=== PATIENT | male | born 1985 | race Caucasian/White ===

== ENCOUNTER 2022-07-17 09:07 | Emergency (ER) | payer MEDICAID, SELFPAY ==
[2022-07-17 09:07] VITALS: BP 126/89; PULSE 102; RESP 16; TEMP 37.1; O2SAT 97; BMI 25.5
--- NOTE | 2022-07-17 10:48 | EX.ED.DYSGE1 ---
HPI History of Present Illness Chief Complaint: General Illness Narrative Narrative: 37-year-old male presenting with a fever that started this morning and some congestion.Normal this morning and the fever is gone away. He does not have any chills or body aches. He does not have nausea or vomiting. Patient is here with his daughter who has been having similar symptoms for 3 days. No other sick contacts. He denies chest pain or shortness of breath. PFSH PFSH Medical History no medical history Home Medications amantadine HCl 100 mg capsule 100 mg PO BID 07/17/22 [History Last Taken Unknown] buspirone 5 mg tablet 5 mg PO BID 07/17/22 [History Last Taken Unknown] buspirone 7.5 mg tablet 7.5 mg PO BID 07/17/22 [History Last Taken Unknown] divalproex 500 mg tablet,delayed release (Depakote) 500 mg PO BID 07/17/22 [History Last Taken Unknown] escitalopram oxalate 10 mg tablet 10 mg PO DAILY 07/17/22 [History Last Taken Unknown] risperidone 2 mg tablet 2 mg PO QHS 07/17/22 [History Last Taken Unknown] sertraline 100 mg tablet 100 mg PO DAILY 07/17/22 [History Last Taken Unknown] sertraline 50 mg tablet 50 mg PO DAILY 07/17/22 [History Last Taken Unknown] Allergy/AdvReac Type Severity Reaction Status Date / Time haloperidol [From Haldol] Allergy Other Verified 07/17/22 09:10 olanzapine [From Zyprexa] Allergy Other Verified 07/17/22 09:10 Social History Smoking Status: Current every day smoker tobacco type: cigarettes EXAM Physical Exam Const Vital Signs: 07/17/22 09:07 07/17/22 09:18 Temperature 98.8 F Temperature Source Temporal Pulse Rate 102 H Respiratory Rate 16 Respiratory Effort Normal Non-Labored Respiratory Pattern Normal Blood Pressure 126/89 H Blood Pressure Mean 101 Pulse Ox 97 Oxygen Delivery Method Room Air Positive well nourished General Appearance ED: NAD; Negative for pallor HEENT Reports moist mucous membranes Eyes PERRL and EOMs intact bilaterally Neck no lymphadenopathy Chest Wall inspection of chest normal and palpation of chest normal Resp normal respiratory effort and clear to auscultation bilaterally Auscultation: Negative for rales, rhonchi or wheezes Cardio regular rate and regular rhythm GI normal to inspection, nondistended, normoactive bowel sounds Neuro oriented x3 and CN's II-XII intact bilaterally Sensorium / Orientation: alert Psych mental status grossly normal Skin no rashes or lesions noted and no wounds General Skin Exam: Negative for jaundice or pallor MDM MDM MDM Narrative Medical decision making narrative: Patient presenting with viral symptoms.. He took Tylenol today and his fever went away. He does not have a significant cough but he does admit to some congestion. No body aches or chills. He tested negative for COVID and influenza today. His daughter who is here with tested positive for influenza A. Counseled him it is likely that he has influenza A and tested negative. He is counseled to use Tylenol and ibuprofen for pain and fevers. He request Zofran for home in case he gets nauseous. Impression: 1. Viral syndrome Lab Data Attestation: I reviewed the patient's lab results. Discharge Plan Triage Chief Complaint: General Illness ED Provider: Dex Cespedes Dx/Rx/DC Orders Prescriptions: No Action buspirone 5 mg tablet 5 mg PO BID Label Comments: Take 1 Tablet By Oral Route 2 times per day sertraline 100 mg tablet 100 mg PO DAILY Label Comments: Take 1 Tablet By Oral Route 1 time per day divalproex [Depakote] 500 mg tablet,delayed release (DR/EC) 500 mg PO BID Label Comments: Take 1 tablet by mouth twice a day amantadine HCl 100 mg capsule 100 mg PO BID Label Comments: TAKE 1 CAPSULE BY MOUTH TWICE DAILY risperidone 2 mg tablet 2 mg PO QHS Label Comments: Take 1 tablet by mouth at bedtime buspirone 7.5 mg tablet 7.5 mg PO BID Label Comments: Take 1 tablet by mouth twice a day sertraline 50 mg tablet 50 mg PO DAILY Label Comments: Take 1 Tablet By Oral Route 1 time per day escitalopram oxalate 10 mg tablet 10 mg PO DAILY Label Comments: Take 1 tablet by mouth once a day Primary Care Provider: Linda Rosario Referrals: Linda Rosario MD [Primary Care Provider] -
== END 2022-07-17 11:08 | disposition home or self-care (01) ==
PROVIDERS: Emergency Provider Student in an Organized Health Care Education/Training Program; PCP Family Medicine; Visit Provider Student in an Organized Health Care Education/Training Program
DX: B34.9 Viral infection, unspecified (principal); F17.210 Nicotine dependence, cigarettes, uncomplicated
CPT/HCPCS: 87428; 99282

== ENCOUNTER 2023-01-07 11:19 | Emergency (ER) | payer MEDICAID, SELFPAY ==
[2023-01-07 11:20] VITALS: BP 148/92; PULSE 91; RESP 16; TEMP 36.6; O2SAT 99; BMI 24.2
--- NOTE | 2023-01-07 11:30 | EX.ED.DYSGE1 ---
HPI History of Present Illness Chief Complaint: Sore Throat PFSH PFSH Medical History no medical history Home Medications amantadine HCl 100 mg capsule 100 mg PO BID 07/17/22 [History Last Taken Unknown] buspirone 5 mg tablet 5 mg PO BID 07/17/22 [History Last Taken Unknown] buspirone 7.5 mg tablet 7.5 mg PO BID 07/17/22 [History Last Taken Unknown] divalproex 500 mg tablet,delayed release (Depakote) 500 mg PO BID 07/17/22 [History Last Taken Unknown] escitalopram oxalate 10 mg tablet 10 mg PO DAILY 07/17/22 [History Last Taken Unknown] ondansetron 4 mg disintegrating tablet 4 mg PO Q8H PRN nausea and vomiting #10 tabs 07/17/22 [Rx Last Taken Unknown] risperidone 2 mg tablet 2 mg PO QHS 07/17/22 [History Last Taken Unknown] sertraline 100 mg tablet 100 mg PO DAILY 07/17/22 [History Last Taken Unknown] sertraline 50 mg tablet 50 mg PO DAILY 07/17/22 [History Last Taken Unknown] Allergy/AdvReac Type Severity Reaction Status Date / Time haloperidol [From Haldol] Allergy Other Verified 07/17/22 09:10 lithium AdvReac Other Verified 01/07/23 11:22 olanzapine [From Zyprexa] AdvReac Other Verified 01/07/23 11:22 Social History Smoking Status: Current every day smoker tobacco type: cigarettes EXAM Physical Exam Const Vital Signs: 01/07/23 11:20 Temperature 97.9 F Temperature Source Temporal Pulse Rate 91 Respiratory Rate 16 Blood Pressure 148/92 H Blood Pressure Mean 110 Pulse Ox 99 Oxygen Delivery Method Room Air MDM MDM MDM Narrative Medical decision making narrative: HISTORY OF PRESENT ILLNESS: 37-year-old male here for sore throat. Patient states his symptoms started 3 days ago. No sick contact. States his girlfriend's daughter had viral pharyngitis. He states he does have a cough that is productive of yellow sputum. He does note shortness of breath but denies any chest pain. He denies any headache. Denies any neck stiffness drooling or difficulty swallowing. The patient denies recent surgery in the last 4 weeks or immobilization in the last 3 days, denies previous diagnosis of DVT or PE, hemoptysis, unilateral leg swelling or malignancy with treatment the last 6 months. No estrogen use noted. REVIEW OF SYSTEMS: Pertinent positives: Sore throat, cough, shortness of breath Pertinent negatives: Chest pain, syncope, leg swelling PHYSICAL EXAM: Nursing triage notes reviewed, Vital signs reviewed Constitutional: please see mdm HENT: MMM, mild pharyngeal erythema, uvula midline, no submandibular edema, Eyes: Pupils equal round and reactive to light, Extraocular muscles intact Neck: No stridor, no JVD, full neck ROM Lungs: Clear to auscultation, No wheezing or rales. No increased work of breathing, no conversational dyspnea, no accessory muscle use, no nasal flaring. No respiratory distress noted Heart: Regular rate and rhythm, No murmurs, No rubs and No gallops, 2+ distal pulses (radial, femoral, posterior tibial) in all extremities Abdomen: Soft, there is no tenderness, rigidity, rebound or guarding, no obvious peritoneal signs, no palpable pulsatile abdominal masses, no auscultated abdominal bruit : No CVAT Extremities: No edema Neuro: No focal neurological deficits, cranial nerves II through XII intact, 5/5 strength in all extremities. Intact sensation to light touch in all extremities, 2+ reflexes bilateral patella tendons. Normal gait. No ataxia. Skin: No rash or lesions noted MEDICAL DECISION MAKING: Chief Complaint: Sore throat, cough External records reviewed: No recent ED visits Factors affecting care: Depression, anxiety Social determinants of health: hx of mental health diagnoses History obtained from others: none Consults: None ALL IMAGES HAVE BEEN PERSONALLY REVIEWED AND INTERPRETED BY MYSELF. [facility] Narrative: The patient was hemodynamically stable, afebrile, nontoxic-appearing. No focal cardiopulmonary abnormalities, no focal consolidative processes noted auscultation. No signs of RPA, MEDICARE SPECIALIST, Lemierre's syndrome with Ludewig's angina on exam. I considered the following differential diagnosis: Bacterial versus viral pharyngitis, viral URI, pneumonia, COVID, flu I obtained a chest x-ray to rule out evidence of pneumonia. Chest x-ray was negative by my read. I Obtained swabs to rule out strep, COVID and flu. Microbiological studies and images were remarkable for negative COVID and flu. No clear etiology likely viral pharyngitis. The patient is given Tylenol, ibuprofen and fluid instructions. He expressed understanding and agreed with the plan. Total critical care time today provided was at least 0 minutes. This excludes separately billable procedures. There was a high probability of clinically significant/life threatening deterioration in the patient's condition which required my urgent intervention. Shared decision making: I will have a discussion with the patient and or visitors regarding risk/benefits of further testing or admission. They will be made aware of of the risk/benefits inherent in this decision they will be given the opportunity to voice understanding. Radiography Chest X-Ray - ED: Read by ED Physician Diagnostic Testing: Clinical Impression(s) from Imaging Studies Chest X-Ray 01/07/23 12:18 IMPRESSION: No radiographic evidence of acute cardiopulmonary disease. Electronically Signed: Sherrell Hoyt MD at 12:28 EDT , I have personally reviewed the patient's chest x-ray. Chest x-ray is unremarkable for pulmonary edema, pneumothorax, pneumonia or focal cardiopulmonary abnormality. Discharge Plan Triage Chief Complaint: Sore Throat ED Provider: Christiano Meneses Dx/Rx/DC Orders Clinical Impression: History of viral pharyngitis Instructions: ED Pharyngitis, Viral Prescriptions: No Action buspirone 5 mg tablet 5 mg PO BID Label Comments: Take 1 Tablet By Oral Route 2 times per day sertraline 100 mg tablet 100 mg PO DAILY Label Comments: Take 1 Tablet By Oral Route 1 time per day divalproex [Depakote] 500 mg tablet,delayed release (DR/EC) 500 mg PO BID Label Comments: Take 1 tablet by mouth twice a day amantadine HCl 100 mg capsule 100 mg PO BID Label Comments: TAKE 1 CAPSULE BY MOUTH TWICE DAILY risperidone 2 mg tablet 2 mg PO QHS Label Comments: Take 1 tablet by mouth at bedtime buspirone 7.5 mg tablet 7.5 mg PO BID Label Comments: Take 1 tablet by mouth twice a day sertraline 50 mg tablet 50 mg PO DAILY Label Comments: Take 1 Tablet By Oral Route 1 time per day escitalopram oxalate 10 mg tablet 10 mg PO DAILY Label Comments: Take 1 tablet by mouth once a day ondansetron 4 mg tablet,disintegrating 4 mg PO Q8H PRN (Reason: nausea and vomiting) Qty: 10 0RF Stand Alone Forms: ED Work / School Excuse Primary Care Provider: Marta Lauren Referrals: Marta Lauren, [employer] MACHINE OPERATOR-C [Primary Care Provider] - Activity Restrictions/Additional Instructions: Thank you for trusting us with your care today! Please take Tylenol (2 pills, 650 mg), ibuprofen (2 pills, 400 mg) every 6 hours as needed for pain and fever control. Please drink plenty of fluids. I recommend Pedialyte or body armor as these contain electrolytes as well for improved hydration. Please return if you develop difficulty swallowing, neck stiffness, drooling, inability to take your medicine by mouth. Please return to the emergency department if your symptoms change or worsen. Please follow with your primary care physician for further outpatient evaluation and management. Disposition Disposition: Home, Self Care
--- NOTE | 2023-01-07 12:18 | RAD_ITS ---
INDICATION: cough, shortness of breath EXAMINATION/TECHNIQUE: X-RAY - XR Chest 2 Views COMPARISON: FINDINGS: LINES/DEVICES: None. LUNGS: No consolidation, edema or effusion. No pneumothorax. MEDIASTINUM AND CARDIOVASCULAR STRUCTURES: Cardiac silhouette not enlarged. Central airways and mediastinal contour are unremarkable. BONES AND SOFT TISSUES: Unremarkable. RAD/Chest PA and Lateral IMPRESSION: No radiographic evidence of acute cardiopulmonary disease. Electronically Signed: Sherrell Hoyt MD at 12:28 EDT ,
== END 2023-01-07 14:33 | disposition home or self-care (01) ==
PROVIDERS: Emergency Provider Emergency Medicine; PCP Nurse Practitioner Family; Visit Provider Emergency Medicine
DX: J02.9 Acute pharyngitis, unspecified (principal); F17.210 Nicotine dependence, cigarettes, uncomplicated
CPT/HCPCS: 71046; 87428; 87880; 99282

== ENCOUNTER → 2023-01-19 | Outpatient (CLI) | payer MEDICAID, SELFPAY ==
[2023-01-19 18:14] LABS: Bacteria 0 SEEN /hpf (None Seen); Mucous, Urine 0 SEEN /hpf (<or=2+); Red Blood Cells-Urine 0 SEEN /hpf (0-5); Squamous Epithelial Cells - UA 0 SEEN /hpf (0-5)
[2023-01-19 18:41] LABS: Color, Urine Yellow (Yellow); Glucose, Dipstick Normal (Normal); Ketone-Dipstick Negative (Negative); Leukocyte Esterase-Dipstick Negative /ul (Negative); Nitrite-Dipstick Negative (Negative); Occult Blood-Urine Negative /ul (Negative); Protein-Dipstick Negative (Negative); Urine Bilirubin Dipstick Negative (Negative); Urine Clarity Sl. Cloudy (Clear); Urine Urobilinogen Normal (Normal)
[2023-01-19 18:50] LABS: Amorphous Sediment 1+; White Blood Cells 0-5 SEEN /hpf (0-5)
== END | disposition home or self-care (01) ==
PROVIDERS: PCP Nurse Practitioner Family; Visit Provider Physician Assistant Surgical
DX: R30.0 Dysuria (principal)
CPT/HCPCS: 81001; 87086

== ENCOUNTER 2023-01-24 11:08 | Emergency (ER) | payer MEDICAID, SELFPAY ==
[2023-01-24 11:09] VITALS: BP 123/85; PULSE 61; RESP 16; TEMP 36.3; O2SAT 100; BMI 24.4
--- NOTE | 2023-01-24 11:42 | CT_ITS ---
EXAM: CT ABDOMEN AND PELVIS WITHOUT INTRAVENOUS CONTRAST CLINICAL INDICATION: Flank pain TECHNIQUE: Helically acquired images were obtained of the abdomen and pelvis without intravenous contrast. This CT exam was performed using one or more of the following dose reduction techniques: automated exposure control, adjustment of the mA and/or kV according to patient size, and/or use of iterative reconstruction technique. RADIATION DOSE: CTDIvol = 6.85 mGy, DLP = 361.13 mGy-cm COMPARISON: No relevant prior studies available. FINDINGS: LOWER THORAX: Unremarkable. Lung bases are clear. No cardiomegaly. No significant pericardial effusion. ABDOMEN: LIVER: Unremarkable. Homogeneous. GALLBLADDER AND BILE DUCTS: Unremarkable. No calcified gallstones. No gallbladder distention or wall edema. No intra- or extrahepatic biliary ductal dilation. PANCREAS: Unremarkable. No focal cystic mass. SPLEEN: Unremarkable. Normal size without focal cystic or solid mass. ADRENALS: Unremarkable. No nodules. KIDNEYS AND URETERS: Unremarkable. Normal renal size and position. No hydronephrosis. STOMACH AND BOWEL: Unremarkable. No stomach or bowel distention. No focal inflammatory change. PELVIS: APPENDIX: Normal. BLADDER: Unremarkable. REPRODUCTIVE: Unremarkable as visualized. No mass. ABDOMEN and PELVIS: INTRAPERITONEAL SPACE: Unremarkable. No ascites or other fluid collection. No free air. BONES/JOINTS: Unremarkable. No suspicious lytic or blastic abnormality. SOFT TISSUES: Unremarkable. No discrete abdominal or pelvic wall hernia. VASCULATURE: Unremarkable. Abdominal aorta is non-dilated. LYMPH NODES: Unremarkable. No enlarged lymph nodes. CT/Abdomen/Pelvis without Cont IMPRESSION: Negative CT of the abdomen and pelvis without intravenous contrast. Electronically Signed: Manas Scott MD at 12:56 EDT ,
--- NOTE | 2023-01-24 11:59 | EDS_ITS ---
HPI History of Present Illness Chief Complaint: Complaint Onset/Context/Timing Onset: Month(s) (1) Context: Gradual Onset Timing: Continuous Quality: Burning Location: Urethra Worsened by: Urination Relieved by: Nothing Narrative Narrative: Patient presents with dysuria that has been constant for the last month. Patient states he has had a urinary tract infection where they noticed bacteria in his urine. Patient was given an antibiotic for urinary tract infection along with antibiotics to treat chlamydia, trichomonas, and syphilis. Patient states he completed a course of doxycycline and azithromycin. Patient admits to some white/yellow discharge approximately 2 weeks ago. Patient denies any discharge currently. Patient does admit to some bilateral flank pain that is slightly worse on the right. Patient states his fianc?e tested positive for chlamydia a couple weeks ago. Patient was retested after treatment and was negative. [facility] Medical History Hypertension Seizure Stomach ulcer Home Medications azithromycin 500 mg tablet 500 mg PO DAILY #4 tabs 01/19/23 [Rx Last Taken Unknown] doxycycline hyclate 100 mg capsule 100 mg PO BID 10 days #20 caps 01/19/23 [Rx Last Taken Unknown] melatonin 10 mg capsule 10 mg PO HS PRN 01/19/23 [History Last Taken Unknown] Allergy/AdvReac Type Severity Reaction Status Date / Time haloperidol [From Haldol] Allergy Other Verified 01/24/23 11:11 lithium AdvReac Other Verified 01/24/23 11:11 olanzapine [From Zyprexa] AdvReac Other Verified 01/24/23 11:11 Surgical History History of esophagogastroduodenoscopy (EGD) Social History Smoking Status: Current every day smoker tobacco type: cigarettes ROS ROS ED Constitutional Constitutional ED: Denies chills or fever(s) Eyes Eyes: Denies blurry vision or change in vision ENT ENT ED: Denies rhinorrhea or sore throat Cardiovascular Cardiovascular: Denies chest pain or palpitations Respiratory/Chest Respiratory/Chest: Denies cough or dyspnea Gastrointestinal Gastrointestinal: Reports abdominal pain; Denies nausea or vomiting Genitourinary Genitourinary ED: Reports dysuria and hematuria Musculoskeletal Musculoskeletal: Reports back pain; Denies neck pain Integumentary Denies abscess or rash Neurologic Neurologic: Denies headache(s) or weakness Allergic/Immunologic Allergic/Immunologic ED: Denies mouth swelling or urticaria EXAM Physical Exam Const Vital Signs: 01/24/23 11:09 Temperature 97.4 F L Temperature Source Temporal Pulse Rate 61 Respiratory Rate 16 Blood Pressure 123/85 H Blood Pressure Mean 97 Pulse Ox 100 Oxygen Delivery Method Room Air Positive well nourished and well developed General Appearance ED: well developed HEENT Reports moist mucous membranes Neck supple and no JVD Resp normal respiratory effort and clear to auscultation bilaterally Cardio regular rate, regular rhythm and no murmurs GI normal to inspection, nondistended, normoactive bowel sounds Palpation: soft and tender LLQ, RLQ and suprapubic; Negative for guarding or rebound tenderness present Back/Spine General Back: CVA tenderness right Extremity normal to inspection General Extremety ED: Negative for edema or tenderness General Extremity: Negative for edema Neuro oriented x3, CN's II-XII intact bilaterally and no sensory deficits noted Sensorium / Orientation: alert Motor Exam: strength 5/5 throughout Psych mental status grossly normal Skin no rashes or lesions noted MDM MDM MDM Narrative Medical decision making narrative: Differential diagnosis includes urinary tract infection, urethritis, STD, and ureteral calculus. Urinalysis will be obtained to assess for urinary tract infection. CT scan of the abdomen pelvis will be obtained to assess for ureteral calculus. GC and chlamydia PCR will be obtained to assess for gonorrhea and chlamydia. Lab Data Attestation: I reviewed the patient's lab results. Lab results narrative: Urinalysis was reviewed. Leukocyte Estrace was 25. The remainder was within normal limits. There is no evidence of urinary tract infection or hematuria. Labs: Laboratory Results - last 24 hr 01/24/23 11:20 Urine Color Yellow Urine Clarity Clear Urine pH 5.0 Ur Specific [place] 1.020 Urine Protein 15 H Urine Glucose (UA) Normal Urine Ketones Negative Urine Occult Blood Negative Urine Nitrite Negative Urine Bilirubin Negative Urine Urobilinogen Normal Ur Leukocyte Esterase 25 H Urine RBC 0 SEEN Urine WBC 0 SEEN Ur Squamous Epith Cells 0 SEEN Urine Bacteria 0 SEEN Urine Mucus 0 SEEN Radiography Diagnostic Testing: Clinical Impression(s) from Imaging Studies Abdomen/Pelvis CT 01/24/23 11:42 IMPRESSION: Negative CT of the abdomen and pelvis without intravenous contrast. Electronically Signed: Manas Scott MD at 12:56 EDT , CT scan of the abdomen and pelvis was obtained. There is no evidence of ureteral calculus or hydronephrosis. There is no acute process noted. This was interpreted by the radiologist and was also independently reviewed by myself. Treatment and Re-Evaluation :: Patient was advised of his findings. Patient was advised that the GC and chlamydia PCR is still pending. Patient was given a dose of Rocephin, Zithromax, and metronidazole here to cover for all sexually transmitted diseases. Patient was instructed to follow-up with his primary care physician in 5 to 7 days. Patient understood and was agreeable with the plan. All questions were answered. Discharge Plan Triage Chief Complaint: Complaint ED Provider: Lele Nguyen Dx/Rx/DC Orders Clinical Impression: Dysuria, Chlamydia contact Instructions: ED Dysuria, Uncertain Cause (Adult) Prescriptions: No Action melatonin 10 mg capsule 10 mg PO HS PRN doxycycline hyclate 100 mg capsule 100 mg PO BID 10 Days Qty: 20 0RF azithromycin 500 mg tablet 500 mg PO DAILY Qty: 4 0RF Rx Instructions: Take 2 tablets today and then 1 tablet daily for the next 2 days. Primary Care Provider: Marta Lauren Referrals: Marta Lauren, CONGRESSIONAL DISTRICT AIDE-C [Primary Care Provider] - 5-7 Days Disposition Disposition: Home, Self Care
[2023-01-24 12:22] LABS: Bacteria 0 SEEN /hpf (None Seen); Mucous, Urine 0 SEEN /hpf (<or=2+); Red Blood Cells-Urine 0 SEEN /hpf (0-5); Squamous Epithelial Cells - UA 0 SEEN /hpf (0-5); White Blood Cells 0 SEEN /hpf (0-5)
[2023-01-24 12:29] LABS: Color, Urine Yellow (Yellow); Glucose, Dipstick Normal (Normal); Ketone-Dipstick Negative (Negative); Leukocyte Esterase-Dipstick 25 /ul (Negative); Nitrite-Dipstick Negative (Negative); Occult Blood-Urine Negative /ul (Negative); Protein-Dipstick 15 mg/dl (Negative); Urine Bilirubin Dipstick Negative (Negative); Urine Clarity Clear (Clear); Urine Urobilinogen Normal (Normal)
[2023-01-24] MEDS: Azithromycin 250 MG Tablet 1000 MG PO (14:26)
[2023-01-24] MEDS: metroNIDAZOLE 500 MG Tablet 2000 MG PO (14:27)
[2023-01-24] MEDS: Ceftriaxone 500 MG Vial 250 MG IM (15:11)
== END 2023-01-24 15:32 | disposition home or self-care (01) ==
PROVIDERS: Emergency Provider Emergency Medicine; PCP Nurse Practitioner Family; Visit Provider Emergency Medicine
DX: R30.0 Dysuria (principal); F17.210 Nicotine dependence, cigarettes, uncomplicated; Z20.2 Contact with and (suspected) exposure to infections with a predominantly sexual mode of transmission
CPT/HCPCS: 74176; 81001; 87491; 87591; 96372; 99283

== ENCOUNTER 2024-01-29 07:47 | Emergency (ER) | payer MEDICAID, SELFPAY ==
[2024-01-29 07:48] VITALS: BP 141/97; PULSE 98; RESP 16; TEMP 36.8; O2SAT 97; BMI 26.0
--- NOTE | 2024-01-29 08:02 | ED.VIS.BACK ---
HPI History of Present Illness Chief Complaint: Other, Pain/Inj Detail of Chief Complaint: Bilateral flank pain for about a month. Informant: patient Onset/Context/Timing Onset: Weeks Context: Gradual Onset Timing: Intermittent Quality: Dull and Aching Location: Lumbar Current Severity: Mild Maximum Severity: Mild Worsened by: improves with Nothing Relieved by: Nothing Associated Symptoms Associated Symptoms: Negative for Numbness or Tingling Narrative Narrative: 38-year-old male no seen past medical history. States he has had bilateral flank pain primarily in the mornings for about the last month. Basically wakes up with it in the morning and then it goes away after several hours. Nothing specifically makes it better or worse. Denies any fall or injury or trauma to his back. Denies any dysuria or hematuria. No history of kidney stones. No history of abdominal, back or urologic surgeries. He denies any fever or weight loss. He denies any vomiting or diarrhea. Prior similar symptoms: Yes Recent Illness/Hospitalization: No PFSH PFSH Medical History Seizure Stomach ulcer Hypertension Home Medications ?Medication ?Instructions ?Recorded ?Last Taken ?Type azithromycin 500 mg tablet 500 mg PO DAILY #4 tabs 01/19/23 Unknown Rx melatonin 10 mg capsule 10 mg PO HS PRN 01/19/23 Unknown History Allergy/AdvReac Type Severity Reaction Status Date / Time haloperidol (From Haldol) Allergy Other Verified 01/29/24 07:48 lithium AdvReac Other Verified 01/29/24 07:48 olanzapine (From Zyprexa) AdvReac Other Verified 01/29/24 07:48 Surgical History History of esophagogastroduodenoscopy (EGD) Social History Smoking Status: Current every day smoker tobacco type: cigarettes ROS ROS ED ROS Narrative Bilateral flank pain. Review of Systems ROS Unobtainable: Denies due to encephalopathy Constitutional Constitutional ED: Denies chills or fever(s) Eyes Eyes: Denies blurry vision ENT ENT ED: Denies ear pain Cardiovascular Cardiovascular: Denies chest pain Respiratory/Chest Respiratory/Chest: Denies dyspnea Gastrointestinal Gastrointestinal: Denies abdominal pain, constipation, diarrhea, melena, nausea or vomiting Genitourinary Genitourinary ED: Denies dysuria or hematuria Musculoskeletal Musculoskeletal: Reports back pain; Denies arthralgias, myalgias or neck pain Integumentary Denies abscess, Abrasions or rash Neurologic Neurologic: Denies headache(s) Psychiatric Psychiatric: Denies anxiety or depression Endocrine Endocrinology: Denies cold intolerance Hematologic/Lymphatic Hematologic/Lymphatic: Denies easy bleeding, easy bruising or lymphadenopathy Allergic/Immunologic Allergic/Immunologic ED: Denies mouth swelling, tongue swelling or urticaria EXAM Physical Exam Narrative Exam Narrative: Well-appearing 38-year-old male. Vital signs stable afebrile. H EENT exam unremarkable. Neck nontender. Lungs clear to auscultation bilaterally. Heart regular rhythm no murmur. Abdomen soft nontender. Moving all 4 extremities. Normal strength. Normal sensation. He ambulated in the room. Back there is no reproducible musculoskeletal or spine tenderness. No signs of trauma. No bruising redness or warmth to his back. Neurologically is awake and alert with no focal motor deficits. Const Vital Signs: 01/29/24 07:48 Temperature 98.2 F Temperature Source Temporal Pulse Rate 98 Respiratory Rate 16 Blood Pressure 141/97 H Blood Pressure Mean 111 Pulse Ox 97 Oxygen Delivery Method Room Air Positive well nourished and well developed; Negative for obese, cachectic, contractures or unkempt General Appearance ED: well developed and NAD; Negative for unkempt, cachectic, contractures or pallor Nutritional Appearance: Negative for cachectic or obese HEENT Reports moist mucous membranes Negative for trauma or tenderness Eyes PERRL and EOMs intact bilaterally General Eye ED: Negative for pale conjunctiva or scleral icterus Neck no lymphadenopathy, supple and no JVD General: Negative for tenderness Thyroid: Negative for other Resp normal respiratory effort and clear to auscultation bilaterally Effort and Inspection: Negative for pain with movement Auscultation: Negative for rales, rhonchi, wheezes or diminished lung sounds Cardio regular rate, regular rhythm, S1 normal heart sound, S2 normal heart sound and no murmurs Palpation: Negative for palpable S3 Rate: Negative for bradycardia or tachycardic Rhythm: Negative for abnormal rhythm Bruits: Negative for other GI normal to inspection, nondistended, normoactive bowel sounds, soft to palpation, non-tender, non-distended and no masses Inspection: Negative for abdominal distention Palpation: Negative for tender, guarding or rebound tenderness present Back/Spine normal to inspection and no thoracic nor lumbar tenderness General Back: Negative for CVA tenderness Cervical Spine: Negative for cervical spine tenderness Thoracic Spine / Upper Back: Negative for paraspinal muscle tenderness Lumbar Spine / Lower Back: Negative for ROM limited Extremity normal to inspection and no clubbing, cyanosis or edema General Extremety ED: Negative for edema or tenderness General Extremity: Negative for edema Neuro oriented x3 and no sensory deficits noted Sensorium / Orientation: alert; Negative for confused, lethargic or stuporous Motor Exam: strength 5/5 throughout Psych mental status grossly normal Appearance: Negative for unkempt Mood & Affect: Negative for depressed, sad or tearful Skin no rashes or lesions noted and no wounds General Skin Exam: Negative for jaundice or pallor Lesions: No lesion noted Rashes: No rashes noted Trauma: Negative for abrasion, puncture or other Wounds: Negative for wounds noted MDM MDM MDM Narrative Medical decision making narrative: 38-year-old male with bilateral flank pain for about a month. Denies any trauma. No neurologic symptoms. No significant history. I do not believe he needs any imaging. I do not think this is a kidney stone since the bilateral. Will check a UA for infection or blood. Screening labs and BUN and creatinine kidney function. He does not anything for pain. This may be musculoskeletal but is not reproducible. Repeat exam patient is doing well at 8:31 AM. We discussed all his normal test results. I think this is musculoskeletal in etiology. He will be instructed use Tylenol and Motrin for pain. If not improving follow-up with his primary care physician. Given his exam, vital signs and labs I do not think he needs any imaging at this time. History & Record Review Discussion w/independent historian: Patient and Family Additional record(s) reviewed:: Prior inpatient record, Prior outpatient record, Prior ED visit and Prior labs Lab Data Attestation: I reviewed the patient's lab results. Lab results narrative: CBC normal. White count of 6. H&H is 16 and 47. Platelets 227. UA is normal. No white or red cells. No nitrites nor any bacteria. BMP is normal. Normal gap. Normal kidney function with a BUN of 14 and creatinine 0.9. Labs: Laboratory Results - last 24 hr 06/21/24 08:08 WBC 6.6 RBC 5.47 Hgb 16.5 Hct 47.6 MCV 87.0 MCH 30.2 MCHC 34.7 RDW Std Deviation 38.8 RDW Coeff of Carmen 12.2 Plt Count 227 MPV 9.3 Immature Gran % (Auto) 0.300 Neut % (Auto) 59.0 Lymph % (Auto) 27.1 Rhea % (Auto) 10.4 H Eos % (Auto) 2.1 Baso % (Auto) 1.1 H Absolute Neuts (auto) 3.9 Absolute Lymphs (auto) 1.80 Nucleated RBC % 0 Sodium 137 Potassium 4.0 Chloride 106 Carbon Dioxide 25.0 Anion Gap 6 BUN 14 Creatinine 0.90 Estim Creat Clear Calc 135.29 Est GFR (MDRD) Af Amer 120 Est GFR (MDRD) Non-Af 99 BUN/Creatinine Ratio 15.5 Glucose 103 Calcium 9.4 Urine Color Yellow Urine Clarity Clear Urine pH 6.0 Ur Specific [place] 1.025 Urine Protein 15 H Urine Glucose (UA) Normal Urine Ketones Negative Urine Occult Blood Negative Urine Nitrite Negative Urine Bilirubin Negative Urine Urobilinogen 1 H Ur Leukocyte Esterase Negative Urine RBC 0 SEEN Urine WBC 0 SEEN Ur Squamous Epith Cells 0 SEEN Urine Bacteria 0 SEEN Urine Mucus 0 SEEN Discharge Plan Triage Chief Complaint: Other, Pain/Inj ED Provider: Mitchel Calderón Dx/Rx/DC Orders Clinical Impression: Bilateral flank pain Prescriptions: No Action melatonin 10 mg capsule 10 mg PO HS PRN azithromycin 500 mg tablet 500 mg PO DAILY Qty: 4 0RF Rx Instructions: Take 2 tablets today and then 1 tablet daily for the next 2 days. Primary Care Provider: Marta Lauren Referrals: Marta Lauren, [employer]OL TECHNICIAN-C [Primary Care Provider] - 10-14 Days if not better Activity Restrictions/Additional Instructions: Motrin and Tylenol for pain. Follow-up with your primary care provider for further evaluation. Your labs today were normal. I suspect this is musculoskeletal back pain. Print Language: Spanish Disposition Disposition: Home, Self Care
[2024-01-29 08:12] LABS: Bacteria 0 SEEN /hpf (None Seen); Mucous, Urine 0 SEEN /hpf (<or=2+); Red Blood Cells-Urine 0 SEEN /hpf (0-5); Squamous Epithelial Cells - UA 0 SEEN /hpf (0-5); White Blood Cells 0 SEEN /hpf (0-5)
[2024-01-29 08:16] LABS: Absolute Neutrophil Count 3.9 X10^3/uL (2.0-7.7); Basophil# 0.07 X10^3/uL; Basophil% 1.1 % (0-1); Eosinophil# 0.14 X10^3/uL; Eosinophils% 2.1 % (0-5); Hematocrit 47.6 % (40-54); Hemoglobin 16.5 g/dL (13.0-16.5); Lymphocyte % 27.1 % (19-41); Mean Corp Hgb Conc 34.7 g/dL (32-36); Mean Corpuscular Hgb 30.2 pg (27.0-32.0); Mean Platelet Vol. 9.3 fl (6.2-12.0); Monocyte# 0.69 X10^3/uL; Monocyte% 10.4 % (0-10); NRBC Flagged by Analyzer 0 % (0-5); Neutrophil # 3.91 X10^3/uL (2.7-7.7); Platelet Count 227 K/mm3 (150-450); RBC Distribution Width CV 12.2 % (11.6-14.6); RBC Distribution Width SD 38.8 fl (35.1-43.9); Red Blood Count 5.47 M/mm3 (4.6-6.2); White Blood Count 6.6 K/mm3 (4.4-11.0)
[2024-01-29 08:18] LABS: Color, Urine Yellow (Yellow); Glucose, Dipstick Normal (Normal); Ketone-Dipstick Negative (Negative); Leukocyte Esterase-Dipstick Negative /ul (Negative); Nitrite-Dipstick Negative (Negative); Occult Blood-Urine Negative /ul (Negative); Protein-Dipstick 15 mg/dl (Negative); Specific Gravity, Urine 1.025 (1.002-1.030); Urine Bilirubin Dipstick Negative (Negative); Urine Clarity Clear (Clear); Urine Urobilinogen 1 mg/dl (Normal)
[2024-01-29 08:27] LABS: Anion Gap 6 (5-15); BUN 14 mg/dL (7-18); BUN/Creat Ratio 15.5 RATIO (10-20); Calcium,Total 9.4 mg/dL (8.5-10.1); Chloride 106 mmol/L (98-107); EST Glomerular Filtration Rate 99 mL/min (>60); Est Glom Filt Rate - Afr Amer 120 mL/min (>60); Estimated Creatinine Clearance 135.29 ml/min; Glucose 103 mg/dL (74-106); Sodium Level 137 mmol/L (136-145)
[2024-01-29 08:39] VITALS: BP 148/80; PULSE 88; RESP 18; TEMP 36.6; O2SAT 98
== END 2024-01-29 08:42 | disposition home or self-care (01) ==
PROVIDERS: Emergency Provider Emergency Medicine; PCP Nurse Practitioner Family; Visit Provider Emergency Medicine
DX: R10.9 Unspecified abdominal pain (principal); F17.210 Nicotine dependence, cigarettes, uncomplicated; I10 Essential (primary) hypertension
CPT/HCPCS: 80048; 81001; 85025; 99282; A4216

== ENCOUNTER 2024-02-28 16:17 | Emergency (ER) | payer MEDICAID, SELFPAY ==
[2024-02-28 16:18] VITALS: BP 153/104; PULSE 124; RESP 16; TEMP 36.8; O2SAT 97; BMI 27.0
--- NOTE | 2024-02-28 16:41 | EX.ED.DYSGE1 ---
HPI <ALICE Rock - Last Filed: 02/28/24 21:05> History of Present Illness Chief Complaint: Rash Narrative Narrative: Patient presenting today due to an itchy rash to his left lower extremity he has had since last Thursday evening. He does have a few itchy spots to his right leg as well. He reports that he was laying in his friend's driveway fixing his car, later that evening he noticed pruritic bumps to his left leg. He reports a history of sensitive skin and has had contact dermatitis several times, he is scheduled to see an surgical product sales consultant next month. He denies any new soaps or detergents or products on his skin. He has been applying hydrocortisone cream, chamomile lotion, and taking Benadryl with minimal relief. He denies any fevers or chills. PFSH <ALICE Rock - Last Filed: 02/28/24 21:05> PFSH Medical History Seizure Stomach ulcer Hypertension Home Medications ?Medication ?Instructions ?Recorded ?Last Taken ?Type azithromycin 500 mg tablet 500 mg PO DAILY #4 tabs 01/19/23 Unknown Rx melatonin 10 mg capsule 10 mg PO HS PRN 01/19/23 Unknown History cephalexin 500 mg capsule 500 mg PO Q6 #39 CAPSULES 02/28/24 Unknown Rx sulfamethoxazole 800 1 tab PO BID #19 tabs 02/28/24 Unknown Rx mg-trimethoprim 160 mg tablet (Bactrim DS) Allergy/AdvReac Type Severity Reaction Status Date / Time haloperidol (From Haldol) Allergy Other Verified 02/28/24 16:18 lithium AdvReac Other Verified 02/28/24 16:18 olanzapine (From Zyprexa) AdvReac Other Verified 02/28/24 16:18 Surgical History History of esophagogastroduodenoscopy (EGD) Social History Smoking Status: Current every day smoker tobacco type: cigarettes ROS <ALICE Rock - Last Filed: 02/28/24 21:05> ROS ED Constitutional Constitutional ED: Denies chills or fever(s) Cardiovascular Cardiovascular: Denies chest pain Respiratory/Chest Respiratory/Chest: Denies dyspnea Gastrointestinal Gastrointestinal: Denies abdominal pain, nausea or vomiting Musculoskeletal Musculoskeletal: Denies arthralgias or myalgias Integumentary Reports rash Allergic/Immunologic Allergic/Immunologic ED: Denies mouth swelling, tongue swelling or urticaria EXAM <ALICE Rock - Last Filed: 02/28/24 21:05> Physical Exam Const Vital Signs: 02/28/24 16:18 02/28/24 17:06 Temperature 98.3 F 98.3 F Temperature Source Temporal Pulse Rate 124 H 99 Respiratory Rate 16 16 Blood Pressure 153/104 H 148/89 H Blood Pressure Mean 120 108 Pulse Ox 97 97 Oxygen Delivery Method Room Air Positive well nourished, well developed and no apparent distress General Appearance ED: well developed HEENT Reports normocephalic and head/scalp atraumatic HEENT Narrative: No angioedema Mouth ED: Yes moist mucous membranes normal Eyes PERRL and EOMs intact bilaterally Neck full ROM and supple Chest Wall inspection of chest normal Resp normal respiratory effort and clear to auscultation bilaterally Cardio regular rate and regular rhythm Back/Spine normal ROM and normal to inspection Extremity full ROM General Extremety ED: Negative for edema General Extremity: Negative for edema Neuro oriented x3, CN's II-XII intact bilaterally, moves all extremities, no focal motor deficits and no sensory deficits noted Sensorium / Orientation: awake and alert Psych mental status grossly normal and thought process normal Skin no wounds Skin Narrative: Papular pruritic rash to the left lower extremity with minimal surrounding erythema, no fluctuance or warmth, no purulent discharge, a few lesions to right lower extremity <Dr. Earl Bess DO - Last Filed: 02/28/24 16:52> Physical Exam Const Vital Signs: 02/28/24 16:18 02/28/24 17:06 Temperature 98.3 F 98.3 F Temperature Source Temporal Pulse Rate 124 H 99 Respiratory Rate 16 16 Blood Pressure 153/104 H 148/89 H Blood Pressure Mean 120 108 Pulse Ox 97 97 Oxygen Delivery Method Room Air MDM <ALICE Rock - Last Filed: 02/28/24 21:05> MDM MDM Narrative Medical decision making narrative: Patient presenting today with a rash to his left lower extremity he has had over the past week, he also has slight involvement of his right lower extremity. He has been using Benadryl and hydrocortisone cream without relief. His rash does seem to be associated with hair follicles which is concerning for folliculitis. We will treat him with Keflex and Bactrim. I encouraged that he follow-up with his PCP. Return instructions were discussed. Patient discharged home in stable condition. I have personally performed a face to face assessment of the patient and have reviewed the SD Note. I performed a substantive portion of the visit including all aspects of the following. My [place] findings include: History is [patient presents to the emergency department complaint of a rash to his left lower extremity and also a mild rash on his right lower extremity. He initially noticed the rash a week ago. Denies any new soaps or detergents. Patient denies any fevers or recent illness. He has been using Benadryl and hydrocortisone cream and not get much relief. Patient denies being any hot tubs. Denies any new medications.] Exam is [HEENT-PERRLA, EOMI. Cranial nerves II through XII grossly intact. TMs clear. Mucous membranes moist. No adenopathy. Cardiovascular-regular rate and rhythm without murmur or ectopy Lungs-clear to auscultation, chest wall stable without crepitus or subcu emphysema Abdomen-normoactive bowel sounds, soft, nontender, no rebound or rigidity, no peritoneal signs. Skin-patient does have a erythematous rash involving the left lower extremity from below the knee down to the ankle which tends to be associated with the hair follicles. There are some faint erythema and some of the lesions have some mild induration. No obvious pustules noted at this time. Similar rash also noted on the right lower extremity but he only has about 3-4 lesions on the right lower extremity. Extremities-intact ?4, normal range of motion, normal pulses, atraumatic] Medical Decison Making [patient presents with a rash on his left lower extremity as well as the right lower extremity. Clinically I suspect a folliculitis. Will cover with Keflex and Bactrim. Advised to follow-up with his primary care physician within next 5 to 7 days. Advised to return if fever, chills, or condition should worsen anyway.] Other additions or changes: [None] <Dr. Earl Bess, DO - Last Filed: 02/28/24 16:52> MDM MDM Narrative Medical decision making narrative: I have personally performed a face to face assessment of the patient and have reviewed the SD Note. I performed a substantive portion of the visit including all aspects of the following. My [place] findings include: History is [patient presents to the emergency department complaint of a rash to his left lower extremity and also a mild rash on his right lower extremity. He initially noticed the rash a week ago. Denies any new soaps or detergents. Patient denies any fevers or recent illness. He has been using Benadryl and hydrocortisone cream and not get much relief. Patient denies being any hot tubs. Denies any new medications.] Exam is [HEENT-PERRLA, EOMI. Cranial nerves II through XII grossly intact. TMs clear. Mucous membranes moist. No adenopathy. Cardiovascular-regular rate and rhythm without murmur or ectopy Lungs-clear to auscultation, chest wall stable without crepitus or subcu emphysema Abdomen-normoactive bowel sounds, soft, nontender, no rebound or rigidity, no peritoneal signs. Skin-patient does have a erythematous rash involving the left lower extremity from below the knee down to the ankle which tends to be associated with the hair follicles. There are some faint erythema and some of the lesions have some mild induration. No obvious pustules noted at this time. Similar rash also noted on the right lower extremity but he only has about 3-4 lesions on the right lower extremity. Extremities-intact ?4, normal range of motion, normal pulses, atraumatic] Medical Decison Making [patient presents with a rash on his left lower extremity as well as the right lower extremity. Clinically I suspect a folliculitis. Will cover with Keflex and Bactrim. Advised to follow-up with his primary care physician within next 5 to 7 days. Advised to return if fever, chills, or condition should worsen anyway.] Other additions or changes: [None] Discharge Plan Triage Chief Complaint: Rash ED Midlevel Provider: Linnea Sigala ED Provider: Earl Bess Dx/Rx/DC Orders Clinical Impression: Folliculitis Instructions: ED Folliculitis Prescriptions: New cephalexin 500 mg capsule 500 mg PO Q6 Qty: 39 0RF sulfamethoxazole-trimethoprim [Bactrim DS] 800-160 mg tablet 1 tab PO BID Qty: 19 0RF No Action melatonin 10 mg capsule 10 mg PO HS PRN azithromycin 500 mg tablet 500 mg PO DAILY Qty: 4 0RF Rx Instructions: Take 2 tablets today and then 1 tablet daily for the next 2 days. Primary Care Provider: Marta Lauren Referrals: Marta Lauren, [employer] LIBRARY CLERK-C [Primary Care Provider] - 5-7 Days Activity Restrictions/Additional Instructions: Follow-up with your PCP and return for any worsening of your symptoms. Print Language: Welsh Disposition Disposition: Home, Self Care Discharge Date/Time: 02/28/24 17:00
[2024-02-28 17:06] VITALS: BP 148/89; PULSE 99; RESP 16; TEMP 36.8; O2SAT 97
== END 2024-02-28 17:00 | disposition home or self-care (01) ==
PROVIDERS: Emergency Provider Emergency Medicine; PCP Nurse Practitioner Family; Visit Provider Emergency Medicine
DX: L73.8 Other specified follicular disorders (principal); F17.210 Nicotine dependence, cigarettes, uncomplicated
CPT/HCPCS: 99282

== ENCOUNTER 2024-06-06 10:58 | Emergency (ER) | payer MEDICAID, SELFPAY ==
[2024-06-06 10:59] VITALS: BP 148/98; PULSE 83; RESP 18; TEMP 36.6; O2SAT 95; BMI 27.7
--- NOTE | 2024-06-06 11:48 | EDS_ITS ---
HPI History of Present Illness Chief Complaint: General Illness Informant: patient Narrative Narrative: 39-year-old male presenting to the emergency room with near syncope. Patient states that about 2 weeks ago he felt ill with what he felt was a respiratory illness. He states in the past several days he has felt better but then yesterday developed nasal congestion and a slight cough. Today he was sitting on the couch and began to feel lightheaded and relates he had not had anything to eat yet so he got up and ate some cheese. States he came and sat back down on the couch and began to feel really nauseated felt very hot and even more lightheaded. He states that sensation has improved. He has had some diarrhea recently. His significant other has also fallen ill over the past several days. No reported fevers or rash. States that they had a guinea pig that they had gotten as a pet that also while they were ill. He is unsure of what that animal from. Patient does state that he does feel some dizziness when he lays his head backwards. [facility] Medical History Seizure Stomach ulcer Hypertension Home Medications ?Medication ?Instructions ?Recorded ?Last Taken ?Type azithromycin 500 mg tablet 500 mg PO DAILY #4 tabs 01/19/23 Unknown Rx melatonin 10 mg capsule 10 mg PO HS PRN 01/19/23 Unknown History cephalexin 500 mg capsule 500 mg PO Q6 #39 CAPSULES 02/28/24 Unknown Rx sulfamethoxazole 800 1 tab PO BID #19 tabs 02/28/24 Unknown Rx mg-trimethoprim 160 mg tablet (Bactrim DS) Allergy/AdvReac Type Severity Reaction Status Date / Time haloperidol (From Haldol) Allergy Other Verified 06/06/24 11:02 lithium AdvReac Other Verified 06/06/24 11:02 olanzapine (From Zyprexa) AdvReac Other Verified 06/06/24 11:02 Surgical History History of esophagogastroduodenoscopy (EGD) Social History Smoking Status: Current every day smoker tobacco type: cigarettes ROS ROS ED ROS Narrative Lightheadedness Constitutional Constitutional ED: Reports sweats; Denies chills, fever(s) or weight loss Eyes Eyes: Denies change in vision or diplopia ENT ENT ED: Reports rhinorrhea and other Details: no facial pain ; Denies ear pain or sore throat Cardiovascular Cardiovascular: Denies chest pain, orthopnea, palpitations or racing heartbeat Respiratory/Chest Respiratory/Chest: Reports cough; Denies dyspnea or orthopnea Gastrointestinal Gastrointestinal: Reports diarrhea and nausea; Denies abdominal pain or vomiting Genitourinary Genitourinary ED: Denies dysuria, hematuria or urinary frequency Musculoskeletal Musculoskeletal: Denies arthralgias or myalgias Integumentary Denies abscess or rash Neurologic Neurologic: Reports other Details: dizziness ; Denies headache(s) or weakness Psychiatric Psychiatric: Denies anxiety, depression, suicidal ideation or suicidal thoughts Endocrine Endocrinology: Denies polydipsia, polyphagia or polyuria Allergic/Immunologic Allergic/Immunologic ED: Denies mouth swelling, tongue swelling or urticaria EXAM Physical Exam Const Vital Signs: 06/06/24 10:59 06/06/24 11:56 06/06/24 13:54 Temperature 97.8 F 98 F Temperature Source Oral Pulse Rate 83 81 Respiratory Rate 18 18 Respiratory Pattern Normal Blood Pressure 148/98 H 136/84 H Blood Pressure Mean 114 101 Pulse Ox 95 94 Oxygen Delivery Method Room Air Positive well nourished and well developed General Appearance ED: well developed HEENT Reports normocephalic, head/scalp atraumatic, TM's clear and moist mucous membranes HEENT Narrative: Nasal congestion Tympanic Membrane ED: Yes TM's clear Eyes PERRL and EOMs intact bilaterally Neck no lymphadenopathy, supple and no JVD Resp normal respiratory effort and clear to auscultation bilaterally Cardio regular rate, regular rhythm and no murmurs GI normal to inspection, nondistended, normoactive bowel sounds and non-tender Palpation: soft Back/Spine no CVA tenderness and normal ROM Extremity normal to inspection General Extremety ED: Negative for edema General Extremity: Negative for edema Neuro oriented x3 and CN's II-XII intact bilaterally Sensorium / Orientation: alert Motor Exam: strength 5/5 throughout Psych mental status grossly normal Mood & Affect: Negative for depressed or tearful Skin no rashes or lesions noted and no wounds MDM MDM MDM Narrative Medical decision making narrative: Differential diagnosis includes vasovagal near syncope viral illness URI vertigo Patient's EKG is sinus rhythm with a ventricular rate of 60 bpm. White count 6.5 monocytes of 10.6 hemoglobin 15.8 platelet count of 223. Normal electrolytes glucose 98 normal LFTs lipase 61 my independent interpretation of the chest x-ray is no acute process. COVID and influenza swabs were negative. Clinically I think the patient has a URI. There may be a component of peripheral vertigo but it would be very mild. We talked about nasal decongestants. Would recommend PCP follow-up if not improving return if worsening Lab Data Attestation: I reviewed the patient's lab results. Labs: Laboratory Results - last 24 hr 06/06/24 12:11 WBC 6.5 RBC 5.15 Hgb 15.8 Hct 44.6 MCV 86.6 MCH 30.7 MCHC 35.4 RDW Std Deviation 39.0 RDW Coeff of Carmen 12.4 Plt Count 223 MPV 9.1 Immature Gran % (Auto) 0.300 Neut % (Auto) 65.1 Lymph % (Auto) 20.0 Ralls % (Auto) 10.6 H Eos % (Auto) 3.1 Baso % (Auto) 0.9 Absolute Neuts (auto) 4.2 Absolute Lymphs (auto) 1.30 Nucleated RBC % 0 Sodium 138 Potassium 4.0 Chloride 108 H Carbon Dioxide 28.0 Anion Gap 2 L BUN 18 Creatinine 0.77 Estim Creat Clear Calc 156.57 Est GFR (MDRD) Af Amer 144 Est GFR (MDRD) Non-Af 119 BUN/Creatinine Ratio 23.3 H Glucose 98 Calcium 9.2 Total Bilirubin 1.00 AST 15 ALT 27 Alkaline Phosphatase 76 Total Protein 7.0 Albumin 3.9 Globulin 3.1 Albumin/Globulin Ratio 1.3 Lipase 61 Radiography Diagnostic Testing: Clinical Impression(s) from Imaging Studies Chest X-Ray 06/06/24 11:54 IMPRESSION: Normal x-ray examination of the chest. Electronically Signed: Ovidio Jenkins MD at 12:46 EDT , EKG Initial EKG: Attestation: I personally reviewed and interpreted this EKG as follows: Comments: Sinus rhythm with a ventricular rate of 60 bpm Discharge Plan Triage Chief Complaint: General Illness ED Provider: Henry Rdz Dx/Rx/DC Orders Clinical Impression: Vasovagal near syncope, Viral respiratory illness Instructions: ED Near-Fainting- Vagal Reaction Prescriptions: No Action melatonin 10 mg capsule 10 mg PO HS PRN azithromycin 500 mg tablet 500 mg PO DAILY Qty: 4 0RF Rx Instructions: Take 2 tablets today and then 1 tablet daily for the next 2 days. cephalexin 500 mg capsule 500 mg PO Q6 Qty: 39 0RF sulfamethoxazole-trimethoprim [Bactrim DS] 800-160 mg tablet 1 tab PO BID Qty: 19 0RF Primary Care Provider: Marta Lauren Referrals: Marta Lauren, PREFABRICATOR-C [Primary Care Provider] - 1 Week if not improving Print Language: Czech Disposition Disposition: Home, Self Care Discharge Date/Time: 06/06/24 13:55
--- NOTE | 2024-06-06 11:54 | RAD_ITS ---
STUDY: X-RAY CHEST REASON FOR EXAM: Male, 39 years old. Near syncope TECHNIQUE: Single AP portable view of the chest. COMPARISON: Comparison is made with prior study dated January 07, 2023. FINDINGS: The lungs are clear and expanded. There is no demonstrated pleural abnormality. Normal size heart. Normal mediastinum and benedict. Normal visualized pulmonary arteries. Normal visualized aortic arch and descending thoracic aorta. Normal visualized thoracic spine. Normal visualized ribs, clavicles, and shoulders. There is no demonstrated abnormality of the visualized soft tissue structures of the upper abdomen. RAD/Chest 1 View (Portable) IMPRESSION: Normal x-ray examination of the chest. Electronically Signed: Ovidio Jenkins MD at 12:46 EDT ,
[2024-06-06 12:19] LABS: Absolute Neutrophil Count 4.2 X10^3/uL (2.0-7.7); Basophil# 0.06 X10^3/uL; Basophil% 0.9 % (0-1); Eosinophils% 3.1 % (0-5); Hematocrit 44.6 % (40-54); Hemoglobin 15.8 g/dL (13.0-16.5); Mean Corp Hgb Conc 35.4 g/dL (32-36); Mean Corpuscular Hgb 30.7 pg (27.0-32.0); Mean Corpuscular Volume 86.6 fL (80-94); Mean Platelet Vol. 9.1 fl (6.2-12.0); Monocyte# 0.69 X10^3/uL; Monocyte% 10.6 % (0-10); NRBC Flagged by Analyzer 0 % (0-5); Neutrophil # 4.23 X10^3/uL (2.7-7.7); Neutrophil % 65.1 % (47-70); Platelet Count 223 K/mm3 (150-450); RBC Distribution Width CV 12.4 % (11.6-14.6); Red Blood Count 5.15 M/mm3 (4.6-6.2); White Blood Count 6.5 K/mm3 (4.4-11.0)
[2024-06-06 12:47] LABS: ALB/GLOB Ratio 1.3 RATIO (0.9-2.4); AST(SGOT) 15 U/L (15-37); Alanine Aminotransfer ALT/SGPT 27 U/L (16-61); Albumin, Serum 3.9 g/dL (3.2-5.0); Alkaline Phosphatase 76 U/L (45-117); Anion Gap 2 (5-15); BUN 18 mg/dL (7-18); BUN/Creat Ratio 23.3 RATIO (10-20); Calcium,Total 9.2 mg/dL (8.5-10.1); Chloride 108 mmol/L (98-107); Creatinine, Serum 0.77 mg/dL (0.70-1.30); EST Glomerular Filtration Rate 119 mL/min (>60); Est Glom Filt Rate - Afr Amer 144 mL/min (>60); Estimated Creatinine Clearance 156.57 ml/min; Globulin 3.1 g/dL (2.2-4.2); Glucose 98 mg/dL (74-106); Lipase 61 U/L (13-75); Sodium Level 138 mmol/L (136-145)
[2024-06-06 13:54] VITALS: BP 136/84; PULSE 81; RESP 18; TEMP 36.6; O2SAT 94
== END 2024-06-06 13:55 | disposition home or self-care (01) ==
PROVIDERS: Emergency Provider Emergency Medicine; PCP Nurse Practitioner Family; Visit Provider Emergency Medicine
DX: R55 Syncope and collapse (principal); J06.9 Acute upper respiratory infection, unspecified; F17.210 Nicotine dependence, cigarettes, uncomplicated
CPT/HCPCS: 71045; 80053; 83690; 85025; 87631; 93005; 99283; A4216

== ENCOUNTER 2025-03-18 07:34 | Emergency (ER) | payer MEDICAID, SELFPAY ==
[2025-03-18 07:35] VITALS: BP 136/89; PULSE 53; RESP 16; TEMP 36.6; O2SAT 100; BMI 25.5
--- OUTSIDE RECORDS SUMMARY | 2025-03-18 07:49 | XMS RPT_ITS | CCD ---
Author Organization [facility] Care Team Providers Care Mobile Crane Operator Name Role Phone JENNA, NIKOLAY LINDAYOLANDA Attending Unavailab le [facility] Admitting Unavailab le AMICONE, [facility] Primary Care Unavailab le [facility], [facility] Attending Unavailab le AMICONE, [facility] Admitting Unavailab le AMICONE, [facility] Primary Care Unavailab le AMICONE, [facility] Attending Unavailab le LINDA BENAVIDEZ Consulting Unavailable AMICONE, [facility] Admitting Unavailab le AMICONE, [facility] Primary Care Unavailab le PROVIDER, UNKNOWN Consulting Unavailable PROVIDER, UNKNOWN Consulting Unavailable PROVIDER, UNKNOWN Consulting Unavailable LORNA VU Admitting Unavailable MIRELLALORNA Primary Care Unavailable MIRELLA PRA ELIZABETH Attending Unavailable ARELIS, DR CIRILO Mcnally Admitting Unavaila ble ARELIS, DR CIRILO Mcnally Primary Care Unavaila ble ARELIS, DR CIRILO Mcnally Attending Unavaila ble MAY MOSCOSO Admitting Unavailable MAY MOSCOSO Primary Care Unavailable MAY MOSCOSO Attending Unavailable Dr. Linda Benavidez Primary Care Provider Dr. Linda Benavidez Referring Provider ALICE Glass Attending Provider JASMINE Diaz Primary Care Provider JASMINE Diaz Referring Provider ALICE Bentley Attending Provider Unavailable Primary Care Provider UnavailDottie Pat APRN.CNP Primary Care Provider Dottie Diaz APRN.CNP Primary Care Provider Mitchel Calderón Attending Unavailable Knoble, Dottie Primary Care Unavailable Maria AlejandraEarl Attending Unavailable Knoble, Dottie Primary Care Unavailable Henry Rdz Attending Unavailable Knoble, Dottie Primary Care Unavailable KNOBLE, DOTTIE Attending Unavailable KNOBLE, DOTTIE Primary Care Unavailable KNOBLE, DOTTIE Primary Care Unavailable BARB DUMONT Attending Unavailable KNOBLE, DOTTIE Referring Unavailable KNOBLE, DOTTIE Primary Care Unavailable KNOBLE, DOTTIE Attending Unavailable KNOBLE, DOTTIE Primary Care Unavailable KNOBLE, DOTTIE Referring Unavailable KNOBLE, DOTTIE Primary Care Unavailable ALIDA JIM Attending Unavailable KNOBLE, DOTTIE Referring Unavailable KNOBLE, DOTTIE Primary Care Unavailable KNOBLE, DOTTIE Attending Unavailable KNOBLE, DOTTIE Primary Care Unavailable KNOBLE, DOTTIE Primary Care Unavailable URVASHI ALMANZA Attending Unavailable KNOBLE, DOTTIE Attending Unavailable KNOBLE, DOTTIE Primary Care Unavailable KNOBLE, DOTTIE Referring Unavailable KNOBLE, DOTTIE Primary Care Unavailable LUBNA WEISS Attending Unavailable Allergies Allergy Classification Reported Allergen(s) Allergy Type Date of Onset Reaction(s) Facility (2 sources) [place]; Translations: [LITHIUM] Drug Allergy 11-10-2008 [facility] (4 sources) Haloperidol Drug Allergy 07-17-2022 [facility] (4 sources) OLANZapine Drug Allergy 07-17-2022 [facility] (20 sources) [place] Drug Allergy 11-10-2008 [facility] (20 sources) Haloperidol; Translations: [HALOPERIDOL LACTATE] Drug Allergy 11-10-2008 Intolerance [facility] (20 sources) Valproate; Translations: [DIVALPROEX] Drug Allergy 11-17-2008 GI Upset [facility] Work Phone: (1 source) Haloperidol Drug Allergy 06-06-2024 [facility] (1 source) [place] Drug Allergy 06-06-2024 [facility] (1 source) OLANZapine Drug Allergy 06-06-2024 [facility] Medications Current Medications Medication Drug Class(es) Dates Sig (Normalized) Sig (Original) azithromycin 500 mg oral tablet (2 sources) Macrolide Antimicrobial Start: 01-19-2023 take 2 tablets by mouth once daily, then take 1 tablet by mouth once daily Azithromycin Active 500 MG PO DAILY January 19, 2023 12:00am Take 2 tablets today and then 1 tablet daily for the next 2 days. doxycycline monohydrate 100 mg oral tablet (8 sources) Tetracycline-class Drug Start: 01-24-2025 End: 01-31-2025 take 1 tablet by mouth twice daily doxycycline monohydrate 100 mg tablet Indications: Discharge from penis , Paronychia, finger, right Take 1 tablet by mouth two times a day for 7 days. 14 tablet 01/24/2025 01/31/2025 Active Start: 01-19-2023 take 100 mg by mouth twice daily Doxycycline Hyclate Active 100 MG PO TWICE A DAY 29 05January 19, 2023 12:00am enteric contrast (will be provided with radiology test) (4 sources) Start: 01-30-2025 End: 01-31-2025 enteric contrast (will be provided with radiology test) Indications: Burning with urination , Pain with ejaculation , Flank pain , Lower abdominal pain , Nausea For CT ABD/PEL W IVCON Routine order Administer, As Directed One Time Only, via Oral, Rectal, both Oral and Rectal, Enteric Tube, Stoma or Indwelling Catheter, Enteric Contrast as designated per enteric contrast guidelines 1 each 01/30/2025 01/31/2025 Active iv contrast (will be provided with radiology test) (4 sources) Start: 01-30-2025 End: 01-31-2025 iv contrast (will be provided with radiology test) Indications: Burning with urination , Pain with ejaculation , Flank pain , Lower abdominal pain , Nausea CT ABD/PEL -Inject, intravenously, once for 1 dose.No IV access, insert saline lock prior to the beginning of sedation, infusion, injection of imaging exam. Discontinue saline lock post exam. If Pt. has a central line or IVAD, may access for administration according to line specific nursing protocol. Once exam is complete flush line and de-access according to line specific nursing protocol in theCT contrast administration guidelines link. 1 each 01/30/2025 01/31/2025 Active melatonin 10 mg oral capsule (2 sources) Start: 01-19-2023 take 10 mg by mouth at bedtime Melatonin Active 10 MG PO BEDTIME January 19, 2023 12:00am mupirocin 0.02 mg/mg topical ointment (7 sources) RNA Synthetase Inhibitor Antibacterial Start: 01-24-2025 End: 02-03-2025 mupirocin (BACTROBAN) 2 % ointment Indications: Paronychia, finger, right Apply to affected area three times a day for 10 days. 22 g 01/24/2025 02/03/2025 Active Completed/Discontinued Medications Medication Drug Class(es) Dates Sig (Normalized) Sig (Original) ALPRAZolam 1 mg oral tablet (3 sources) Benzodiazepine Start: 09-08-2009 End: 02-20-2023 alprazolam(XANAX 1 MG TAB) Take one(1) tablet daily. 0 09/08/2009 02/20/2023 Discontinued Comment on above: Take one(1) tablet d aily. amantadine hydrochloride 100 mg oral capsule (4 sources) Influenza A M2 Protein Inhibitor Start: 07-17-2022 End: 01-19-2023 take 100 mg by mouth twice daily Amantadine Hcl Discontinued 100 MG PO TWICE A DAY July 17, 2022 1:00am January 19, 2023 2:12pm busPIRone hydrochloride 5 mg oral tablet (14 sources) Start: 07-17-2022 End: 01-19-2023 take 5 mg by mouth twice daily Buspirone Discontinued 5 MG PO TWICE A DAY July 17, 2022 1:00am January 19, 2023 2:12pm Start: 07-17-2022 End: 01-19-2023 take 7.5 mg by mouth twice daily Buspirone Discontinued 7.5 MG PO TWICE A DAY July 17, 2022 1:00am January 19, 2023 2:12pm End: 03-23-2023 take 1 tablet by mouth twice daily busPIRone (BUSPAR) 10 mg tablet Take 10 mg by mouth twice daily. 0 03/23/2023 Discontinued (Discontinued by Patient) Comment on above: Take 10 mg by mouth twice daily. cephalexin 500 mg oral capsule (1 source) Cephalosporin Antibacterial Start: 03-30-2023 End: 03-30-2023 cephALEXin 500 mg cap(s) (KEFLEX) Start: 03-30-2023 End: 03-30-2023 cephALEXin 500 mg cap(s) (KE FLEX) escitalopram 10 mg oral tablet (4 sources) Serotonin Reuptake Inhibitor Start: 07-17-2022 End: 01-19-2023 take 10 mg by mouth once daily Escitalopram Oxalate Discontinued 10 MG PO DAILY July 17, 2022 1:00am January 19, 2023 2:12pm FLUoxetine 20 mg oral capsule (3 sources) Serotonin Reuptake Inhibitor Start: 09-08-2009 End: 02-20-2023 fluoxetine hcl(PROZAC 20 MG CAP) Take one(1) tablet daily. 0 09/08/2009 02/20/2023 Discontinued Comment on above: Take one(1) tablet d aily. lidocaine hydrochloride 0.02 mg/mg topical gel (1 source) Antiarrhythmic, Amide Local Anesthetic Start: 03-30-2023 End: 03-30-2023 lidocaine 2 % topical gel (XYLOCAINE) Start: 03-30-2023 End: 03-30-2023 lidocaine 2 % topical gel (X YLOCAINE) multivitamins(DAILY MULTIVIT RUSS TAB) (20 sources) Start: 08-15-2009 End: 03-09-2025 multivitamins(DAILY MULTIVITAMIN TAB) Take by mouth. 0 08/15/2009 03/09/2025 Discontinued (Discontinued by Patient) Start: 08-15-2009 multivitamins( DAILY MULTIVITAMIN TAB) Take by mouth. 0 08/15/2009 Active Start: 08-15-2009 multivitamins( DAILY MULTIVITAMIN TAB) Take one(1) tablet daily. 0 08/15/2009 Active Comment on above: Take one(1) tablet d aily. Take by mouth. ondansetron 4 mg disintegrating oral tablet (4 sources) Serotonin-3 Receptor Antagonist Start: 07-17-20 End: 01-20-20 23 take 4 mg by mouth every eight hours Ondansetron Discontinued 4 MG PO Q8H 10 July 17, 2022 1:00am January 19, 2023 2:12pm risperiDONE 2 mg oral tablet (4 sources) Atypical Antipsychotic Start: 07-17-20 End: 01-20-20 23 take 2 mg by mouth at bedtime Risperidone Discontinued 2 MG PO AT BEDTIME July 17, 2022 1:00am January 19, 2023 2:12pm sertraline 100 mg oral tablet (8 sources) Serotonin Reuptake Inhibitor Start: 07-17-20 End: 01-20-20 23 take 100 mg by mouth once daily Sertraline Discontinued 100 MG PO DAILY July 17, 2022 1:00am January 19, 2023 2:12pm Start: 07-17-2022 End: 01-19-2023 take 50 mg by mouth once daily Sertraline Discontinued 50 MG PO DAILY July 17, 2022 1:00am January 19, 2023 2:12pm divalproex sodium 500 mg delayed release oral tablet (4 sources) Mood Stabilizer, Anti-epileptic Agent Start: 07-17-2022 End: 01-19-2023 take 1 tablet by mouth twice daily Divalproex (Depakote) 500 mg tablet,delayed release (DR/EC) Discontinued 500 MG PO TWICE A DAY July 17, 2022 1:00am January 19, 2023 2:12pm Problems Active Problems Problem Classification Problem Date Documented Da te Episodic/Chronic Abdominal pain (15 sources) Unspecified abdominal pain; Translations: [Flank pain] Onset: 02-17-2024 01-30-2025 Episodic Acute and chronic tonsillitis (1 source) Amygdalolith; Translations: [Other chronic diseases of tonsils and adenoids] 02-16-2024 Chronic Administrative/social admission (5 sources) Patient encounter status; Translations: [Persons encountering health services in other specified circumstances] Episodic Disorders of teeth and jaw (2 sources) Jaw pain; Translations: [Jaw pain] 02-20-2023 Episodic Gastroduodenal ulcer (except hemorrhage) (2 sources) H/O: gastric ulcer; Translations: [Personal history of peptic ulcer disease] Onset: 03-09-2025 03-09-2025 Episodic Genitourinary symptoms and ill-defined conditions (20 sources) Dysuria; Translations: [Dysuria] Onset: 01-24-2025 01-24-2023 Episodic Headache; including migraine (3 sources) Headache; including migraine; Translations: [Headache, unspecified] Onset: 03-28-2021 Immunizations and screening for infectious disease (5 sources) Contact with and (suspected) exposure to infections with a predominantly sexual mode of transmission; Translations: [Chlamydia contact] 01-19-2023 Episodic Miscellaneous mental health disorders (1 source) Dream anxiety disorder; 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 Mood disorders (20 sources) Bipolar disorder; Translations: [Bipolar disorder, unspecified] Onset: 11-10-2008 11-10-2008 Chronic Nausea and vomiting (9 sources) Nausea; Translations: [Nausea] Onset: 03-28-2021 01-30-2025 Episodic Other gastrointestinal disorders (4 sources) Abnormal feces; Translations: [Other fecal abnormalities] 02-03-2025 Episodic Other gastrointestinal disorders (2 sources) Constipation; Translations: [Constipation, unspecified] 02-27-2025 Episodic Other gastrointestinal disorders (1 source) Constipation, unspecified; Translations: [Constipation, unspecified constipation type] Onset: 03-07-2025 Episodic Other gastrointestinal disorders (1 source) Other fecal abnormalities; Translations: [Abnormal stools] Onset: 03-07-2025 Episodic Other hereditary and degenerative nervous system conditions (1 source) Restless legs; Translations: [Restless legs syndrome] 12-21-2023 Chronic Other lower respiratory disease (1 source) Snoring; Translations: [Snoring] 12-21-2023 Episodic Other lower respiratory disease (1 source) Dyspnea; Translations: [Shortness of breath] 09-12-2024 Episodic Other male genital disorders (5 sources) Painful ejaculation; Translations: [Painful ejaculation] 01-30-2025 Episodic Other male genital disorders (1 source) Painful ejaculation; Translations: [Pain with ejaculation] Onset: 01-31-2025 Episodic Other nutritional; endocrine; and metabolic disorders (3 sources) Unintentional weight loss; Translations: [Abnormal weight loss] 02-03-2025 Episodic Other nutritional; endocrine; and metabolic disorders (1 source) Decrease in appetite; Translations: [Anorexia] 03-09-2025 Episodic Other nutritional; endocrine; and metabolic disorders (1 source) Anorexia; Translations: [Decreased appetite] Onset: 03-09-2025 Episodic Other nutritional; endocrine; and metabolic disorders (1 source) Abnormal weight loss; Translations: [Weight loss, unintentional] Onset: 02-03-2025 Episodic Other skin disorders (1 source) Scrotal mass; Translations: [Follicular cyst of the skin and subcutaneous tissue, unspecified] 02-20-2023 Episodic Other upper respiratory infections (3 sources) Acute viral pharyngitis; Translations: [Acute pharyngitis, unspecified] 01-07-2023 Episodic Residual codes; unclassified (1 source) Sleep paralysis; Translations: [Other sleep disorders] 12-21-2023 Chronic Residual codes; unclassified (1 source) Dream enactment behavior; Translations: [REM sleep behavior disorder] 12-21-2023 Chronic Residual codes; unclassified (1 source) Sleep related hallucinations; Translations: [Other parasomnia] 12-21-2023 Chronic Residual codes; unclassified (1 source) Parasomnia; Translations: [Parasomnia, unspecified] 12-21-2023 Chronic Residual codes; unclassified (1 source) Obstructive sleep apnea syndrome; Translations: [Obstructive sleep apnea (adult) (pediatric)] 09-12-2024 Chronic Residual codes; unclassified (1 source) Obstructive sleep apnea (adult) (pediatric); Translations: [LINWOOD (obstructive sleep apnea)] Onset: 09-12-2024 Chronic Residual codes; unclassified (1 source) History of clinical finding in subject; Translations: [Personal history of other specified conditions] 05-15-2023 Episodic Screening and history of mental health and substance abuse codes (2 sources) H/O: Disorder; Translations: [Personal history of other mental and behavioral disorders] 05-15-2023 Episodic Skin and subcutaneous tissue infections (2 sources) Paronychia of finger of right hand; Translations: [Cellulitis of right finger] Onset: 01-24-2025 01-24-2025 Episodic Spondylosis; intervertebral disc disorders; other back problems (5 sources) Acute low back pain; Translations: [Acute bilateral low back pain without sciatica] 02-26-2023 Episodic Substance-related disorders (20 sources) Tobacco user; Translations: [Nicotine dependence, unspecified, uncomplicated] Onset: 11-10-2008 11-10-2008 Chronic Syncope (1 source) Syncope and collapse; Translations: [Syncope and collapse] Onset: 06-26-2024 Episodic Past or Other Problems Problem Classification Problem Date Documented Da te Episodic/Chronic Intracranial injury (20 sources) Concussion injury of body structure; Translations: [Concussion, unspecified] Onset: 11-10-2008 11-10-2008 Episodic Nonspecific chest pain (5 sources) Chest pain; Translations: [Chest pain, unspecified] Onset: 09-12-2024 06-29-2023 Episodic Other lower respiratory disease (1 source) Shortness of breath; Translations: [SOB (shortness of breath)] Onset: 09-12-2024 Episodic Other skin disorders (1 source) Rash and other nonspecific skin eruption; Translations: [Rash and other nonspecific skin eruption] Onset: 03-14-2024 Episodic Residual codes; unclassified (20 sources) Family history of diabetes mellitus; Translations: [Family history of diabetes mellitus] Onset: 11-10-2008 11-10-2008 Episodic Results Test Name Value Interpretation Reference Range Facility [facility] 03-09-2025 CNOV Office Visit ([facility] ) ----- ZACK LAST ([id number]) 1985 [place] Date Time Provider Department 03/09/25 11:00 AM LUBNA WEISS During your visit today, we recorded the following information about you: Temperature Pulse Respiration Blood pressure 98.4 degrees 94/minute 14/minute 124/78 Weight Height 94.3 kg 1.93 m Lubna Weiss APRN.CNP 03/09/2025 12:59 PM Signed HISTORY AND PHYSICAL Zack Last : 1985 REFERRING PHYSICIAN: Dottie Diaz [facility] [place] [id number] CHIEF COMPLAINT: Patient presents with: Consult Abdominal Pain Weight Loss HPI: Zack is a 39 year old male referred for endoscopy. Zack notes recent lower abdominal pain, constipation and decreased appetite which is improving.- He has concerns for ulcerative colitis. Zack notes that he was taking Whey protein- the max dose, and working out. He developed lower abdominal pain along with narrow, harder to pass stools. He notes that in 2019 he had a similar episode to this also involving whey protein. He has stopped the whey and the symptoms are slowly improving. -he does admit in the AM his low abdomen is still uncomfortable, he will soak in warm water and this helps Zack notes heartburn. Zack notes epigastric pain -especially with fatty foods Zack notes nausea if eating late at night Zack notes unintentional weight loss -14 lbs over the last month Zack notes decreased appetite -will be hungry and starts to eat and then gets upset stomach CT abd/pelv 01/30/25 IMPRESSION: No acute process in the abdomen or pelvis. Zack notes a hx of substance abuse- questioning if he can have a spinal block for the procedure. 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 Zack has undergone prior endoscopy. He and an aborted EGD in 2019. He notes that the procedure was stopped d/t hypotension. Unsure of the sedation but was in a hospital in [place]. -noted to have stomach ulcer Current Outpatient Medications Medication Sig multivitamins(DAILY MULTIVITAMIN TAB) Take by mouth. No current facility-administered medications for this visit. ALLERGIES: Depakote [Divalproex], Haldol [Haloperidol Lactate], and [place] PAST MEDICAL HISTORY Diagnosis Date Anxiety state Chronic jaw pain 02/20/2023 Constipation, unspecified constipation type 02/27/2025 HTN (hypertension) PMH - PAST MEDICAL HISTORY OF seizures PMH - PAST MEDICAL HISTORY OF headaches Scrotal cyst 02/20/2023 Stomach ulcer PAST SURGICAL HISTORY Procedure Laterality Date EGD W/O BRSH SPEC VARICIES INJ 2019 PAST SURGICAL HISTORY OF tubes in ears FAMILY HISTORY Problem Relation Age of Onset Neuropathy Mother Post-Traumatic Stress Disorder Mother other (Drug/alcohol abuse) Mother Depression Mother Aneurysm Mother Depression Father Diabetes Father Bipolar disorder Father Diabetes Brother Neuropathy Brother Hypertension Brother Depression Brother Bipolar disorder Brother other (IED) Brother Anxiety disorder Brother No Known Problems Maternal Grandmother Aneurysm Maternal Grandfather Heart Maternal Grandfather Stroke Maternal Grandfather No Known Problems Paternal Grandmother No Known Problems Paternal Grandfather Cancer Other PGGM; type unknown; Colon Cancer Other none Prostate Cancer Other none Social History Tobacco Use Smoking status: Former Current packs/day: 0.25 Average packs/day: 0.3 packs/day for 10.0 years (2.5 ttl pk-yrs) Types: Cigarettes Smokeless tobacco: Former Types: Chew Vaping Use Vaping status: Former Substances: Nicotine, Flavoring Devices: Disposable Substance Use Topics Alcohol use: Yes Comment: Occassionally Drug use: Not Currently Types: Marijuana, Cocaine, Crack Cocaine, Amphetamines, Narcotics, Heroin, Ecstasy, Crystal Meth, Benzodiazepines, Opiates, LSD Comment: Sober since May 2022 REVIEW OF SYMPTOMS: The review of systems data was entered by the nurse and reviewed by me PHYSICAL EXAMINATION: General: The patient is 39 year old, male well nourished, well hydrated in no acute distress. The patient is oriented to time, place, and person. VITALS: Blood pressure 124/78, pulse 94, temperature 36.9 ?C (98.4 ?F), temperature source Temporal, resp. rate 14, height 193 cm (6' 4), weight 94.3 kg (208 lb), SpO2 98%. Body mass index is 25.32 kg/m?. HEENT: Normal cephalic, ataumatic, pupils are equally round, sclera are anicteric, mucous membranes are moist, oropharynx is clear. Neck has no masses or asymmetry . Respiratory: Clear to auscultation. Cardiac: Regular rate and rhythm. Abdominal exam: Soft, nontender, with no palpable masses. No hepatosplenomegaly. No palpable hernias. Extremities: no clubbing or cyanosis LABOR (more content not included)... Normal [facility] 03-07-2025 [facility] ----- LASTZACK ([id number]) 1985 M Date Time Provider Department 03/07/25 9:40 AM DOTTIE DIAZ [facility] During your visit today, we recorded the following information about you: Pulse Blood pressure Weight 103/minute 134/79 94 kg Dottie Diaz APRN.ECCLESIASTICAL WORKER 03/07/2025 9:43 AM Signed Chief Complaint Patient presents with: Follow Up HPI Zack Last is a 39 year old male who presents here today for Above Complaints.. Patient presents for follow up. Patient reports constipation has mostly resolved and appetite is improving. Has appt with general surgery 03/09. Past medical history, appointments, medications, allergies reviewed. Previous Medical History PAST MEDICAL HISTORY Diagnosis Date Anxiety state Chronic jaw pain 02/20/2023 Constipation, unspecified constipation type 02/27/2025 PMH - PAST MEDICAL HISTORY OF seizures PMH - PAST MEDICAL HISTORY OF headaches Scrotal cyst 02/20/2023 Previous Surgical History PAST SURGICAL HISTORY Procedure Laterality Date EGD W/O BRSH SPEC VARICIES INJ 2019 PAST SURGICAL HISTORY OF tubes in ears Family History FAMILY HISTORY Problem Relation Age of Onset Diabetes Father Heart Maternal Grandfather Stroke Maternal Grandfather Cancer Other PGGM; type unknown; Colon Cancer Other none Prostate Cancer Other none Patient Allergies ALLERGIES Allergen Reactions Depakote [Divalproe* GI Upset N/V Haldol [Haloperidol* Intolerance [place] Intolerance Severe hyperactivity Current Medications Current Outpatient Medications on File Prior to Visit Medication Sig multivitamins(DAILY MULTIVITAMIN TAB) Take by mouth. (Patient not taking: Reported on 12/21/2023) No current facility-administered medications on file prior to visit. Social History Social History Tobacco Use Smoking status: Former Current packs/day: 0.25 Average packs/day: 0.3 packs/day for 10.0 years (2.5 ttl pk-yrs) Types: Cigarettes Smokeless tobacco: Former Types: Chew Vaping Use Vaping status: Former Substances: Nicotine, Flavoring Devices: Disposable Substance Use Topics Alcohol use: Not Currently Drug use: Not Currently Types: Marijuana, Cocaine, Crack Cocaine, Amphetamines, Narcotics, Heroin, Ecstasy, Crystal Meth, Benzodiazepines, Opiates, LSD Comment: Sober since May 2022 Review of Symptoms REVIEW OF SYSTEMS SEE HPI EXAM: BP 134/79 Pulse 103 Wt 94 kg (207 lb 3.7 oz) BMI 25.23 kg/m? General Appearance: Well appearing, alert, in no acute distress, well-hydrated, well nourished.. Abdomen: Normal abdominal exam, Abdomen soft, non-tender. Bowel sounds normal. No masses, organomegaly. Health Maintenance List Depression Screening Never done Anxiety Screening Never done Hepatitis B Vaccine(1 of 3 - 19+ 3-dose series) Never done Influenza Vaccine(1) due on 04/10/2025 Lipid Screening due on 02/21/2028 DTaP,Tdap,Td Vaccine(2 - Td or Tdap) due on 02/20/2033 Hepatitis C Screening Completed HIV Screening Completed ASSESSMENT/PLAN: 1. Constipation, unspecified constipation type - ICD9: 564.00, ICD10: K59.00 (primary diagnosis) 2. Lower abdominal pain - ICD9: 789.09, ICD10: R10.30 3. Nausea - ICD9: 787.02, ICD10: R11.0 4. Abnormal stools - ICD9: 787.7, ICD10: R19.5 Symptoms resolving. Follow up with General Surgery as scheduled. 03/09. Dottie Diaz APRN.ECCLESIASTICAL WORKER Allergies As of Date: 03/07/2025 Noted Allergy Reaction DEPAKOTE (DIVALPROEX) 11/17/2008 8 - GI Upset Comments: N/V HALDOL (HALOPERIDOL LACTATE) 11/10/2008 5 - Intolerance LITHIUM 11/10/2008 5 - Intolerance Comments: Severe hyperactivity Date Reviewed: 03/07/2025 Reviewed by: Cielo Carey MA - Fully Assessed Reason for Visit: Follow Up [171] Primary Visit Diagnosis:Constipation, unspecified constipation type [K59.00] Other Visit Diagnoses:Lower abdominal pain [R10.30] Nausea [R11.0] Abnormal stools [R19.5] Prescriptions as of 03/07/2025 - multivitamins(DAILY MULTIVITAMIN TAB) Take by mouth. Problem List As Of Date 03/07/2025 Noted Resolved BIPOLAR DISORDER NOS [F31.9] 11/10/2008 CONCUSSION NOS [S06.0XAA] 11/10/2008 TOBACCO USE DISORDER [F17.200] 11/10/2008 FAMILY HX DIABETES MELLITUS [Z83.3] 11/10/2008 Encounter Status:Closed by DOTTIE DIAZ on 03/07/25 [facility] [facility] ([id number]) 1985 M Date Time Provider Department 03/06/25 DOTTIE DIAZ During your visit today, we recorded the following information about you: Krys Augustine RN 03/06/2025 4:49 PM Signed Patient is on Dottie Diaz's scheduled for tomorrow morning at 940 am for has some concerns. Dottie would like to know what his concerns are and would like him triaged for symptoms if needed. Call placed to patient and voicemail left to return call to a triage nurse. BRIGIDO Escudero Barbara, RN 03/07/2025 11:40 AM Signed Pt was seen this morning. Allergies As of Date: 03/06/2025 Noted Allergy Reaction DEPAKOTE (DIVALPROEX) 11/17/2008 8 - GI Upset Comments: N/V HALDOL (HALOPERIDOL LACTATE) 11/10/2008 5 - Intolerance LITHIUM 11/10/2008 5 - Intolerance Comments: Severe hyperactivity Date Reviewed: 02/27/2025 Reviewed by: Jaylin Anand LPN - Fully Assessed Reason for Visit: Appointment [186] Prescriptions as of 03/07/2025 - multivitamins(DAILY MULTIVITAMIN TAB) Take by mouth. Problem List As Of Date 03/06/2025 Noted Resolved BIPOLAR DISORDER NOS [F31.9] 11/10/2008 CONCUSSION NOS [S06.0XAA] 11/10/2008 TOBACCO USE DISORDER [F17.200] 11/10/2008 FAMILY HX DIABETES MELLITUS [Z83.3] 11/10/2008 Encounter Status:Closed by STEPHENIE SMITH on 03/07/25 [facility] CNOVon 02-27-2025 CNOV Office Visit (FAMPWS ) ----- ZACK LAST ([id number]) 1985 M Date Time Provider Department 02/27/25 3:00 PM BARB DUMONT During your visit today, we recorded the following information about you: Temperature Pulse Respiration Blood pressure 99 degrees 79/minute 16/minute 113/76 Weight 96.2 kg Barb Dumont MD 02/27/2025 3:31 PM Signed Family Medicine OUTPATIENT VISIT February 27, 2025 CC: HPI: 39 year old male patient presents with acute concerns. Concerned he may have UC. He missed his gen surg appointment to discuss this so he made an appointment to discuss. Having bloating, constipation, pebble like stools. Symptoms on and off since 2019. 02/01 Grossly normal CMP, CBC normal and without anemia, TFT. 02/01 CT abdomen pelvis with contrast unremarkable. I began patient's appointment by asking open ended question about his concern. He listed his concerns about having ulcerative colitis, his stool symptoms, his not being able to sleep due to abdominal bloating, feeling he has anemia, that his house is 68 degrees and he shivers at night, that he has looked up his symptoms and that he believes he has ulcerative colitis and anemia. States he is pretty sure he has ulcerative colitis because he googled his symptoms and these are all lower symptoms and that he has been having flares since 2019. I let patient speak uninterrupted for about three minutes to list his concerns. I then asked clarifying question after about three minutes when he mentioned his ulcer, asking whether this was diagnosed with a scope and what year this occurred. He stated I will get to that, this is my appointment not yours so I'm the one asking the questions. Don't interrupt me I told him I understood that and I wanted to help him, but that to understand what was going on I would need to ask him questions, and sometimes jump in with questions to help gain an understanding of what has happened with his care. He said that's it. I'm leaving and I'm giving you a bad review. He then stood up and left. I told his two family members who were still in the room that if he changes his mind he can make another appointment to return for care. Allergies As of Date: 02/27/2025 Noted Allergy Reaction DEPAKOTE (DIVALPROEX) 11/17/2008 8 - GI Upset Comments: N/V HALDOL (HALOPERIDOL LACTATE) 11/10/2008 5 - Intolerance LITHIUM 11/10/2008 5 - Intolerance Comments: Severe hyperactivity Date Reviewed: 02/27/2025 Reviewed by: Jaylin Anand LPN - Fully Assessed Reason for Visit: Abdominal Pain [1] Cmt: question due to ulcerative colitis and does have an appointment with general surgery for colonoscopy consult. Having a lot of constipation issues Has a list of symptoms that go a long with ulcerative colitis. Has been having feels of being cold and question if anemic Primary Visit Diagnosis:Constipation, unspecified constipation type [K59.00] Prescriptions as of 02/27/2025 - multivitamins(DAILY MULTIVITAMIN TAB) Take by mouth. Problem List As Of Date 02/27/2025 Noted Resolved BIPOLAR DISORDER NOS [F31.9] 11/10/2008 CONCUSSION NOS [S06.0XAA] 11/10/2008 TOBACCO USE DISORDER [F17.200] 11/10/2008 FAMILY HX DIABETES MELLITUS [Z83.3] 11/10/2008 Encounter Status:Closed by BARB DUMONT on 02/27/25 Normal [facility] CBC W Auto Differential pane l (Bld)on 02-03-2025 Basophils (Bld) [#/Vol] 0.07 10*3/uL Normal <0.11 [facility] Comment on above: Order Comment: Speci men Type: BLOOD SPECIMENOrdering Facility: [facility] Address: [address] [place] [address] Performed By: #### 5 7021-8 ####[facility] LABCLIA [id number] [place] [address] [place] Basophils/100 WBC (Bld) 0.9 % Normal C [facility] Comment on above: Order Comment: Speci men Type: BLOOD SPECIMENOrdering Facility: [facility] Address: [address] [place] [address] Performed By: #### 5 7021-8 ####[facility] LABCLIA [id number] [place] [address] [place] Differential cell count method Nom (Bld) Auto Normal [facility] Comment on above: Order Comment: Speci men Type: BLOOD SPECIMENOrdering Facility: [facility] Address: [address] [place] [address] Performed By: #### 5 7021-8 ####[facility] LABCLIA [id number] [facility] [address], [facility] [place] Eosinophils (Bld) [#/Vol] 0.10 10*3/uL Normal <0.46 [facility] Comment on above: Order Comment: Speci men Type: BLOOD SPECIMENOrdering Facility: [facility] Address: [address] [place] [address] Performed By: #### 5 7021-8 ####[facility] LABCLIA [id number] [facility] [address], [place] [address] [place] Eosinophils/100 WBC (Bld) 1.3 % Normal [facility] Comment on above: Order Comment: Speci men Type: BLOOD SPECIMENOrdering Facility: [facility] Address: [address] [place] [address] Performed By: #### 5 7021-8 ####[facility] LABCLIA [id number] [place] [address] [place] Erythrocyte distribution width (RBC) [Ratio] 12.2 % Normal 11.5-15.0 [facility] Comment on above: Order Comment: Speci men Type: BLOOD SPECIMENOrdering Facility: [facility] Address: [address] [place] [address] Performed By: #### 5 7021-8 ####[facility] LABCLIA [id number] [place] [address] [place] Hematocrit (Bld) [Volume fraction] 48.4 % Normal 39.0-51.0 [facility] Comment on above: Order Comment: Speci men Type: BLOOD SPECIMENOrdering Facility: [facility] Address: [address] [place] [address] Performed By: #### 5 7021-8 ####[facility] LABCLIA [id number] [facility] [address], [facility] [place] Hemoglobin (Bld) [Mass/Vol] 16.8 g/dL Normal 13.0-17.0 [facility] Comment on above: Order Comment: Speci men Type: BLOOD SPECIMENOrdering Facility: [facility] Address: [address] [place] [address] Performed By: #### 5 7021-8 ####[facility] LABCLIA [id number] [address] [address] [place] Immature granulocytes (Bld) [#/Vol] 10*3/uL Normal <0.10 [facility] Comment on above: Order Comment: Speci men Type: BLOOD SPECIMENOrdering Facility: [facility] Address: [address] [place] [address] Performed By: #### 5 7021-8 ####[facility] LABCLIA [id number] [place] [address] [place] Immature granulocytes/100 WBC (Bld) 0.3 % Normal [facility] Comment on above: Order Comment: Speci men Type: BLOOD SPECIMENOrdering Facility: [facility] Address: [address] [place] [address] Performed By: #### 5 7021-8 ####[facility] LABCLIA [id number] [place] [address] [place] Lymphocytes (Bld) [#/Vol] 1.90 10*3/uL Normal 1.00-4.0 0 [facility] Comment on above: Order Comment: Speci men Type: BLOOD SPECIMENOrdering Facility: [facility] Address: [address] [place] [address] Performed By: #### 5 7021-8 ####[facility] LABCLIA [id number] [place] [id number] [place] Lymphocytes/100 WBC (Bld) 23.8 % Normal [facility] Comment on above: Order Comment: Speci men Type: BLOOD SPECIMENOrdering Facility: [facility] Address: [address] [place] [address] Performed By: #### 5 7021-8 ####[facility] LABCLIA [id number] [place] [address] [place] MCH (RBC) [Entitic mass] 30.2 pg Normal 26.0-34.0 [facility] Comment on above: Order Comment: Speci men Type: BLOOD SPECIMENOrdering Facility: [facility] Address: [address] [place] [address] Performed By: #### 5 7021-8 ####[facility] LABIA [id number] [place] [address] [place] MCHC (RBC) [Mass/Vol] 34.7 g/dL Normal 30.5-36.0 [facility] Comment on above: Order Comment: Speci men Type: BLOOD SPECIMENOrdering Facility: [facility] Address: [address] [place] [address] Performed By: #### 5 7021-8 ####[facility] [id number] [place] [address] [place] MCV (RBC) [Entitic vol] 86.9 fL Normal 80.0-100.0 [facility] Comment on above: Order Comment: Speci men Type: BLOOD SPECIMENOrdering Facility: [facility] Address: [address] [place] [address] Performed By: #### 5 7021-8 ####[facility] [id number] [place] [address] [place] Monocytes (Bld) [#/Vol] 0.76 10*3/uL Normal <0.87 [facility] Comment on above: Order Comment: Speci men Type: BLOOD SPECIMENOrdering Facility: [facility] Address: [address] [place] [address] Performed By: #### 5 7021-8 ####[facility] LABIA [id number] [place] [address] [place] Monocytes/100 WBC (Bld) 9.5 % Normal C [facility] Comment on above: Order Comment: Speci men Type: BLOOD SPECIMENOrdering Facility: [facility] Address: [address] [place] [address] Performed By: #### 5 7021-8 ####[facility] LABCLIA [id number] [place] [id number] [place] Neutrophils (Bld) [#/Vol] 5.12 10*3/uL Normal 1.45-7.5 0 [facility] Comment on above: Order Comment: Speci men Type: BLOOD SPECIMENOrdering Facility: [facility] Address: [address] [place] [address] Performed By: #### 5 7021-8 ####[facility] LABCLIA [id number] [place] [address] [place] Neutrophils/100 WBC (Bld) 64.2 % Normal [facility] Comment on above: Order Comment: Speci men Type: BLOOD SPECIMENOrdering Facility: [facility] Address: [address] [place] [address] Performed By: #### 5 7021-8 ####[facility] LABCLIA [id number] [place] [address] [place] Nucleated RBC (Bld) [#/Vol] 10*3/uL Normal <0.01 [facility] Comment on above: Order Comment: Speci men Type: BLOOD SPECIMENOrdering Facility: [facility] Address: [address] [place] [address] Performed By: #### 5 7021-8 ####[facility] LABCLIA [id number] [place] [address] [place] Nucleated RBC/100 WBC (Bld) [Ratio] 0.0 /100 WBC Normal [facility] Comment on above: Order Comment: Speci men Type: BLOOD SPECIMENOrdering Facility: [facility] Address: [address] [place] [address] Performed By: #### 5 7021-8 ####[facility] LABCLIA [id number] [address] [place] [address] [place] Platelet mean volume (Bld) [Entitic vol] 10.4 fL Normal 9.0-12.7 [facility] Comment on above: Order Comment: Speci men Type: BLOOD SPECIMENOrdering Facility: [facility] Address: [address] [place] [address] Performed By: #### 5 7021-8 ####[facility] LABCLIA [id number] [address] [place] [address] [place] Platelets (Bld) [#/Vol] 255 10*3/uL Normal 150-400 [facility] Comment on above: Order Comment: Speci men Type: BLOOD SPECIMENOrdering Facility: [facility] Address: [address] [place] [address] Performed By: #### 5 7021-8 ####[facility] LABIA [id number] [address] [place] [address] [place] RBC (Bld) [#/Vol] 5.57 10*6/uL Normal 4.20-6.00 [facility] Comment on above: Order Comment: Speci men Type: BLOOD SPECIMENOrdering Facility: [facility] Address: [address] [place] [address] Performed By: #### 5 7021-8 ####[facility] LABCLIA [id number] [address] [place] [address] [place] WBC (Bld) [#/Vol] 7.97 10*3/uL Normal 3.70-11.00 [facility] Comment on above: Order Comment: Speci men Type: BLOOD SPECIMENOrdering Facility: [facility] Address: [address] [place] [address] Performed By: #### 5 7021-8 ####[facility] LABCLIA [id number] [address] [address] [place] [facility] CNOVon 02-03-2025 CNOV Office Visit (FAMPWS ) ----- ZACK LAST ([id number]) 1985 Date Time Provider Department 02/03/25 3:00 PM [facility] your visit today, we recorded the following information about you: Pulse Blood pressure Weight 96/minute 120/79 96 kg Dottie Diaz APRN.ECCLESIASTICAL WORKER 02/03/2025 3:05 PM Signed Chief Complaint Patient presents with: Follow Up: Weight concern HPI Zack Last is a 39 year old male who presents here today for Above Complaints.. Patient presents for follow up. Patient reports he continues to lose weight down another 2 pounds since 01/31. Patient also reports nausea with dry heaving multiple times past week as well as abnormal stools. Patient reports his stool is diarrhea half the time and the rest is formed however different than previous stools. Past medical history, appointments, medications, allergies reviewed. Previous Medical History PAST MEDICAL HISTORY Diagnosis Date Anxiety state Chronic jaw pain 02/20/2023 PMH - PAST MEDICAL HISTORY OF seizures PMH - PAST MEDICAL HISTORY OF headaches Scrotal cyst 02/20/2023 Previous Surgical History PAST SURGICAL HISTORY Procedure Laterality Date EGD W/O BRSH SPEC VARICIES INJ 2019 PAST SURGICAL HISTORY OF tubes in ears Family History FAMILY HISTORY Problem Relation Age of Onset Diabetes Father Heart Maternal Grandfather Stroke Maternal Grandfather Cancer Other PGGM; type unknown; Colon Cancer Other none Prostate Cancer Other none Patient Allergies ALLERGIES Allergen Reactions Depakote [Divalproe* GI Upset N/V Haldol [Haloperidol* Intolerance [place] Intolerance Severe hyperactivity Current Medications Current Outpatient Medications on File Prior to Visit Medication Sig mupirocin (BACTROBAN) 2 % ointment Apply to affected area three times a day for 10 days. multivitamins(DAILY MULTIVITAMIN TAB) Take by mouth. (Patient not taking: Reported on 12/21/2023) No current facility-administered medications on file prior to visit. Social History Social History Tobacco Use Smoking status: Every Day Current packs/day: 0.25 Average packs/day: 0.3 packs/day for 10.0 years (2.5 ttl pk-yrs) Types: Cigarettes Smokeless tobacco: Former Types: Chew Vaping Use Vaping status: current everyday user Substances: Nicotine, Flavoring Devices: Disposable Substance Use Topics Alcohol use: Not Currently Drug use: Not Currently Types: Marijuana, Cocaine, Crack Cocaine, Amphetamines, Narcotics, Heroin, Ecstasy, Crystal Meth, Benzodiazepines, Opiates, LSD Comment: Sober since May 2022 Review of Symptoms REVIEW OF SYSTEMS SEE HPI EXAM: BP 120/79 Pulse 96 Wt 96 kg (211 lb 10.3 oz) BMI 25.76 kg/m? General Appearance: Well appearing, alert, in no acute distress, well-hydrated, well nourished.. Health Maintenance List Depression Screening Never done Anxiety Screening Never done Hepatitis B Vaccine(1 of 3 - 19+ 3-dose series) Never done Pneumococcal Vaccine(1 of 2 - PCV) Never done Covid-19 Vaccine( - season) Never done Influenza Vaccine(Season Ended) due on 04/10/2025 Lipid Screening due on 02/21/2028 DTaP,Tdap,Td Vaccine(2 - Td or Tdap) due on 02/20/2033 Hepatitis C Screening Completed HIV Screening Completed ASSESSMENT/PLAN: 1. Lower abdominal pain - ICD9: 789.09, ICD10: R10.30 (primary diagnosis) - Work up with Colonoscopy - COMPLETE BLOOD COUNT AND DIFFERENTIAL - COMPREHENSIVE METABOLIC PANEL - THYROID STIMULATING HORMONE - T3 - T4 FREE/FREE THYROXINE - CONSULT TO GENERAL SURGERY - CONSULT TO GENERAL SURGERY 2. Nausea - ICD9: 787.02, ICD10: R11.0 - COMPLETE BLOOD COUNT AND DIFFERENTIAL - COMPREHENSIVE METABOLIC PANEL - THYROID STIMULATING HORMONE - T3 - T4 FREE/FREE THYROXINE 3. Weight loss, unintentional - ICD9: 783.21, ICD10: R63.4 - COMPLETE BLOOD COUNT AND DIFFERENTIAL - COMPREHENSIVE METABOLIC PANEL - THYROID STIMULATING HORMONE - T3 - T4 FREE/FREE THYROXINE - CONSULT TO GENERAL SURGERY - CONSULT TO GENERAL SURGERY 4. Abnormal stools - ICD9: 787.7, ICD10: R19.5 - CONSULT TO GENERAL SURGERY Dottie Diaz APRN.ECCLESIASTICAL WORKER Allergies As of Date: 02/03/2025 Noted Allergy Reaction DEPAKOTE (DIVALPROEX) 11/17/2008 8 - GI Upset Comments: N/V HALDOL (HALOPERIDOL LACTATE) 11/10/2008 5 - Intolerance LITHIUM 11/10/2008 5 - Intolerance Comments: Severe hyperactivity Date Reviewed: 02/03/2025 Reviewed by: Cielo Carey MA - Fully Assessed Reason for Visit: Follow Up [171] Cmt: Weight concern Primary Visit Diagnosis:Lower abdominal pain [R10.30] Other Visit Diagnoses:Nausea [R11.0] Weight loss, unintentional [R63.4] Abnormal stools [R19.5] Order(s):COMPLETE BLOOD COUNT AND DIFFERENTIAL [SQCBCDIF] Order #: [id number] FUTURE COMPREHENSIVE METABOLIC PANEL [SQCMP] Order #: [id number] FUTURE THYROID STIM (more content not included)... Normal [facility] Comprehensive metabolic 2000 panelon 02-03-2025 Albumin [Mass/Vol] 4.8 g/dL Normal 3.9-4.9 [facility] Comment on above: Order Comment: Speci men Type: BLOOD SPECIMENOrdering Facility: [facility] Address: [address] [place] [address] Performed By: #### 3 024-7, 3053-6, 3016-3, 68342-6 ####[facility] LABIA [id number] [address] STATES OF [facility] ALP [Catalytic activity/Vol] 98 U/L Normal 38-113 [facility] Comment on above: Order Comment: Speci men Type: BLOOD SPECIMENOrdering Facility: [facility] Address: [address] [place] [address] Performed By: #### 3 024-7, 3053-6, 3016-3, 00219-3 ####[facility] LABCLIA [id number] [address] STATES OF [facility] ALT [Catalytic activity/Vol] 10 U/L Normal 10-54 [facility] Comment on above: Order Comment: Speci men Type: BLOOD SPECIMENOrdering Facility: [facility] Address: [address] [place], [place] [address] Performed By: #### 3 024-7, 3053-6, 6-3, 78760-4 ####[facility] LABCLIA [id number] [address] [address] [place] Anion gap [Moles/Vol] 16 mmol/L High 8-15 [facility] Comment on above: Order Comment: Speci men Type: BLOOD SPECIMENOrdering Facility: [facility] Address: [address] [place] [address] Performed By: #### 3 024-7, 3053-6, 3015-3, 10089-4 ####[facility] LABCLIA [id number] [place] [address] [place] AST [Catalytic activity/Vol] 17 U/L Normal 14-40 [facility] Comment on above: Order Comment: Speci men Type: BLOOD SPECIMENOrdering Facility: [facility] Address: [address] [place] [address] Performed By: #### 3 024-7, 3053-6, 6-3, 57527-2 ####[facility] LABCLIA [id number] [place] [address] [place] Bilirubin [Mass/Vol] 0.8 mg/dL Normal 0.2-1.3 [facility] Comment on above: Order Comment: Speci men Type: BLOOD SPECIMENOrdering Facility: [facility] Address: [address] [place], [place] [address] Performed By: #### 3 024-7, 3053-6, 3016-3, 20003-7 ####[facility] LABCLIA [id number] [address] [address] [place] Calcium [Mass/Vol] 9.6 mg/dL Normal 8.5-10.2 [facility] Comment on above: Order Comment: Speci men Type: BLOOD SPECIMENOrdering Facility: [facility] Address: [address] [place] [address] Performed By: #### 3 024-7, 3053-6, 3016-3, 87784-5 ####[facility] LABCLIA [id number] [address] [address] [place] Chloride [Moles/Vol] 105 mmol/L Normal 98-107 [facility] Comment on above: Order Comment: Speci men Type: BLOOD SPECIMENOrdering Facility: [facility] Address: [address] [place] [address] Performed By: #### 3 024-7, 3053-6, 3016-3, 01685-0 ####[facility] LABCLIA [id number] [place] [address] [place] CO2 [Moles/Vol] 19 mmol/L Low 22-30 [facility] Comment on above: Order Comment: Speci men Type: BLOOD SPECIMENOrdering Facility: [facility] Address: [address] [place] [address] Performed By: #### 3 024-7, 3053-6, 3016-3, 46200-3 ####[facility] LABCLIA [id number] [place] [address] [place] Creatinine [Mass/Vol] 0.86 mg/dL Normal 0.73-1.22 [facility] Comment on above: Order Comment: Speci men Type: BLOOD SPECIMENOrdering Facility: [facility] Address: [address] [place] [address] Performed By: #### 3 024-7, 3053-6, 3016-3, 92728-1 ####[facility] LABCLIA [id number] [place] [id number] [place] Creatinine and Glomerular filtration rate.predicted panel (S/P/Bld) 112 mL/min/1.73m??? Normal >=60 [facility] Comment on above: Order Comment: Speci men Type: BLOOD SPECIMENOrdering Facility: [facility] Address: [address] [place] [address] Result Comment: Marleni mated Glomerular Filtration Rate (eGFR) is calculated using the 2020 CKD-EPI creatinine equation. This equation utilizes serum creatinine, sex, and age as parameters. The creatinine assay has traceable calibration to isotope dilution-mass spectrometry. Refer to KDIGO guidelines for clinical interpretation. In patients with unstable renal function, e.g. those with acute kidney injury, the eGFR may not accurately reflect actual GFR. Performed By: #### 3 024-7, 3053-6, 3016-3, 94711-1 ####[facility] LABIA [id number] [address] [address] [place] Glucose [Mass/Vol] 93 mg/dL Normal 74-99 [facility] Comment on above: Order Comment: Jae saab Type: BLOOD SPECIMENOrdering Facility: [facility] Address: [address] [place] [address] Result Comment: The [place] Diabetes Association (ADA) provides guidance for cutoff values for fasting glucose and random glucose. The ADA defines fasting as no caloric intake for at least 8 hours. Fasting plasma glucose results between 100 to 125 mg/dL indicate increased risk for diabetes (prediabetes). Fasting plasma glucose results greater than or equal to 126 mg/dL meet the criteria for diagnosis of diabetes. In the absence of unequivocal hyperglycemia, results should be confirmed by repeat testing. In a patient with classic symptoms of hyperglycemia or hyperglycemic crisis, random plasma glucose results greater than or equal to 200 mg/dL meet the criteria for diagnosis of diabetes. Reference: Standards of Medical Care in Diabetes 2016, [place] Diabetes Association. Diabetes Care. 2016.39(Suppl 1). Performed By: #### 3 024-7, 3053-6, 3016-3, 27030-1 ####[facility] LABIA [id number] [address] [address] [place] Potassium [Moles/Vol] 4.2 mmol/L Normal 3.7-5.1 [facility] Comment on above: Order Comment: Jae saab Type: BLOOD SPECIMENOrdering Facility: [facility] Address: [address] [place], [place] [address] Performed By: #### 3 024-7, 3053-6, 3016-3, 91282-1 ####[facility] LABCLIA [id number] [address] [address] [place] Protein [Mass/Vol] 7.1 g/dL Normal 6.3-8.0 [facility] Comment on above: Order Comment: Speci men Type: BLOOD SPECIMENOrdering Facility: [facility] Address: [address] [place] [address] Performed By: #### 3 024-7, 3053-6, 301-3, 55214-9 ####[facility] LABIA [id number] [place] [id number] [place] Sodium [Moles/Vol] 140 mmol/L Normal 136-144 [facility] Comment on above: Order Comment: Speci men Type: BLOOD SPECIMENOrdering Facility: [facility] Address: [address] [place] [address] Performed By: #### 3 024-7, 3053-6, 301-3, 75833-1 ####[facility] LABIA [id number] [place] [id number] [place] Urea nitrogen [Mass/Vol] 14 mg/dL Normal 9-24 [facility] Comment on above: Order Comment: Speci men Type: BLOOD SPECIMENOrdering Facility: [facility] Address: [address] [place] [address] Performed By: #### 3 024-7, 3053-6, 301-3, 61084-7 ####[facility] LABIA [id number] [address] [address] [place] T3 SerPl-mCncon 02-03-2025 T3 [Mass/Vol] 118 ng/dL Normal 79-165 [facility] Comment on above: Order Comment: Speci men Type: BLOOD SPECIMENOrdering Facility: [facility] Address: [address] [place] [address] [place] [address] Performed By: #### 3 024-7, 3053-6, 3016-3, 82166-7 ####[facility] LABCLIA [id number] [place] [address] [place] T4 Free SerPl-mCncon 02-03-2 025 Free T4 [Mass/Vol] 1.3 ng/dL Normal 0.9-1.7 [facility] Comment on above: Order Comment: Speci men Type: BLOOD SPECIMENOrdering Facility: [facility] Address: [address] [place] [address] Performed By: #### 3 024-7, 3053-6, 3016-3, 31419-6 ####[facility] LABIA [id number] [address] OF GET TSH SerPl-aCncon 02-03-2025 TSH Qn 2.650 m[IU]/L Normal 0.270-4.20 0 [facility] Comment on above: Order Comment: Speci men Type: BLOOD SPECIMENOrdering Facility: [facility] Address: [address] [place] [address] [place] [address] Performed By: #### 3 024-7, 3053-6, 3016-3, 36695-1 ####[facility] LABIA [id number] [address] [place] CNOVon 01-30-2025 CNOV Office Visit (CORRYPWS ) ----- ZACK LAST ([id number]) 1985 M Date Time Provider Department 01/30/25 9:20 AM DOTTIE DIAZ During your visit today, we recorded the following information about you: Pulse Blood pressure Weight 65/minute 137/88 97 kg Dottie Diaz APRN.ECCLESIASTICAL WORKER 01/30/2025 9:27 AM Signed Chief Complaint Patient presents with: Follow Up HPI Zack Last is a 39 year old male who presents here today for Above Complaints. Burning Pain During Ejaculation: - Persistent burning pain during ejaculation x1 year. - Pain localized to the area between the scrotum and urethra. - Denies scrotal swelling. Urinary Frequency: - Urinary frequency with urgency and minimal output. - Intermittent burning sensation in the urethra at rest. - Recent episode of clear penile discharge that turned whitish. - Denies fevers. - UA on 01/25 was positive for bilirubin and protein; GC and chlamydia tests were negative. - Has been in a monogamous relationship for 2.5 years. Weight Loss: - Unintentional weight loss of 10 lbs over 3 weeks; current weight is 213 lbs, down from 217 lbs last week. - Associated nausea, particularly in the mornings, with two episodes of dry heaving. - Decreased appetite, unable to eat until afternoon. - Reports abdominal swelling. - Bilateral flank pain. - Changes in bowel movements, with stools becoming thinner after using a protein mix; has since discontinued the protein mix. Past medical history, appointments, medications, allergies reviewed. Previous Medical History PAST MEDICAL HISTORY Diagnosis Date Anxiety state Chronic jaw pain 02/20/2023 PMH - PAST MEDICAL HISTORY OF seizures PMH - PAST MEDICAL HISTORY OF headaches Scrotal cyst 02/20/2023 Previous Surgical History PAST SURGICAL HISTORY [facility] PAST SURGICAL HISTORY OF tubes in ears Family History FAMILY HISTORY Problem Relation Age of Onset Diabetes Father Heart Maternal Grandfather Stroke Maternal Grandfather Cancer Other PGGM; type unknown; Colon Cancer Other none Prostate Cancer Other none Patient Allergies ALLERGIES Allergen Reactions Depakote [Divalproe* GI Upset N/V Haldol [Haloperidol* Intolerance [place] Intolerance Severe hyperactivity Current Medications Current Outpatient Medications on File Prior to Visit Medication Sig doxycycline monohydrate 100 mg tablet Take 1 tablet by mouth two times a day for 7 days. mupirocin (BACTROBAN) 2 % ointment Apply to affected area three times a day for 10 days. multivitamins(DAILY MULTIVITAMIN TAB) Take by mouth. (Patient not taking: Reported on 12/21/2023) No current facility-administered medications on file prior to visit. Social History Social History Tobacco Use Smoking status: Every Day Current packs/day: 0.25 Average packs/day: 0.3 packs/day for 10.0 years (2.5 ttl pk-yrs) Types: Cigarettes Smokeless tobacco: Former Types: Chew Vaping Use Vaping status: current everyday user Substances: Nicotine, Flavoring Devices: Disposable Substance Use Topics Alcohol use: Not Currently Drug use: Not Currently Types: Marijuana, Cocaine, Crack Cocaine, Amphetamines, Narcotics, Heroin, Ecstasy, Crystal Meth, Benzodiazepines, Opiates, LSD Comment: Sober since May 2022 Review of Symptoms REVIEW OF SYSTEMS SEE HPI EXAM: BP 137/88 Pulse 65 Wt 97 kg (213 lb 13.5 oz) BMI 26.03 kg/m? General Appearance: Well appearing, alert, in no acute distress, well-hydrated, well nourished. Abdomen: Positive findings: distended, tenderness mild RLQ and LLQ. Health Maintenance List Depression Screening Never done Anxiety Screening Never done Hepatitis B Vaccine(1 of 3 - 19+ 3-dose series) Never done Pneumococcal Vaccine(1 of 2 - PCV) Never done Covid-19 Vaccine( - season) Never done Influenza Vaccine(Season Ended) due on 04/10/2025 Lipid Screening due on 02/21/2028 DTaP,Tdap,Td Vaccine(2 - Td or Tdap) due on 02/20/2033 Hepatitis C Screening Completed HIV Screening Completed ASSESSMENT/PLAN: 1. Burning with urination - ICD9: 788.1, ICD10: R30.0 (primary diagnosis) chronic - Patient education for prevention given - CONSULT TO UROLOGY - CT ABD/PEL W IVCON - IV CONTRAST (RADIOLOGY PROCEDURE) - NOT ON MAR - ENTERIC CONTRAST (RADIOLOGY PROCEDURE) - NOT ON MAR 2. Pain with ejaculation - ICD9: 608.89, ICD10: N53.12 - CONSULT TO UROLOGY - CT ABD/PEL W IVCON - IV CONTRAST (RADIOLOGY PROCEDURE) - NOT ON MAR - ENTERIC CONTRAST (RADIOLOGY PROCEDURE) - NOT ON MAR 3. Flank pain - ICD9: 789.09, ICD10: R10.9 - Work up with CT Abdomen/Pelvis - CT ABD/PEL W IVCON - IV CONTRAST (RADIOLOGY PROCEDURE) - NOT ON OCT - ENTERIC CONTRAST (RADIOLOGY PROCEDURE) - NOT ON OCT 4. Lower abdominal pain - ICD9: 789.09, ICD10: R10.3 (more content not included)... Normal [facility] CT ABD/PEL W IVCONon 01-30-[address] ABD/PEL W IVCON * * *Final Report* * * DATE OF EXAM: Jan 30 2025 3:15PM [facility] 0530 - CT ABD/PEL W IVCON / PROCEDURE REASON: multiple diagnoses * * * * Physician Interpretation * * * * EXAMINATION: CT ABDOMEN AND PELVIS WITH IV CONTRAST TECHNOLOGIST PROVIDED HISTORY: Hx LLQ pain CLINICAL HISTORY: 39 years old Male with Burning with urination. Pain with ejaculation. Flank pain. Lower abdominal pain. Flank pain, kidney stone suspected, LLQ abdominal pain, Nausea/vomiting, Weight loss, unintended. TECHNIQUE: CT of the abdomen and pelvis was performed using standard technique, scanning from just above the dome of the diaphragm to the symphysis pubis. MQ: CTAP_3 Contrast: IV: 100 ml of Omnipaque 350 Oral: 10 ml of Omni 240 10-25ml diluted with water CT Radiation dose: Integrated Dose-length product (DLP) for this visit = 687 mGy*cm. CT Dose Reduction Employed: Automated exposure control(AEC) and iterative recon COMPARISON: None. RESULT: Liver: No mass. Biliary: No bile duct dilation. Gallbladder is unremarkable. Spleen: No mass. No splenomegaly. Pancreas: No mass or duct dilation. Adrenals: No mass. Kidneys: 1 cm cyst RIGHT upper pole. Subcentimeter hypoattenuating lesion LEFT upper pole, too small to characterize but likely benign. No calculus or hydronephrosis. GI tract: No dilation or wall thickening. Normal appendix. Lymph nodes: No abdominal or pelvic lymphadenopathy. Mesentery/Peritoneum: No ascites or mass. Retroperitoneum: No mass. Vasculature: - Abdominal aorta and iliac arteries: Patent and normal caliber. - Celiac and SMA: Patent without stenosis. - Portal venous system (SMV, splenic vein, portal vein and branches): Patent. - Hepatic veins: Incompletely opacified, likely due to early phase of enhancement. Pelvis: No mass, ascites or fluid collection. Bones/Soft Tissues: Heterotopic ossification medial cortex RIGHT subtrochanteric femur. Lower thorax: No consolidation. No pleural effusion. Small fat-containing LEFT Bochdalek hernia. Localizer images: No additional findings. IMPRESSION: No acute process in the abdomen or pelvis. Beveling Machine Operator: MARIBETH Transcribe Date/Time: Jan 30 2025 3:55P Dictated by : TEO GARCIA DO This examination was interpreted and the report reviewed and electronically signed by: TEO GARCIA DO on Jan 30 2025 4:06PM EST [id number] Normal [facility] CT Abdomen and Pelvis W cont rast Elijah 01-30-2025 IMPRESSION: No acute process in the abdomen or pelvis. Beveling Machine Operator: MARIBETH Transcribe Date/Time: Jan 30 2025 3:55P Dictated by : TEO GARCIA DO This examination was interpreted and the report reviewed and electronically signed by: TEO GARCIA DO on Jan 30 2025 4:06PM EST DIVISION OF RADIOLOGY * * *Final Report* * * DATE OF EXAM: Jan 30 2025 3:15PM [facility] 0530 - CT ABD/PEL W IVCON / PROCEDURE REASON: multiple diagnoses * * * * Physician Interpretation * * * * EXAMINATION: CT ABDOMEN AND PELVIS WITH IV CONTRAST TECHNOLOGIST PROVIDED HISTORY: Hx LLQ pain CLINICAL HISTORY: 39 years old Male with Burning with urination. Pain with ejaculation. Flank pain. Lower abdominal pain. Flank pain, kidney stone suspected, LLQ abdominal pain, Nausea/vomiting, Weight loss, unintended. TECHNIQUE: CT of the abdomen and pelvis was performed using standard technique, scanning from just above the dome of the diaphragm to the symphysis pubis. MQ: CTAP_3 Contrast: IV: 100 ml of Omnipaque 350 Oral: 10 ml of Omni 240 10-25ml diluted with water CT Radiation dose: Integrated Dose-length product (DLP) for this visit = 687 mGy*cm. CT Dose Reduction Employed: Automated exposure control(AEC) and iterative recon COMPARISON: None. RESULT: Liver: No mass. Biliary: No bile duct dilation. Gallbladder is unremarkable. Spleen: No mass. No splenomegaly. Pancreas: No mass or duct dilation. Adrenals: No mass. Kidneys: 1 cm cyst RIGHT upper pole. Subcentimeter hypoattenuating lesion LEFT upper pole, too small to characterize but likely benign. No calculus or hydronephrosis. GI tract: No dilation or wall thickening. Normal appendix. Lymph nodes: No abdominal or pelvic lymphadenopathy. Mesentery/Peritoneum: No ascites or mass. Retroperitoneum: No mass. Vasculature: - Abdominal aorta and iliac arteries: Patent and normal caliber. - Celiac and SMA: Patent without stenosis. - Portal venous system (SMV, splenic vein, portal vein and branches): Patent. - Hepatic veins: Incompletely opacified, likely due to early phase of enhancement. Pelvis: No mass, ascites or fluid collection. Bones/Soft Tissues: Heterotopic ossification medial cortex RIGHT subtrochanteric femur. Lower thorax: No consolidation. No pleural effusion. Small fat-containing LEFT Bochdalek hernia. Localizer images: No additional findings. DIVISION OF RADIOLOGY Provider, [facility] - 01/30/2025 * * *Final Report* * * DATE OF EXAM: Jan 30 2025 3:15PM [facility] 0530 - CT ABD/PEL W IVCON / PROCEDURE REASON: multiple diagnoses * * * * Physician Interpretation * * * * EXAMINATION: CT ABDOMEN AND PELVIS WITH IV CONTRAST TECHNOLOGIST PROVIDED HISTORY: Hx LLQ pain CLINICAL HISTORY: 39 years old Male with Burning with urination. Pain with ejaculation. Flank pain. Lower abdominal pain. Flank pain, kidney stone suspected, LLQ abdominal pain, Nausea/vomiting, Weight loss, unintended. TECHNIQUE: CT of the abdomen and pelvis was performed using standard technique, scanning from just above the dome of the diaphragm to the symphysis pubis. MQ: CTAP_3 Contrast: IV: 100 ml of Omnipaque 350 Oral: 10 ml of Omni 240 10-25ml diluted with water CT Radiation dose: Integrated Dose-length product (DLP) for this visit = 687 mGy*cm. CT Dose Reduction Employed: Automated exposure control(AEC) and iterative recon COMPARISON: None. RESULT: Liver: No mass. Biliary: No bile duct dilation. Gallbladder is unremarkable. Spleen: No mass. No splenomegaly. Pancreas: No mass or duct dilation. Adrenals: No mass. Kidneys: 1 cm cyst RIGHT upper pole. Subcentimeter hypoattenuating lesion LEFT upper pole, too small to characterize but likely benign. No calculus or hydronephrosis. GI tract: No dilation or wall thickening. Normal appendix. Lymph nodes: No abdominal or pelvic lymphadenopathy. Mesentery/Peritoneum: No ascites or mass. Retroperitoneum: No mass. Vasculature: - Abdominal aorta and iliac arteries: Patent and normal caliber. - Celiac and SMA: Patent without stenosis. - Portal venous system (SMV, splenic vein, portal vein and branches): Patent. - Hepatic veins: Incompletely opacified, likely due to early phase of enhancement. Pelvis: No mass, ascites or fluid collection. Bones/Soft Tissues: Heterotopic ossification medial cortex RIGHT subtrochanteric femur. Lower thorax: No consolidation. No pleural effusion. Small fat-containing LEFT Bochdalek hernia. Localizer images: No additional findings. IMPRESSION IMPRESSION: No acute process in the abdomen or pelvis. Beveling Machine Operator: MARIBETH Transcribe Date/Time: Jan 30 2025 3:55P Dictated by : TEO GARCIA DO This examination was interpreted and the report reviewed and electronically signed by: TEO GARCIA DO on Jan 30 2025 4:06PM [facility] Radiology Study observation (narrative) [facility] CT Abdomen and Pelvis W cont rast IVOrdered By: Ccf Provider on 01-30-2025 [facility] Bacteria Ur Culton Bacteria identified Cx Nom (U) CULTURE, URINE: No growth (<1,000 CFU/ml) Normal [facility] Comment on above: Performed By: #### 6 30-4 ####[facility] LABCLIA [id number] [place] [address] [place] C. trachomatis+N. gonorrhoea e DNA LATOYA+probe Ql (Unsp spec)on 01-24-2025 C. trachomatis rRNA LATOYA+probe Ql (Unsp spec) Not detected Not detected [facility] Interpretation and review of laboratory results Normal [facility] N. gonorrhoeae rRNA LATOYA+probe Ql (Unsp spec) Not detected Not detected [facility] This FDA-approved as say has been modified to accept rectal swabs self-collected in a healthcare setting. For self-collected rectal swabs, the test was developed and its performance characteristics determined by the [facility]'s [facility] [place] ([facility]). It has not been cleared or approved by the FDA. [facility] is regulated under CLIA as qualified to perform high-complexity testing. This test is used for clinical purposes. It should not be regarded as investigational or for research. [facility] C. trachomatis rRNA LATOYA+probe Ql (Unsp spec) Not detected Normal Not detected [facility] Comment on above: Order Comment: Speci men Type: URINE SPECIMENOrdering Facility: [facility] Address: [address] [place] [address] Performed By: #### 3 6902-5 ####[facility] [id number] [address] STATES OF [facility] N. gonorrhoeae rRNA LATOYA+probe Ql (Unsp spec) Not detected Normal Not detected [facility] Comment on above: Order Comment: Speci men Type: URINE SPECIMENOrdering Facility: [facility] Address: [address] [place] [address] Performed By: #### 3 6902-5 ####[facility] [id number] [address] OF GET CNOVon 01-24-2025 CNOV Office Visit (UCTR ) ----- ZACK LAST ([id number]) 1985 M Date Time Provider Department 01/24/25 8:30 AM URVASHI ALMANZA [facility] During your visit today, we recorded the following information about you: Temperature Pulse Respiration Blood pressure 97.2 degrees 88/minute 16/minute 118/68 Weight 98.7 kg Urvashi Almanza APRN.ECCLESIASTICAL WORKER 01/24/2025 1:25 PM Signed [facility] Subjective HPI HPI Zack Jose Last is a 39 year old male who presents today for CC of urinary frequency, burning for 1 year, clear penile drainage noted for 1 day, had chlamydia once with similar s/s, was treated and test of cure performed. Denies concerns for new exposure to chlamydia but concerned this is related to first occurrence. Denies testicular pain, rash Right ring finger pain, redness after trimming nails. Non nail biter. Denies fever .Patient presents with: Urinary Frequency: burning with urination, abdominal and low back pain x 1 year, right ring finger redness x 3 days PAST MEDICAL HISTORY Diagnosis Date Anxiety state Chronic jaw pain 02/20/2023 PMH - PAST MEDICAL HISTORY OF seizures PMH - PAST MEDICAL HISTORY OF headaches Scrotal cyst 02/20/2023 PAST SURGICAL HISTORY Procedure Laterality Date EGD W/O [facility] SPEC VARICIES INJ 2019 PAST SURGICAL HISTORY OF tubes in ears ALLERGIES Depakote [Divalproex], Haldol [Haloperidol Lactate], and [place] MEDICATIONS multivitamins(DAILY MULTIVITAMIN TAB) Take by mouth. (Patient not taking: Reported on 12/21/2023) FAMILY HISTORY Problem Relation Age of Onset Diabetes Father Heart Maternal Grandfather Stroke Maternal Grandfather Cancer Other PGGM; type unknown; Colon Cancer Other none Prostate Cancer Other none Social History Tobacco Use Smoking status: Every Day Current packs/day: 0.25 Average packs/day: 0.3 packs/day for 10.0 years (2.5 ttl pk-yrs) Types: Cigarettes Smokeless tobacco: Former Types: Chew Vaping Use Vaping status: current everyday user Substances: Nicotine, Flavoring Devices: Disposable Substance Use Topics Alcohol use: Not Currently Drug use: Not Currently Types: Marijuana, Cocaine, Crack Cocaine, Amphetamines, Narcotics, Heroin, Ecstasy, Crystal Meth, Benzodiazepines, Opiates, LSD Comment: Sober since May 2022 Review of Systems Constitutional: Positive for fever. Cardiovascular: Negative for chest pain. Gastrointestinal: Positive for abdominal pain (1 year). Negative for constipation, diarrhea, nausea and vomiting. Genitourinary: Positive for dysuria, frequency, penile discharge and urgency. Negative for flank pain and hematuria. Musculoskeletal: Negative for back pain. Objective BP 118/68 Pulse 88 Temp 36.2 ?C (97.2 ?F) Resp 16 Wt 98.7 kg (217 lb 9.5 oz) SpO2 97% BMI 26.49 kg/m? Physical Exam Constitutional: General: He is not in acute distress. Appearance: Normal appearance. He is not toxic-appearing. Cardiovascular: Rate and Rhythm: Normal rate and regular rhythm. Heart sounds: Normal heart sounds. Pulmonary: Effort: Pulmonary effort is normal. Breath sounds: Normal breath sounds. Abdominal: General: Bowel sounds are normal. Palpations: Abdomen is soft. Tenderness: There is no abdominal tenderness. There is no right CVA tenderness or left CVA tenderness. Musculoskeletal: Hands: Skin: General: Skin is warm and dry. {ASSESSMENT/PLAN: 1. Urinary frequency - ICD9: 788.41, ICD10: R35.0 (primary diagnosis) acute - UA positive for bili, prot No medication today aside of doxy Treat per culture results. - Send urine for culture Urinary s/s and abd discomfort for months, will schedule f/u with pcp. - UA DIP, URINE (POC) - BACTERIAL CULTURE, URINE - GONORRHEA/CHLAMYDIA NAAT 2. Discharge from penis - ICD9: 788.7, ICD10: R36.9 Treat per results. - UA DIP, URINE (POC) - BACTERIAL CULTURE, URINE - DOXYCYCLINE MONOHYDRATE 100 MG TABLET - GONORRHEA/CHLAMYDIA NAAT 3. Paronychia, finger, right - ICD9: 681.02, ICD10: L03.011 - Begin treatment with doxy - No lymphangetic streaking, this was defined for patient to watch for and to seek medical care immediately if appears - Follow up for recheck in three days with pcp, will schedule f/u - DOXYCYCLINE MONOHYDRATE 100 MG TABLET - MUPIROCIN 2 % TOPICAL OINTMENT Urvashi Almanza APRN.ECCLESIASTICAL WORKER History and Record Review External record(s) reviewed: prior outpatient record. Disposition The patient was discharged. Procedures Allergies As of Date: 01/24/2025 Noted Allergy Reaction DEPAKOTE (DIVALPROEX) 11/17/2008 8 - GI Upset Comments: N/V HALDOL (HALOPERIDOL LACTATE) 11/10/2008 5 - Intolerance LITHIUM 11/10/2008 5 - Intolerance Comments: Severe hyperactivity Date Reviewed: 01/24/2025 Reviewed by: Sachi Mora MA - Fully Assessed Reason for Visit: Urinary Frequency [1086] Cmt: burning with (more content not included)... Normal [facility] UA DIP, URINE (POC)on 2024 BILIRUBIN UA (POCT) Small Abnormal Negative [place] [facility] CLARITY UA (POCT) Clear [facility] COLOR UA (POCT) Dark yellow [facility] GLUCOSE UA (POCT) Negative Negative mg/dL [facility] Hemoglobin Ql (U) Negative Negative [facility] Interpretation and review of laboratory results Abnormal [facility] KETONE UA (POCT) Trace Negative mg/dL [facility] LEUKOCYTES UA (POCT) Negative Negative [facility] NITRITE UA (POCT) Negative Negative [facility] PH UA (POCT) 5.5 4.5 - 8.0 [facility] Protein Ql (U) 30 mg/dL Abnormal Negative [facility] SPECIFIC GRAVITY UA (POCT) >=1.030 1.005 - 1.030 [facility] UROBILINOGEN UA (POCT) 0.2 Yolanda l E.U./dL [facility] Location:[address], [place], [place], [id number] [place] [address] POINT OF CARE [facility] CNPNon 11-30-2024 CNPN Telephone (CARDWS) ----- ZACK LAST ([id number]) 1985 Date Time Provider Department 11/30/24 NURSE CARD WSTR CARDWS During your visit today, we recorded the following information about you: Rosita Steevns RN 11/30/2024 11:46 AM Signed Called and left a detailed message on verified VM with the below instructions. Rosita Stevens RN You are scheduled for a stress test on 12/05/24 at 3:40pm. Please follow below instructions: *NOTHING BY MOUTH 4 HOURS prior to this test. (you may have sips of water) *NO CAFFEINE FOR 24 HOURS PRIOR TO TESTING (including TEA even decaf, COFFEE- even decaf, CHOCOLATE, BRENT- even decaf) *Do NOT take MEDICATIONS CONTAINING CAFFEINE/XANTHINE for 24 HOURS prior to testing: Theophylline, Trental, Excedrin, Anacin, Goody Powders, No Doz, Vivarin, Midol, Diurex, Fiorinal, Fioricet, Esgic (butalbital) *Do NOT take Calcium Channel Blockers 24 HOURS prior to test. *Do NOT take Beta blockers 24 HOURS prior to test UNLESS your doctor tells you otherwise. *Do NOT use the following medications 48 HOURS prior to this test: Viagra(Sildenafil citrate), Cialis(Tadalafil), Vardenafil (Levitra, Stanyx), Avanfil (Stendra). *Do not take any of these meds prior to test unless provider directs you otherwise; Nitroglycerine (ex:Deponit, Nitrostat) Isosorbide (ex:Isordil, Sorbitrate,Imdur,Ismo). Medications on your list you should hold for 24 HOURS: None *All other medications may be taken as you normally would. *Guidelines for Diabetics: If you take insulin to control your blood sugar, ask you physician what amount you should take the day of the test. If you take pills to control blood sugar, on the day of the test, do NOT take them until AFTER the test. *FAILURE TO FOLLOW THESE INSTRUCTIONS WILL RESULT IN HAVING TO RESCHEDULE THE TEST. *Please wear comfortable clothes with a short-sleeved shirt and comfortable walking shoes. You will be on the treadmill for this test. *If you use an inhaler, bring it along with you just in case. Please check in on the first floor at Radiology: [address]; [place] [address] * If you need to cancel or reschedule this test or have any questions regarding this test, please call [phone]. Allergies As of Date: 11/30/2024 Noted Allergy Reaction DEPAKOTE (DIVALPROEX) 11/17/2008 8 - GI Upset Comments: N/V HALDOL (HALOPERIDOL LACTATE) 11/10/2008 5 - Intolerance LITHIUM 11/10/2008 5 - Intolerance Comments: Severe hyperactivity Date Reviewed: 09/12/2024 Reviewed by: Cielo Carey MA - Fully Assessed Reason for Visit: Stress Test Instructions for 12/05/24 [Other] Prescriptions as of 11/30/2024 - multivitamins(DAILY MULTIVITAMIN TAB) Take by mouth. Problem List As Of Date 11/30/2024 Noted Resolved BIPOLAR DISORDER NOS [F31.9] 11/10/2008 CONCUSSION NOS [S06.0XAA] 11/10/2008 TOBACCO USE DISORDER [F17.200] 11/10/2008 FAMILY HX DIABETES MELLITUS [Z83.3] 11/10/2008 Encounter Status:Closed by ROSITA STEVENS on 11/30/24 [facility] CNOVon 09-12-2024 CNOV Office Visit (FAMPWS ) ----- ZACK LAST ([id number]) 1985 M Date Time Provider Department 09/12/24 8:40 AM DOTTIE DIAZ During your visit today, we recorded the following information about you: Pulse Respiration Blood pressure Weight 81/minute 16/minute 130/87 104.3 kg Corina Dennis 09/12/2024 9:44 AM Signed Chief Complaint Patient presents with: sleep concerns HPI Zack Last is a 39 year old male who presents here today for Above Complaints.. Pt presents today with sleeping difficult. Pt states he was diagnosed previously with obstructive sleep apnea. Has presently been having difficulty sleeping. His fiance has noticed episodes of snoring and short cessation of breathing pt states it is worse on his back. Pt states he tries to sleep on his side and on the couch to get better sleep. Pt states he takes frequent naps throughout the day. Patient reports he continues to have chest pain intermittently with SOB and radiation of pain to left shoulder. Denies n/t, radiation of pain to arm or jaw. Past medical history, appointments, medications, allergies reviewed. Previous Medical History PAST MEDICAL HISTORY Diagnosis Date Anxiety state Chronic jaw pain 02/20/2023 PMH - PAST MEDICAL HISTORY OF seizures PMH - PAST MEDICAL HISTORY OF headaches Scrotal cyst 02/20/2023 Previous Surgical History PAST SURGICAL HISTORY Procedure Laterality Date EGD W/O BRSH SPEC VARICIES INJ 2019 PAST SURGICAL HISTORY OF tubes in ears Family History FAMILY HISTORY Problem Relation Age of Onset Diabetes Father Heart Maternal Grandfather Stroke Maternal Grandfather Cancer Other PGGM; type unknown; Colon Cancer Other none Prostate Cancer Other none Patient Allergies ALLERGIES Allergen Reactions Depakote [Divalproe* GI Upset N/V Haldol [Haloperidol* Intolerance [place] Intolerance Severe hyperactivity Current Medications Current Outpatient Medications on File Prior to Visit Medication Sig multivitamins(DAILY MULTIVITAMIN TAB) Take by mouth. (Patient not taking: Reported on 12/21/2023) No current facility-administered medications on file prior to visit. Social History Social History Tobacco Use Smoking status: Every Day Current packs/day: 0.25 Average packs/day: 0.3 packs/day for 10.0 years (2.5 ttl pk-yrs) Types: Cigarettes Smokeless tobacco: Former Types: Chew Vaping Use Vaping status: current everyday user Substances: Nicotine, Flavoring Devices: Disposable Substance Use Topics Alcohol use: Not Currently Drug use: Not Currently Types: Marijuana, Cocaine, Crack Cocaine, Amphetamines, Narcotics, Heroin, Ecstasy, Crystal Meth, Benzodiazepines, Opiates, LSD Comment: Sober since May 2022 Review of Symptoms REVIEW OF SYSTEMS GENERAL: No weight loss, malaise or fevers RESPIRATORY: Negative for cough, hemoptysis, wheezing, COPD, dyspnea or shortness of breath CARDIOVASCULAR: Negative for chest pain, leg swelling, hypertension, CHF or palpitations EXAM: BP 130/87 Pulse 81 Resp 16 Wt 104.3 kg (230 lb) BMI 28.00 kg/m? General Appearance: Well appearing, alert, in no acute distress, well-hydrated, well nourished. Lungs: Lungs clear to auscultation. No wheezing, rhonchi, rales.. Heart: RRR without murmur, gallop, or rubs. No ectopy. Peripheral Pulses: Normal. Health Maintenance List Depression Screening Never done Anxiety Screening Never done Hepatitis B Vaccine(1 of 3 - 19+ 3-dose series) Never done Pneumococcal Vaccine(1 of 2 - PCV) Never done Influenza Vaccine(1) Never done Covid-19 Vaccine() Never done Lipid Screening due on 02/21/2028 DTaP,Tdap,Td Vaccine(2 - Td or Tdap) due on 02/20/2033 Hepatitis C Screening Completed HIV Screening Completed HPV Vaccine Aged Out ASSESSMENT/PLAN: 1. [place] (obstructive sleep apnea) - ICD9: 327.23, ICD10: G47.33 (primary diagnosis) - POLYSOMNOGRAM (PSG) - PAP TITRATION PSG (CPAP, BIPAP, ASV) 2. Other chest pain - ICD9: 786.59, ICD10: R07.89 Chest pain of unclear etiology, patient with significant risk factor(s) of family history of early coronary heart disease and smoking - Electrocardiogram: An ECG today showed normal sinus rhythm - Stress testing- see orders - ECG COMPLETE - EXERCISE STRESS ECG (WITHOUT IMAGING) 4. SOB (shortness of breath) - ICD9: 786.05, ICD10: R06.02 - EXERCISE STRESS ECG (WITHOUT IMAGING) Dottie Diaz APRN.ECCLESIASTICAL WORKER Allergies As of Date: 09/12/2024 Noted Allergy Reaction DEPAKOTE (DIVALPROEX) 11/17/2008 8 - GI Upset Comments: N/V HALDOL (HALOPERIDOL LACTATE) 11/10/2008 5 - Intolerance LITHIUM 11/10/2008 5 - Intolerance Comments: Severe hyperactivity Date Reviewed: 09/12/2024 Reviewed by: Cielo Carey MA - Fully Assessed Reason for Visit: sleep concerns [Other] Primary Visit Diagnosis:[place] (obstructive s (more content not included)... Normal [facility] [id number] 09-12-2024 ECG01 Ventricular Rate : 7 7 BPM Atrial Rate : 77 BPM P-R Interval : 164 ms QRS Duration : 86 ms Q-T Interval : 370 ms QTC Calculation(Bazett) : 418 ms Calculated P [place] : 38 degrees Calculated R [place] : 18 degrees Calculated T [place] : 37 degrees NORMAL SINUS RHYTHM NORMAL ECG Confirmed by MD LOPEZ QARAB ([id number]) on 09/13/2024 11:52:14 AM NAME : ZACK LAST PID : [id number] : 1985 Gender : Male Race : ORD : Procedure Date : Sep 12 2024 09:15:02 Edit Date : Sep 13 2024 11:52:15 Diagnosis: NORMAL SINUS RHYTHM NORMAL ECG Confirmed by MD LOPEZ QARAB ([id number]) on 09/13/2024 11:52:14 AM Test Reason : Location : 136 : [place] Overread By : MD JOHN,SOFY Edited By : MD JOHN,SOFY Referred By : Dottie Diaz Acquired by : robbie huerta Normal [facility] CBC W/Diff, Automatedon 10-2 Absolute Lymph 1.30 X10 3/uL Normal 0.83-4.51 [facility] Comment on above: Performed By: #### L 100.0100, L501.2450, L500.4050 #### [facility] [address] [place], [address] Absolute Neut 4.2 X10 3/uL Normal 2.0-7.7 [facility] Comment on above: Performed By: #### L 100.0100, L501.2450, L500.4050 #### [facility] [address] [place], [address] Basophils/100 WBC (Bld) 0.9 % Normal 0-1 [facility] Comment on above: Performed By: #### L 100.0100, L501.2450, L500.4050 #### [facility] [address] [place], [address] Eosinophils/100 WBC (Bld) 3.1 % Normal 0-5 [facility] Comment on above: Performed By: #### L 100.0100, L501.2450, L500.4050 #### [facility] [address] [place], [address] Erythrocyte distribution width (RBC) [Ratio] 12.4 % Normal 11.6-14.6 [facility] Comment on above: Performed By: #### L 100.0100, L501.2450, L500.4050 #### [facility] [address] [place], [address] Hematocrit (Bld) [Volume fraction] 44.6 % Normal 40-54 [facility] Comment on above: Performed By: #### L 100.0100, L501.2450, L500.4050 #### [facility] [address] [place], [address] Hemoglobin (Bld) [Mass/Vol] 15.8 g/dL Normal 13.0-16.5 [facility] Comment on above: Performed By: #### L 100.0100, L501.2450, L500.4050 #### [facility] [address] [place], [address] IG% 0.300 Normal 0.0-0.9 [facility] Comment on above: Result Comment: IG% - Immature Granulocytes (promyelocytes, myelocytes and metamyelocytes) > 1% indicates that a LEFT SHIFT is Present. Performed By: #### L 100.0100, L501.2450, L500.4050 #### [facility] [address] [place], [address] Lymphocytes/100 WBC (Bld) 20.0 % Normal 19-41 [facility] Comment on above: Performed By: #### L 100.0100, L501.2450, L500.4050 #### [facility] [address] [place], [address] MCH (RBC) [Entitic mass] 30.7 pg Normal 27.0-32.0 [facility] Comment on above: Performed By: #### L 100.0100, L501.2450, L500.4050 #### [facility] [address] [place], [address] MCHC (RBC) [Mass/Vol] 35.4 g/dL Normal 32-36 [facility] Comment on above: Performed By: #### L 100.0100, L501.2450, L500.4050 #### [facility] [address] [place], [address] MCV (RBC) [Entitic vol] 86.6 fL Normal 80-94 [facility] Comment on above: Performed By: #### L 100.0100, L501.2450, L500.4050 #### [facility] [address] [place], [address] Monocytes/100 WBC (Bld) 10.6 % High 0-10 [facility] Comment on above: Performed By: #### L 100.0100, L501.2450, L500.4050 #### [facility] [address] [place], [address] Neutrophils/100 WBC (Bld) 65.1 % Normal 47-70 [facility] Comment on above: Performed By: #### L 100.0100, L501.2450, L500.4050 #### [facility] [address] [place], [address] Nucleated RBC (Bld) [#/Vol] 0 10*3/uL Normal 0-5 [facility] Comment on above: Performed By: #### L 100.0100, L501.2450, L500.4050 #### [facility] [address] [place], [address] Platelet mean volume (Bld) [Entitic vol] 9.1 fL Normal 6.2-12.0 [facility] Comment on above: Performed By: #### L 100.0100, L501.2450, L500.4050 #### [facility] [address] [place], [address] Platelets (Bld) [#/Vol] 223 10*3/uL Normal 150-450 [facility] Comment on above: Performed By: #### L 100.0100, L501.2450, L500.4050 #### [facility] [address] [place], [address] RBC (Bld) [#/Vol] 5.15 10*6/uL Normal 4.6-6.2 [facility] Comment on above: Performed By: #### L 100.0100, L501.2450, L500.4050 #### [facility] [address] [place], [address] RDW SD 39.0 fl Normal 35.1-43.9 [facility] Comment on above: Performed By: #### L 100.0100, L501.2450, L500.4050 #### [facility] [address] [place], [address] WBC (Bld) [#/Vol] 6.5 10*3/uL Normal 4.4-11.0 [facility] Comment on above: Performed By: #### L 100.0100, L501.2450, L500.4050 #### [facility] [address] [place], [address] Chest 1 View (Portable)on Chest 1 View (Portable) [facility] Imaging Services [address] [place] [address] Chest 1 View (Portable) MR#: [id number] Acct: [id number] Name: ZACK LAST Rep #: [id number] : 1985 M 39 From: Ovidio pavon MD PCP: Dottie Diaz, STATIONARY EQUIPMENT MECHANIC-C Status: REG ER Study: Chest 1 View (Portable) Date of Exam: 06/06/24 Exam# [id number] Ordering Dr: Henry Rdz DO [id number] STUDY: X-RAY CHEST REASON FOR EXAM: Male, 39 years old. Near syncope TECHNIQUE: Single AP portable view of the chest. COMPARISON: Comparison is made with prior study dated January 07, 2023. FINDINGS: The lungs are clear and expanded. There is no demonstrated pleural abnormality. Normal size heart. Normal mediastinum and benedict. Normal visualized pulmonary arteries. Normal visualized aortic arch and descending thoracic aorta. Normal visualized thoracic spine. Normal visualized ribs, clavicles, and shoulders. There is no demonstrated abnormality of the visualized soft tissue structures of the upper abdomen. RAD/Chest 1 View (Portable) IMPRESSION: Normal x-ray examination of the chest. Electronically Signed: Ovidio Jenkins MD at 12:46 EDT , CC: JASMINE Diaz; Dr. Henry Rdz DO Beveling Machine Operator: Signed Normal [facility] Comprehensive Metabolic Prof nvon 06-06-2024 Albumin [Mass/Vol] 3.9 g/dL Normal 3.2-5.0 [facility] Comment on above: Performed By: #### L 100.0100, L501.2450, L500.4050 #### [facility] [address] [place], [address] Albumin/Globulin [Mass ratio] 1.3 {ratio} Normal 0.9-2.4 [facility] Comment on above: Performed By: #### L 100.0100, L501.2450, L500.4050 #### [facility] [address] [place], [address] ALK P 76 U/L Normal 45-117 [facility] Comment on above: Performed By: #### L 100.0100, L501.2450, L500.4050 #### [facility] [address] [place], [address] ALT [Catalytic activity/Vol] 27 U/L Normal 16-61 [facility] Comment on above: Performed By: #### L 100.0100, L501.2450, L500.4050 #### [facility] [address] [place], [address] AST [Catalytic activity/Vol] 15 U/L Normal 15-37 [facility] Comment on above: Performed By: #### L 100.0100, L501.2450, L500.4050 #### [facility] [address] [place], [address] Bilirubin [Mass/Vol] 1.00 mg/dL Normal 0.20-1.00 [facility] Comment on above: Result Comment: For patients on eltrombopag therapy, use of Dimension [place] TBIL is not recommended. Performed By: #### L 100.0100, L501.2450, L500.4050 #### [facility] [address] [place], [address] BUN/CRE 23.3 RATIO High 10-20 [facility] Comment on above: Performed By: #### L 100.0100, L501.2450, L500.4050 #### [facility] [address] [place], [address] CA,Total 9.2 mg/dL Normal 8.5-10.1 [facility] Comment on above: Performed By: #### L 100.0100, L501.2450, L500.4050 #### [facility] [address] [place], [address] Chloride [Moles/Vol] 108 mmol/L High 98-107 [facility] Comment on above: Performed By: #### L 100.0100, L501.2450, L500.4050 #### [facility] [address] [place], [address] CO2 [Moles/Vol] 28.0 mmol/L Normal 21.0-32.0 [facility] Comment on above: Performed By: #### L 100.0100, L501.2450, L500.4050 #### [facility] [address] [place], [address] Creatinine [Mass/Vol] 0.77 mg/dL Normal 0.70-1.30 [facility] Comment on above: Result Comment: The validity of the calculated GFR GFRAA in patients over 70 years has not been determined. Clinical correlation is essential. Performed By: #### L 100.0100, L501.2450, L500.4050 #### [facility] [address] [place], [address] ECRCL 156.57 ml/min Normal [facility] Comment on above: Performed By: #### L 100.0100, L501.2450, L500.4050 #### [facility] [address] [place], [address] EST GFR - AA 144 mL/min Normal >60 [facility] Comment on above: Result Comment: Afri can Citizen Of [place] GFR Calc Performed By: #### L 100.0100, L501.2450, L500.4050 #### [facility] [address] [place], [address] GAP 2 Low 5-15 [facility] Comment on above: Performed By: #### L 100.0100, L501.2450, L500.4050 #### [facility] [address] [place], [address] GFR/1.73 sq M.predicted among non-blacks MDRD (S/P/Bld) [Vol rate/Area] 119 mL/min/{1.73_m2} Normal >60 [facility] Comment on above: Result Comment: Non- GFR Calc Performed By: #### L 100.0100, L501.2450, L500.4050 #### [facility] [address] [place], [address] Globulin (S) [Mass/Vol] 3.1 g/dL Normal 2.2-4.2 [facility] Comment on above: Performed By: #### L 100.0100, L501.2450, L500.4050 #### [facility] [address] [place], [address] Glucose [Mass/Vol] 98 mg/dL Normal 74-106 [facility] Comment on above: Performed By: #### L 100.0100, L501.2450, L500.4050 #### [facility] [address] [place], [address] Potassium [Moles/Vol] 4.0 mmol/L Normal 3.5-5.1 [facility] Comment on above: Performed By: #### L 100.0100, L501.2450, L500.4050 #### [facility] [address] [place], [address] Sodium [Moles/Vol] 138 mmol/L Normal 136-145 [facility] Comment on above: Performed By: #### L 100.0100, L501.2450, L500.4050 #### [facility] [address] [place], [address] T PROT 7.0 g/dL Normal 6.4-8.2 [facility] Comment on above: Performed By: #### L 100.0100, L501.2450, L500.4050 #### [facility] [address] [place], [address] Urea nitrogen [Mass/Vol] 18 mg/dL Normal 7-18 [facility] Comment on above: Performed By: #### L 100.0100, L501.2450, L500.4050 #### [facility] [address] [place], [address] Emergency Department Summary on 06-06-2024 Emergency Department Summary [facility] Medical Records Department [address] [place] [address] Emergency Department Summary 06/06/24 MR#: [id number] Acct: [id number] Name: ZACK LAST Rep #: [id number] : 1985 39 From: Henry Rdz DO PCP: Dottie Diaz STATIONARY EQUIPMENT MECHANIC-C Status:DEP ER Location: ED HPI History of Present Illness Chief Complaint: General Illness Informant: patient Narrative Narrative: 39-year-old male presenting to the emergency room with near syncope. Patient states that about 2 weeks ago he felt ill with what he felt was a respiratory illness. He states in the past several days he has felt better but then yesterday developed nasal congestion and a slight cough. Today he was sitting on the couch and began to feel lightheaded and relates he had not had anything to eat yet so he got up and ate some cheese. States he came and sat back down on the couch and began to feel really nauseated felt very hot and even more lightheaded. He states that sensation has improved. He has had some diarrhea recently. His significant other has also fallen ill over the past several days. No reported fevers or rash. States that they had a guinea pig that they had gotten as a pet that also while they were ill. He is unsure of what that animal from. Patient does state that he does feel some dizziness when he lays his head backwards. [facility] Medical History Seizure Stomach ulcer Hypertension Home Medications ???Medication ???Instructions ???Recorded ???Last Taken ???Type azithromycin 500 mg tablet 500 mg PO DAILY #4 tabs 01/19/23 Unknown Rx melatonin 10 mg capsule 10 mg PO HS PRN 01/19/23 Unknown History cephalexin 500 mg capsule 500 mg PO Q6 #39 CAPSULES 02/28/24 Unknown Rx sulfamethoxazole 800 1 tab PO BID #19 tabs 02/28/24 Unknown Rx mg-trimethoprim 160 mg tablet (Bactrim DS) Allergy/AdvReac Type Severity Reaction Status Date / Time haloperidol (From Haldol) Allergy Other Verified 06/06/24 11:02 lithium AdvReac Other Verified 06/06/24 11:02 olanzapine (From Zyprexa) AdvReac Other Verified 06/06/24 11:02 Surgical History History of esophagogastroduodenoscop y (EGD) Social History Smoking Status: Current every day smoker tobacco type: cigarettes ROS ROS ED ROS Narrative Lightheadedness Constitutional Constitutional ED: Reports sweats; Denies chills, fever(s) or weight loss Eyes Eyes: Denies change in vision or diplopia ENT ENT ED: Reports rhinorrhea and other Details: no facial pain ; Denies ear pain or sore throat Cardiovascular Cardiovascular: Denies chest pain, orthopnea, palpitations or racing heartbeat Respiratory/Chest Respiratory/Chest: Reports cough; Denies dyspnea or orthopnea Gastrointestinal Gastrointestinal: Reports diarrhea and nausea; Denies abdominal pain or vomiting Genitourinary Genitourinary ED: Denies dysuria, hematuria or urinary frequency Musculoskeletal Musculoskeletal: Denies arthralgias or myalgias Integumentary Denies abscess or rash Neurologic Neurologic: Reports other Details: dizziness ; Denies headache(s) or weakness Psychiatric Psychiatric: Denies anxiety, depression, suicidal ideation or suicidal thoughts Endocrine Endocrinology: Denies polydipsia, polyphagia or polyuria Allergic/Immunologic Allergic/Immunologic ED: Denies mouth swelling, tongue swelling or urticaria EXAM Physical Exam Const Vital Signs: 06/06/24 10:59 06/06/24 11:56 06/06/24 13:54 Temperature 97.8 F 98 F Temperature Source Oral Pulse Rate 83 81 Respiratory Rate 18 18 Respiratory Pattern Normal Blood Pressure 148/98 H 136/84 H Blood Pressure Mean 114 101 Pulse Ox 95 94 Oxygen Delivery Method Room Air Positive well nourished and well developed General Appearance ED: well developed HEENT Reports normocephalic, head/scalp atraumatic, TM's clear and moist mucous membranes HEENT Narrative: Nasal congestion Tympanic Membrane ED: Yes TM's clear Eyes PERRL and EOMs intact bilaterally Neck no lymphadenopathy, supple and no JVD Resp normal respiratory effort and clear to auscultation bilaterally Cardio regular rate, regular rhythm and no murmurs GI normal to inspection, nondistended, normoactive bowel sounds and non-tender Palpation: soft Back/Spine no CVA tenderness and normal ROM Extremity normal to inspection General Extremety ED: Negative for edema General Extremity: Negative for edema Neuro oriented x3 and CN's II-XII intact bilaterally Sensorium / Orientation: alert Motor Exam: strength 5/5 throughout Psych mental status grossly normal Mood Affect: Negative for depressed or tearf (more content not included)... [facility] Lipaseon 06-06-2024 Lipase [Catalytic activity/Vol] 61 U/L Normal 13-75 [facility] Comment on above: Result Comment: Stephen amaro note: LIPASE revised reference range effective 22. New Lipase methodology. Expected to produce lower values than the previous assay method. NEW Reference Range: 13 - 75 U/L Performed By: #### L 100.0100, L501.2450, L500.4050 #### [facility] [address] [place], [address] M100.678on 06-06-2024 M100.678 Pending SARS-CoV-2 (COVID 19) Negative INFLUENZA A Negative INFLUENZA B Negative RSV PCR Negative Normal [facility] Comment on above: Performed By: #### M 100.678 #### [facility] [address] [place], [address] Emergency Department Summary on 02-28-2024 Emergency Department Summary [facility] Medical Records Department [address] [place] [address] Emergency Department Summary 02/28/24 MR#: [id number] Acct: [id number] Name: ZACK LAST Rep #: [id number] : 1985 38 From: Linnea JENKINS PCP: Dottie Diaz NP-C Status:DEP ER Location: ED HPI History of Present Illness Chief Complaint: Rash Narrative Narrative: Patient presenting today due to an itchy rash to his left lower extremity he has had since last Thursday evening. He does have a few itchy spots to his right leg as well. He reports that he was laying in his friend's driveway fixing his car, later that evening he noticed pruritic bumps to his left leg. He reports a history of sensitive skin and has had contact dermatitis several times, he is scheduled to see an mailroom coordinator next month. He denies any new soaps or detergents or products on his skin. He has been applying hydrocortisone cream, chamomile lotion, and taking Benadryl with minimal relief. He denies any fevers or chills. PFSH [facility] Medical History Seizure Stomach ulcer Hypertension Home Medications ???Medication ???Instructions ???Recorded ???Last Taken ???Type azithromycin 500 mg tablet 500 mg PO DAILY #4 tabs 01/19/23 Unknown Rx melatonin 10 mg capsule 10 mg PO HS PRN 01/19/23 Unknown History cephalexin 500 mg capsule 500 mg PO Q6 #39 CAPSULES 02/28/24 Unknown Rx sulfamethoxazole 800 1 tab PO BID #19 tabs 02/28/24 Unknown Rx mg-trimethoprim 160 mg tablet (Bactrim DS) Allergy/AdvReac Type Severity Reaction Status Date / Time haloperidol (From Haldol) Allergy Other Verified 02/28/24 16:18 lithium AdvReac Other Verified 02/28/24 16:18 olanzapine (From Zyprexa) AdvReac Other Verified 02/28/24 16:18 Surgical History History of esophagogastroduodenoscop y (EGD) Social History Smoking Status: Current every day smoker tobacco type: cigarettes ROS ROS ED Constitutional Constitutional ED: Denies chills or fever(s) Cardiovascular Cardiovascular: Denies chest pain Respiratory/Chest Respiratory/Chest: Denies dyspnea Gastrointestinal Gastrointestinal: Denies abdominal pain, nausea or vomiting Musculoskeletal Musculoskeletal: Denies arthralgias or myalgias Integumentary Reports rash Allergic/Immunologic Allergic/Immunologic ED: Denies mouth swelling, tongue swelling or urticaria EXAM Physical Exam Const Vital Signs: 02/28/24 16:18 02/28/24 17:06 Temperature 98.3 F 98.3 F Temperature Source Temporal Pulse Rate 124 H 99 Respiratory Rate 16 16 Blood Pressure 153/104 H 148/89 H Blood Pressure Mean 120 108 Pulse Ox 97 97 Oxygen Delivery Method Room Air Positive well nourished, well developed and no apparent distress General Appearance ED: well developed HEENT Reports normocephalic and head/scalp atraumatic HEENT Narrative: No angioedema Mouth ED: Yes moist mucous membranes normal Eyes PERRL and EOMs intact bilaterally Neck full ROM and supple Chest Wall inspection of chest normal Resp normal respiratory effort and clear to auscultation bilaterally Cardio regular rate and regular rhythm Back/Spine normal ROM and normal to inspection Extremity full ROM General Extremety ED: Negative for edema General Extremity: Negative for edema Neuro oriented x3, CN's II-XII intact bilaterally, moves all extremities, no focal motor deficits and no sensory deficits noted Sensorium / Orientation: awake and alert Psych mental status grossly normal and thought process normal Skin no wounds Skin Narrative: Papular pruritic rash to the left lower extremity with minimal surrounding erythema, no fluctuance or warmth, no purulent discharge, a few lesions to right lower extremity Physical Exam Const Vital Signs: 02/28/24 16:18 02/28/24 17:06 Temperature 98.3 F 98.3 F Temperature Source Temporal Pulse Rate 124 H 99 Respiratory Rate 16 16 Blood Pressure 153/104 H 148/89 H Blood Pressure Mean 120 108 Pulse Ox 97 97 Oxygen Delivery Method Room Air MDM MDM MDM Narrative Medical decision making narrative: Patient presenting today with a rash to his left lower extremity he has had over the past week, he also has slight involvement of his right lower extremity. He has been using Benadryl and hydrocortisone cream without relief. His rash does seem to be associated with hair follicles which is concerning for folliculitis. We will treat him with Keflex and Bactrim. I encouraged that he follow-up with his PCP. Return instructions were discussed. Patient discharged home in stable condition. I have (more content not included)... Normal [facility] No Panel Informationon 02-15 Radiology Study observation (narrative) [facility] XR Cervical spine AP and Lat eral and obliqueon 02-16-2024 IMPRESSION: Negative cervical spine X-ray. Beveling Machine Operator: MARIBETH Transcribe Date/Time: Feb 16 2024 4:53P Dictated by : KISHAN TAVAREZ MD This examination was interpreted and the report reviewed and electronically signed by: KISHAN TAVAREZ MD on Feb 16 2024 4:54PM [facility] DIVISION OF RADIOLOGY * * *Final Report* * * DATE OF EXAM: Feb 16 2024 9:41AM WOX [id number] - XR CERVICAL 4V AP/LAT/OBL / PROCEDURE REASON: Acute bilateral low back pain without sciatica * * * * Physician Interpretation * * * * EXAM TITLE: XR CERVICAL 4V AP/LAT/OBL EXAM DATE/TIME: 02/16/2024 9:41 AM COMPARISON: None. CLINICAL INDICATION/HISTORY: Neck pain. TECHNIQUE: AP, lateral and oblique views of the cervical spine are presented. FINDINGS: No fractures or subluxations are noted. The disc spaces are well preserved. There is no significant osteophyte formation. The neural foramina are patent. The prevertebral soft tissues are normal. DIVISION OF RADIOLOGY Provider, [facility] - 02/16/2024 * * *Final Report* * * DATE OF EXAM: Feb 16 2024 9:41AM WOX [id number] - XR CERVICAL 4V AP/LAT/OBL / PROCEDURE REASON: Acute bilateral low back pain without sciatica * * * * Physician Interpretation * * * * EXAM TITLE: XR CERVICAL 4V AP/LAT/OBL EXAM DATE/TIME: 02/16/2024 9:41 AM COMPARISON: None. CLINICAL INDICATION/HISTORY: Neck pain. TECHNIQUE: AP, lateral and oblique views of the cervical spine are presented. FINDINGS: No fractures or subluxations are noted. The disc spaces are well preserved. There is no significant osteophyte formation. The neural foramina are patent. The prevertebral soft tissues are normal. IMPRESSION IMPRESSION: Negative cervical spine X-ray. Beveling Machine Operator: MARIBETH Transcribe Date/Time: Feb 16 2024 4:53P Dictated by : KISHAN TAVAREZ MD This examination was interpreted and the report reviewed and electronically signed by: KISHAN TAVAREZ MD on Feb 16 2024 4:54PM [facility] XR Lumbar spine AP and Later al and obliqueon 02-16-2024 IMPRESSION: Negative lumbar spine X-ray. Beveling Machine Operator: MARIBETH Transcribe Date/Time: Feb 16 2024 4:54P Dictated by : KISHAN TAVAREZ MD This examination was interpreted and the report reviewed and electronically signed by: KISHAN TAVAREZ MD on Feb 16 2024 4:55PM [facility] DIVISION OF RADIOLOGY * * *Final Report* * * DATE OF EXAM: Feb 16 2024 9:41AM WOX [id number] - XR LUMBAR PARS 4V AP/LAT/OBL X2 / PROCEDURE REASON: Acute bilateral low back pain without sciatica * * * * Physician Interpretation * * * * EXAM TITLE: XR LUMBAR PARS 4V AP/LAT/OBL X2 EXAM DATE/TIME: 02/16/2024 9:41 AM COMPARISON: None. CLINICAL INDICATION/HISTORY: Back pain. TECHNIQUE: AP, lateral, oblique and cone down lateral views of the lumbar spine are presented. FINDINGS: There are five [id number] lumbar vertebrae. No fracture or subluxations are noted. The disc spaces are well preserved. There is no significant osteophyte formation. DIVISION OF RADIOLOGY Provider, [facility] - 02/16/2024 * * *Final Report* * * DATE OF EXAM: Feb 16 2024 9:41AM WOX [id number] - XR LUMBAR PARS 4V AP/LAT/OBL X2 / PROCEDURE REASON: Acute bilateral low back pain without sciatica * * * * Physician Interpretation * * * * EXAM TITLE: XR LUMBAR PARS 4V AP/LAT/OBL X2 EXAM DATE/TIME: 02/16/2024 9:41 AM COMPARISON: None. CLINICAL INDICATION/HISTORY: Back pain. TECHNIQUE: AP, lateral, oblique and cone down lateral views of the lumbar spine are presented. FINDINGS: There are five lqp-[id number]-abhpiyh lumbar vertebrae. No fracture or subluxations are noted. The disc spaces are well preserved. There is no significant osteophyte formation. IMPRESSION IMPRESSION: Negative lumbar spine X-ray. Beveling Machine Operator: PSCB Transcribe Date/Time: Feb 16 2024 4:54P Dictated by : KISHAN TAVAREZ MD This examination was interpreted and the report reviewed and electronically signed by: KISHAN TAVAREZ MD on Feb 16 2024 4:55PM [facility] XR Lumbar spine AP and Later al and obliqueOrdered By: [facility] Provider on 02-16-2024 [facility] Basic Metabolic Profile (BMP )on 01-29-2024 BUN/CRE 15.5 RATIO Normal 10-20 [facility] Comment on above: Performed By: #### L 100.0100, L500.2500 ####[facility] [address] [place], [address] CA,Total 9.4 mg/dL Normal 8.5-10.1 [facility] Comment on above: Performed By: #### L 100.0100, L500.2500 ####[facility] [address] [place], [address] Chloride [Moles/Vol] 106 mmol/L Normal 98-107 [facility] Comment on above: Performed By: #### L 100.0100, L500.2500 ####[facility] [address] [place], [address] CO2 [Moles/Vol] 25.0 mmol/L Normal 21.0-32.0 [facility] Comment on above: Performed By: #### L 100.0100, L500.2500 ####[facility] [address] [place], [address] Creatinine [Mass/Vol] 0.90 mg/dL Normal 0.70-1.30 [facility] Comment on above: Result Comment: The validity of the calculated GFR GFRAA in patients over 70 years has not been determined. Clinical correlation is essential. Performed By: #### L 100.0100, L500.2500 ####[facility] [address] [place], [address] ECRCL 135.29 ml/min Normal [facility] Comment on above: Performed By: #### L 100.0100, L500.2500 ####[facility] [address] [place], [address] EST GFR - AA 120 mL/min Normal >60 [facility] Comment on above: Result Comment: Afri can Citizen Of [place] GFR Calc Performed By: #### L 100.0100, L500.2500 ####[facility] [address] [place], [address] GAP 6 Normal 5-15 [facility] Comment on above: Performed By: #### L 100.0100, L500.2500 ####[facility] [address] [place], [address] GFR/1.73 sq M.predicted among non-blacks MDRD (S/P/Bld) [Vol rate/Area] 99 mL/min/{1.73_m2} Normal >60 [facility] Comment on above: Result Comment: Non- GFR Calc Performed By: #### L 100.0100, L500.2500 ####[facility] [address] [place], [address] Glucose [Mass/Vol] 103 mg/dL Normal 74-106 [facility] Comment on above: Result Comment: Fast ing Glucose result from 100 to 125 mg/dL suggests IMPAIRED HOMEOSTASIS per A.D.A. criteria. Performed By: #### L 100.0100, L500.2500 ####[facility] [address] [place], [address] Potassium [Moles/Vol] 4.0 mmol/L Normal 3.5-5.1 [facility] Comment on above: Performed By: #### L 100.0100, L500.2500 ####[facility] [address] [place], [address] Sodium [Moles/Vol] 137 mmol/L Normal 136-145 [facility] Comment on above: Performed By: #### L 100.0100, L500.2500 ####[facility] [address] [place], [address] Urea nitrogen [Mass/Vol] 14 mg/dL Normal 7-18 [facility] Comment on above: Performed By: #### L 100.0100, L500.2500 ####[facility] [address] [place], [address] CBC W/Diff, Automatedon 06-2 Absolute Lymph 1.80 X10 3/uL Normal 0.83-4.51 [facility] Comment on above: Performed By: #### L 100.0100, L500.2500 #### [facility] [address] [place], [address] Absolute Neut 3.9 X10 3/uL Normal 2.0-7.7 [facility] Comment on above: Performed By: #### L 100.0100, L500.2500 #### [facility] [address] [place], [address] Basophils/100 WBC (Bld) 1.1 % High 0-1 [facility] Comment on above: Performed By: #### L 100.0100, L500.2500 #### [facility] [address] [place], [address] Eosinophils/100 WBC (Bld) 2.1 % Normal 0-5 [facility] Comment on above: Performed By: #### L 100.0100, L500.2500 #### [facility] [address] [place], [address] Erythrocyte distribution width (RBC) [Ratio] 12.2 % Normal 11.6-14.6 [facility] Comment on above: Performed By: #### L 100.0100, L500.2500 #### [facility] [address] [place], [address] Hematocrit (Bld) [Volume fraction] 47.6 % Normal 40-54 [facility] Comment on above: Performed By: #### L 100.0100, L500.2500 #### [facility] [address] [place], [address] Hemoglobin (Bld) [Mass/Vol] 16.5 g/dL Normal 13.0-16.5 [facility] Comment on above: Performed By: #### L 100.0100, L500.2500 #### [facility] [address] [place], [address] IG% 0.300 Normal 0.0-0.9 [facility] Comment on above: Result Comment: IG% - Immature Granulocytes (promyelocytes, myelocytes and metamyelocytes) > 1% indicates that a LEFT SHIFT is Present. Performed By: #### L 100.0100, L500.2500 #### [facility] [address] [place], [address] Lymphocytes/100 WBC (Bld) 27.1 % Normal 19-41 [facility] Comment on above: Performed By: #### L 100.0100, L500.2500 #### [facility] [address] [place], [address] MCH (RBC) [Entitic mass] 30.2 pg Normal 27.0-32.0 [facility] Comment on above: Performed By: #### L 100.0100, L500.2500 #### [facility] [address] [place], [address] MCHC (RBC) [Mass/Vol] 34.7 g/dL Normal 32-36 [facility] Comment on above: Performed By: #### L 100.0100, L500.2500 #### [facility] [address] [place], [address] MCV (RBC) [Entitic vol] 87.0 fL Normal 80-94 [facility] Comment on above: Performed By: #### L 100.0100, L500.2500 #### [facility] [address] [place], [address] Monocytes/100 WBC (Bld) 10.4 % High 0-10 [facility] Comment on above: Performed By: #### L 100.0100, L500.2500 #### [facility] [address] [place], [address] Neutrophils/100 WBC (Bld) 59.0 % Normal 47-70 [facility] Comment on above: Performed By: #### L 100.0100, L500.2500 #### [facility] [address] [place], [address] Nucleated RBC (Bld) [#/Vol] 0 10*3/uL Normal 0-5 [facility] Comment on above: Performed By: #### L 100.0100, L500.2500 #### [facility] [address] [place], [address] Platelet mean volume (Bld) [Entitic vol] 9.3 fL Normal 6.2-12.0 [facility] Comment on above: Performed By: #### L 100.0100, L500.2500 #### [facility] [address] [place], [address] Platelets (Bld) [#/Vol] 227 10*3/uL Normal 150-450 [facility] Comment on above: Performed By: #### L 100.0100, L500.2500 #### [facility] [address] [place], [address] RBC (Bld) [#/Vol] 5.47 10*6/uL Normal 4.6-6.2 [facility] Comment on above: Performed By: #### L 100.0100, L500.2500 #### [facility] [address] [place], [address] RDW SD 38.8 fl Normal 35.1-43.9 [facility] Comment on above: Performed By: #### L 100.0100, L500.2500 #### [facility] [address] [place], [address] WBC (Bld) [#/Vol] 6.6 10*3/uL Normal 4.4-11.0 [facility] Comment on above: Performed By: #### L 100.0100, L500.2500 #### [facility] [address] [place], [address] Emergency Department Summary on 01-29-2024 Emergency Department Summary [facility] Medical Records Department [address] [place] [address] Emergency Department Summary 01/29/24 MR#: [id number] Acct: [id number] Name: ZACK LAST Rep #: [id number] : 1985 38 From: Mitchel Calderón MD PCP: Dottie Diaz NP-C Status:DEP ER Location: ED HPI History of Present Illness Chief Complaint: Other, Pain/Inj Detail of Chief Complaint: Bilateral flank pain for about a month. Informant: patient Onset/Context/Timing Onset: Weeks Context: Gradual Onset Timing: Intermittent Quality: Dull and Aching Location: Lumbar Current Severity: Mild Maximum Severity: Mild Worsened by: improves with Nothing Relieved by: Nothing Associated Symptoms Associated Symptoms: Negative for Numbness or Tingling Narrative Narrative: 38-year-old male no seen past medical history. States he has had bilateral flank pain primarily in the mornings for about the last month. Basically wakes up with it in the morning and then it goes away after several hours. Nothing specifically makes it better or worse. Denies any fall or injury or trauma to his back. Denies any dysuria or hematuria. No history of kidney stones. No history of abdominal, back or urologic surgeries. He denies any fever or weight loss. He denies any vomiting or diarrhea. Prior similar symptoms: Yes Recent Illness/Hospitalization: No [facility] Medical History Seizure Stomach ulcer Hypertension Home Medications ???Medication ???Instructions ???Recorded ???Last Taken ???Type azithromycin 500 mg tablet 500 mg PO DAILY #4 tabs 01/19/23 Unknown Rx melatonin 10 mg capsule 10 mg PO HS PRN 01/19/23 Unknown History Allergy/AdvReac Type Severity Reaction Status Date / Time haloperidol (From Haldol) Allergy Other Verified 01/29/24 07:48 lithium AdvReac Other Verified 01/29/24 07:48 olanzapine (From Zyprexa) AdvReac Other Verified 01/29/24 07:48 Surgical History History of esophagogastroduodenoscop y (EGD) Social History Smoking Status: Current every day smoker tobacco type: cigarettes ROS ROS ED ROS Narrative Bilateral flank pain. Review of Systems ROS Unobtainable: Denies due to encephalopathy Constitutional Constitutional ED: Denies chills or fever(s) Eyes Eyes: Denies blurry vision ENT ENT ED: Denies ear pain Cardiovascular Cardiovascular: Denies chest pain Respiratory/Chest Respiratory/Chest: Denies dyspnea Gastrointestinal Gastrointestinal: Denies abdominal pain, constipation, diarrhea, melena, nausea or vomiting Genitourinary Genitourinary ED: Denies dysuria or hematuria Musculoskeletal Musculoskeletal: Reports back pain; Denies arthralgias, myalgias or neck pain Integumentary Denies abscess, Abrasions or rash Neurologic Neurologic: Denies headache(s) Psychiatric Psychiatric: Denies anxiety or depression Endocrine Endocrinology: Denies cold intolerance Hematologic/Lymphatic Hematologic/Lymphatic: Denies easy bleeding, easy bruising or lymphadenopathy Allergic/Immunologic Allergic/Immunologic ED: Denies mouth swelling, tongue swelling or urticaria EXAM Physical Exam Narrative Exam Narrative: Well-appearing 38-year-old male. Vital signs stable afebrile. H EENT exam unremarkable. Neck nontender. Lungs clear to auscultation bilaterally. Heart regular rhythm no murmur. Abdomen soft nontender. Moving all 4 extremities. Normal strength. Normal sensation. He ambulated in the room. Back there is no reproducible musculoskeletal or spine tenderness. No signs of trauma. No bruising redness or warmth to his back. Neurologically is awake and alert with no focal motor deficits. Const Vital Signs: 01/29/24 07:48 Temperature 98.2 F Temperature Source Temporal Pulse Rate 98 Respiratory Rate 16 Blood Pressure 141/97 H Blood Pressure Mean 111 Pulse Ox 97 Oxygen Delivery Method Room Air Positive well nourished and well developed; Negative for obese, cachectic, contractures or unkempt General Appearance ED: well developed and NAD; Negative for unkempt, cachectic, contractures or pallor Nutritional Appearance: Negative for cachectic or obese HEENT Reports moist mucous membranes Negative for trauma or tenderness Eyes PERRL and EOMs intact bilaterally General Eye ED: Negative for pale conjunctiva or scleral icterus Neck no lymphadenopathy, supple and no JVD General: Negative for tenderness Thyroid: Negative for other Resp normal respiratory effort and clear to auscultation bilaterally Effort and Inspection: Negative for pain with movement Auscultation: Negative for rales, rhonchi, wheezes or diminished lung sounds Cardio regular rate, regu (more content not included)... Normal [facility] Urinalysis, Completeon 01-28 BACTERIA 0 SEEN Normal None Seen [facility] Comment on above: Order Comment: ELIF CTOR TO SPECIFY Performed By: #### L 400.0001 #### [facility] [address] [place], [address] EPI,SQUAMOUS 0 SEEN Normal 0-5 [facility] Comment on above: Order Comment: ELIF CTOR TO SPECIFY Performed By: #### L 400.0001 #### [facility] [address] [place], [address] Mucus Ql (Urine sed) 0 SEEN Normal [facility] Comment on above: Order Comment: ELIF CTOR TO SPECIFY Performed By: #### L 400.0001 #### [facility] [address] [place], [address] RBC 0 SEEN Normal 0-5 [facility] Comment on above: Order Comment: ELIF CTOR TO SPECIFY Performed By: #### L 400.0001 #### [facility] [address] [place], [address] WBC 0 SEEN Normal 0-5 [facility] Comment on above: Order Comment: ELIF CTOR TO SPECIFY Performed By: #### L 400.0001 #### [facility] [address] [place], [address] UA DIP, URINE (POC)on 2022 BILIRUBIN UA (POCT) Negative Negative [facility] CLARITY UA (POCT) [facility] COLOR UA (POCT) Yellow [facility] GLUCOSE UA (POCT) Negative Negative mg/dL [facility] Hemoglobin Ql (U) Trace-intact Abnormal Negative [facility] KETONE UA (POCT) Negative Negative mg/dL [facility] LEUKOCYTES UA (POCT) Negative Negative [facility] NITRITE UA (POCT) Negative Negative [facility] PH UA (POCT) 8.5 Abnormal 4.5 - 8.0 [facility] Protein Ql (U) Negative Negative mg/dL [facility] SPECIFIC GRAVITY UA (POCT) 1.020 1.005 - 1.030 [facility] UROBILINOGEN UA (POCT) 0.2 E.U./dL Yolanda l E.U./dL [facility] US KIDNEY/BLADDERon 03-27-20 [facility] UA DIP, URINE (POC)on 2022 BILIRUBIN UA (POCT) Negative Negative [facility] CLARITY UA (POCT) Slightly Cloudy [facility] COLOR UA (POCT) Dark yellow [facility] GLUCOSE UA (POCT) Negative Negative mg/dL [facility] HEMOGLOBIN/BLOOD UA (POCT) Negative Negative [facility] KETONE UA (POCT) Negative Negative mg/dL [facility] LEUKOCYTES UA (POCT) Negative Negative [facility] NITRITE UA (POCT) Negative Negative [facility] PH UA (POCT) 6.5 4.5 - 8.0 [facility] Protein Ql (U) Negative Negative mg/dL [facility] SPECIFIC GRAVITY UA (POCT) 1.025 1.005 - 1.030 [facility] UROBILINOGEN UA (POCT) 0.2 E.U./dL Yolanda l E.U./dL [facility] CBC W Auto Differential pane l (Bld)on 02-20-2023 Basophils (Bld) [#/Vol] 0.05 10*3/uL <0.11 k/uL [facility] Basophils/100 WBC (Bld) 1.0 % C [facility] Differential cell count method Nom (Bld) Auto [facility] Eosinophils (Bld) [#/Vol] 0.10 10*3/uL <0.46 k/ uL [facility] Eosinophils/100 WBC (Bld) 2.0 % [facility] Erythrocyte distribution width (RBC) [Ratio] 12.4 % 11.5 - 15.0 % [facility] Hematocrit (Bld) [Volume fraction] 48.2 % 39.0 - 51.0 % [facility] Hemoglobin (Bld) [Mass/Vol] 16.5 g/dL 13.0 - 17.0 g/dL [facility] Immature granulocytes (Bld) [#/Vol] <0.10 k/uL [facility] Immature granulocytes/100 WBC (Bld) 0.2 % [facility] Lymphocytes (Bld) [#/Vol] 1.42 10*3/uL 1. 00 - 4.00 k/uL [facility] Lymphocytes/100 WBC (Bld) 28.0 % [facility] MCH (RBC) [Entitic mass] 30.6 pg 26. 0 - 34.0 pg [facility] MCHC (RBC) [Mass/Vol] 34.2 g/dL 30.5 - 36.0 g/dL [facility] MCV (RBC) [Entitic vol] 89.4 fL 80.0 - 100.0 fL [facility] Monocytes (Bld) [#/Vol] 0.53 10*3/uL <0.87 k/uL [facility] Monocytes/100 WBC (Bld) 10.5 % C [facility] Neutrophils (Bld) [#/Vol] 2.96 10*3/uL 1. 45 - 7.50 k/uL [facility] Neutrophils/100 WBC (Bld) 58.3 % [facility] Nucleated RBC (Bld) [#/Vol] <0.01 k/uL [facility] Nucleated RBC/100 WBC (Bld) [Ratio] 0.0 /100 WBC [facility] Platelet mean volume (Bld) [Entitic vol] 10.5 fL 9.0 - 12.7 fL [facility] Platelets (Bld) [#/Vol] 177 10*3/uL 150 - 400 k/uL [facility] RBC (Bld) [#/Vol] 5.39 10*6/uL 4.20 - 6.00 m/uL [facility] WBC (Bld) [#/Vol] 5.07 10*3/uL 3.70 - 11.00 k/uL [facility] Urinalysis complete panel (U )on 06-22-2023 Bilirubin Ql (U) Negative Negative [facility] Clarity (Unsp spec) Clear Clear [facility] Color (U) Light Yellow Yellow [facility] Glucose Test strip (U) [Mass/Vol] Negative Trace, Negative [facility] Hemoglobin Ql (U) Negative Negative, Trace [facility] Ketones Ql (U) Negative Trace, Negative [facility] Leukocyte esterase Test strip Ql (U) Negative Negative, 25 Armani/uL [facility] Nitrite Ql (U) Negative Negative [facility] pH (U) 6.5 [pH] 5.0 - 8.0 [facility] Protein (U) [Mass/Vol] Trace Trace , Negative [facility] RBC LM.HPF (Urine sed) [#/Area] 0-3 /HPF 0-3 /HPF [facility] Specific gravity (U) [Rel density] 1.016 1.005 - 1.030 [facility] Sperm Present Abnormal None Seen /HPF [facility] Urobilinogen Ql (U) Negative Negative [facility] WBC LM.HPF (Urine sed) [#/Area] 0-5 /HPF 0-5 /HPF [facility] Basophil percentageOrdered B y: Dr. Nguyen on 01-24-2023 Basophil percentage 0 SEEN /hpf 0-5 [facility] Bilirubin Test strip Ql (U)O rdered By: Dr. Nguyen on 01-24-2023 Bilirubin Ql (U) Negative Negative [facility] Ketones Test strip Ql (U)Ord ered By: Dr. Nguyen on 01-24-2023 Ketones Ql (U) Negative Negative [facility] Mucus LM Ql (Urine sed)Order ed By: Dr. Nguyen on 01-24-2023 Mucus Ql (Urine sed) 0 SEEN /hpf [facility] Neisseria gonorrhoeae genita l PCROrdered By: Dr. Nguyen on 01-24-2023 N. gonorrhoeae DNA LATOYA+probe Ql (Genital specimen) [facility] Nitrite Test strip Ql (U)Ord ered By: Dr. Nguyen on 01-24-2023 Nitrite Ql (U) Negative Negative [facility] No Panel InformationOrdered By: Dr. Nguyen on 01-24-2023 Chlamydia trachomatis (PCR) [facility] Protein Test strip Ql (U)Ord ered By: Dr. Nguyen on 01-24-2023 Protein Ql (U) 15 mg/dl Negative [facility] Squamous epithelial cells de tection in urine sediment by light microscopyOrdered By: Dr. Nguyen on 01-24-2023 Epithelial cells.squamous LM Ql (Urine sed) 0 SEEN /hpf 0-5 [facility] Urine blood detectionOrdered By: Dr. Nguyen on 01-24-2023 RBC Ql (U) Negative Negative [facility] RBC Ql (U) 0 SEEN /hpf 0-5 [facility] Urine clarityOrdered By: Dr. Nguyen on 01-24-2023 Clarity (U) Clear Clear [facility] Urine color determinationOrd ered By: Dr. Nguyen on 01-24-2023 Color (U) Yellow Yellow [facility] Urine glucose detectionOrder ed By: Dr. Nguyen on 01-24-2023 Glucose Ql (U) Normal mg/dl Normal [facility] Urine leukocyte esterase det ection by dipstickOrdered By: Dr. Nguyen on 01-24-2023 Leukocyte esterase Test strip Ql (U) 25 /ul Negative [facility] Urine pHOrdered By: Dr. Kassandra goff on 01-24-2023 pH (U) 5.0 [pH] 5.0 - 8.0 [facility] Urine sediment bacteria coun t by microscopy (number/high power field)Ordered By: Dr. Nguyen on 01-24-2023 Bacteria LM.HPF (Urine sed) [#/Area] 0 /[HPF] None Seen [facility] Urine specific gravity measu rementOrdered By: Dr. Nguyen on 01-24-2023 Specific gravity (U) [Rel density] 1.020 1.002-1.03 0 [facility] Urobilinogen Auto test strip Ql (U)Ordered By: Dr. Nguyen on 01-24-2023 Urobilinogen Ql (U) Normal mg/dl Normal [facility] Culture, urineOrdered By: Han Inman on 01-21-2023 Bacteria identified Cx Nom (U) Culture exhibits no growth. [facility] Amorphous sediment detection in urine sediment by light microscopyOrdered By: Robert Inman on 01-19-2023 Amorphous sediment LM Ql (Urine sed) 1+ [facility] Basophil percentageOrdered B y: Robert Inman on 01-19-2023 Basophil percentage 0-5 SEEN /hpf 0-5 [facility] Bilirubin Test strip Ql (U)O rdered By: Robert Inman on 01-19-2023 Bilirubin Ql (U) Negative Negative [facility] Ketones Test strip Ql (U)Ord ered By: Robert Inman on 01-19-2023 Ketones Ql (U) Negative Negative [facility] - Chemistry and C hemistry - challengeon 01-19-2023 Bilirubin Ql (U) Negative [facility] Glucose Ql (U) Negative [facility] Ketones Ql (U) Negative [facility] pH (U) 5.0 [pH] [facility] Specific gravity (U) [Rel density] 1.015 [facility] Urobilinogen (U) [Mass/Vol] 0.6782893 mg/dL [facility] - Hematology and Cell countson 01-19-2023 Hemoglobin Ql (U) Negative [facility] - Specimen inform ationon 01-19-2023 Clarity (U) [facility] Color (U) Chantal [facility] - Urinalysison Nitrite Ql (U) Negative [facility] Protein Ql (U) Negative [facility] Mucus LM Ql (Urine sed)Order ed By: Robert Inman on 01-19-2023 Mucus Ql (Urine sed) 0 SEEN /hpf [facility] Nitrite Test strip Ql (U)Ord ered By: Robert Inman on 01-19-2023 Nitrite Ql (U) Negative Negative [facility] No Panel Informationon 01-19 Urine Leukocytes Negatve [facility] Urine Non-Hemolyzed Blood [facility] Protein Test strip Ql (U)Ord ered By: Robert Inman on 01-19-2023 Protein Ql (U) Negative Negative [facility] Squamous epithelial cells de tection in urine sediment by light microscopyOrdered By: Robert Inman on 01-19-2023 Epithelial cells.squamous LM Ql (Urine sed) 0 SEEN /hpf 0-5 [facility] Urine blood detectionOrdered By: Robert Inman on 01-19-2023 RBC Ql (U) Negative Negative [facility] RBC Ql (U) 0 SEEN /hpf 0-5 [facility] Urine clarityOrdered By: Howard Inman on 01-19-2023 Clarity (U) Sl. Cloudy Clear [facility] Urine color determinationOrd ered By: Robert Inman on 01-19-2023 Color (U) Yellow Yellow [facility] Urine glucose detectionOrder ed By: Robert Inman on 01-19-2023 Glucose Ql (U) Normal mg/dl Normal [facility] Urine leukocyte esterase det ection by dipstickOrdered By: Robert Inman on 01-19-2023 Leukocyte esterase Test strip Ql (U) Negative Negative [facility] Urine pHOrdered By: Robert parrish on 01-19-2023 pH (U) 7.0 [pH] 5.0 - 8.0 [facility] Urine sediment bacteria coun t by microscopy (number/high power field)Ordered By: Robert Inman on 01-19-2023 Bacteria LM.HPF (Urine sed) [#/Area] 0 /[HPF] None Seen [facility] Urine specific gravity measu rementOrdered By: Robert Inman on 01-19-2023 Specific gravity (U) [Rel density] 1.010 1.002-1.03 0 [facility] Urobilinogen Auto test strip Ql (U)Ordered By: Robert Inman on 01-19-2023 Urobilinogen Ql (U) Normal mg/dl Normal [facility] Throat Streptococcus pyogene s antigen detection by immunofluorescenceOrdered By: Dr. Meneses on 01-09-2023 S. pyogenes Ag IF Ql (Throat) [facility] Influenza virus A and B and SARS-CoV-2 (COVID-19) Ag panel - Upper respiratory specimOrdered By: Dr. Meneses on 01-07-2023 SARS-CoV-2 (COVID-19) RNA LATOYA+probe Ql (Resp) [facility] CMP with eGFR [CCL]on 2021 Albumin [Mass/Vol] 4.6 g/dL Normal 3.9-4.9 [facility] Comment on above: Performed By: #### 2 [id number] #### [facility],[address] [place] [address] ALP [Catalytic activity/Vol] 78 U/L Normal 38-113 [facility] Comment on above: Performed By: #### 2 95819 #### [facility],[address] [place] [address]694 ALT [Catalytic activity/Vol] 11 U/L Normal 10-54 [facility] Comment on above: Performed By: #### 2 78157 #### [facility],[address] [place] [address] Anion gap [Moles/Vol] 14 mmol/L Normal 9-18 [facility] Comment on above: Performed By: #### 2 81615 #### [facility],[address] [place] [address] 39927 AST [Catalytic activity/Vol] 14 U/L Normal 14-40 [facility] Comment on above: Performed By: #### 2 91582 #### [facility],[address] [place] [address]105 Bilirubin [Mass/Vol] 0.5 mg/dL Normal 0.2-1.3 [facility] Comment on above: Performed By: #### 2 56330 #### [facility],[address] [place] [address]22 Calcium [Mass/Vol] 9.4 mg/dL Normal 8.5-10.2 [facility] Comment on above: Performed By: #### 2 26807 #### [facility],[address] [place] [address]268 Chloride [Moles/Vol] 101 mmol/L Normal 97-105 [facility] Comment on above: Performed By: #### 2 71638 #### [facility],[address] [place] [address] 99755 CO2 [Moles/Vol] 23 mmol/L Normal 22-30 [facility] Comment on above: Performed By: #### 2 56713 #### [facility],[address] [place] [address] 39579 Creatinine [Mass/Vol] 0.85 mg/dL Normal 0.73-1.22 [facility] Comment on above: Performed By: #### 2 47441 #### [facility],[address] [place], [place] [id number] Estimated GlomerularFiltration Rate 115 mL/min/1.m??? Normal >=60 [facility] Comment on above: Result Comment: Marleni mated Glomerular Filtration Rate (eGFR) is calculated using the 2020 CKD-EPI creatinine equation. This equation utilizes serum creatinine, sex, and age as parameters. The creatinine assay has traceable calibration to isotope dilution-mass spectrometry. Refer to KDIGO guidelines for clinical interpretation. In patients with unstable renal function, e.g. those with acute kidney injury, the eGFR may [place] [address] Jonathan Aguilera III, M.D. [id number] Performed By: #### 2 81784 #### [place] [id number] Glucose [Mass/Vol] 106 mg/dL High 74-99 [facility] Comment on above: Result Comment: The [place] Diabetes Association (ADA) provides guidance for cutoff values for fasting glucose and random glucose. The ADA defines fasting as no caloric intake for at least 8 hours. Fasting plasma glucose results between 100 to 125 mg/dL indicate increased risk for diabetes (prediabetes). Fasting plasma glucose results greater than or equal to 126 mg/dL meet the criteria for diagnosis of diabetes. In the absence of unequivocal hyperglycemia, results should be confirmed by repeat testing. In a patient with classic symptoms of hyperglycemia or hyperglycemic crisis, random plasma glucose results greater than or equal to 200 mg/dL meet the criteria for diagnosis of diabetes. Reference: Standards of Medical Care in Diabetes 2016, [place] Diabetes Association. Diabetes Care. 2016.39(Suppl 1). Performed By: #### 2 34976 #### [facility],[address] [place] [address] Potassium [Moles/Vol] 4.6 mmol/L Normal 3.7-5.1 [facility] Comment on above: Performed By: #### 2 36572 #### [facility],[address] [place] [address]7866 Protein [Mass/Vol] 6.9 g/dL Normal 6.3-8.0 [facility] Comment on above: Performed By: #### 2 56233 #### [facility],[address] [place] [address] 23593 Sodium [Moles/Vol] 138 mmol/L Normal 136-144 [facility] Comment on above: Performed By: #### 2 25661 #### [facility],[address] [place] [address] 81188 Urea nitrogen [Mass/Vol] 15 mg/dL Normal 9-24 [facility] Comment on above: Performed By: #### 2 13263 #### [facility],[address] [place] [address]3825 HGB A1C [CCL]on 01-16-2022 HbA1c (Bld) [Mass fraction] 4.6 % Normal 4.3-5.6 [facility] Comment on above: Result Comment: Amer [place] Diabetes Association guidelines indicate that patients with HgbA1c in the range 5.7-6.4% are at increased risk for development of diabetes, and intervention by lifestyle modification may be beneficial. HgbA1c greater or equal to 6.5% is considered diagnostic of diabetes. Performed By: #### 2 55601 #### [facility],[address] [place] [address]2066 Hemoglobin A0 85 mg/dL Normal [facility] Comment on above: Result Comment: eAG: (Estimated average glucose) is a calculated value from HgbA1c and is sales donor recruitment representative of the average blood glucose level in the last 2-3 month period. [facility] [address] [place] [address] Jonathan Aguilera III, M.D. [id number] Performed By: #### 2 01766 #### [facility],[address] [place] [address] 23871 PROLACTIN [CCL]on 01-16-2022 Prolactin 45.5 ng/mL High 4.0-15.2 [facility] Comment on above: Result Comment: [facility] [address] [place] [address] Jonathan Aguilera III, M.D. [id number] Performed By: #### 2 16933 #### [facility],[address] [place] [address] 21036 VALPROIC ACIDon 01-16-2022 Valproic Acid 74.9 ug/mL Normal 50.0-100.0 [facility] Comment on above: Result Comment: Refe rence ranges and high/low indicator flags are provided as general guidelines only. The treating physician must determine appropriate target levels/dosing based on the specific clinical situation. [facility] [place] [address] [place] [address] Jonathan Aguilera III, M.D. [id number] Performed By: #### 2 44943 #### [facility],[address] [place] [address] 38743 CBC + DIFFon 01-15-2022 Baso # 0.00 x10EE3/UL Normal 0.00 - 0.10 [facility] Comment on above: Performed By: #### 2 81407 #### [facility],[address] [place] [address] 99902 Basophils/100 WBC (Bld) 1.0 % Normal 0.0 - 2.0 [facility] Comment on above: Performed By: #### 2 46623 #### [facility],[address] [place] [address] 42016 CBC + DIFF Normal [facility] Comment on above: Result Comment: CBC- COMPLETE BLOOD COUNT Performed By: #### 2 46482 #### [facility],[address] [place] [address] 51483 EO # 0.20 x10EE3/UL Normal 0.00 - 0.50 [facility] Comment on above: Performed By: #### 2 06554 #### [facility],[address] [place] [address] 30137 Eosinophils/100 WBC (Bld) 4.3 % Normal 0.0 - 7.0 [facility] Comment on above: Performed By: #### 2 76103 #### [facility],[address] [place] [address] Erythrocyte distribution width (RBC) [Ratio] 13.3 % Normal 12.0 - 15.6 [facility] Comment on above: Performed By: #### 2 13334 #### [facility],[address] [place] [address] Hematocrit (Bld) [Volume fraction] 43.9 % Normal 40.0 - 52.0 [facility] Comment on above: Performed By: #### 2 92210 #### [facility],[address] [place] [address] Hemoglobin (Bld) [Mass/Vol] 15.3 g/dL Normal 13.0 - 17.5 [facility] Comment on above: Performed By: #### 2 70316 #### [facility],[address] [place] [address] Lymph # 1.50 x10EE3/UL Normal 0.80 - 2.80 [facility] Comment on above: Performed By: #### 2 09305 #### [facility],[address] [place] [address] 76403 Lymphocytes/100 WBC (Bld) 32.9 % Normal 20 .0 - 45.0 [facility] Comment on above: Performed By: #### 2 95920 #### [facility],[address] [place] [address] 01199 MANUAL DIFF N/A Normal [facility] Comment on above: Performed By: #### 2 54461 #### [facility],[address] [place] [address] 65718 MCH (RBC) [Entitic mass] 31 pg Normal 27 - 33 [facility] Comment on above: Performed By: #### 2 51287 #### [facility],[address] [place] [address] 00282 MCHC 35 X10 3 Normal 32 - 36 [facility] Comment on above: Performed By: #### 2 99285 #### [facility],[address] [place] [address] 51111 MCV (RBC) [Entitic vol] 90 fL Normal 81 - 98 [facility] Comment on above: Performed By: #### 2 89390 #### [facility],[address] [place] [address] [place] # 0.60 x10EE3/UL Normal 0.20 - 1.00 [facility] Comment on above: Performed By: #### 2 40194 #### [facility],[address] [place] [address] 75766 MONOS % 13.6 % High 0.0 - 10.0 [facility] Comment on above: Performed By: #### 2 02729 #### [facility],[address] [place] [address] 19524 Morphology Mikey (Bld) [Interp] N/A Normal [facility] Comment on above: Result Comment: {CD] Performed By: #### 2 09815 #### [facility],[address] [place] [address] 30378 Neut # 2.20 x10EE3/UL Normal 1.50 - 7.10 [facility] Comment on above: Performed By: #### 2 72074 #### [facility],[address] [place] [address] 45994 Neutrophils/100 WBC (Bld) 48.2 % Normal 46 .0 - 76.0 [facility] Comment on above: Performed By: #### 2 15959 #### [facility],[address] [place] [address] 02520 PLATELET 228 x10EE3/UL Normal 150 - 450 [facility] Comment on above: Performed By: #### 2 10902 #### [facility],[address] [place] [address] 68801 Platelet mean volume (Bld) [Entitic vol] 7.5 fL Normal 6.4 - 10.5 [facility] Comment on above: Result Comment: AUTO MATED DIFFERENTIAL Performed By: #### 2 67412 #### [address] [address] RBC 4.90 x 10EE6/UL Normal 4.50 - 6.00 [facility] Comment on above: Performed By: #### 2 18983 #### [address] [address] WBC 4.6 x 10EE3/UL Normal 4.5 - 10.8 [facility] Comment on above: Performed By: #### 2 34707 #### [address] [address] VITAMIN D, 25 HYDROXYon 06-0 VitD 13.90 ng/mL Low 30.00 - 100 [facility] Comment on above: Result Comment: 25-O HD3 indicates both endogenous production and supplementation. 25-OHD2 is an indicator of exogenous sources, such as diet or supplementation. Therapy is based on measurement of Total 25-OHD, with levels <20 ng/mL indicative of Vitamin D deficiency, while levels between 20 ng/mL and 30 ng/mL suggest insufficiency. Optimal levels are >=30ng/mL. Vitamin D, 25-OH D3 Not Established Vitamin D, 25-OH D2 Not Established Performed By: #### 2 32521 #### [address] [address] HGB A1C [CCL]on 09-13-2021 Glucose [Mass/Vol] 88 mg/dL Normal [facility] Comment on above: Result Comment: eAG: (Estimated average glucose) is a calculated value from HgbA1c and is sales donor recruitment representative of the average blood glucose level in the last 2-3 month period. [facility] [place] [address] [place] [address] Jonathan Aguilera III, M.D. [id number] Performed By: #### 2 41187 #### [address] [address] HbA1c (Bld) [Mass fraction] 4.7 % Normal 4.3-5.6 [facility] Comment on above: Result Comment: Amer [place] Diabetes Association guidelines indicate that patients with HgbA1c in the range 5.7-6.4% are at increased risk for development of diabetes, and intervention by lifestyle modification may be beneficial. HgbA1c greater or equal to 6.5% is considered diagnostic of diabetes. Performed By: #### 2 87548 #### [address] [address] Hemoglobin A1con 09-13-2021 Glucose [Mass/Vol] 88 mg/dL Normal [facility] Comment on above: Performed By: #### H BA1C #### [facility] [address] [place] [address] HbA1c (Bld) [Mass fraction] 4.7 % Normal 4.3-5.6 [facility] Comment on above: Performed By: #### H BA1C #### [facility] [address] [place], [place] [address] PROLACTIN [CCL]on 09-13-2021 Prolactin 97.1 ng/mL High 4.0-15.2 [facility] Comment on above: Result Comment: [facility] [address] [place] [address] Jonathan Aguilera III, M.D. [id number] Performed By: #### 2 24371 #### [address] [address] Prolactinon 09-13-2021 Prolactin 97.1 ng/mL High 4.0-15.2 [facility] Comment on above: Performed By: #### Javier JENKINS, PROL #### [facility] [address] [place] [id number] VALPROIC ACIDon 09-13-2021 Valproic Acid 71.7 ug/mL Normal 50-100 [facility] Comment on above: Result Comment: Refe rence ranges and high/low indicator flags are provided as general guidelines only. The treating physician must determine appropriate target levels/dosing based on the specific clinical situation. [facility] [address] [place] [id number] Jonathan Aguilera III, M.D. [id number] Performed By: #### 2 03491 #### [facility],[address] [place] [address] Valproic Acidon 09-13-2021 Valproic Acid 71.7 ug/mL Normal 50-100 [facility] Comment on above: Performed By: #### Javier JENKINS, PROL #### [facility] Routine Lab [address] [phone] CBC + DIFFon 09-11-2021 Baso # 0.00 x10EE3/UL Normal 0.00 - 0.10 [facility] Comment on above: Performed By: #### 2 69339 #### [facility],[address] [place], [place] [id number] Basophils/100 WBC (Bld) 0.7 % Normal 0.0 - 2.0 [facility] Comment on above: Performed By: #### 2 10412 #### [facility],[address] [place] [address] CBC + DIFF Normal [facility] Comment on above: Result Comment: CBC- COMPLETE BLOOD COUNT Performed By: #### 2 56388 #### [facility],[address] [place] [address] EO # 0.30 x10EE3/UL Normal 0.00 - 0.50 [facility] Comment on above: Performed By: #### 2 74612 #### [facility],[address] [place] [address] 43165 Eosinophils/100 WBC (Bld) 7.3 % High 0.0 - 7.0 [facility] Comment on above: Performed By: #### 2 35331 #### [facility],[address] [place] [address] 86119 Erythrocyte distribution width (RBC) [Ratio] 14.4 % Normal 12.0 - 15.6 [facility] Comment on above: Performed By: #### 2 01883 #### [facility],[address] [place] [address] Hematocrit (Bld) [Volume fraction] 42.2 % Normal 40.0 - 52.0 [facility] Comment on above: Performed By: #### 2 45026 #### [facility],[address] [place] [address] Hemoglobin (Bld) [Mass/Vol] 14.4 g/dL Normal 13.0 - 17.5 [facility] Comment on above: Performed By: #### 2 80826 #### [facility],[address] [place] [address] 49315 Lymph # 1.80 x10EE3/UL Normal 0.80 - 2.80 [facility] Comment on above: Performed By: #### 2 85134 #### [facility],[address] [place] [address] 08069 Lymphocytes/100 WBC (Bld) 39.8 % Normal 20 .0 - 45.0 [facility] Comment on above: Performed By: #### 2 79353 #### [facility],[address] [place] [address] 29054 MANUAL DIFF N/A Normal [facility] Comment on above: Performed By: #### 2 09405 #### [facility],[address] [place] [address] 09956 MCH (RBC) [Entitic mass] 30 pg Normal 27 - 33 [facility] Comment on above: Performed By: #### 2 41781 #### [facility],[address] [place] [address] MCHC 34 X10 3 Normal 32 - 36 [facility] Comment on above: Performed By: #### 2 90711 #### [facility],[address] [place], [place] [phone] MCV (RBC) [Entitic vol] 89 fL Normal 81 - 98 [facility] Comment on above: Performed By: #### 2 07910 #### [facility],[address] [place] [address] [place] # 0.80 x10EE3/UL Normal 0.20 - 1.00 [facility] Comment on above: Performed By: #### 2 44833 #### [facility],[address] [place] [address] MONOS % 16.4 % High 0.0 - 10.0 [facility] Comment on above: Performed By: #### 2 32348 #### [facility],[address] [place] [address] Morphology Mikey (Bld) [Interp] N/A Normal [facility] Comment on above: Result Comment: {CD] Performed By: #### 2 92701 #### [facility],[address] [place] [address] Neut # 1.70 x10EE3/UL Normal 1.50 - 7.10 [facility] Comment on above: Performed By: #### 2 19739 #### [facility],[address] [place] [address] Neutrophils/100 WBC (Bld) 35.8 % Low 46 .0 - 76.0 [facility] Comment on above: Performed By: #### 2 07595 #### [facility],[address] [place] [address] PLATELET 208 x10EE3/UL Normal 150 - 450 [facility] Comment on above: Performed By: #### 2 49480 #### [facility],[address] [place] [address] 53783 Platelet mean volume (Bld) [Entitic vol] 7.1 fL Normal 6.4 - 10.5 [facility] Comment on above: Result Comment: AUTO MATED DIFFERENTIAL Performed By: #### 2 15969 #### [facility],[address] [place] [address] 33337 RBC 4.75 x 10EE6/UL Normal 4.50 - 6.00 [facility] Comment on above: Performed By: #### 2 65327 #### [facility],[address] [place] [address] 37433 WBC 4.6 x 10EE3/UL Normal 4.5 - 10.8 [facility] Comment on above: Performed By: #### 2 26929 #### [facility],[address] [place] [address] 91367 CMP with eGFRon 09-11-2021 AGE 36 years Normal [facility] Comment on above: Performed By: #### 2 56954 #### [facility],[address] [place] [address] 72964 Albumin [Mass/Vol] 3.3 g/dL Low 3.4 - 5.0 [facility] Comment on above: Performed By: #### 2 57401 #### [facility],[address] [place] [address] 48187 Albumin/Globulin [Mass ratio] 1.1 {ratio} Normal 0.9 - 1.6 [facility] Comment on above: Performed By: #### 2 29595 #### [facility],[address] [place] [address] 13737 ALK PHOS 52 U/L Normal 46 - 116 [facility] Comment on above: Performed By: #### 2 18867 #### [facility],[address] [place] [address] 07140 ALT [Catalytic activity/Vol] 14 U/L Low 16 - 63 [facility] Comment on above: Performed By: #### 2 39739 #### [facility],[address] [place] [address] 15820 Anion gap [Moles/Vol] 13 mmol/L Normal 10 - 20 [facility] Comment on above: Performed By: #### 2 56093 #### [facility],[address] [place] [address] 86236 AST [Catalytic activity/Vol] 15 U/L Normal 15 - 37 [facility] Comment on above: Performed By: #### 2 31678 #### [facility],[address] [place] [address] 12819 B/C RATIO 19 ratio Normal 0 - 30 [facility] Comment on above: Performed By: #### 2 52723 #### [facility],[address] [place] [address] 28472 Bilirubin [Mass/Vol] 0.7 mg/dL Normal 0.2 - 1.0 [facility] Comment on above: Performed By: #### 2 12529 #### [facility],[address] [place] [address] 11064 Calcium [Mass/Vol] 8.5 mg/dL Normal 8.5 - 10.1 [facility] Comment on above: Performed By: #### 2 77288 #### [facility],[address] [place] [address] 87485 Chloride [Moles/Vol] 104 mmol/L Normal 98 - 107 [facility] Comment on above: Performed By: #### 2 12611 #### [facility],[address] [place] [address] 82283 CMP with eGFR Normal [facility] Comment on above: Result Comment: COMP REHENSIVE METABOLIC PANEL Performed By: #### 2 99183 #### [facility],[address] [place] [address] 94518 CO2 [Moles/Vol] 28.5 mmol/L Normal 21.0 - 32.0 [facility] Comment on above: Performed By: #### 2 13083 #### [facility],[address] [place] [address] 70310 Creatinine [Mass/Vol] 0.83 mg/dL Normal 0.70 - 1.30 [facility] Comment on above: Performed By: #### 2 22191 #### [facility],[address] [place] [address] 60534 GFR/1.73 sq M.predicted among non-blacks MDRD (S/P/Bld) [Vol rate/Area] mL/min/{1.73_m2} Normal 60 - 999 [facility] Comment on above: Performed By: #### 2 18537 #### [facility],[address] [place] [address] 10754 Result Comment: ACCO RDING TO THE NATIONAL KIDNEY DISEASE EDUCATION PROGRAM(NKDE), A NORMAL eGFR IS A VALUE GREATER THAN OR EQUAL TO 60 ML/MIN/1.73 SQ METERS. CHRONIC KIDNEY DISEASE: <60mL/MIN/1.73 SQ METERS KIDNEY FAILURE: <15mL/MIN/1.73 SQ METERS THIS TEST SHOULD ONLY BE USED FOR PATIENTS 18 YEARS OF AGE AND OLDER. Globulin (S) [Mass/Vol] 3.1 g/dL Normal 1.5 - 3.8 [facility] Comment on above: Performed By: #### 2 53406 #### [facility],[address] [place] [address] 71636 Glucose [Mass/Vol] 100 mg/dL Normal 74 - 106 [facility] Comment on above: Performed By: #### 2 99882 #### [facility],[address] [place] [address] 87305 Potassium [Moles/Vol] 4.1 mmol/L Normal 3.5 - 5.1 [facility] Comment on above: Performed By: #### 2 13013 #### [facility],[address] [place] [address] 34471 Protein [Mass/Vol] 6.4 g/dL Normal 6.4 - 8.2 [facility] Comment on above: Performed By: #### 2 80644 #### [facility],[address] [place] [address] 48071 Sodium [Moles/Vol] 141 mmol/L Normal 136 - 145 [facility] Comment on above: Performed By: #### 2 86963 #### [facility],[address] [place] [address] 43135 Urea nitrogen [Mass/Vol] 16 mg/dL Normal 7 - 18 [facility] Comment on above: Performed By: #### 2 36619 #### [facility],[address] [place] [address] 15753 EMERGENCY REPORTon 1 EMERGENCY REPORT [facility] EM[facility]GENCY ROOM REPORT NAME ACCOUNT SEX AGE ADMIT DISCHARGE PT MED. RECORD# NUMBER DATE DATE TYPE ZACK LAST [id number] M 36 07/02/21 07/02/21 3 [id number] ROOM: ER DATE OF : 1985 DICTATING PHYSICIAN: May Moscoso CHIEF COMPLAINT: Sent by the senior care for medical clearance to go to a psychiatric facility. HISTORY OF PRESENT ILLNESS: The senior care nurse also asked me to look at a rash. It has been going on since he has been there for a couple of weeks. They have tried 2 rounds of steroids, scabies treatment, antibiotics to no avail. The patient thinks it is well water, and it happened to him when he lived in [place], but there are no other options for him to shower. He says it is not painful. No history of STD. PAST MEDICAL HISTORY: Depression, hypertension. PAST SURGICAL HISTORY: See nursing notes. MEDICATIONS: See nursing notes. FAMILY HISTORY: Noncontributory. SOCIAL HISTORY: Negative for alcohol, tobacco, or illicit drug abuse. REVIEW OF SYSTEMS: Review of systems as stated above. PHYSICAL EXAMINATION: VITAL SIGNS: Blood pressure 150/106, pulse 78, respiratory rate 18, temperature 98, O2 saturation 99% on room air. GENERAL: He is awake, alert, nontoxic and in no acute distress. HEART: Heart rate and rhythm are regular without murmur, gallop, or rub. LUNGS: Clear to auscultation bilaterally without wheeze, rales, or rhonchi. ABDOMEN: Soft. No tenderness, guarding, rebound, or rigidity. SKIN: On the back of his hands, it does look like scabies, but he has been treated twice, but then he is excoriated all the way through his buttock and his private area. It does not look like an allergic reaction. He has areas of open sores. They are not cellulitic. No crepitus. No necrosis, but he said they start out irritated and then they break open and bleed and crack. On the top of his penis, he has really dry skin. EMERGENCY DEPARTMENT COURSE AND TREATMENT/PLAN/DISPOSITIO N: At this point with all the treatment he has had, I am going to do another round of antibiotics and another round of steroids, but he needs a entry engineer followup. He will be transferred back to the senior care with antibiotics and steroids. Dictated By: May Moscoso DO Page 1 of 2 [facility] LAST Emergency Room Report ZACK LAST : 1985 07/02/21 12:53 JOB #: [id number] Transcribed By: devang 07/02/21 15:51 Electronically signed by: E-Sign: MAY MOSCOSO MD 07/03/21 23:00 Page 2 of 2 [facility] LAST Emergency Room Report Normal [facility] ACETAMINOPHENon 07-02-2021 Acetaminophen [Mass/Vol] ug/mL Low 10. 0 - 30.0 [facility] Comment on above: Performed By: #### 2 54342 #### [address] [id number] ALCOHOL-BLOOD MEDICALon 06-11 Ethanol [Mass/Vol] 3 mg/dL Normal 0 - 50 [facility] Comment on above: Performed By: #### 2 49266 #### [address] [address] CBC + DIFFon 07-02-2021 Baso # 0.00 x10EE3/UL Normal 0.00 - 0.10 [facility] Comment on above: Performed By: #### 2 50432 #### [address] [address] Basophils/100 WBC (Bld) 0.9 % Normal 0.0 - 2.0 [facility] Comment on above: Performed By: #### 2 94749 #### [facility],[address] [place] [address] CBC + DIFF Normal [facility] Comment on above: Result Comment: CBC- COMPLETE BLOOD COUNT Performed By: #### 2 65144 #### [facility],[address] [place] [address] EO # 0.20 x10EE3/UL Normal 0.00 - 0.50 [facility] Comment on above: Performed By: #### 2 68593 #### [facility],[address] [place] [address] Eosinophils/100 WBC (Bld) 4.6 % Normal 0.0 - 7.0 [facility] Comment on above: Performed By: #### 2 36646 #### [facility],[address] [place] [address] Erythrocyte distribution width (RBC) [Ratio] 12.6 % Normal 12.0 - 15.6 [facility] Comment on above: Performed By: #### 2 45608 #### [facility],[address] [place] [address] Hematocrit (Bld) [Volume fraction] 45.6 % Normal 40.0 - 52.0 [facility] Comment on above: Performed By: #### 2 07778 #### [facility],[address] [place], [place] [phone] Hemoglobin (Bld) [Mass/Vol] 15.4 g/dL Normal 13.0 - 17.5 [facility] Comment on above: Performed By: #### 2 99447 #### [facility],[address] [place], [place] [phone] Lymph # 1.00 x10EE3/UL Normal 0.80 - 2.80 [facility] Comment on above: Performed By: #### 2 95752 #### [facility],[address] [place] [address] Lymphocytes/100 WBC (Bld) 20.3 % Normal 20 .0 - 45.0 [facility] Comment on above: Performed By: #### 2 75643 #### [facility],[address] [place] [address] MANUAL DIFF N/A Normal [facility] Comment on above: Performed By: #### 2 41425 #### [facility],[address] [place] [address] MCH (RBC) [Entitic mass] 30 pg Normal 27 - 33 [facility] Comment on above: Performed By: #### 2 87894 #### [facility],[address] [place] [address] MCHC 34 X10 3 Normal 32 - 36 [facility] Comment on above: Performed By: #### 2 25337 #### [facility],[address] [place] [address] MCV (RBC) [Entitic vol] 89 fL Normal 81 - 98 [facility] Comment on above: Performed By: #### 2 99967 #### [facility],[address] [place] [address] [place] # 0.50 x10EE3/UL Normal 0.20 - 1.00 [facility] Comment on above: Performed By: #### 2 36777 #### [facility],[address] [place] [address] MONOS % 10.2 % High 0.0 - 10.0 [facility] Comment on above: Performed By: #### 2 47265 #### [facility],[address] [place] [address] Morphology Mikey (Bld) [Interp] N/A Normal [facility] Comment on above: Result Comment: {CD] Performed By: #### 2 32792 #### [facility],[address] [place] [address] 82329 Neut # 3.10 x10EE3/UL Normal 1.50 - 7.10 [facility] Comment on above: Performed By: #### 2 22159 #### [facility],[address] [place] [address] 65456 Neutrophils/100 WBC (Bld) 64.0 % Normal 46 .0 - 76.0 [facility] Comment on above: Performed By: #### 2 76135 #### [facility],[address] [place] [address] 04569 PLATELET 237 x10EE3/UL Normal 150 - 450 [facility] Comment on above: Performed By: #### 2 42492 #### [facility],[address] [place] [address] 90237 Platelet mean volume (Bld) [Entitic vol] 7.6 fL Normal 6.4 - 10.5 [facility] Comment on above: Result Comment: AUTO MATED DIFFERENTIAL Performed By: #### 2 86830 #### [facility],[address] [place] [address] 98293 RBC 5.11 x 10EE6/UL Normal 4.50 - 6.00 [facility] Comment on above: Performed By: #### 2 21769 #### [facility],[address] [place] [address] 08169 WBC 4.8 x 10EE3/UL Normal 4.5 - 10.8 [facility] Comment on above: Performed By: #### 2 76967 #### [facility],[address] [place] [address] 22158 CMP with eGFRon 07-02-2021 AGE 36 years Normal [facility] Comment on above: Performed By: #### 2 73751 #### [facility],[address] [place] [address] 24570 Albumin [Mass/Vol] 4.1 g/dL Normal 3.4 - 5.0 [facility] Comment on above: Performed By: #### 2 04167 #### [facility],[address] [place] [address] 67648 Albumin/Globulin [Mass ratio] 1.3 {ratio} Normal 0.9 - 1.6 [facility] Comment on above: Performed By: #### 2 98210 #### [facility],[address] [place] [address] 30607 ALK PHOS 88 U/L Normal 46 - 116 [facility] Comment on above: Performed By: #### 2 07313 #### [facility],[address] [place] [address] 45829 ALT [Catalytic activity/Vol] 17 U/L Normal 16 - 63 [facility] Comment on above: Performed By: #### 2 55614 #### [facility],[address] [place] [address] 86617 Anion gap [Moles/Vol] 14 mmol/L Normal 10 - 20 [facility] Comment on above: Performed By: #### 2 26999 #### [facility],[address] [place] [address] 81605 AST [Catalytic activity/Vol] 17 U/L Normal 15 - 37 [facility] Comment on above: Performed By: #### 2 16536 #### [facility],[address] [place] [address] 53021 B/C RATIO 13 ratio Normal 0 - 30 [facility] Comment on above: Performed By: #### 2 21281 #### [facility],[address] [place] [address] 04684 Bilirubin [Mass/Vol] 0.8 mg/dL Normal 0.2 - 1.0 [facility] Comment on above: Performed By: #### 2 19868 #### [facility],[address] [place] [address] 93692 Calcium [Mass/Vol] 8.7 mg/dL Normal 8.5 - 10.1 [facility] Comment on above: Performed By: #### 2 74748 #### [facility],[address] [place] [address] 25873 Chloride [Moles/Vol] 103 mmol/L Normal 98 - 107 [facility] Comment on above: Performed By: #### 2 69750 #### [facility],[address] [place] [address] 35340 CMP with eGFR Normal [facility] Comment on above: Result Comment: COMP REHENSIVE METABOLIC PANEL Performed By: #### 2 95702 #### [facility],[address] [place], [place] [phone] CO2 [Moles/Vol] 26.8 mmol/L Normal 21.0 - 32.0 [facility] Comment on above: Performed By: #### 2 65100 #### [facility],[address] [place], [place] [phone] Creatinine [Mass/Vol] 0.99 mg/dL Normal 0.70 - 1.30 [facility] Comment on above: Performed By: #### 2 83690 #### [facility],[address] [place] [address] 52051 GFR/1.73 sq M.predicted among non-blacks MDRD (S/P/Bld) [Vol rate/Area] mL/min/{1.73_m2} Normal 60 - 999 [facility] Comment on above: Performed By: #### 2 58176 #### [facility],[address] [place], [place] [phone] Result Comment: ACCO RDING TO THE NATIONAL KIDNEY DISEASE EDUCATION PROGRAM(NKDE), A NORMAL eGFR IS A VALUE GREATER THAN OR EQUAL TO 60 ML/MIN/1.73 SQ METERS. CHRONIC KIDNEY DISEASE: <60mL/MIN/1.73 SQ METERS KIDNEY FAILURE: <15mL/MIN/1.73 SQ METERS THIS TEST SHOULD ONLY BE USED FOR PATIENTS 18 YEARS OF AGE AND OLDER. Globulin (S) [Mass/Vol] 3.2 g/dL Normal 1.5 - 3.8 [facility] Comment on above: Performed By: #### 2 19917 #### [facility],[address] [place] [address] 63355 Glucose [Mass/Vol] 125 mg/dL High 74 - 106 [facility] Comment on above: Performed By: #### 2 85650 #### [facility],[address] [place] [address] 76547 Potassium [Moles/Vol] 3.7 mmol/L Normal 3.5 - 5.1 [facility] Comment on above: Performed By: #### 2 99528 #### [facility],[address] [place] [address] 36602 Protein [Mass/Vol] 7.3 g/dL Normal 6.4 - 8.2 [facility] Comment on above: Performed By: #### 2 00321 #### [facility],[address] [place] [address] 78976 Sodium [Moles/Vol] 140 mmol/L Normal 136 - 145 [facility] Comment on above: Performed By: #### 2 21966 #### [facility],[address] [place] [address] 09058 Urea nitrogen [Mass/Vol] 13 mg/dL Normal 7 - 18 [facility] Comment on above: Performed By: #### 2 86401 #### [facility],[address] [place] [address] 85370 DRUG SCREEN URINE MEDICon AMPHETAMINES Negative Normal [facility] Comment on above: Performed By: #### 2 48911 #### [facility],[address] [place] [address] 27379 B-DIAZEPINES Negative Normal [facility] Comment on above: Performed By: #### 2 13729 #### [facility],[address] [place] [address] 57927 BARBITURATES Negative Normal [facility] Comment on above: Performed By: #### 2 03696 #### [facility],[address] [place] [address] 34858 COCAINE Negative Normal [facility] Comment on above: Performed By: #### 2 13799 #### [facility],[address] [place] [address] 59745 DRUG SCREEN URINE MEDIC Normal [facility] Comment on above: Result Comment: DRUG SCREEN - URINE Performed By: #### 2 66180 #### [facility],[address] [place], [place] [phone] METHADONE Negative Normal [facility] Comment on above: Performed By: #### 2 95007 #### [facility],[address] [place] [address] 97768 OPIATES Negative Normal [facility] Comment on above: Performed By: #### 2 89562 #### [facility],[address] [place] [address] PCP Negative Normal [facility] Comment on above: Performed By: #### 2 22199 #### [facility],[address] [place], [place] [phone] THC Negative Normal [facility] Comment on above: Result Comment: ENRIQUE ENTS RECEIVING PROTON PUMP INHIBITORS MAY DEMONSTRATE FALSE POSITIVE THC/CANNABINOID RESULTS. AN ALTERNATIVE CONFIRMATORY METHOD SHOULD BE CONSIDERED TO VERIFY POSITIVE RESULTS. Performed By: #### 2 21627 #### [facility],[address] [place], [place] [phone] SALICYLATEon 07-02-2021 SALICYLATE <0.1 Low 2.8 - 20.0 [facility] Comment on above: Result Comment: *PAT IENTS TREATED WITH SULFASALAZINE MAY GENERATE A FALSE HIGH RESULT FOR SALICYLATE. *PATIENTS TREATED WITH SULFAPYRIDINE MAY GENERATE A FALSE LOW RESULT FOR SALICYLATE. Performed By: #### 2 59613 #### [facility],[address] [place] [address] 91833 URINALYSISon 07-02-2021 Bilirubin Ql (U) Negative Normal NORMAL: NEGATIVE [facility] Comment on above: Performed By: #### 2 93039 #### [facility],[address] [place] [address] 47180 Clarity (U) clear Normal NORMAL: CLEAR [facility] Comment on above: Performed By: #### 2 09079 #### [facility],[address] [place] [address] 29796 Color (U) p.yel Normal NORMAL: YELLOW [facility] Comment on above: Performed By: #### 2 36427 #### [facility],[address] [place] [address] 37714 Glucose Ql (U) NORM Normal NORMAL: NORMAL [facility] Comment on above: Performed By: #### 2 23190 #### [facility],[address] [place] [address] 11181 Hemoglobin Ql (U) Negative Normal NORMAL: NEGATIVE [facility] Comment on above: Performed By: #### 2 95239 #### [facility],[address] [place] [address] 88058 Ketone Negative Normal NORMAL: NEGATIVE [facility] Comment on above: Performed By: #### 2 46410 #### [facility],[address] [place] [address] 08632 Leukocytes Negative Normal NORMAL: NEGATIVE [facility] Comment on above: Performed By: #### 2 45705 #### [facility],[address] [place] [address] 34219 Nitrite Ql (U) Negative Normal NORMAL: NEGATIVE [facility] Comment on above: Performed By: #### 2 30777 #### [facility],[address] [place] [address] 34204 pH (U) 6 [pH] Normal NORMAL: 5.0-8.0 [facility] Comment on above: Performed By: #### 2 21442 #### [facility],[address] [place] [address] 91822 Protein Ql (U) Negative Normal NORMAL: NEGATIVE [facility] Comment on above: Performed By: #### 2 08937 #### [facility],[address] [place] [address] Sp [place] 1.010 Normal NORMAL: 1.010-1.03 0 [facility] Comment on above: Performed By: #### 2 69113 #### [facility],[address] [place] [address] Specimen Type UNSPECIFIED Normal [facility] Comment on above: Performed By: #### 2 67384 #### [facility],[address] [place] [address] Urinalysis dipstick W Reflex Microscopic panel (U) NOT INDICATED Normal [facility] Comment on above: Performed By: #### 2 38757 #### [facility],[address] [place] [address] Urobilinog NORM Normal NORMAL: NORMAL [facility] Comment on above: Performed By: #### 2 95276 #### [facility],[address] [place] [address] CORONAVIRUS PCR - [facility] 03-28-2021 SARS-CoV-2 (COVID-19) RNA LATOYA+probe Ql (Unsp spec) Negative Normal NORMAL: NEGATIVE [facility] Comment on above: Performed By: #### 2 16798 #### [facility],[address] [place] [address] SEND TO ? YES Normal [facility] Comment on above: Result Comment: RESU LTS FAXED TO INFECTION CONTROL. SARS-CoV-2 THIS TEST IS BEING USED UNDER THE FDA EUA PROCEDURE. THIS ASSAY HAS BEEN VALIDATED IN THE SUPERIOR LABORATORY FOR USE WITH NASOPHARYNGEAL SPECIMENS IN [facility]. INTERPRETIVE DATA LABORATORY TEST RESULTS SHOULD ALWAYS BE CONSIDERED IN THE CONTEXT OF CLINICAL OBSERVATIONS AND EPIDEMIOLOGICAL DATA IN MAKING FINAL DIAGNOSIS AND PATIENT MANAGEMENT DECISIONS. PATIENT MANAGEMENT SHOULD FOLLOW CURRENT CDC GUIDELINES. A POSITIVE TEST RESULT FOR COVID-19 INDICATES THAT RNA FROM SARS-CoV-2 WAS DETECTED, AND THE PATIENT IS INFECTED WITH THE VIRUS AND PRESUMED TO BE CONTAGIOUS. A NEGATIVE TEST RESULT FOR THIS TEST MEANS THAT SARS-CoV-2 RNA WAS NOT PRESENT IN THE SPECIMEN ABOVE THE LIMIT OF DETECTION. HOWEVER, A NEGATVIE RESULT DOES NOT RULE OUT COVID-19 AND SHOULD NOT BE USED THE SOLE BASIS FOR TREATMENT OR PATIENT MANAGEMENT DECISIONS. A NEGATIVE RESULT DOES NOT EXCLUDE THE POSSIBILITY OF COVID-19. WHEN DIAGNOSTIC TESTING IS NEGATIVE, THE POSSIBLILTY OF A FALSE NEGATIVE RESULT SHOULD BE CONSIDERED IN THE CONTEXT OF A PATIENT'S RECENT EXPOSURES AND THE PRESENCE OF CLINICAL SIGNS AND SYMPTOMS CONSISTENT WITH COVID-19. THE POSSIBILITY OF A FALSE NEGATIVE RESULT SHOULD ESPECIALLY BE CONSIDERED IF THE PATIENT'S RECENT EXPOSURES OR CLINICAL PRESENTATION INDICATE THAT COVID-19 IS LIKELY, AND DIAGNOSTIC TESTS FOR OTHER CAUSES OF ILLNESS (e.g., OTHER RESPIRATORY ILLNESS) ARE NEGATIVE. IF COVID-19 IS STILL SUSPECTED BASED ON EXPOSURE HISTORY TOGETHER WITH OTHER CLINICAL FINDINGS, RE-TESTED SHOULD BE CONSIDERED BY HEALTHCARE PROVIDERS IN CONSULTATION WITH PUBLIC HEALTH AUTHORITIES. Performed By: #### 2 [id number] #### [place] [id number] SYPHILIS TOTAL W/REFLEX [CCL ]on 02-27-2021 Syphilis Interp Cannot exclude recen t Treponemal infection if specimen collected within 7 to 10 Normal [facility] Comment on above: Result Comment: days after appearance of suspect lesions or 2 to 3 weeks after an exposure. Clinical correlation is required. [facility] [address] [place] [address] Jonathan Aguilera III, M.D. [id number] Performed By: #### 2 [id number] #### [place] [id number] Syphilis Screen Rslt Non-Reactive Normal NR [facility] Comment on above: Performed By: #### 2 [id number] #### [place] [id number] Syphilis Ttl w/Reflxon 02-27 Syphilis Interp SYPH1 Normal [facility] Comment on above: Performed By: #### S YPHTX #### [facility] [place] [phone] Syphilis Screen Rslt NR Normal Non Reactive [facility] Comment on above: Performed By: #### S YPHTX #### [facility] [address] [place] [address] GC/CHLAM AMPLIFICATION URINE [CCL]on 02-17-2021 Chlamydia Amplif, Ur Negative Normal [facility] Comment on above: Result Comment: [facility] [address] [place] [address] Jonathan Aguilera III, M.D. [id number] Performed By: #### 2 12003 #### [facility],[address] [place] [address] UGCAMP Negative Normal [facility] Comment on above: Performed By: #### 2 82272 #### [facility],[address] [place] [address] 90698 GC/Chlamydia Amp, Uron 02-17 Chlamydia Amplif, Ur CLNEG Normal [facility] Comment on above: Performed By: #### U GCCT #### [facility] [address] [place] [address] GC Amplification, Ur NGNEG Normal [facility] Comment on above: Performed By: #### U GCCT #### [facility] [address] [place] [address] URINALYSISon 02-15-2021 Bilirubin Ql (U) Negative Normal NORMAL: NEGATIVE [facility] Comment on above: Performed By: #### 2 13113 #### [facility],[address] [place] [address]663 Clarity (U) clear Normal NORMAL: CLEAR [facility] Comment on above: Performed By: #### 2 02557 #### [facility],[address] [place] [address] 12513 Color (U) yellow Normal NORMAL: YELLOW [facility] Comment on above: Performed By: #### 2 83035 #### [facility],[address] [place] [address] [id number] Glucose Ql (U) NORM Normal NORMAL: NORMAL [facility] Comment on above: Performed By: #### 2 59153 #### [facility],[address] [place] [address] 20217 Hemoglobin Ql (U) Negative Normal NORMAL: NEGATIVE [facility] Comment on above: Performed By: #### 2 22351 #### [facility],[address] [place] [address] 98867 Ketone Negative Normal NORMAL: NEGATIVE [facility] Comment on above: Performed By: #### 2 69560 #### [facility],[address] [place] [address] 75653 Leukocytes Negative Normal NORMAL: NEGATIVE [facility] Comment on above: Performed By: #### 2 08703 #### [facility],[address] [place] [address] 23997 Nitrite Ql (U) Negative Normal NORMAL: NEGATIVE [facility] Comment on above: Performed By: #### 2 96455 #### [facility],[address] [place] [address]443 pH (U) 7 [pH] Normal NORMAL: 5.0-8.0 [facility] Comment on above: Performed By: #### 2 66167 #### [facility],[address] [place] [address]53 Protein Ql (U) Negative Normal NORMAL: NEGATIVE [facility] Comment on above: Performed By: #### 2 20896 #### [facility],[address] [place] [address] 42914 Sp [place] 1.015 Normal NORMAL: 1.010-1.03 0 [facility] Comment on above: Performed By: #### 2 07903 #### [facility],[address] [place] [address]70 Specimen Type UNSPECIFIED Normal [facility] Comment on above: Performed By: #### 2 17404 #### [facility],[address] [place] [address] 40471 Urinalysis dipstick W Reflex Microscopic panel (U) NOT INDICATED Normal [facility] Comment on above: Performed By: #### 2 01712 #### [facility],[address] [place] [address] 67651 Urobilinog NORM Normal NORMAL: NORMAL [facility] Comment on above: Performed By: #### 2 47159 #### [facility],[address] [place] [address] Influenza virus A and B and SARS-CoV-2 (COVID-19) Ag panel - Upper respiratory specim SARS-CoV-2 (COVID-19) RNA LATOYA+probe Ql (Resp) [facility] Work Phone: Vital Signs Date Time Vital Sign Value Performing Clinician Facility 03-09-2025 10:58-0400 Body height 193 cm Lubna Dio EMBOSSED OR IMPRESSED LETTERING PAINTER.ECCLESIASTICAL WORKER Work Phone: [facility] 03-09-2025 10:58-0400 Body mass index (BMI) [Ratio] 25.32 kg/m2 Lubna Dio EMBOSSED OR IMPRESSED LETTERING PAINTER.ECCLESIASTICAL WORKER Work Phone: [facility] 03-09-2025 10:58-0400 Body temperature 98.4 [degF] Lubna Dio EMBOSSED OR IMPRESSED LETTERING PAINTER.ECCLESIASTICAL WORKER Work Phone: [facility] 03-09-2025 10:58-0400 Body weight 94.35 kg Lubna Dio EMBOSSED OR IMPRESSED LETTERING PAINTER.ECCLESIASTICAL WORKER Work Phone: [facility] 03-09-2025 10:58-0400 Diastolic blood pressure 78 mm[Hg] Lubna Dio EMBOSSED OR IMPRESSED LETTERING PAINTER.ECCLESIASTICAL WORKER Work Phone: [facility] 03-09-2025 10:58-0400 Heart rate 94 /min Lubna Dio EMBOSSED OR IMPRESSED LETTERING PAINTER.ECCLESIASTICAL WORKER Work Phone: [facility] 03-09-2025 10:58-0400 Respiratory rate 14 /min Lubna Dio EMBOSSED OR IMPRESSED LETTERING PAINTER.ECCLESIASTICAL WORKER Work Phone: [facility] 03-09-2025 10:58-0400 SaO2% (BldA) [Mass fraction] 98 % Lubna Weiss EMBOSSED OR IMPRESSED LETTERING PAINTER.ECCLESIASTICAL WORKER Work Phone: [facility] 03-09-2025 10:58-0400 Systolic blood pressure 124 mm[Hg] Lubna Weiss EMBOSSED OR IMPRESSED LETTERING PAINTER.ECCLESIASTICAL WORKER Work Phone: [facility] 03-07-2025 09:29-0400 Body mass index (BMI) [Ratio] 25.23 kg/m2 Dottie Diaz EMBOSSED OR IMPRESSED LETTERING PAINTER.ECCLESIASTICAL WORKER Work Phone: [facility] 03-07-2025 09:29-0400 Body weight 94 kg Dottie Diaz EMBOSSED OR IMPRESSED LETTERING PAINTER.ECCLESIASTICAL WORKER Work Phone: [facility] 03-07-2025 09:29-0400 Diastolic blood pressure 79 mm[Hg] Dottie Diaz EMBOSSED OR IMPRESSED LETTERING PAINTER.ECCLESIASTICAL WORKER Work Phone: [facility] 03-07-2025 09:29-0400 Heart rate 103 /min Dottie Diaz EMBOSSED OR IMPRESSED LETTERING PAINTER.ECCLESIASTICAL WORKER Work Phone: [facility] 03-07-2025 09:29-0400 Systolic blood pressure 134 mm[Hg] Dottie Diaz EMBOSSED OR IMPRESSED LETTERING PAINTER.ECCLESIASTICAL WORKER Work Phone: [facility] 02-27-2025 15:02-0400 Body mass index (BMI) [Ratio] 25.81 kg/m2 Barb Dumont MD Work Phone: [facility] 02-27-2025 15:02-0400 Body temperature 99 [degF] Barb Dumont MD Work Phone: [facility] 02-27-2025 15:02-0400 Body weight 96.16 kg Barb Dumont MD Work Phone: [facility] 02-27-2025 15:02-0400 Diastolic blood pressure 76 mm[Hg] Barb Dumont MD Work Phone: [facility] 02-27-2025 15:02-0400 Heart rate 79 /min Barb Dumont MD Work Phone: [facility] 02-27-2025 15:02-0400 Respiratory rate 16 /min Barb Dumont MD Work Phone: [facility] 02-27-2025 15:02-0400 SaO2% (BldA) [Mass fraction] 97 % Barb Dumont MD Work Phone: [facility] 02-27-2025 15:02-0400 Systolic blood pressure 113 mm[Hg] Barb Dumont MD Work Phone: [facility] 02-03-2025 14:56-0400 Body mass index (BMI) [Ratio] 25.76 kg/m2 Dottie Diaz EMBOSSED OR IMPRESSED LETTERING PAINTER.ECCLESIASTICAL WORKER Work Phone: [facility] 02-03-2025 14:56-0400 Body weight 96 kg Dottie Diaz EMBOSSED OR IMPRESSED LETTERING PAINTER.ECCLESIASTICAL WORKER Work Phone: [facility] 02-03-2025 14:56-0400 Diastolic blood pressure 79 mm[Hg] Dottie Diaz EMBOSSED OR IMPRESSED LETTERING PAINTER.ECCLESIASTICAL WORKER Work Phone: [facility] 02-03-2025 14:56-0400 Heart rate 96 /min Dottie Diaz EMBOSSED OR IMPRESSED LETTERING PAINTER.ECCLESIASTICAL WORKER Work Phone: [facility] 02-03-2025 14:56-0400 Systolic blood pressure 120 mm[Hg] Dottie Diaz EMBOSSED OR IMPRESSED LETTERING PAINTER.ECCLESIASTICAL WORKER Work Phone: [facility] 01-30-2025 09:12-0400 Body mass index (BMI) [Ratio] 26.03 kg/m2 Dottie Diaz EMBOSSED OR IMPRESSED LETTERING PAINTER.ECCLESIASTICAL WORKER Work Phone: [facility] 01-30-2025 09:12-0400 Body weight 97 kg Dottie Diaz EMBOSSED OR IMPRESSED LETTERING PAINTER.ECCLESIASTICAL WORKER Work Phone: [facility] 01-30-2025 09:12-0400 Diastolic blood pressure 88 mm[Hg] Dottie Diaz EMBOSSED OR IMPRESSED LETTERING PAINTER.ECCLESIASTICAL WORKER Work Phone: [facility] 01-30-2025 09:12-0400 Heart rate 65 /min Dottie Diaz EMBOSSED OR IMPRESSED LETTERING PAINTER.ECCLESIASTICAL WORKER Work Phone: [facility] 01-30-2025 09:12-0400 Systolic blood pressure 137 mm[Hg] Dottie Diaz APRN.ECCLESIASTICAL WORKER Work Phone: [facility] 01-24-2025 08:30-0400 Body mass index (BMI) [Ratio] 26.49 kg/m2 Urvashi Almanza APRN.ECCLESIASTICAL WORKER Work Phone: [facility] 01-24-2025 08:30-0400 Body temperature 97.2 [degF] Urvashi Almanza APRN.ECCLESIASTICAL WORKER Work Phone: [facility] 01-24-2025 08:30-0400 Body weight 98.7 kg Urvashi Almanza APRN.ECCLESIASTICAL WORKER Work Phone: [facility] 01-24-2025 08:30-0400 Diastolic blood pressure 68 mm[Hg] Urvashi Almanza APRN.ECCLESIASTICAL WORKER Work Phone: [facility] 01-24-2025 08:30-0400 Heart rate 88 /min Urvashi Almanza APRN.ECCLESIASTICAL WORKER Work Phone: [facility] 01-24-2025 08:30-0400 Respiratory rate 16 /min Urvashi Almanza APRN.ECCLESIASTICAL WORKER Work Phone: [facility] 01-24-2025 08:30-0400 SaO2% (BldA) [Mass fraction] 97 % Urvashi Almanza APRN.ECCLESIASTICAL WORKER Work Phone: [facility] 01-24-2025 08:30-0400 Systolic blood pressure 118 mm[Hg] Urvashi Almanza APRN.ECCLESIASTICAL WORKER Work Phone: [facility] 09-12-2024 08:42-0500 Body mass index (BMI) [Ratio] 28 kg/m2 Dottie Diaz APRN.ECCLESIASTICAL WORKER Work Phone: [facility] 09-12-2024 08:42-0500 Body weight 104.33 kg Dottie Diaz APRN.ECCLESIASTICAL WORKER Work Phone: [facility] 09-12-2024 08:42-0500 Diastolic blood pressure 87 mm[Hg] Dottie Diaz APRN.ECCLESIASTICAL WORKER Work Phone: [facility] 09-12-2024 08:42-0500 Heart rate 81 /min Dottie Diaz EMBOSSED OR IMPRESSED LETTERING PAINTER.ECCLESIASTICAL WORKER Work Phone: [facility] 09-12-2024 08:42-0500 Respiratory rate 16 /min Dottie Diaz EMBOSSED OR IMPRESSED LETTERING PAINTER.ECCLESIASTICAL WORKER Work Phone: [facility] 09-12-2024 08:42-0500 Systolic blood pressure 130 mm[Hg] Dottie Diaz EMBOSSED OR IMPRESSED LETTERING PAINTER.ECCLESIASTICAL WORKER Work Phone: [facility] 02-16-2024 08:43-0400 Body mass index (BMI) [Ratio] 26.54 kg/m2 Dottie Diaz EMBOSSED OR IMPRESSED LETTERING PAINTER.ECCLESIASTICAL WORKER Work Phone: [facility] 02-16-2024 08:43-0400 Body weight 98.88 kg Dottie Diaz EMBOSSED OR IMPRESSED LETTERING PAINTER.ECCLESIASTICAL WORKER Work Phone: [facility] 02-16-2024 08:43-0400 Diastolic blood pressure 86 mm[Hg] Dottie Diaz EMBOSSED OR IMPRESSED LETTERING PAINTER.ECCLESIASTICAL WORKER Work Phone: [facility] 02-16-2024 08:43-0400 Heart rate 103 /min Dottie Diaz EMBOSSED OR IMPRESSED LETTERING PAINTER.ECCLESIASTICAL WORKER Work Phone: [facility] 02-16-2024 08:43-0400 Respiratory rate 14 /min Dottie Diaz EMBOSSED OR IMPRESSED LETTERING PAINTER.ECCLESIASTICAL WORKER Work Phone: [facility] 02-16-2024 08:43-0400 Systolic blood pressure 119 mm[Hg] Dottie Diaz EMBOSSED OR IMPRESSED LETTERING PAINTER.ECCLESIASTICAL WORKER Work Phone: [facility] 12-21-2023 07:59-0400 Body mass index (BMI) [Ratio] 26.12 kg/m2 Joan Mee EMBOSSED OR IMPRESSED LETTERING PAINTER.ECCLESIASTICAL WORKER Work Phone: [facility] 12-21-2023 07:59-0400 Body weight 97.34 kg Joan Mee EMBOSSED OR IMPRESSED LETTERING PAINTER.ECCLESIASTICAL WORKER Work Phone: [facility] 12-21-2023 07:59-0400 Diastolic blood pressure 76 mm[Hg] Joan Mee EMBOSSED OR IMPRESSED LETTERING PAINTER.ECCLESIASTICAL WORKER Work Phone: [facility] 12-21-2023 07:59-0400 Heart rate 87 /min Joan Mee EMBOSSED OR IMPRESSED LETTERING PAINTER.ECCLESIASTICAL WORKER Work Phone: [facility] 12-21-2023 07:59-0400 Respiratory rate 16 /min Joan Mee EMBOSSED OR IMPRESSED LETTERING PAINTER.ECCLESIASTICAL WORKER Work Phone: [facility] 12-21-2023 07:59-0400 SaO2% (BldA) [Mass fraction] 98 % Joan Mee EMBOSSED OR IMPRESSED LETTERING PAINTER.ECCLESIASTICAL WORKER Work Phone: [facility] 12-21-2023 07:59-0400 Systolic blood pressure 128 mm[Hg] Joan Mee EMBOSSED OR IMPRESSED LETTERING PAINTER.ECCLESIASTICAL WORKER Work Phone: [facility] 06-29-2023 07:48-0500 Body weight 93.89 kg Dottie Xin EMBOSSED OR IMPRESSED LETTERING PAINTER.ECCLESIASTICAL WORKER Work Phone: [facility] 06-29-2023 07:48-0500 Diastolic blood pressure 82 mm[Hg] Dottie Knoble EMBOSSED OR IMPRESSED LETTERING PAINTER.ECCLESIASTICAL WORKER Work Phone: [facility] 06-29-2023 07:48-0500 Heart rate 92 /min Dottie Knoble EMBOSSED OR IMPRESSED LETTERING PAINTER.ECCLESIASTICAL WORKER Work Phone: [facility] 06-29-2023 07:48-0500 Respiratory rate 16 /min Dottie Knoble EMBOSSED OR IMPRESSED LETTERING PAINTER.ECCLESIASTICAL WORKER Work Phone: [facility] 06-29-2023 07:48-0500 Systolic blood pressure 120 mm[Hg] Dottie Knoble EMBOSSED OR IMPRESSED LETTERING PAINTER.ECCLESIASTICAL WORKER Work Phone: [facility] 05-15-2023 14:07-0400 Body weight 90.27 kg Dottie Sarahoble EMBOSSED OR IMPRESSED LETTERING PAINTER.ECCLESIASTICAL WORKER Work Phone: [facility] 05-15-2023 14:07-0400 Diastolic blood pressure 84 mm[Hg] Dottie Knoble EMBOSSED OR IMPRESSED LETTERING PAINTER.ECCLESIASTICAL WORKER Work Phone: [facility] 05-15-2023 14:07-0400 Heart rate 104 /min Dottie Knoble EMBOSSED OR IMPRESSED LETTERING PAINTER.ECCLESIASTICAL WORKER Work Phone: [facility] 05-15-2023 14:07-0400 Respiratory rate 16 /min Dottie Diaz APRN.CNP Work Phone: [facility] 05-15-2023 14:07-0400 Systolic blood pressure 112 mm[Hg] Dottie Diaz APRN.CNP Work Phone: [facility] 03-30-2023 10:49-0400 Body height 193 cm Solomon Valdes MD Work Phone: [facility] 03-30-2023 10:49-0400 Body weight 90.27 kg Solomon Valdes MD Work Phone: [facility] 03-30-2023 10:49-0400 Diastolic blood pressure 93 mm[Hg] Solomon Valdes MD Work Phone: [facility] 03-30-2023 10:49-0400 Heart rate 88 /min Solomon Valdes MD Work Phone: [facility] 03-30-2023 10:49-0400 Respiratory rate 14 /min Solomon Valdes MD Work Phone: [facility] 03-30-2023 10:49-0400 Systolic blood pressure 130 mm[Hg] Solomon Valdes MD Work Phone: [facility] 03-23-2023 08:59-0400 Body height 193 cm Henry Pino APRN.YOLANDA DNP Work Phone: [facility] 03-23-2023 08:59-0400 Body temperature 98.29 [degF] Henry Pino APRN.YOLANDA, DNP Work Phone: [facility] 03-23-2023 08:59-0400 Body weight 90.72 kg Henry Pino APRN.YOLANDA, DNP Work Phone: [facility] 03-23-2023 08:59-0400 Diastolic blood pressure 82 mm[Hg] Henry Pino APRN.YOLANDA DNP Work Phone: [facility] 03-23-2023 08:59-0400 Heart rate 108 /min Henry Pino APRN.ECCLESIASTICAL WORKER, DNP Work Phone: [facility] 03-23-2023 08:59-0400 Respiratory rate 12 /min Henry Pino APRN.ECCLESIASTICAL WORKER, DNP Work Phone: [facility] 03-23-2023 08:59-0400 SaO2% (BldA) [Mass fraction] 100 % Henry Pino APRN.ECCLESIASTICAL WORKER, DNP Work Phone: [facility] 03-23-2023 08:59-0400 Systolic blood pressure 122 mm[Hg] Henry Pino APRN.ECCLESIASTICAL WORKER, DNP Work Phone: [facility] 02-20-2023 08:53-0400 Body height 193 cm Dottie Diaz APRN.ECCLESIASTICAL WORKER Work Phone: [facility] 02-20-2023 08:53-0400 Body weight 92.53 kg Dottie Diaz APRN.ECCLESIASTICAL WORKER Work Phone: [facility] 02-20-2023 08:53-0400 Diastolic blood pressure 76 mm[Hg] Dottie Diaz EMBOSSED OR IMPRESSED LETTERING PAINTER.ECCLESIASTICAL WORKER Work Phone: [facility] 02-20-2023 08:53-0400 Heart rate 70 /min Dottie Diaz APRN.ECCLESIASTICAL WORKER Work Phone: [facility] 02-20-2023 08:53-0400 Respiratory rate 14 /min Dottie Diaz APRN.ECCLESIASTICAL WORKER Work Phone: [facility] 02-20-2023 08:53-0400 Systolic blood pressure 118 mm[Hg] Dottie Diaz EMBOSSED OR IMPRESSED LETTERING PAINTER.ECCLESIASTICAL WORKER Work Phone: [facility] 01-29-2023 14:25-0400 Body weight 90.72 kg Dottie Diaz EMBOSSED OR IMPRESSED LETTERING PAINTER.ECCLESIASTICAL WORKER Work Phone: [facility] 01-29-2023 14:25-0400 Diastolic blood pressure 80 mm[Hg] Dottie Diaz EMBOSSED OR IMPRESSED LETTERING PAINTER.ECCLESIASTICAL WORKER Work Phone: [facility] 01-29-2023 14:25-0400 Heart rate 90 /min Dottie Diaz EMBOSSED OR IMPRESSED LETTERING PAINTER.ECCLESIASTICAL WORKER Work Phone: [facility] 01-29-2023 14:25-0400 Respiratory rate 14 /min Dottie Diaz EMBOSSED OR IMPRESSED LETTERING PAINTER.ECCLESIASTICAL WORKER Work Phone: [facility] 01-29-2023 14:25-0400 Systolic blood pressure 122 mm[Hg] Dottie Diaz EMBOSSED OR IMPRESSED LETTERING PAINTER.ECCLESIASTICAL WORKER Work Phone: [facility] 01-24-2023 11:09-0400 Body height 193.04 cm STATIONARY EQUIPMENT MECHANIC-C Dottie Diaz Work Phone: [facility] 01-24-2023 11:09-0400 Body mass index (BMI) [Ratio] 24.4 kg/m2 STATIONARY EQUIPMENT MECHANIC-C Dotite Diaz Work Phone: [facility] 01-24-2023 11:09-0400 Body temperature 97.4 [degF] STATIONARY EQUIPMENT MECHANIC-C Dottie Diaz Work Phone: [facility] 01-24-2023 11:09-0400 Body weight 91.17 kg STATIONARY EQUIPMENT MECHANIC-C Dottie Diaz Work Phone: [facility] 01-24-2023 11:09-0400 Diastolic blood pressure 85 mm[Hg] STATIONARY EQUIPMENT MECHANIC-C Dottie Diaz Work Phone: [facility] 01-24-2023 11:09-0400 Heart rate 61 /min STATIONARY EQUIPMENT MECHANIC-C Dottie Diaz Work Phone: [facility] 01-24-2023 11:09-0400 Respiratory rate 16 /min STATIONARY EQUIPMENT MECHANIC-C Dottie Diaz Work Phone: [facility] 01-24-2023 11:09-0400 SaO2% (BldA) [Mass fraction] 100 % STATIONARY EQUIPMENT MECHANIC-C Dottie Diaz Work Phone: [facility] 01-24-2023 11:09-0400 Systolic blood pressure 123 mm[Hg] STATIONARY EQUIPMENT MECHANIC-C Dottie Diaz Work Phone: [facility] 01-19-2023 14:13-0400 Body height 190.5 cm STATIONARY EQUIPMENT MECHANIC-C Dottie Diaz Work Phone: [facility] 01-19-2023 14:13-0400 Body mass index (BMI) [Ratio] 25.7 kg/m2 STATIONARY EQUIPMENT MECHANIC-Paul Diaz Work Phone: [facility] 01-19-2023 14:13-0400 Body temperature 98.3 [degF] STATIONARY EQUIPMENT MECHANIC-C Dottie Diaz Work Phone: [facility] 01-19-2023 14:13-0400 Body weight 93.44 kg STATIONARY EQUIPMENT MECHANIC-C Dottie Diaz Work Phone: [facility] 01-19-2023 14:13-0400 Diastolic blood pressure 78 mm[Hg] STATIONARY EQUIPMENT MECHANIC-C Dottie Diaz Work Phone: [facility] 01-19-2023 14:13-0400 Heart rate 70 /min STATIONARY EQUIPMENT MECHANIC-C Dottie Diaz Work Phone: [facility] 01-19-2023 14:13-0400 Respiratory rate 16 /min STATIONARY EQUIPMENT MECHANIC-C Dottie Diaz Work Phone: [facility] 01-19-2023 14:13-0400 SaO2% (BldA) [Mass fraction] 98 % STATIONARY EQUIPMENT MECHANIC-Paul Diaz Work Phone: [facility] 01-19-2023 14:13-0400 Systolic blood pressure 112 mm[Hg] STATIONARY EQUIPMENT MECHANIC-Paul Diaz Work Phone: [facility] 01-07-2023 11:20-0400 Body height 193.04 cm [facility] 01-07-2023 11:20-0400 Body mass index (BMI) [Ratio] 24.2 kg/m2 [facility] 01-07-2023 11:20-0400 Body temperature 97.9 [degF] [facility] 01-07-2023 11:20-0400 Body weight 90.26 kg [facility] 01-07-2023 11:20-0400 Diastolic blood pressure 92 mm[Hg] [facility] 01-07-2023 11:20-0400 Heart rate 91 /min [facility] 01-07-2023 11:20-0400 Respiratory rate 16 /min [facility] 01-07-2023 11:20-0400 SaO2% (BldA) [Mass fraction] 99 % [facility] 01-07-2023 11:20-0400 Systolic blood pressure 148 mm[Hg] [facility] 07-17-2022 09:07-0500 Body height 193.[address] Linda Benavidez Work Phone: [facility] Work Phone: 07-17-2022 09:07-0500 Body mass index (BMI) [Ratio] 25.5 kg/m2 Dr. Linda Benavidez Work Phone: [facility] Work Phone: 07-17-2022 09:07-0500 Body temperature 98.8 [degF] Dr. Linda Benavidez Work Phone: [facility] Work Phone: 07-17-2022 09:07-0500 Body weight 95.[address] Linda Benavidez Work Phone: [facility] Work Phone: 07-17-2022 09:07-0500 Diastolic blood pressure 89 mm[Hg] Dr. Linda Benavidez Work Phone: [facility] Work Phone: 07-17-2022 09:07-0500 Heart rate 102 /min Dr. Linda Benavidez Work Phone: [facility] Work Phone: 07-17-2022 09:07-0500 Respiratory rate 16 /min Dr. Linda Benavidez Work Phone: [facility] Work Phone: 07-17-2022 09:07-0500 SaO2% (BldA) [Mass fraction] 97 % Dr. Linda Benavidez Work Phone: [facility] Work Phone: 07-17-2022 09:07-0500 Systolic blood pressure 126 mm[Hg] Dr. Linda Benavidez Work Phone: [facility] Work Phone: Encounters Encounter Date Encounter Type Care Provider Facility Start: 03-09-2025 End: 03-09-2025 Patient encounter procedure Lubna Weiss APRN.CNP Work Phone: [facility] Comment on above: Nausea (Primary Dx); Lower abdominal pain; Weight loss, unintentional; Abnormal stools; History of gastric ulcer; Decreased appetite Start: 03-09-2025 End: 03-09-2025 ambulatory DOTTIE DIAZ Facility:[facility] Start: 03-07-2025 End: 03-07-2025 Patient encounter procedure Dottie Diaz APRN.CNP Work Phone: [facility] Comment on above: Constipation, unspec ified constipation type (Primary Dx); Lower abdominal pain; Nausea; Abnormal stools Start: 03-07-2025 End: 03-07-2025 ambulatory DOTTIE DIAZ Facility:[facility] Start: 03-06-2025 End: 03-07-2025 Telephone encounter Dottie Diaz APRN.CNP Work Phone: [facility] Comment on above: Appointment Start: 02-27-2025 End: 02-27-2025 Patient encounter procedure Barb Dumont MD Work Phone: [facility] Comment on above: Constipation, unspec ified constipation type (Primary Dx) Start: 02-27-2025 End: 02-27-2025 ambulatory DOTTIE DIAZ Facility:[facility] Start: 02-06-2025 End: 02-06-2025 Follow-up encounter Dottie Diaz APRN.CNP Work Phone: [facility] [place] Comment on above: Results Start: 02-03-2025 End: 02-03-2025 Patient encounter procedure Dottie Diaz APRN.CNP Work Phone: [facility] [place] Comment on above: Lower abdominal pain (Primary Dx); Nausea; Weight loss, unintentional; Abnormal stools Start: 02-03-2025 End: 02-03-2025 ambulatory DOTTIE DIAZ Facility:[facility] Start: 01-31-2025 ambulatory DOTTIE DIAZ Facilit y:[facility] Start: 01-30-2025 End: 01-30-2025 Follow-up encounter Dottie Diaz APRN.CNP Work Phone: [facility] [place] Start: 01-30-2025 ambulatory DOTTIE DIAZ Facilit y:[facility] Start: 01-30-2025 End: 01-30-2025 Subsequent hospital visit by physician Ct [facility] (I-Stat) Work Phone: Cat Scan Comment on above: Burning with urinati on [R30.0] Start: 01-30-2025 End: 01-30-2025 Patient encounter procedure Dottie Diaz APRN.CNP Work Phone: [facility] [place] Comment on above: Burning with urinati on (Primary Dx); Pain with ejaculation; Flank pain; Lower abdominal pain; Nausea Start: 01-30-2025 End: 01-30-2025 ambulatory DOTTIE DIAZ Facility:[facility] Start: 01-25-2025 End: 01-25-2025 Follow-up encounter Deborah Brown APRN.CNP Work Phone: [facility] Start: 01-24-2025 End: 01-24-2025 Patient encounter procedure Urvashi Almanza APRN.CNP Work Phone: [facility] Comment on above: Urinary frequency (P rimary Dx); Discharge from penis; Paronychia, finger, right Start: 01-24-2025 End: 01-24-2025 ambulatory DOTTIE DIAZ Facility:[facility] Start: 11-30-2024 End: 11-30-2024 Telephone encounter Nurse Card Wstr Work Phone: Cardiology Comment on above: Stress Test Instruct ions for 12/05/24 Start: 09-12-2024 End: 09-12-2024 Patient encounter procedure Dottie Diaz APRN.CNP Work Phone: [facility] [place] Comment on above: LINWOOD (obstructive sle ep apnea) (Primary Dx); Chest pain, unspecified type; Other chest pain; SOB (shortness of breath) Start: 09-12-2024 End: 09-12-2024 ambulatory DOTTIE DIAZ Facility:[facility] Start: 06-06-2024 End: 06-06-2024 Emergency department patient visit Henry Rdz Facility:[facility] Start: 02-28-2024 End: 02-28-2024 Emergency department patient visit Earl Bess Facility:[facility] Start: 02-18-2024 End: 04-28-2024 Telephone encounter Dottie Diaz APRN.ECCLESIASTICAL WORKER Work Phone: [facility] Comment on above: Results Start: 02-16-2024 End: 02-16-2024 Subsequent hospital visit by physician Xr [facility] Work Phone: Radiology Comment on above: Acute bilateral low back pain without sciatica [M54.50] Start: 02-16-2024 End: 02-16-2024 Patient encounter procedure Dottie Diaz APRN.ECCLESIASTICAL WORKER Work Phone: [facility] Comment on above: Acute bilateral low back pain without sciatica (Primary Dx); Tonsil stone; Burning with urination Start: 01-29-2024 End: 01-29-2024 Emergency department patient visit Mitchel Calderón Facility:[facility] Start: 12-21-2023 End: 12-21-2023 Patient encounter procedure Joan Caban APRN.ECCLESIASTICAL WORKER Work Phone: Neurology Comment on above: Snoring (Primary Dx) ; RLS (restless legs syndrome); Sleep paralysis; Dream enactment behavior; Nightmares; Sleep-related hallucinations; Parasomnia, unspecified type Start: 11-25-2023 Telephone encounter Dottie mckenna APRN.ECCLESIASTICAL WORKER Work Phone: [facility] Comment on above: Patient Question Start: 09-29-2023 Telephone encounter Nurse Card Admin [facility] Work Phone: Cardiology Comment on above: Erroneous encounter- disregard Start: 07-07-2023 Telephone encounter Dottie mckenna APRN.ECCLESIASTICAL WORKER Work Phone: [facility] Comment on above: Echo testing problem Start: 06-29-2023 End: 06-29-2023 Patient encounter procedure Dottie Diaz APRN.CNP Work Phone: [facility] Comment on above: Chest pain, unspecif ied type (Primary Dx) Start: 05-15-2023 End: 05-15-2023 Patient encounter procedure Dottie Diaz APRN.CNP Work Phone: [facility] Comment on above: History of sleep wal holger (Primary Dx); History of seizure; Bipolar affective disorder, remission status unspecified ([facility]) Start: 05-15-2023 Telephone encounter Dottie mckenna APRN.CNP Work Phone: [facility] Comment on above: Patient Question; Me jer Loss Appointment Start: 03-30-2023 Telephone encounter Dottie mckenna APRN.CNP Work Phone: [facility] Comment on above: Results Start: 03-30-2023 End: 03-30-2023 Patient encounter procedure Solomon Valdes MD Work Phone: Urology Comment on above: Painful urination (P rimary Dx); Urinary frequency; Other microscopic hematuria Start: 03-27-2023 End: 03-27-2023 Subsequent hospital visit by physician [facility] Work Phone: Radiology Comment on above: Acute bilateral low back pain without sciatica [M54.50] Start: 03-24-2023 Telephone encounter Henry reddy APRN.CNP, DNP Work Phone: Urology Comment on above: Cystoscopy Schedulin g Start: 03-23-2023 End: 03-23-2023 Office outpatient visit 15 minutes Henry Pino APRN.CNP, DNP Work Phone: Urology Comment on above: Painful urination (P rimary Dx); Urinary frequency; Other microscopic hematuria; Screening for genitourinary condition Start: 03-09-2023 Telephone encounter Dottie mckenna APRN.CNP Work Phone: [facility] Comment on above: Forms Start: 02-26-2023 Telephone encounter Dottie mckenna APRN.ECCLESIASTICAL WORKER Work Phone: [facility] Comment on above: Patient Update; Enrique ent Question Start: 02-25-2023 Telephone encounter Sara senior PA-C Work Phone: [facility] Comment on above: Results Start: 02-20-2023 End: 02-20-2023 Subsequent hospital visit by physician Leatha [facility] [place] Aburto Work Phone: Radiology Comment on above: Canceled (Pt cx: Res cheduled) Start: 02-20-2023 End: 02-20-2023 Patient encounter procedure Dottie Diaz APRN.CNP Work Phone: [facility] Comment on above: Scrotal cyst (Primar y Dx); Medication management; Screening for diabetes mellitus; Screening for lipid disorders; Chronic jaw pain; Encounter for immunization Start: 01-30-2023 Telephone encounter Dottie mckenna APRN.ECCLESIASTICAL WORKER Work Phone: [facility] Comment on above: Results Start: 01-29-2023 End: 01-29-2023 Patient encounter procedure Dottie Diaz APRN.ECCLESIASTICAL WORKER Work Phone: [facility] Comment on above: Encounter for assess ment of STD exposure (Primary Dx) Start: 01-24-2023 End: 01-24-2023 Emergency department patient visit STATIONARY EQUIPMENT MECHANIC-Paul Diaz Work Phone: [facility] Start: 01-19-2023 End: 01-19-2023 ambulatory STATIONARY EQUIPMENT MECHANIC-C Dottie Diaz Work Phone: [facility] Work Phone: Start: 01-19-2023 End: 01-19-2023 Patient encounter procedure STATIONARY EQUIPMENT MECHANIC-Paul Diaz Work Phone: [facility]Laboratory, Specimen Start: 01-19-2023 End: 01-19-2023 Patient encounter procedure STATIONARY EQUIPMENT MECHANIC-Paul Diaz Work Phone: [facility] Start: 01-07-2023 End: 01-07-2023 Emergency department patient visit [facility] Start: 07-17-2022 End: 07-17-2022 Emergency department patient visit Dr. Linda Benavidez Work Phone: [facility] Start: 05-29-2022 End: 05-29-[address] Linda Benavidez Work Phone: [facility] Start: 01-15-2022 End: 01-15-2022 ambulatory LORNA VU [facility] Start: 09-11-2021 End: 09-11-2021 ambulatory [facility] EMBOSSED OR IMPRESSED LETTERING PAINTER-[facility] Start: 07-02-2021 End: 07-02-2021 Emergency department patient visit MAY MOSCOSO [facility] Start: 03-28-2021 End: 03-28-[address] CIRILO INFANTE [facility] Start: 02-26-2021 End: 02-26-2021 ambulatory NIKOLAY EMBOSSED OR IMPRESSED LETTERING PAINTER-[facility] Start: 02-15-2021 End: 02-15-2021 ambulatory [facility] Procedures Date Procedure Procedure Detail Performing Clinician Start: 01-30-2025 Ct abdomen & pelvis w/contrast material Dottie Diaz APRN.CNP Work Phone: Start: 01-24-2025 Iadna chlamydia trac homatis amplified probe tq Urvashi Almanza APRN.ECCLESIASTICAL WORKER Work Phone: Start: 01-24-2025 Urnls dip stick/tabl et rgnt auto w/o microscopy Urvashi Almanza APRN.ECCLESIASTICAL WORKER Work Phone: Start: 02-16-2024 Radex spine cervical 4 or 5 views Dottie Diaz APRN.ECCLESIASTICAL WORKER Work Phone: Start: 06-29-2023 Ecg routine ecg w/le ast 12 lds i&r only [facility] Provider Start: 03-30-2023 Urnls dip stick/tabl et rgnt auto w/o microscopy Solomon Valdes MD Work Phone: Start: 03-27-2023 Us retroperitoneal r eal time w/image complete Dottie Diaz EMBOSSED OR IMPRESSED LETTERING PAINTER.ECCLESIASTICAL WORKER Work Phone: Start: 03-23-2023 Urnls dip stick/tabl et rgnt auto w/o microscopy Henry Pino EMBOSSED OR IMPRESSED LETTERING PAINTER.ECCLESIASTICAL WORKER, DNP Work Phone: Start: 02-20-2023 Lipid 1996 panel - S stanislav or Plasma Dottie Diaz EMBOSSED OR IMPRESSED LETTERING PAINTER.ECCLESIASTICAL WORKER Work Phone: Start: 01-24-2023 CT of abdomen and pe lvis without contrast JASMINE Diaz Work Phone: Start: 01-07-2023 Plain chest X-ray Start: 07-02-2021 Urinalysis NIKOLAY [place] Comment on above: Result Comment: URIN ALYSIS Performed By: #### [id number] #### [place] [id number] Start: 02-15-2021 Urinalysis NIKOLAY [place] Comment on above: Result Comment: URIN ALYSIS Performed By: #### [id number] #### [place] [id number] Bacterial nucleic acid assay ANA PAULA-Paul Diaz Work Phone: Chlamydia trachomatis (PCR) JASMINE Diaz Work Phone: SARS-CoV-2 & FLU Ant igen (Rapid) Dr. Linda Benavidez Work Phone: SARS-CoV-2 & FLU Ant igen (Rapid) Streptococcus pyogen es antigen assay JASMINE Diaz Work Phone: Urine culture JASMINE Diaz Work Phone: Plan of Treatment Date Care Activity Detail Author Start: 02-20-2033 Urine microalbumin profile [facility] Start: 02-21-2028 Lipid 1996 panel - S stanislav or Plasma Lipid Screening [facility] Start: 02-21-2028 Lipid panel Lipid Screening [facility] Start: 02-21-2028 LIPID SCREEN LIPID SCREEN [facility] Start: 04-10-2025 Influenza vaccination C [facility] Start: 03-09-2025 End: 03-09-2025 Patient encounter procedure General Surgery Comment on above: Lower abdominal pain [R10.30]; Weight loss, unintentional [R63.4]; Abnormal stools [R19.5] CONSULT: Lower abdom inal pain; Weight loss, unintentional; Abnormal stools ( bloating, constipation, pebble like stools). PCP referred. No previous colonoscopy. [facility] Start: 03-07-2025 End: 03-07-2025 Patient encounter procedure 03/07/2025 9:40 AM EDT Office Visit [facility] [place] [address], [place] [phone] Dottie Diaz APRN.[facility] [address] [place], [place] [phone] has some concerns Family [facility] Comment on above: has some concerns Start: 02-03-2025 End: 05-05-2025 CBC W Auto Differential panel - Blood [facility] Work Phone: Comment on above: Expected: 02/03/2025 , Expires: 05/05/2025 Start: 02-03-2025 End: 05-05-2025 Comprehensive metabolic 2000 panel - Serum or Plasma [facility] Comment on above: Expected: 02/03/2025 , Expires: 05/05/2025 Start: 02-03-2025 End: 05-05-2025 Thyrotropin [Units/volume] in Serum or Plasma [facility] Comment on above: Expected: 02/03/2025 , Expires: 05/05/2025 Start: 02-03-2025 End: 05-05-2025 Thyroxine (T4) free [Mass/volume] in Serum or Plasma [facility] Comment on above: Expected: 02/03/2025 , Expires: 05/05/2025 Start: 02-03-2025 End: 05-05-2025 Triiodothyronine (T3) [Mass/volume] in Serum or Plasma [facility] Comment on above: Expected: 02/03/2025 , Expires: 05/05/2025 Start: 01-31-2025 End: 01-31-2025 Patient encounter procedure 01/31/2025 10:30 AM EDT Office Visit Urology [address], [place] [phone] Alida Jim PA-C [address] [place], [place] [phone] Dx: Burning with urination [R30.0]; Pain with ejaculation [N53.12] Urology Comment on above: Dx: Burning with uri nation [R30.0]; Pain with ejaculation [N53.12] Start: 01-30-2025 End: 01-30-2025 Patient encounter procedure 01/30/2025 9:20 AM EDT Office Visit Family [facility] [address], [place] [phone] Dottie Diaz APRN.[facility] [address] [place], [place] [phone] Express care follow up [facility] Comment on above: Express care follow up Start: 12-05-2024 End: 12-05-2024 Nursing evaluation of patient and report 12/05/2024 3:40 PM EDT Nurse Visit Cardiology [address], [place] [phone] Wstr, Nurse Card [address] [place] [address] Other chest pain [R07.89]; SOB (shortness of breath) [R06.02] Cardiology Comment on above: Other chest pain [R0 7.89]; SOB (shortness of breath) [R06.02] Start: 11-08-2024 End: 11-08-2024 Patient encounter procedure 11/08/2024 9:10 PM EDT Office Visit Neurology [address] [place] [address] LINWOOD (obstructive sleep apnea) [G47.33] Neurology Comment on above: LINWOOD (obstructive sle ep apnea) [G47.33] Start: 11-07-2024 End: 11-07-2024 Patient encounter procedure 11/07/2024 9:10 PM EDT Office Visit Neurology [address] [place], [place] [phone] LINWOOD (obstructive sleep apnea) [G47.33] Neurology Comment on above: LINWOOD (obstructive sle ep apnea) [G47.33] Start: 06-30-2024 End: 06-30-2024 Patient encounter procedure 06/30/2024 9:00 AM EST Office Visit [facility] [place] [address], [place] [phone] Dottie Diaz APRN.ECCLESIASTICAL WORKER [address] [place], [place] [phone] Has scar tissue on heart in is having concern with pain [facility] Comment on above: Has scar tissue on h eart in is having concern with pain Start: 04-10-2024 Covid-19 Vaccine ( season) Covid-19 Vaccine ( season) [facility] Start: 04-10-2024 Covid-19 Vaccine ( season) Covid-19 Vaccine ( season) [facility] Start: 04-10-2024 Influenza vaccination [facility] Start: 03-07-2024 End: 03-07-2024 ambulatory 03/07/2024 10:00 AM EDT OT/PT/Speech Visit [facility] [address] [place] [phone] Yash Santamaria, PT [address] [place], [place] [phone] Acute bilateral low back pain without sciatica [M54.50] [facility] Comment on above: Acute bilateral low back pain without sciatica [M54.50] Start: 02-23-2024 End: 02-23-2024 Patient encounter procedure 02/23/2024 9:15 AM EDT Office Visit Urology [address] [place], [place] [phone] Alida Jim PA-C [address] [place] [address] Burning with urination [R30.0] Urology Comment on above: Burning with urinati on [R30.0] Start: 12-23-2023 End: 12-23-2023 Patient encounter procedure 12/23/2023 9:00 PM EDT Office Visit Neurology [address] [place], [place] [phone] Snoring [R06.83] Neurology Comment on above: Snoring [R06.83] Start: 08-10-2023 Behavioral Health Screening Behavioral Health Screening [facility] Start: 08-10-2023 Depression Assessment Depression Ass essment [facility] Start: 04-10-2023 Covid-19 Vaccine ( season) Covid-19 Vaccine () [facility] Start: 04-10-2023 Influenza vaccination C [facility] Start: 03-23-2023 End: 05-23-2023 MYCOPLASMA GENITALIUM NAAT MYCOPLASMA GENITALIUM NAAT Lab Routine Painful urination Expected: 03/23/2023, Expires: 05/23/2023 [facility] Work Phone: Comment on above: Expected: 03/23/2023 , Expires: 05/23/2023 Start: 02-20-2023 End: 04-22-2023 Comprehensive metabolic 2000 panel - Serum or Plasma [facility] Work Phone: Comment on above: Expected: 02/20/2023 , Expires: 04/22/2023 Start: 02-20-2023 End: 04-22-2023 Hemoglobin A1c in Blood [facility] Work Phone: Comment on above: Expected: 02/20/2023 , Expires: 04/22/2023 Start: 02-20-2023 End: 04-22-2023 LIPID PANEL, NONFASTING [facility] Work Phone: Comment on above: Expected: 02/20/2023 , Expires: 04/22/2023 Start: 01-29-2023 End: 03-31-2023 Hepatitis B virus surface Ag [Presence] in Serum [facility] Work Phone: Comment on above: Expected: 01/29/2023 , Expires: 03/31/2023 Start: 01-29-2023 End: 03-31-2023 Hepatitis C virus Ab [Presence] in Serum [facility] Work Phone: Comment on above: Expected: 01/29/2023 , Expires: 03/31/2023 Start: 01-29-2023 End: 03-31-2023 HERPES SIMPLEX TYPE 1 AND 2 IG [facility] Work Phone: Comment on above: Expected: 01/29/2023 , Expires: 03/31/2023 Start: 01-29-2023 End: 03-31-2023 HIV 1+2 Ab [Presence] in Serum or Plasma by Immunoassay [facility] Work Phone: Comment on above: Expected: 01/29/2023 , Expires: 03/31/2023 Start: 01-29-2023 End: 03-31-2023 SYPHILIS TOTAL W/REFLEX [facility] Work Phone: Comment on above: Expected: 01/29/2023 , Expires: 03/31/2023 Start: 01-07-2023 [facility] Start: 08-10-2022 DEPRESSION ASSESSMENT DEPRESSION ASS ESSMENT [facility] Start: 2019 LIPID SCREEN LIPID SCREEN [facility] Start: 2003 Hepatitis B Vaccine (1 of 3 - 19+ 3-dose series) Hepatitis B Vaccine (1 of 3 - 19+ 3-dose series) [facility] Start: 2003 Pneumococcal vaccination Pneum ococcal Vaccine (1 of 2 - PCV) [facility] Start: 2003 Urine microalbumin profile DTAP,TDAP ,TD (1 - Tdap) [facility] Start: 2002 Anxiety Screening Anxiety Screening [facility] Start: 2002 Depression Screening Depression Scre ening [facility] Start: 1990 PNEUMOCOCCAL (1 - PCV) PNEUMOCOCCAL (1 - PCV) [facility] Start: 1990 Pneumococcal vaccination [facility] Start: 1984 COVID-19 VACCINE (#1) COVID-19 VACCI NE (#1) [facility] Start: 1984 HEPATITIS B (1 of 3 - 3-dose series) HEPATITIS B (1 of 3 - 3-dose series) [facility] Start: 1984 Hepatitis B Vaccine (1 of 3 - 3-dose series) Hepatitis B Vaccine (1 of 3 - 3-dose series) [facility] Bacteria identified in Urine by Culture BACTERIAL CULTURE, URINE Microbiology Routine Urinary frequency Discharge from penis 01/24/2025 9:12 AM EDT [facility] Work Phone: Chlamydia trachomatis+Neisseria gonorrhoeae DNA [Presence] in Unspecified specimen by LATOYA with probe detection GONORRHEA/CHLAMYDIA NAAT Lab Routine Encounter for assessment of STD exposure Ordered: 01/29/2023 [facility] Work Phone: Comment on above: Ordered: 01/29/2023 CYSTO DIAGNOSTIC CYSTO DIAGNOSTI C Procedures Routine Painful urination Urinary frequency Other microscopic hematuria Ordered: 03/23/2023 [facility] Work Phone: Comment on above: Ordered: 03/23/2023 End: 03-21-2024 Dup-scan artl juan alberto abdl/pel/scrot&/rpr orgn com US DOPPLER COMPLETE Radiology Routine Scrotal cyst 1 Occurrences starting 02/20/2023 until 03/21/2024 [facility] Work Phone: Comment on above: 1 Occurrences starti ng 02/20/2023 until 03/21/2024 Dup-scan artl juan alberto abdl/pel/scrot&/rpr orgn com US DOPPLER COMPLETE Radiology Routine Scrotal cyst 02/20/2023 11:12 AM EDT [facility] Work Phone: ECG COMPLETE [facility] Work Phone: Comment on above: Ordered: 06/29/2023 ECG COMPLETE ECG COMPLETE ECG Routine Other chest pain Ordered: 09/12/2024 [facility] Comment on above: Ordered: 09/12/2024 End: 06-29-2024 Echocardiography ECHO Cardiology STAT Chest pain, unspecified type 1 Occurrences starting 06/29/2023 until 06/29/2024 [facility] Work Phone: Comment on above: 1 Occurrences starti ng 06/29/2023 until 06/29/2024 End: 09-12-2025 EXERCISE STRESS ECG (WITHOUT IMAGING) EXERCISE STRESS ECG (WITHOUT IMAGING) Cardiology Routine Other chest pain SOB (shortness of breath) 1 Occurrences starting 09/12/2024 until 09/12/2025 [facility] Comment on above: 1 Occurrences starti ng 09/12/2024 until 09/12/2025 End: 08-07-2024 NM CARDIAC PERF STRESS/EXERCISE NM CARDIAC PERF STRESS/EXERCISE Radiology Routine Chest pain, unspecified type 1 Occurrences starting 07/09/2023 until 08/07/2024 [facility] Work Phone: Comment on above: 1 Occurrences starti ng 07/09/2023 until 08/07/2024 End: 10-12-2025 PAP TITRATION PSG (CPAP, BIPAP, ASV) PAP TITRATION PSG (CPAP, BIPAP, ASV) Procedures Routine LINWOOD (obstructive sleep apnea) 1 Occurrences starting 09/12/2024 until 10/12/2025 [facility] Comment on above: 1 Occurrences starti ng 09/12/2024 until 10/12/2025 Patient Education [facility] Work Phone: Patient referral [facility] Work Phone: End: 12-20-2024 Polysomnogram POLYSOMNOGRAM (PSG) Procedures Routine Snoring RLS (restless legs syndrome) Sleep paralysis Dream enactment behavior Nightmares Sleep-related hallucinations 1 Occurrences starting 12/21/2023 until 12/20/2024 [facility] Work Phone: Comment on above: 1 Occurrences starti ng 12/21/2023 until 12/20/2024 End: 09-12-2025 Polysomnogram POLYSOMNOGRAM (PSG) Procedures Routine LINWOOD (obstructive sleep apnea) 1 Occurrences starting 09/12/2024 until 09/12/2025 [facility] Work Phone: Comment on above: 1 Occurrences starti ng 09/12/2024 until 09/12/2025 End: 03-21-2024 Radiolog exam mandible compl minimum 4 views XR MANDIBLE 4V PA/RICHARDSON/BOTH OBL Radiology Routine Chronic jaw pain 1 Occurrences starting 02/20/2023 until 03/21/2024 [facility] Work Phone: Comment on above: 1 Occurrences starti ng 02/20/2023 until 03/21/2024 Streptococcus pyogen es antigen assay Group A Streptococcus Rapid Screen [facility] TRICHOMONAS VAGINALIS NAAT TRICH OMONAS VAGINALIS NAAT Lab Routine Encounter for assessment of STD exposure Ordered: 01/29/2023 [facility] Work Phone: Comment on above: Ordered: 01/29/2023 End: 03-27-2024 US KIDNEY/BLADDER US KIDNEY/BLADDER Radiology Routine Acute bilateral low back pain without sciatica Burning with urination 1 Occurrences starting 02/26/2023 until 03/27/2024 [facility] Work Phone: Comment on above: 1 Occurrences starti ng 02/26/2023 until 03/27/2024 End: 03-21-2024 Us scrotum & contents US SCROTUM AND CONTENTS Radiology Routine Scrotal cyst 1 Occurrences starting 02/20/2023 until 03/21/2024 [facility] Work Phone: Comment on above: 1 Occurrences starti ng 02/20/2023 until 03/21/2024 Us scrotum & contents US SCROTUM AND CONTENTS Radiology Routine Scrotal cyst 02/20/2023 11:12 AM EDT [facility] Work Phone: End: 03-17-2025 XR Cervical spine AP and Lateral and oblique XR CERV OTHER 4V AP/LAT/OBL Radiology Routine Acute bilateral low back pain without sciatica 1 Occurrences starting 02/16/2024 until 03/17/2025 [facility] Comment on above: 1 Occurrences starti ng 02/16/2024 until 03/17/2025 XR Cervical spine AP and Lateral and oblique XR CERV OTHER 4V AP/LAT/OBL Radiology Routine Acute bilateral low back pain without sciatica 02/16/2024 9:41 AM EDT [facility] End: 03-17-2025 XR Lumbar spine AP and Lateral and oblique XR LUMBAR PARS DEFECT 4V AP/LAT/BOTH OBL Radiology Routine Acute bilateral low back pain without sciatica 1 Occurrences starting 02/16/2024 until 03/17/2025 [facility] Work Phone: Comment on above: 1 Occurrences starti ng 02/16/2024 until 03/17/2025 XR Lumbar spine AP a nd Lateral and oblique XR LUMBAR PARS DEFECT 4V AP/LAT/BOTH OBL Radiology Routine Acute bilateral low back pain without sciatica 02/16/2024 9:41 AM EDT [facility] End: 03-21-2024 XR TMJ 4V OPEN/CLOSE BILATERAL XR TMJ 4V OPEN/CLOSE BILATERAL Radiology Routine Chronic jaw pain 1 Occurrences starting 02/20/2023 until 03/21/2024 [facility] Work Phone: Comment on above: 1 Occurrences starti ng 02/20/2023 until 03/21/2024 [facility] Immunizations Immunization Date Immunization Notes Care Provider Marcos ken 02-20-2023 tetanus toxoid, redu rosetta diphtheria toxoid, and acellular pertussis vaccine, adsorbed Dottie Diaz APRN.CNP Work Phone: [facility] Payers Date Payer Category Payer Self-pay 2023 Unknown [id number] 2020 Medicaid [id number] 1985 Unknown [id number] 1985 Unknown [id number] 1985 Unknown [id number] 1985 Unknown [id number] Unknown [id number] Unknown [facility] [id number] Unknown [id number] Unknown [id number] Unknown [id number] Social History Date Type Detail Facility Start: 07-17-2022 End: 01-24-2023 Tobacco smoking status AZIS Unknown if ever smoked [facility] Start: 1985 Sex Assigned At Male [facility] Start: 11-10-2008 End: 03-23-2023 Tobacco smoking status AZIS Smokes tobacco daily [facility] History of tobacco use Cigarette Smoker [facility] Start: 11-10-2008 End: 02-16-2024 Cigarettes smoked current (pack per day) - Reported 1 [facility] Work Phone: Start: 03-22-2022 End: 03-04-2023 Alcohol intake Current non-drinker of alcohol (finding) [facility] Start: 1985 Sex Assigned At Not on file [facility] Start: 03-22-2022 End: 02-16-2024 Tobacco use panel [facility] Work Phone: Adult Depression Screening Assessment 6 [facility] Work Phone: Start: 03-23-2023 End: 02-27-2025 Tobacco use and exposure Former smokeless tobacco user [facility] History of tobacco use Chews Tobacco [facility] Start: 03-23-2023 End: 03-02-2025 Alcohol intake Ex-drinker (finding) [facility] Start: 02-27-2025 [facility] History of tobacco use Current smoker [facility] Start: 03-09-2025 Alcoholic beverage intake Current drinker of alcohol (finding) [facility] Start: 03-09-2025 Alcohol Comment Occassionally [facility] Mental Status Date Assessment Result Facility 07-17-2022 Cognitive function Level Of Cons ciousness Awake;Alert;Appropriate;Follow s [facility] Work Phone: Clinical Notes 01-07-2023 to 03-09-2025 Lubna Weiss APRN.YOLANDA - 03/09/2025 11:00 AM EDTTelephone Encounter - Stephenie Smith RN - 03/07/2025 11:39 AM EDTTelephone Encounter - Stephenie Smith RN - 03/07/2025 11:39 AM EDT Note Date & Type Note Facility 03-09-2025 History of Presen t illness Narrative HISTORY AND PHYSICAL Zack Last : 1985 REFERRING PHYSICIAN: Dottie Diaz [address] [id number] CHIEF COMPLAINT: Patient presents with: Consult Abdominal Pain Weight Loss HPI: Zack is a 39 year old male referred for endoscopy. Zack notes recent lower abdominal pain, constipation and decreased appetite which is improving.- He has concerns for ulcerative colitis. Zack notes that he was taking Whey protein- the max dose, and working out. He developed lower abdominal pain along with narrow, harder to pass stools. He notes that in 2019 he had a similar episode to this also involving whey protein. He has stopped the whey and the symptoms are slowly improving. -he does admit in the AM his low abdomen is still uncomfortable, he will soak in warm water and this helps Zack notes heartburn. Zack notes epigastric pain -especially with fatty foods Zack notes nausea if eating late at night Zack notes unintentional weight loss -14 lbs over the last month Zack notes decreased appetite -will be hungry and starts to eat and then gets upset stomach CT abd/pelv 01/30/25 IMPRESSION: No acute process in the abdomen or pelvis. Zack notes a hx of substance abuse- questioning if he can have a spinal block for the procedure. 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 Zack has undergone prior endoscopy. He and an aborted EGD in 2019. He notes that the procedure was stopped d/t hypotension. Unsure of the sedation but was in a hospital in [place]. -noted to have stomach ulcer Current Outpatient Medications Medication Sig multivitamins(DAILY MULTIVITAMIN TAB) Take by mouth. No current facility-administered medications for this visit. ALLERGIES: Depakote [Divalproex], Haldol [Haloperidol Lactate], and [place] PAST MEDICAL HISTORY Diagnosis Date Anxiety state Chronic jaw pain 02/20/2023 Constipation, unspecified constipation type 02/27/2025 HTN (hypertension) PMH - PAST MEDICAL HISTORY OF seizures PMH - PAST MEDICAL HISTORY OF headaches Scrotal cyst 02/20/2023 Stomach ulcer PAST SURGICAL HISTORY Procedure Laterality Date EGD W/O BRSH SPEC VARICIES INJ 2019 PAST SURGICAL HISTORY OF tubes in ears FAMILY HISTORY Problem Relation Age of Onset Neuropathy Mother Post-Traumatic Stress Disorder Mother other (Drug/alcohol abuse) Mother Depression Mother Aneurysm Mother Depression Father Diabetes Father Bipolar disorder Father Diabetes Brother Neuropathy Brother Hypertension Brother Depression Brother Bipolar disorder Brother other (IED) Brother Anxiety disorder Brother No Known Problems Maternal Grandmother Aneurysm Maternal Grandfather Heart Maternal Grandfather Stroke Maternal Grandfather No Known Problems Paternal Grandmother No Known Problems Paternal Grandfather Cancer Other PGGM; type unknown; Colon Cancer Other none Prostate Cancer Other none Social History Tobacco Use Smoking status: Former Current packs/day: 0.25 Average packs/day: 0.3 packs/day for 10.0 years (2.5 ttl pk-yrs) Types: Cigarettes Smokeless tobacco: Former Types: Chew Vaping Use Vaping status: Former Substances: Nicotine, Flavoring Devices: Disposable Substance Use Topics Alcohol use: Yes Comment: Occassionally Drug use: Not Currently Types: Marijuana, Cocaine, Crack Cocaine, Amphetamines, Narcotics, Heroin, Ecstasy, Crystal Meth, Benzodiazepines, Opiates, LSD Comment: Sober since May 2022 REVIEW OF SYMPTOMS: The review of systems data was entered by the nurse and reviewed by me PHYSICAL EXAMINATION: General: The patient is 39 year old, male well nourished, well hydrated in no acute distress. The patient is oriented to time, place, and person. VITALS: Blood pressure 124/78, pulse 94, temperature 36.9 C (98.4 F), temperature source Temporal, resp. rate 14, height 193 cm (6' 4), weight 94.3 kg (208 lb), SpO2 98%. Body mass index is 25.32 kg/m . HEENT: Normal cephalic, ataumatic, pupils are equally round, sclera are anicteric, mucous membranes are moist, oropharynx is clear. Neck has no masses or asymmetry . Respiratory: Clear to auscultation. Cardiac: Regular rate and rhythm. Abdominal exam: Soft, nontender, with no palpable masses. No hepatosplenomegaly. No palpable hernias. Extremities: no clubbing or cyanosis LABORATORY VALUES: As Noted RADIOLOGIC STUDIES: As Noted Assessment IMPRESSION: nausea, hx of stomach ulcer, unintentional weight loss, low abdominal pain, abnormal stools PLAN: I recommend upper and lower scope. At this time Zack would like to further investigate if there are any locations that complete the scopes awake, or under a spinal in the area. I informed him that I was unsure and would recommend he have this completed at [facility] and could send him to the [facility] to discuss sedation types. He also notes that him and his family are moving to [place] in May. He states he is going to see if they complete the scopes w/o sedation and if so will post pone. If not he will contact me to move forward at [facility]. I also recommend trying Nexium 30mg daily to help with the nausea and decreased appetite while he takes time to decide if he would like to move forward with scopes. I plan to use Golytely bowel preparation I have explained to the patient the difference between IV conscious sedation and MAC anesthesia - and I have offered either, according to the patient's wishes. I have explained that with IV conscious sedation there is no anesthesia provider available and therefore there is a limitation of the amount of IV medications that can be given and that the patient may wake up in the middle of the procedure and/or experience pain/discomfort during the procedure. Further discussion was done and the patient was given the opportunity to ask questions and all questions were answered. MAC anesthesia-[facility] trouble with sedation. Zack was counseled that if there are changes in his/her medical condition, to let the office know if surgery should proceed. If there are changes in patient's medical condition from time of this encounter to the day of the procedure that preclude anesthesia, patient may have procedure cancelled for patient's safety. Diagnoses: (R11.0) Nausea (primary encounter diagnosis) (R10.30) Lower abdominal pain (R63.4) Weight loss, unintentional (R19.5) Abnormal stools (Z87.11) History of gastric ulcer (R63.0) Decreased appetite Consultation requested by Dottie Diaz CNP for an opinion regarding low abdominal pain, weight loss, abnormal stools. My final recommendations will be communicated back to the requesting physician by way of shared Medical record or letter to requesting physician via US mail. Portions of this documentation were copied and pasted from previous office visit notes in order to provide a cohesive continuity of the history. The note has been reviewed and edited and updated as necessary. Lubna Weiss APRN.YOLANDA documented in this encounter [facility] 03-09-2025 Note HNO ID: [id number] Author: LUBNA WEISS APRN.CNP Service: ? Author Type: Nurse Practitioner Type: Progress Notes Filed: 03/09/2025 12:59 Note Text: HISTORY AND PHYSICAL Zack Last : 1985 REFERRING PHYSICIAN: Dottie Diaz [address] [address] CHIEF COMPLAINT: Patient presents with: Consult Abdominal Pain Weight Loss HPI: Zack is a 39 year old male referred for endoscopy. Zack notes recent lower abdominal pain, constipation and decreased appetite which is improving.- He has concerns for ulcerative colitis. Zack notes that he was taking Whey protein- the max dose, and working out. He developed lower abdominal pain along with narrow, harder to pass stools. He notes that in 2019 he had a similar episode to this also involving whey protein. He has stopped the whey and the symptoms are slowly improving. -he does admit in the AM his low abdomen is still uncomfortable, he will soak in warm water and this helps Zack notes heartburn. Zack notes epigastric pain -especially with fatty foods Zack notes nausea if eating late at night Zack notes unintentional weight loss -14 lbs over the last month Zack notes decreased appetite -will be hungry and starts to eat and then gets upset stomach CT abd/pelv 01/30/25 IMPRESSION: No acute process in the abdomen or pelvis. Zack notes a hx of substance abuse- questioning if he can have a spinal block for the procedure. 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 Zack has undergone prior endoscopy. He and an aborted EGD in 2019. He notes that the procedure was stopped d/t hypotension. Unsure of the sedation but was in a hospital in [place]. -noted to have stomach ulcer Current Outpatient Medications Medication Sig multivitamins(DAILY MULTIVITAMIN TAB) Take by mouth. No current facility-administered medications for this visit. ALLERGIES: Depakote [Divalproex], Haldol [Haloperidol Lactate], and [place] PAST MEDICAL HISTORY Diagnosis Date Anxiety state Chronic jaw pain 02/20/2023 Constipation, unspecified constipation type 02/27/2025 HTN (hypertension) PMH - PAST MEDICAL HISTORY OF seizures PMH - PAST MEDICAL HISTORY OF headaches Scrotal cyst 02/20/2023 Stomach ulcer PAST SURGICAL HISTORY Procedure Laterality Date EGD W/O BRSH SPEC VARICIES INJ 2019 PAST SURGICAL HISTORY OF tubes in ears FAMILY HISTORY Problem Relation Age of Onset Neuropathy Mother Post-Traumatic Stress Disorder Mother other (Drug/alcohol abuse) Mother Depression Mother Aneurysm Mother Depression Father Diabetes Father Bipolar disorder Father Diabetes Brother Neuropathy Brother Hypertension Brother Depression Brother Bipolar disorder Brother other (IED) Brother Anxiety disorder Brother No Known Problems Maternal Grandmother Aneurysm Maternal Grandfather Heart Maternal Grandfather Stroke Maternal Grandfather No Known Problems Paternal Grandmother No Known Problems Paternal Grandfather Cancer Other PGGM; type unknown; Colon Cancer Other none Prostate Cancer Other none Social History Tobacco Use Smoking status: Former Current packs/day: 0.25 Average packs/day: 0.3 packs/day for 10.0 years (2.5 ttl pk-yrs) Types: Cigarettes Smokeless tobacco: Former Types: Chew Vaping Use Vaping status: Former Substances: Nicotine, Flavoring Devices: Disposable Substance Use Topics Alcohol use: Yes Comment: Occassionally Drug use: Not Currently Types: Marijuana, Cocaine, Crack Cocaine, Amphetamines, Narcotics, Heroin, Ecstasy, Crystal Meth, Benzodiazepines, Opiates, LSD Comment: Sober since May 2022 REVIEW OF SYMPTOMS: The review of systems data was entered by the nurse and reviewed by me PHYSICAL EXAMINATION: General: The patient is 39 year old, male well nourished, well hydrated in no acute distress. The patient is oriented to time, place, and person. VITALS: Blood pressure 124/78, pulse 94, temperature 36.9 ?C (98.4 ?F), temperature source Temporal, resp. rate 14, height 193 cm (6' 4), weight 94.3 kg (208 lb), SpO2 98%. Body mass index is 25.32 kg/m?. HEENT: Normal cephalic, ataumatic, pupils are equally round, sclera are anicteric, mucous membranes are moist, oropharynx is clear. Neck has no masses or asymmetry . Respiratory: Clear to auscultation. Cardiac: Regular rate and rhythm. Abdominal exam: Soft, nontender, with no palpable masses. No hepatosplenomegaly. No palpable hernias. Extremities: no clubbing or cyanosis LABORATORY VALUES: As Noted RADIOLOGIC STUDIES: As Noted Assessment IMPRESSION: nausea, hx of stomach ulcer, unintentional weight loss, low abdominal pain, abnormal stools PLAN: I recommend upper and lower scope. At this time Zack would like to further investigate if there are any locations that com (more content not included)... [facility] 03-07-2025 Telephone encounter Note Pt was seen this morning. [facility] 03-07-2025 Miscellaneous Notes Pt was seen this morning. Patient is on Dottie Diaz's scheduled for tomorrow morning at 940 am for has some concerns. Dottie would like to know what his concerns are and would like him triaged for symptoms if needed. Call placed to patient and voicemail left to return call to a triage nurse. Krys Augustine RN documented in this encounter [facility] 03-07-2025 Note HNO ID: [id number] Author: DOTTIE DIAZ APRN.ECCLESIASTICAL WORKER Service: ? Author Type: Nurse Practitioner Type: Progress Notes Filed: 03/07/2025 09:43 Note Text: Chief Complaint Patient presents with: Follow Up HPI Zack Last is a 39 year old male who presents here today for Above Complaints.. Patient presents for follow up. Patient reports constipation has mostly resolved and appetite is improving. Has appt with general surgery 03/09. Past medical history, appointments, medications, allergies reviewed. Previous Medical History PAST MEDICAL HISTORY Diagnosis Date Anxiety state Chronic jaw pain 02/20/2023 Constipation, unspecified constipation type 02/27/2025 PMH - PAST MEDICAL HISTORY OF seizures PMH - PAST MEDICAL HISTORY OF headaches Scrotal cyst 02/20/2023 Previous Surgical History PAST SURGICAL HISTORY Procedure Laterality Date EGD W/O BRSH SPEC VARICIES INJ 2019 PAST SURGICAL HISTORY OF tubes in ears Family History FAMILY HISTORY Problem Relation Age of Onset Diabetes Father Heart Maternal Grandfather Stroke Maternal Grandfather Cancer Other PGGM; type unknown; Colon Cancer Other none Prostate Cancer Other none Patient Allergies ALLERGIES Allergen Reactions Depakote [Divalproe* GI Upset N/V Haldol [Haloperidol* Intolerance [place] Intolerance Severe hyperactivity Current Medications Current Outpatient Medications on File Prior to Visit Medication Sig multivitamins(DAILY MULTIVITAMIN TAB) Take by mouth. (Patient not taking: Reported on 12/21/2023) No current facility-administered medications on file prior to visit. Social History Social History Tobacco Use Smoking status: Former Current packs/day: 0.25 Average packs/day: 0.3 packs/day for 10.0 years (2.5 ttl pk-yrs) Types: Cigarettes Smokeless tobacco: Former Types: Chew Vaping Use Vaping status: Former Substances: Nicotine, Flavoring Devices: Disposable Substance Use Topics Alcohol use: Not Currently Drug use: Not Currently Types: Marijuana, Cocaine, Crack Cocaine, Amphetamines, Narcotics, Heroin, Ecstasy, Crystal Meth, Benzodiazepines, Opiates, LSD Comment: Sober since May 2022 Review of Symptoms REVIEW OF SYSTEMS SEE HPI EXAM: BP 134/79 Pulse 103 Wt 94 kg (207 lb 3.7 oz) BMI 25.23 kg/m? General Appearance: Well appearing, alert, in no acute distress, well-hydrated, well nourished.. Abdomen: Normal abdominal exam, Abdomen soft, non-tender. Bowel sounds normal. No masses, organomegaly. Health Maintenance List Depression Screening Never done Anxiety Screening Never done Hepatitis B Vaccine(1 of 3 - 19+ 3-dose series) Never done Influenza Vaccine(1) due on 04/10/2025 Lipid Screening due on 02/21/2028 DTaP,Tdap,Td Vaccine(2 - Td or Tdap) due on 02/20/2033 Hepatitis C Screening Completed HIV Screening Completed ASSESSMENT/PLAN: 1. Constipation, unspecified constipation type - ICD9: 564.00, ICD10: K59.00 (primary diagnosis) 2. Lower abdominal pain - ICD9: 789.09, ICD10: R10.30 3. Nausea - ICD9: 787.02, ICD10: R11.0 4. Abnormal stools - ICD9: 787.7, ICD10: R19.5 Symptoms resolving. Follow up with General Surgery as scheduled. 03/09. Dottie Diaz APRN.[facility] 03-07-2025 History of Presen t illness Narrative Chief Complaint Patient presents with: Follow Up HPI Zack Last is a 39 year old male who presents here today for Above Complaints.. Patient presents for follow up. Patient reports constipation has mostly resolved and appetite is improving. Has appt with general surgery 03/09. Past medical history, appointments, medications, allergies reviewed. Previous Medical History PAST MEDICAL HISTORY Diagnosis Date Anxiety state Chronic jaw pain 02/20/2023 Constipation, unspecified constipation type 02/27/2025 PMH - PAST MEDICAL HISTORY OF seizures PMH - PAST MEDICAL HISTORY OF headaches Scrotal cyst 02/20/2023 Previous Surgical History PAST SURGICAL HISTORY Procedure Laterality Date EGD W/O BRSH SPEC VARICIES INJ 2019 PAST SURGICAL HISTORY OF tubes in ears Family History FAMILY HISTORY Problem Relation Age of Onset Diabetes Father Heart Maternal Grandfather Stroke Maternal Grandfather Cancer Other PGGM; type unknown; Colon Cancer Other none Prostate Cancer Other none Patient Allergies ALLERGIES Allergen Reactions Depakote [Divalproe* GI Upset N/V Haldol [Haloperidol* Intolerance [place] Intolerance Severe hyperactivity Current Medications Current Outpatient Medications on File Prior to Visit Medication Sig multivitamins(DAILY MULTIVITAMIN TAB) Take by mouth. (Patient not taking: Reported on 12/21/2023) No current facility-administered medications on file prior to visit. Social History Social History Tobacco Use Smoking status: Former Current packs/day: 0.25 Average packs/day: 0.3 packs/day for 10.0 years (2.5 ttl pk-yrs) Types: Cigarettes Smokeless tobacco: Former Types: Chew Vaping Use Vaping status: Former Substances: Nicotine, Flavoring Devices: Disposable Substance Use Topics Alcohol use: Not Currently Drug use: Not Currently Types: Marijuana, Cocaine, Crack Cocaine, Amphetamines, Narcotics, Heroin, Ecstasy, Crystal Meth, Benzodiazepines, Opiates, LSD Comment: Sober since May 2022 Review of Symptoms REVIEW OF SYSTEMS SEE HPI EXAM: BP 134/79 Pulse 103 Wt 94 kg (207 lb 3.7 oz) BMI 25.23 kg/m General Appearance: Well appearing, alert, in no acute distress, well-hydrated, well nourished.. Abdomen: Normal abdominal exam, Abdomen soft, non-tender. Bowel sounds normal. No masses, organomegaly. Health Maintenance List Depression Screening Never done Anxiety Screening Never done Hepatitis B Vaccine(1 of 3 - 19+ 3-dose series) Never done Influenza Vaccine(1) due on 04/10/2025 Lipid Screening due on 02/21/2028 DTaP,Tdap,Td Vaccine(2 - Td or Tdap) due on 02/20/2033 Hepatitis C Screening Completed HIV Screening Completed ASSESSMENT/PLAN: 1. Constipation, unspecified constipation type - ICD9: 564.00, ICD10: K59.00 (primary diagnosis) 2. Lower abdominal pain - ICD9: 789.09, ICD10: R10.30 3. Nausea - ICD9: 787.02, ICD10: R11.0 4. Abnormal stools - ICD9: 787.7, ICD10: R19.5 Symptoms resolving. Follow up with General Surgery as scheduled. 03/09. Dottie Diaz APRN.ECCLESIASTICAL WORKER documented in this encounter [facility] 03-06-2025 Telephone encounter Note Patient is on Dottie Diaz's scheduled for tomorrow morning at 940 am for has some concerns. Dottie would like to know what his concerns are and would like him triaged for symptoms if needed. Call placed to patient and voicemail left to return call to a triage nurse. Krys Augustine RN [facility] 02-27-2025 Note HNO ID: [id number] Author: BARB DUMONT MD Service: ? Author Type: Physician Type: Progress Notes Filed: 02/27/2025 15:31 Note Text: Family Medicine OUTPATIENT VISIT February 27, 2025 CC: HPI: 39 year old male patient presents with acute concerns. Concerned he may have UC. He missed his gen surg appointment to discuss this so he made an appointment to discuss. Having bloating, constipation, pebble like stools. Symptoms on and off since 2019. 02/01 Grossly normal CMP, CBC normal and without anemia, TFT. 02/01 CT abdomen pelvis with contrast unremarkable. I began patient's appointment by asking open ended question about his concern. He listed his concerns about having ulcerative colitis, his stool symptoms, his not being able to sleep due to abdominal bloating, feeling he has anemia, that his house is 68 degrees and he shivers at night, that he has looked up his symptoms and that he believes he has ulcerative colitis and anemia. States he is pretty sure he has ulcerative colitis because he googled his symptoms and these are all lower symptoms and that he has been having flares since 2019. I let patient speak uninterrupted for about three minutes to list his concerns. I then asked clarifying question after about three minutes when he mentioned his ulcer, asking whether this was diagnosed with a scope and what year this occurred. He stated I will get to that, this is my appointment not yours so I'm the one asking the questions. Don't interrupt me I told him I understood that and I wanted to help him, but that to understand what was going on I would need to ask him questions, and sometimes jump in with questions to help gain an understanding of what has happened with his care. He said that's it. I'm leaving and I'm giving you a bad review. He then stood up and left. I told his two family members who were still in the room that if he changes his mind he can make another appointment to return for care. [facility] [place] 02-27-2025 History of Presen t illness Narrative Images from the original note were not included. Family Medicine OUTPATIENT VISIT February 27, 2025 CC: HPI: 39 year old male patient presents with acute concerns. Concerned he may have UC. He missed his gen surg appointment to discuss this so he made an appointment to discuss. Having bloating, constipation, pebble like stools. Symptoms on and off since 2019. 02/01 Grossly normal CMP, CBC normal and without anemia, TFT. 02/01 CT abdomen pelvis with contrast unremarkable. I began patient's appointment by asking open ended question about his concern. He listed his concerns about having ulcerative colitis, his stool symptoms, his not being able to sleep due to abdominal bloating, feeling he has anemia, that his house is 68 degrees and he shivers at night, that he has looked up his symptoms and that he believes he has ulcerative colitis and anemia. States he is pretty sure he has ulcerative colitis because he googled his symptoms and these are all lower symptoms and that he has been having flares since 2019. I let patient speak uninterrupted for about three minutes to list his concerns. I then asked clarifying question after about three minutes when he mentioned his ulcer, asking whether this was diagnosed with a scope and what year this occurred. He stated I will get to that, this is my appointment not yours so I'm the one asking the questions. Don't interrupt me I told him I understood that and I wanted to help him, but that to understand what was going on I would need to ask him questions, and sometimes jump in with questions to help gain an understanding of what has happened with his care. He said that's it. I'm leaving and I'm giving you a bad review. He then stood up and left. I told his two family members who were still in the room that if he changes his mind he can make another appointment to return for care. documented in this encounter [facility] 02-06-2025 Telephone encounter Note Letter mailed to pt home of results. Tia Armstrong MA [facility] 02-06-2025 Miscellaneous Notes Letter mailed to pt home of results. Tia Armstrong MA Please let patient know their labs are normal. documented in this encounter [facility] 02-06-2025 Telephone encounter Note Please let patient know their labs are normal. [facility] 02-03-2025 Note HNO ID: [id number] Author: DOTTIE DIAZ APRN.YOLANDA Service: ? Author Type: Nurse Practitioner Type: Progress Notes Filed: 02/03/2025 15:05 Note Text: Chief Complaint Patient presents with: Follow Up: Weight concern HPI Zack Last is a 39 year old male who presents here today for Above Complaints.. Patient presents for follow up. Patient reports he continues to lose weight down another 2 pounds since 01/31. Patient also reports nausea with dry heaving multiple times past week as well as abnormal stools. Patient reports his stool is diarrhea half the time and the rest is formed however different than previous stools. Past medical history, appointments, medications, allergies reviewed. Previous Medical History PAST MEDICAL HISTORY Diagnosis Date Anxiety state Chronic jaw pain 02/20/2023 PMH - PAST MEDICAL HISTORY OF seizures PMH - PAST MEDICAL HISTORY OF headaches Scrotal cyst 02/20/2023 Previous Surgical History PAST SURGICAL HISTORY Procedure Laterality Date EGD W/O BRSH SPEC VARICIES INJ 2019 PAST SURGICAL HISTORY OF tubes in ears Family History FAMILY HISTORY Problem Relation Age of Onset Diabetes Father Heart Maternal Grandfather Stroke Maternal Grandfather Cancer Other PGGM; type unknown; Colon Cancer Other none Prostate Cancer Other none Patient Allergies ALLERGIES Allergen Reactions Depakote [Divalproe* GI Upset N/V Haldol [Haloperidol* Intolerance [place] Intolerance Severe hyperactivity Current Medications Current Outpatient Medications on File Prior to Visit Medication Sig mupirocin (BACTROBAN) 2 % ointment Apply to affected area three times a day for 10 days. multivitamins(DAILY MULTIVITAMIN TAB) Take by mouth. (Patient not taking: Reported on 12/21/2023) No current facility-administered medications on file prior to visit. Social History Social History Tobacco Use Smoking status: Every Day Current packs/day: 0.25 Average packs/day: 0.3 packs/day for 10.0 years (2.5 ttl pk-yrs) Types: Cigarettes Smokeless tobacco: Former Types: Chew Vaping Use Vaping status: current everyday user Substances: Nicotine, Flavoring Devices: Disposable Substance Use Topics Alcohol use: Not Currently Drug use: Not Currently Types: Marijuana, Cocaine, Crack Cocaine, Amphetamines, Narcotics, Heroin, Ecstasy, Crystal Meth, Benzodiazepines, Opiates, LSD Comment: Sober since May 2022 Review of Symptoms REVIEW OF SYSTEMS SEE HPI EXAM: BP 120/79 Pulse 96 Wt 96 kg (211 lb 10.3 oz) BMI 25.76 kg/m? General Appearance: Well appearing, alert, in no acute distress, well-hydrated, well nourished.. Health Maintenance List Depression Screening Never done Anxiety Screening Never done Hepatitis B Vaccine(1 of 3 - 19+ 3-dose series) Never done Pneumococcal Vaccine(1 of 2 - PCV) Never done Covid-19 Vaccine( season) Never done Influenza Vaccine(Season Ended) due on 04/10/2025 Lipid Screening due on 02/21/2028 DTaP,Tdap,Td Vaccine(2 - Td or Tdap) due on 02/20/2033 Hepatitis C Screening Completed HIV Screening Completed ASSESSMENT/PLAN: 1. Lower abdominal pain - ICD9: 789.09, ICD10: R10.30 (primary diagnosis) - Work up with Colonoscopy - COMPLETE BLOOD COUNT AND DIFFERENTIAL - COMPREHENSIVE METABOLIC PANEL - THYROID STIMULATING HORMONE - T3 - T4 FREE/FREE THYROXINE - CONSULT TO GENERAL SURGERY - CONSULT TO GENERAL SURGERY 2. Nausea - ICD9: 787.02, ICD10: R11.0 - COMPLETE BLOOD COUNT AND DIFFERENTIAL - COMPREHENSIVE METABOLIC PANEL - THYROID STIMULATING HORMONE - T3 - T4 FREE/FREE THYROXINE 3. Weight loss, unintentional - ICD9: 783.21, ICD10: R63.4 - COMPLETE BLOOD COUNT AND DIFFERENTIAL - COMPREHENSIVE METABOLIC PANEL - THYROID STIMULATING HORMONE - T3 - T4 FREE/FREE THYROXINE - CONSULT TO GENERAL SURGERY - CONSULT TO GENERAL SURGERY 4. Abnormal stools - ICD9: 787.7, ICD10: R19.5 - CONSULT TO GENERAL SURGERY Dottie Diaz APRN.[facility] 02-03-2025 History of Presen t illness Narrative Chief Complaint Patient presents with: Follow Up: Weight concern HPI Zack Last is a 39 year old male who presents here today for Above Complaints.. Patient presents for follow up. Patient reports he continues to lose weight down another 2 pounds since 01/31. Patient also reports nausea with dry heaving multiple times past week as well as abnormal stools. Patient reports his stool is diarrhea half the time and the rest is formed however different than previous stools. Past medical history, appointments, medications, allergies reviewed. Previous Medical History PAST MEDICAL HISTORY Diagnosis Date Anxiety state Chronic jaw pain 02/20/2023 PMH - PAST MEDICAL HISTORY OF seizures PMH - PAST MEDICAL HISTORY OF headaches Scrotal cyst 02/20/2023 Previous Surgical History PAST SURGICAL HISTORY Procedure Laterality Date [facility] PAST SURGICAL HISTORY OF tubes in ears Family History FAMILY HISTORY Problem Relation Age of Onset Diabetes Father Heart Maternal Grandfather Stroke Maternal Grandfather Cancer Other PGGM; type unknown; Colon Cancer Other none Prostate Cancer Other none Patient Allergies ALLERGIES Allergen Reactions Depakote [Divalproe* GI Upset N/V Haldol [Haloperidol* Intolerance [place] Intolerance Severe hyperactivity Current Medications Current Outpatient Medications on File Prior to Visit Medication Sig mupirocin (BACTROBAN) 2 % ointment Apply to affected area three times a day for 10 days. multivitamins(DAILY MULTIVITAMIN TAB) Take by mouth. (Patient not taking: Reported on 12/21/2023) No current facility-administered medications on file prior to visit. Social History Social History Tobacco Use Smoking status: Every Day Current packs/day: 0.25 Average packs/day: 0.3 packs/day for 10.0 years (2.5 ttl pk-yrs) Types: Cigarettes Smokeless tobacco: Former Types: Chew Vaping Use Vaping status: current everyday user Substances: Nicotine, Flavoring Devices: Disposable Substance Use Topics Alcohol use: Not Currently Drug use: Not Currently Types: Marijuana, Cocaine, Crack Cocaine, Amphetamines, Narcotics, Heroin, Ecstasy, Crystal Meth, Benzodiazepines, Opiates, LSD Comment: Sober since May 2022 Review of Symptoms REVIEW OF SYSTEMS SEE HPI EXAM: BP 120/79 Pulse 96 Wt 96 kg (211 lb 10.3 oz) BMI 25.76 kg/m General Appearance: Well appearing, alert, in no acute distress, well-hydrated, well nourished.. Health Maintenance List Depression Screening Never done Anxiety Screening Never done Hepatitis B Vaccine(1 of 3 - 19+ 3-dose series) Never done Pneumococcal Vaccine(1 of 2 - PCV) Never done Covid-19 Vaccine( - season) Never done Influenza Vaccine(Season Ended) due on 04/10/2025 Lipid Screening due on 02/21/2028 DTaP,Tdap,Td Vaccine(2 - Td or Tdap) due on 02/20/2033 Hepatitis C Screening Completed HIV Screening Completed ASSESSMENT/PLAN: 1. Lower abdominal pain - ICD9: 789.09, ICD10: R10.30 (primary diagnosis) - Work up with Colonoscopy - COMPLETE BLOOD COUNT AND DIFFERENTIAL - COMPREHENSIVE METABOLIC PANEL - THYROID STIMULATING HORMONE - T3 - T4 FREE/FREE THYROXINE - CONSULT TO GENERAL SURGERY - CONSULT TO GENERAL SURGERY 2. Nausea - ICD9: 787.02, ICD10: R11.0 - COMPLETE BLOOD COUNT AND DIFFERENTIAL - COMPREHENSIVE METABOLIC PANEL - THYROID STIMULATING HORMONE - T3 - T4 FREE/FREE THYROXINE 3. Weight loss, unintentional - ICD9: 783.21, ICD10: R63.4 - COMPLETE BLOOD COUNT AND DIFFERENTIAL - COMPREHENSIVE METABOLIC PANEL - THYROID STIMULATING HORMONE - T3 - T4 FREE/FREE THYROXINE - CONSULT TO GENERAL SURGERY - CONSULT TO GENERAL SURGERY 4. Abnormal stools - ICD9: 787.7, ICD10: R19.5 - CONSULT TO GENERAL SURGERY Dottie Diaz APRN.ECCLESIASTICAL WORKER documented in this encounter [facility] 01-30-2025 Telephone encounter Note Pt notified and verbalized understanding Cielo Carey MA [facility] 01-30-2025 Miscellaneous Notes Pt notified and verbalized understanding Cielo Carey MA Please let patient know their CT is normal. documented in this encounter [facility] 01-30-2025 Telephone encounter Note Please let patient know their CT is normal. [facility] 01-30-2025 Instructions Dottie Diaz APRN.CNP - 01/30/2025 9:26 AM EDT - Continue taking your prescribed doxycycline for your infected fingernail as directed. - Schedule an appointment with a urologist to evaluate the ongoing burning with ejaculation and urinary symptoms. - Undergo a CT scan of your abdomen and pelvis as ordered for a detailed evaluation of your abdominal organs. - Consider gentle stretching exercises or yoga to help prevent muscle strains and support overall flexibility. documented in this encounter [facility] 01-30-2025 Note HNO ID: [id number] Author: DOTTIE DIAZ APRN.CNP Service: ? Author Type: Nurse Practitioner Type: Progress Notes Filed: 01/30/2025 09:27 Note Text: Chief Complaint Patient presents with: Follow Up HPI Zack Last is a 39 year old male who presents here today for Above Complaints. Burning Pain During Ejaculation: - Persistent burning pain during ejaculation x1 year. - Pain localized to the area between the scrotum and urethra. - Denies scrotal swelling. Urinary Frequency: - Urinary frequency with urgency and minimal output. - Intermittent burning sensation in the urethra at rest. - Recent episode of clear penile discharge that turned whitish. - Denies fevers. - UA on 01/25 was positive for bilirubin and protein; GC and chlamydia tests were negative. - Has been in a monogamous relationship for 2.5 years. Weight Loss: - Unintentional weight loss of 10 lbs over 3 weeks; current weight is 213 lbs, down from 217 lbs last week. - Associated nausea, particularly in the mornings, with two episodes of dry heaving. - Decreased appetite, unable to eat until afternoon. - Reports abdominal swelling. - Bilateral flank pain. - Changes in bowel movements, with stools becoming thinner after using a protein mix; has since discontinued the protein mix. Past medical history, appointments, medications, allergies reviewed. Previous Medical History PAST MEDICAL HISTORY Diagnosis Date Anxiety state Chronic jaw pain 02/20/2023 PMH - PAST MEDICAL HISTORY OF seizures PMH - PAST MEDICAL HISTORY OF headaches Scrotal cyst 02/20/2023 Previous Surgical History PAST SURGICAL HISTORY Procedure Laterality Date EGD W/O BRSH SPEC VARICIES INJ 2019 PAST SURGICAL HISTORY OF tubes in ears Family History FAMILY HISTORY Problem Relation Age of Onset Diabetes Father Heart Maternal Grandfather Stroke Maternal Grandfather Cancer Other PGGM; type unknown; Colon Cancer Other none Prostate Cancer Other none Patient Allergies ALLERGIES Allergen Reactions Depakote [Divalproe* GI Upset N/V Haldol [Haloperidol* Intolerance [place] Intolerance Severe hyperactivity Current Medications Current Outpatient Medications on File Prior to Visit Medication Sig doxycycline monohydrate 100 mg tablet Take 1 tablet by mouth two times a day for 7 days. mupirocin (BACTROBAN) 2 % ointment Apply to affected area three times a day for 10 days. multivitamins(DAILY MULTIVITAMIN TAB) Take by mouth. (Patient not taking: Reported on 12/21/2023) No current facility-administered medications on file prior to visit. Social History Social History Tobacco Use Smoking status: Every Day Current packs/day: 0.25 Average packs/day: 0.3 packs/day for 10.0 years (2.5 ttl pk-yrs) Types: Cigarettes Smokeless tobacco: Former Types: Chew Vaping Use Vaping status: current everyday user Substances: Nicotine, Flavoring Devices: Disposable Substance Use Topics Alcohol use: Not Currently Drug use: Not Currently Types: Marijuana, Cocaine, Crack Cocaine, Amphetamines, Narcotics, Heroin, Ecstasy, Crystal Meth, Benzodiazepines, Opiates, LSD Comment: Sober since May 2022 Review of Symptoms REVIEW OF SYSTEMS SEE HPI EXAM: BP 137/88 Pulse 65 Wt 97 kg (213 lb 13.5 oz) BMI 26.03 kg/m? General Appearance: Well appearing, alert, in no acute distress, well-hydrated, well nourished. Abdomen: Positive findings: distended, tenderness mild RLQ and LLQ. Health Maintenance List Depression Screening Never done Anxiety Screening Never done Hepatitis B Vaccine(1 of 3 - 19+ 3-dose series) Never done Pneumococcal Vaccine(1 of 2 - PCV) Never done Covid-19 Vaccine( - season) Never done Influenza Vaccine(Season Ended) due on 04/10/2025 Lipid Screening due on 02/21/2028 DTaP,Tdap,Td Vaccine(2 - Td or Tdap) due on 02/20/2033 Hepatitis C Screening Completed HIV Screening Completed ASSESSMENT/PLAN: 1. Burning with urination - ICD9: 788.1, ICD10: R30.0 (primary diagnosis) chronic - Patient education for prevention given - CONSULT TO UROLOGY - CT ABD/PEL W IVCON - IV CONTRAST (RADIOLOGY PROCEDURE) - NOT ON MAR - ENTERIC CONTRAST (RADIOLOGY PROCEDURE) - NOT ON OCT 2. Pain with ejaculation - ICD9: 608.89, ICD10: N53.12 - CONSULT TO UROLOGY - CT ABD/PEL W IVCON - IV CONTRAST (RADIOLOGY PROCEDURE) - NOT ON MAR - ENTERIC CONTRAST (RADIOLOGY PROCEDURE) - NOT ON OCT 3. Flank pain - ICD9: 789.09, ICD10: R10.9 - Work up with CT Abdomen/Pelvis - CT ABD/PEL W IVCON - IV CONTRAST (RADIOLOGY PROCEDURE) - NOT ON MAR - ENTERIC CONTRAST (RADIOLOGY PROCEDURE) - NOT ON OCT 4. Lower abdominal pain - ICD9: 789.09, ICD10: R10.30 - Work up with CT Abdomen/Pelvis - CT ABD/PEL W IVCON - IV CONTRAST (RADIOLOGY PROCEDURE) - NOT ON MAR - ENTERIC CONTRAST (RADIOLOGY PROCEDURE) - NOT ON OCT 5. Nausea - ICD9: 787.02, ICD10: R11.0 - CT ABD/PEL W IVCON - IV (more content not included)... [facility] [place] 01-30-2025 History of Presen t illness Narrative Chief Complaint Patient presents with: Follow Up HPI Zack Last is a 39 year old male who presents here today for Above Complaints. Burning Pain During Ejaculation: - Persistent burning pain during ejaculation x1 year. - Pain localized to the area between the scrotum and urethra. - Denies scrotal swelling. Urinary Frequency: - Urinary frequency with urgency and minimal output. - Intermittent burning sensation in the urethra at rest. - Recent episode of clear penile discharge that turned whitish. - Denies fevers. - UA on 01/25 was positive for bilirubin and protein; GC and chlamydia tests were negative. - Has been in a monogamous relationship for 2.5 years. Weight Loss: - Unintentional weight loss of 10 lbs over 3 weeks; current weight is 213 lbs, down from 217 lbs last week. - Associated nausea, particularly in the mornings, with two episodes of dry heaving. - Decreased appetite, unable to eat until afternoon. - Reports abdominal swelling. - Bilateral flank pain. - Changes in bowel movements, with stools becoming thinner after using a protein mix; has since discontinued the protein mix. Past medical history, appointments, medications, allergies reviewed. Previous Medical History PAST MEDICAL HISTORY Diagnosis Date Anxiety state Chronic jaw pain 02/20/2023 PMH - PAST MEDICAL HISTORY OF seizures PMH - PAST MEDICAL HISTORY OF headaches Scrotal cyst 02/20/2023 Previous Surgical History PAST SURGICAL HISTORY Procedure Laterality Date EGD W/O [facility]SH SPEC VARICIES INJ 2019 PAST SURGICAL HISTORY OF tubes in ears Family History FAMILY HISTORY Problem Relation Age of Onset Diabetes Father Heart Maternal Grandfather Stroke Maternal Grandfather Cancer Other PGGM; type unknown; Colon Cancer Other none Prostate Cancer Other none Patient Allergies ALLERGIES Allergen Reactions Depakote [Divalproe* GI Upset N/V Haldol [Haloperidol* Intolerance [place] Intolerance Severe hyperactivity Current Medications Current Outpatient Medications on File Prior to Visit Medication Sig doxycycline monohydrate 100 mg tablet Take 1 tablet by mouth two times a day for 7 days. mupirocin (BACTROBAN) 2 % ointment Apply to affected area three times a day for 10 days. multivitamins(DAILY MULTIVITAMIN TAB) Take by mouth. (Patient not taking: Reported on 12/21/2023) No current facility-administered medications on file prior to visit. Social History Social History Tobacco Use Smoking status: Every Day Current packs/day: 0.25 Average packs/day: 0.3 packs/day for 10.0 years (2.5 ttl pk-yrs) Types: Cigarettes Smokeless tobacco: Former Types: Chew Vaping Use Vaping status: current everyday user Substances: Nicotine, Flavoring Devices: Disposable Substance Use Topics Alcohol use: Not Currently Drug use: Not Currently Types: Marijuana, Cocaine, Crack Cocaine, Amphetamines, Narcotics, Heroin, Ecstasy, Crystal Meth, Benzodiazepines, Opiates, LSD Comment: Sober since May 2022 Review of Symptoms REVIEW OF SYSTEMS SEE HPI EXAM: BP 137/88 Pulse 65 Wt 97 kg (213 lb 13.5 oz) BMI 26.03 kg/m General Appearance: Well appearing, alert, in no acute distress, well-hydrated, well nourished. Abdomen: Positive findings: distended, tenderness mild RLQ and LLQ. Health Maintenance List Depression Screening Never done Anxiety Screening Never done Hepatitis B Vaccine(1 of 3 - 19+ 3-dose series) Never done Pneumococcal Vaccine(1 of 2 - PCV) Never done Covid-19 Vaccine( - season) Never done Influenza Vaccine(Season Ended) due on 04/10/2025 Lipid Screening due on 02/21/2028 DTaP,Tdap,Td Vaccine(2 - Td or Tdap) due on 02/20/2033 Hepatitis C Screening Completed HIV Screening Completed ASSESSMENT/PLAN: 1. Burning with urination - ICD9: 788.1, ICD10: R30.0 (primary diagnosis) chronic - Patient education for prevention given - CONSULT TO UROLOGY - CT ABD/PEL W IVCON - IV CONTRAST (RADIOLOGY PROCEDURE) - NOT ON MAR - ENTERIC CONTRAST (RADIOLOGY PROCEDURE) - NOT ON MAR 2. Pain with ejaculation - ICD9: 608.89, ICD10: N53.12 - CONSULT TO UROLOGY - CT ABD/PEL W IVCON - IV CONTRAST (RADIOLOGY PROCEDURE) - NOT ON MAR - ENTERIC CONTRAST (RADIOLOGY PROCEDURE) - NOT ON MAR 3. Flank pain - ICD9: 789.09, ICD10: R10.9 - Work up with CT Abdomen/Pelvis - CT ABD/PEL W IVCON - IV CONTRAST (RADIOLOGY PROCEDURE) - NOT ON MAR - ENTERIC CONTRAST (RADIOLOGY PROCEDURE) - NOT ON OCT 4. Lower abdominal pain - ICD9: 789.09, ICD10: R10.30 - Work up with CT Abdomen/Pelvis - CT ABD/PEL W IVCON - IV CONTRAST (RADIOLOGY PROCEDURE) - NOT ON MAR - ENTERIC CONTRAST (RADIOLOGY PROCEDURE) - NOT ON MAR 5. Nausea - ICD9: 787.02, ICD10: R11.0 - CT ABD/PEL W IVCON - IV CONTRAST (RADIOLOGY PROCEDURE) - NOT ON MAR - ENTERIC CONTRAST (RADIOLOGY PROCEDURE) - NOT ON MAR Dottie Diaz APRN.ECCLESIASTICAL WORKER documented in this encounter [facility] 01-25-2025 Telephone encounter Note Patient notified.Dena Fung LPN [facility] 01-25-2025 Telephone encounter Note ----- Message from Deborah Brown APRN.YOLANDA sent at 01/25/2025 12:26 PM EDT ----- Please advise patient: Urine culture was negative. [facility] 01-25-2025 Miscellaneous Notes Patient notified.Dena Fung LPN ----- Message from Deborah Brown APRN.ECCLESIASTICAL WORKER sent at 01/25/2025 12:26 PM EDT ----- Please advise patient: Urine culture was negative. Patient notified.Dena Fung LPN ----- Message from Deborah Brown APRN.YOLANDA sent at 01/25/2025 7:17 AM EDT ----- Please advise patient the test for gonorrhea and chlamydia was negative. Continue to take antibiotic for finger infection. Urine culture is still processing. Deborah Brown APRN.ECCLESIASTICAL WORKER documented in this encounter [facility] 01-25-2025 Telephone encounter Note Patient notified.Dena Fung LPN [facility] 01-25-2025 Telephone encounter Note ----- Message from Deborah Brown APRN.YOLANDA sent at 01/25/2025 7:17 AM EDT ----- Please advise patient the test for gonorrhea and chlamydia was negative. Continue to take antibiotic for finger infection. Urine culture is still processing. Deborah Brown APRN.ECCLESIASTICAL WORKER [facility] 01-24-2025 Note HNO ID: [id number] Author: URVASHI ALMANZA APRN.YOLANDA Service: ? Author Type: Nurse Practitioner Type: Progress Notes Filed: 01/24/2025 13:25 Note Text: [facility] Subjective HPI HPI Zack Last is a 39 year old male who presents today for CC of urinary frequency, burning for 1 year, clear penile drainage noted for 1 day, had chlamydia once with similar s/s, was treated and test of cure performed. Denies concerns for new exposure to chlamydia but concerned this is related to first occurrence. Denies testicular pain, rash Right ring finger pain, redness after trimming nails. Non nail biter. Denies fever .Patient presents with: Urinary Frequency: burning with urination, abdominal and low back pain x 1 year, right ring finger redness x 3 days PAST MEDICAL HISTORY Diagnosis Date Anxiety state Chronic jaw pain 02/20/2023 PMH - PAST MEDICAL HISTORY OF seizures PMH - PAST MEDICAL HISTORY OF headaches Scrotal cyst 02/20/2023 PAST SURGICAL HISTORY Procedure Laterality Date EGD W/O [facility] SPEC VARICIES INJ 2019 PAST SURGICAL HISTORY OF tubes in ears ALLERGIES Depakote [Divalproex], Haldol [Haloperidol Lactate], and [place] MEDICATIONS multivitamins(DAILY MULTIVITAMIN TAB) Take by mouth. (Patient not taking: Reported on 12/21/2023) FAMILY HISTORY Problem Relation Age of Onset Diabetes Father Heart Maternal Grandfather Stroke Maternal Grandfather Cancer Other PGGM; type unknown; Colon Cancer Other none Prostate Cancer Other none Social History Tobacco Use Smoking status: Every Day Current packs/day: 0.25 Average packs/day: 0.3 packs/day for 10.0 years (2.5 ttl pk-yrs) Types: Cigarettes Smokeless tobacco: Former Types: Chew Vaping Use Vaping status: current everyday user Substances: Nicotine, Flavoring Devices: Disposable Substance Use Topics Alcohol use: Not Currently Drug use: Not Currently Types: Marijuana, Cocaine, Crack Cocaine, Amphetamines, Narcotics, Heroin, Ecstasy, Crystal Meth, Benzodiazepines, Opiates, LSD Comment: Sober since May 2022 Review of Systems Constitutional: Positive for fever. Cardiovascular: Negative for chest pain. Gastrointestinal: Positive for abdominal pain (1 year). Negative for constipation, diarrhea, nausea and vomiting. Genitourinary: Positive for dysuria, frequency, penile discharge and urgency. Negative for flank pain and hematuria. Musculoskeletal: Negative for back pain. Objective BP 118/68 Pulse 88 Temp 36.2 ?C (97.2 ?F) Resp 16 Wt 98.7 kg (217 lb 9.5 oz) SpO2 97% BMI 26.49 kg/m? Physical Exam Constitutional: General: He is not in acute distress. Appearance: Normal appearance. He is not toxic-appearing. Cardiovascular: Rate and Rhythm: Normal rate and regular rhythm. Heart sounds: Normal heart sounds. Pulmonary: Effort: Pulmonary effort is normal. Breath sounds: Normal breath sounds. Abdominal: General: Bowel sounds are normal. Palpations: Abdomen is soft. Tenderness: There is no abdominal tenderness. There is no right CVA tenderness or left CVA tenderness. Musculoskeletal: Hands: Skin: General: Skin is warm and dry. {ASSESSMENT/PLAN: 1. Urinary frequency - ICD9: 788.41, ICD10: R35.0 (primary diagnosis) acute - UA positive for bili, prot No medication today aside of doxy Treat per culture results. - Send urine for culture Urinary s/s and abd discomfort for months, will schedule f/u with pcp. - UA DIP, URINE (POC) - BACTERIAL CULTURE, URINE - GONORRHEA/CHLAMYDIA NAAT 2. Discharge from penis - ICD9: 788.7, ICD10: R36.9 Treat per results. - UA DIP, URINE (POC) - BACTERIAL CULTURE, URINE - DOXYCYCLINE MONOHYDRATE 100 MG TABLET - GONORRHEA/CHLAMYDIA NAAT 3. Paronychia, finger, right - ICD9: 681.02, ICD10: L03.011 - Begin treatment with doxy - No lymphangetic streaking, this was defined for patient to watch for and to seek medical care immediately if appears - Follow up for recheck in three days with pcp, will schedule f/u - DOXYCYCLINE MONOHYDRATE 100 MG TABLET - MUPIROCIN 2 % TOPICAL OINTMENT Urvashi Almanza APRN.ECCLESIASTICAL WORKER History and Record Review External record(s) reviewed: prior outpatient record. Disposition The patient was discharged. Procedures [facility] [place] 01-24-2025 History of Presen t illness Narrative Images from the original note were not included. [facility] Subjective HPI HPI Zack Last is a 39 year old male who presents today for CC of urinary frequency, burning for 1 year, clear penile drainage noted for 1 day, had chlamydia once with similar s/s, was treated and test of cure performed. Denies concerns for new exposure to chlamydia but concerned this is related to first occurrence. Denies testicular pain, rash Right ring finger pain, redness after trimming nails. Non nail biter. Denies fever .Patient presents with: Urinary Frequency: burning with urination, abdominal and low back pain x 1 year, right ring finger redness x 3 days PAST MEDICAL HISTORY Diagnosis Date Anxiety state Chronic jaw pain 02/20/2023 PMH - PAST MEDICAL HISTORY OF seizures PMH - PAST MEDICAL HISTORY OF headaches Scrotal cyst 02/20/2023 PAST SURGICAL HISTORY Procedure Laterality Date EGD W/O BRSH SPEC VARICIES INJ 2019 PAST SURGICAL HISTORY OF tubes in ears ALLERGIES Depakote [Divalproex], Haldol [Haloperidol Lactate], and [place] MEDICATIONS multivitamins(DAILY MULTIVITAMIN TAB) Take by mouth. (Patient not taking: Reported on 12/21/2023) FAMILY HISTORY Problem Relation Age of Onset Diabetes Father Heart Maternal Grandfather Stroke Maternal Grandfather Cancer Other PGGM; type unknown; Colon Cancer Other none Prostate Cancer Other none Social History Tobacco Use Smoking status: Every Day Current packs/day: 0.25 Average packs/day: 0.3 packs/day for 10.0 years (2.5 ttl pk-yrs) Types: Cigarettes Smokeless tobacco: Former Types: Chew Vaping Use Vaping status: current everyday user Substances: Nicotine, Flavoring Devices: Disposable Substance Use Topics Alcohol use: Not Currently Drug use: Not Currently Types: Marijuana, Cocaine, Crack Cocaine, Amphetamines, Narcotics, Heroin, Ecstasy, Crystal Meth, Benzodiazepines, Opiates, LSD Comment: Sober since May 2022 Review of Systems Constitutional: Positive for fever. Cardiovascular: Negative for chest pain. Gastrointestinal: Positive for abdominal pain (1 year). Negative for constipation, diarrhea, nausea and vomiting. Genitourinary: Positive for dysuria, frequency, penile discharge and urgency. Negative for flank pain and hematuria. Musculoskeletal: Negative for back pain. Objective BP 118/68 Pulse 88 Temp 36.2 C (97.2 F) Resp 16 Wt 98.7 kg (217 lb 9.5 oz) SpO2 97% BMI 26.49 kg/m Physical Exam Constitutional: General: He is not in acute distress. Appearance: Normal appearance. He is not toxic-appearing. Cardiovascular: Rate and Rhythm: Normal rate and regular rhythm. Heart sounds: Normal heart sounds. Pulmonary: Effort: Pulmonary effort is normal. Breath sounds: Normal breath sounds. Abdominal: General: Bowel sounds are normal. Palpations: Abdomen is soft. Tenderness: There is no abdominal tenderness. There is no right CVA tenderness or left CVA tenderness. Musculoskeletal: Hands: Skin: General: Skin is warm and dry. {ASSESSMENT/PLAN: 1. Urinary frequency - ICD9: 788.41, ICD10: R35.0 (primary diagnosis) acute - UA positive for bili, prot No medication today aside of doxy Treat per culture results. - Send urine for culture Urinary s/s and abd discomfort for months, will schedule f/u with pcp. - UA DIP, URINE (POC) - BACTERIAL CULTURE, URINE - GONORRHEA/CHLAMYDIA NAAT 2. Discharge from penis - ICD9: 788.7, ICD10: R36.9 Treat per results. - UA DIP, URINE (POC) - BACTERIAL CULTURE, URINE - DOXYCYCLINE MONOHYDRATE 100 MG TABLET - GONORRHEA/CHLAMYDIA NAAT 3. Paronychia, finger, right - ICD9: 681.02, ICD10: L03.011 - Begin treatment with doxy - No lymphangetic streaking, this was defined for patient to watch for and to seek medical care immediately if appears - Follow up for recheck in three days with pcp, will schedule f/u - DOXYCYCLINE MONOHYDRATE 100 MG TABLET - MUPIROCIN 2 % TOPICAL OINTMENT Urvashi Almanza APRN.ECCLESIASTICAL WORKER History and Record Review External record(s) reviewed: prior outpatient record. Disposition The patient was discharged. Procedures documented in this encounter [facility] 11-30-2024 Telephone encounter Note Called and left a detailed message on verified VM with the below instructions. Rosita Stevens RN You are scheduled for a stress test on 12/05/24 at 3:40pm. Please follow below instructions: *NOTHING BY MOUTH 4 HOURS prior to this test. (you may have sips of water) *NO CAFFEINE FOR 24 HOURS PRIOR TO TESTING (including TEA even decaf, COFFEE- even decaf, CHOCOLATE, BRENT- even decaf) *Do NOT take MEDICATIONS CONTAINING CAFFEINE/XANTHINE for 24 HOURS prior to testing: Theophylline, Trental, Excedrin, Anacin, Goody Powders, No Doz, Vivarin, Midol, Diurex, Fiorinal, Fioricet, Esgic (butalbital) *Do NOT take Calcium Channel Blockers 24 HOURS prior to test. *Do NOT take Beta blockers 24 HOURS prior to test UNLESS your doctor tells you otherwise. *Do NOT use the following medications 48 HOURS prior to this test: Viagra(Sildenafil citrate), Cialis(Tadalafil), Vardenafil (Levitra, Stanyx), Avanfil (Stendra). *Do not take any of these meds prior to test unless provider directs you otherwise; Nitroglycerine (ex:Deponit, Nitrostat) Isosorbide (ex:Isordil, Sorbitrate,Imdur,Ismo). Medications on your list you should hold for 24 HOURS: None *All other medications may be taken as you normally would. *Guidelines for Diabetics: If you take insulin to control your blood sugar, ask you physician what amount you should take the day of the test. If you take pills to control blood sugar, on the day of the test, do NOT take them until AFTER the test. *FAILURE TO FOLLOW THESE INSTRUCTIONS WILL RESULT IN HAVING TO RESCHEDULE THE TEST. *Please wear comfortable clothes with a short-sleeved shirt and comfortable walking shoes. You will be on the treadmill for this test. *If you use an inhaler, bring it along with you just in case. Please check in on the first floor at Radiology: [address]; [place] [address] * If you need to cancel or reschedule this test or have any questions regarding this test, please call [phone]. [facility] 11-30-2024 Miscellaneous Notes Called and left a detailed message on verified VM with the below instructions. Rosita Stevens RN You are scheduled for a stress test on 12/05/24 at 3:40pm. Please follow below instructions: *NOTHING BY MOUTH 4 HOURS prior to this test. (you may have sips of water) *NO CAFFEINE FOR 24 HOURS PRIOR TO TESTING (including TEA even decaf, COFFEE- even decaf, CHOCOLATE, BRENT- even decaf) *Do NOT take MEDICATIONS CONTAINING CAFFEINE/XANTHINE for 24 HOURS prior to testing: Theophylline, Trental, Excedrin, Anacin, Goody Powders, No Doz, Vivarin, Midol, Diurex, Fiorinal, Fioricet, Esgic (butalbital) *Do NOT take Calcium Channel Blockers 24 HOURS prior to test. *Do NOT take Beta blockers 24 HOURS prior to test UNLESS your doctor tells you otherwise. *Do NOT use the following medications 48 HOURS prior to this test: Viagra(Sildenafil citrate), Cialis(Tadalafil), Vardenafil (Levitra, Stanyx), Avanfil (Stendra). *Do not take any of these meds prior to test unless provider directs you otherwise; Nitroglycerine (ex:Deponit, Nitrostat) Isosorbide (ex:Isordil, Sorbitrate,Imdur,Ismo). Medications on your list you should hold for 24 HOURS: None *All other medications may be taken as you normally would. *Guidelines for Diabetics: If you take insulin to control your blood sugar, ask you physician what amount you should take the day of the test. If you take pills to control blood sugar, on the day of the test, do NOT take them until AFTER the test. *FAILURE TO FOLLOW THESE INSTRUCTIONS WILL RESULT IN HAVING TO RESCHEDULE THE TEST. *Please wear comfortable clothes with a short-sleeved shirt and comfortable walking shoes. You will be on the treadmill for this test. *If you use an inhaler, bring it along with you just in case. Please check in on the first floor at Radiology: [address]; [place] [address] * If you need to cancel or reschedule this test or have any questions regarding this test, please call [phone]. documented in this encounter [facility] 09-12-2024 Note HNO ID: [id number] Author: ?, ?, ? Service: ? Author Type: ? Type: Progress Notes Filed: 09/12/2024 09:44 Note Text: Chief Complaint Patient presents with: sleep concerns HPI Zack Last is a 39 year old male who presents here today for Above Complaints.. Pt presents today with sleeping difficult. Pt states he was diagnosed previously with obstructive sleep apnea. Has presently been having difficulty sleeping. His fiance has noticed episodes of snoring and short cessation of breathing pt states it is worse on his back. Pt states he tries to sleep on his side and on the couch to get better sleep. Pt states he takes frequent naps throughout the day. Patient reports he continues to have chest pain intermittently with SOB and radiation of pain to left shoulder. Denies n/t, radiation of pain to arm or jaw. Past medical history, appointments, medications, allergies reviewed. Previous Medical History PAST MEDICAL HISTORY Diagnosis Date Anxiety state Chronic jaw pain 02/20/2023 PMH - PAST MEDICAL HISTORY OF seizures PMH - PAST MEDICAL HISTORY OF headaches Scrotal cyst 02/20/2023 Previous Surgical History PAST SURGICAL HISTORY Procedure Laterality Date EGD W/O BRSH SPEC VARICIES INJ 2019 PAST SURGICAL HISTORY OF tubes in ears Family History FAMILY HISTORY Problem Relation Age of Onset Diabetes Father Heart Maternal Grandfather Stroke Maternal Grandfather Cancer Other PGGM; type unknown; Colon Cancer Other none Prostate Cancer Other none Patient Allergies ALLERGIES Allergen Reactions Depakote [Divalproe* GI Upset N/V Haldol [Haloperidol* Intolerance [place] Intolerance Severe hyperactivity Current Medications Current Outpatient Medications on File Prior to Visit Medication Sig multivitamins(DAILY MULTIVITAMIN TAB) Take by mouth. (Patient not taking: Reported on 12/21/2023) No current facility-administered medications on file prior to visit. Social History Social History Tobacco Use Smoking status: Every Day Current packs/day: 0.25 Average packs/day: 0.3 packs/day for 10.0 years (2.5 ttl pk-yrs) Types: Cigarettes Smokeless tobacco: Former Types: Chew Vaping Use Vaping status: current everyday user Substances: Nicotine, Flavoring Devices: Disposable Substance Use Topics Alcohol use: Not Currently Drug use: Not Currently Types: Marijuana, Cocaine, Crack Cocaine, Amphetamines, Narcotics, Heroin, Ecstasy, Crystal Meth, Benzodiazepines, Opiates, LSD Comment: Sober since May 2022 Review of Symptoms REVIEW OF SYSTEMS GENERAL: No weight loss, malaise or fevers RESPIRATORY: Negative for cough, hemoptysis, wheezing, COPD, dyspnea or shortness of breath CARDIOVASCULAR: Negative for chest pain, leg swelling, hypertension, CHF or palpitations EXAM: BP 130/87 Pulse 81 Resp 16 Wt 104.3 kg (230 lb) BMI 28.00 kg/m? General Appearance: Well appearing, alert, in no acute distress, well-hydrated, well nourished. Lungs: Lungs clear to auscultation. No wheezing, rhonchi, rales.. Heart: RRR without murmur, gallop, or rubs. No ectopy. Peripheral Pulses: Normal. Health Maintenance List Depression Screening Never done Anxiety Screening Never done Hepatitis B Vaccine(1 of 3 - 19+ 3-dose series) Never done Pneumococcal Vaccine(1 of 2 - PCV) Never done Influenza Vaccine(1) Never done Covid-19 Vaccine( season) Never done Lipid Screening due on 02/21/2028 DTaP,Tdap,Td Vaccine(2 - Td or Tdap) due on 02/20/2033 Hepatitis C Screening Completed HIV Screening Completed HPV Vaccine Aged Out ASSESSMENT/PLAN: 1. [place] (obstructive sleep apnea) - ICD9: 327.23, ICD10: G47.33 (primary diagnosis) - POLYSOMNOGRAM (PSG) - PAP TITRATION PSG (CPAP, BIPAP, ASV) 2. Other chest pain - ICD9: 786.59, ICD10: R07.89 Chest pain of unclear etiology, patient with significant risk factor(s) of family history of early coronary heart disease and smoking - Electrocardiogram: An ECG today showed normal sinus rhythm - Stress testing- see orders - ECG COMPLETE - EXERCISE STRESS ECG (WITHOUT IMAGING) 4. SOB (shortness of breath) - ICD9: 786.05, ICD10: R06.02 - EXERCISE STRESS ECG (WITHOUT IMAGING) Dottie Diaz APRN.[facility] 09-12-2024 History of Presen t illness Narrative Chief Complaint Patient presents with: sleep concerns HPI Zack Last is a 39 year old male who presents here today for Above Complaints.. Pt presents today with sleeping difficult. Pt states he was diagnosed previously with obstructive sleep apnea. Has presently been having difficulty sleeping. His fiance has noticed episodes of snoring and short cessation of breathing pt states it is worse on his back. Pt states he tries to sleep on his side and on the couch to get better sleep. Pt states he takes frequent naps throughout the day. Patient reports he continues to have chest pain intermittently with SOB and radiation of pain to left shoulder. Denies n/t, radiation of pain to arm or jaw. Past medical history, appointments, medications, allergies reviewed. Previous Medical History PAST MEDICAL HISTORY Diagnosis Date Anxiety state Chronic jaw pain 02/20/2023 PMH - PAST MEDICAL HISTORY OF seizures PMH - PAST MEDICAL HISTORY OF headaches Scrotal cyst 02/20/2023 Previous Surgical History PAST SURGICAL HISTORY Procedure Laterality Date EGD W/O BRSH SPEC VARICIES INJ 2019 PAST SURGICAL HISTORY OF tubes in ears Family History FAMILY HISTORY Problem Relation Age of Onset Diabetes Father Heart Maternal Grandfather Stroke Maternal Grandfather Cancer Other PGGM; type unknown; Colon Cancer Other none Prostate Cancer Other none Patient Allergies ALLERGIES Allergen Reactions Depakote [Divalproe* GI Upset N/V Haldol [Haloperidol* Intolerance [place] Intolerance Severe hyperactivity Current Medications Current Outpatient Medications on File Prior to Visit Medication Sig multivitamins(DAILY MULTIVITAMIN TAB) Take by mouth. (Patient not taking: Reported on 12/21/2023) No current facility-administered medications on file prior to visit. Social History Social History Tobacco Use Smoking status: Every Day Current packs/day: 0.25 Average packs/day: 0.3 packs/day for 10.0 years (2.5 ttl pk-yrs) Types: Cigarettes Smokeless tobacco: Former Types: Chew Vaping Use Vaping status: current everyday user Substances: Nicotine, Flavoring Devices: Disposable Substance Use Topics Alcohol use: Not Currently Drug use: Not Currently Types: Marijuana, Cocaine, Crack Cocaine, Amphetamines, Narcotics, Heroin, Ecstasy, Crystal Meth, Benzodiazepines, Opiates, LSD Comment: Sober since May 2022 Review of Symptoms REVIEW OF SYSTEMS GENERAL: No weight loss, malaise or fevers RESPIRATORY: Negative for cough, hemoptysis, wheezing, COPD, dyspnea or shortness of breath CARDIOVASCULAR: Negative for chest pain, leg swelling, hypertension, CHF or palpitations EXAM: BP 130/87 Pulse 81 Resp 16 Wt 104.3 kg (230 lb) BMI 28.00 kg/m General Appearance: Well appearing, alert, in no acute distress, well-hydrated, well nourished. Lungs: Lungs clear to auscultation. No wheezing, rhonchi, rales.. Heart: RRR without murmur, gallop, or rubs. No ectopy. Peripheral Pulses: Normal. Health Maintenance List Depression Screening Never done Anxiety Screening Never done Hepatitis B Vaccine(1 of 3 - 19+ 3-dose series) Never done Pneumococcal Vaccine(1 of 2 - PCV) Never done Influenza Vaccine(1) Never done Covid-19 Vaccine( - season) Never done Lipid Screening due on 02/21/2028 DTaP,Tdap,Td Vaccine(2 - Td or Tdap) due on 02/20/2033 Hepatitis C Screening Completed HIV Screening Completed HPV Vaccine Aged Out ASSESSMENT/PLAN: 1. [place] (obstructive sleep apnea) - ICD9: 327.23, ICD10: G47.33 (primary diagnosis) - POLYSOMNOGRAM (PSG) - PAP TITRATION PSG (CPAP, BIPAP, ASV) 2. Other chest pain - ICD9: 786.59, ICD10: R07.89 Chest pain of unclear etiology, patient with significant risk factor(s) of family history of early coronary heart disease and smoking - Electrocardiogram: An ECG today showed normal sinus rhythm - Stress testing- see orders - ECG COMPLETE - EXERCISE STRESS ECG (WITHOUT IMAGING) 4. SOB (shortness of breath) - ICD9: 786.05, ICD10: R06.02 - EXERCISE STRESS ECG (WITHOUT IMAGING) Dottie Diaz APRN.ECCLESIASTICAL WORKER documented in this encounter [facility] 02-18-2024 Telephone encounter Note 1st attempt LVM to schedule PT appt [facility] 02-18-2024 Miscellaneous Notes 1st attempt LVM to schedule PT appt Called and left a detailed voicemail notifying patient of providers message. Clinic phone number was left for the patient to call back and schedule PT. Cynthia Milan, [place] Please let patient know their xray is normal and show no bony or disc abnormalities. I would recommend PT for his back pain, I have placed an order and patient can schedule at his convenience. documented in this encounter [facility] 02-18-2024 Telephone encounter Note Called and left a detailed voicemail notifying patient of providers message. Clinic phone number was left for the patient to call back and schedule PT. Cynthia Milan RN [facility] 02-18-2024 Telephone encounter Note Please let patient know their xray is normal and show no bony or disc abnormalities. I would recommend PT for his back pain, I have placed an order and patient can schedule at his convenience. [facility] 02-16-2024 History of Presen t illness Narrative Radiology Service Progress Note PATIENT NAME: Zack Last DATE OF SERVICE: February 16, 2024 TIME: 9:23 AM PATIENT IDENTITY VERIFICATION COMPLETED USING TWO (2) IDENTIFIERS: Name and Date of confirmed by patient verbally. FALL SCREENING: Has the patient had 2 falls in the last year or 1 fall with injury or currently using an Ambulatory Assistive Device (Walker, Cane, Wheelchair, Crutches, etc.)? No PATIENT GENDER DATA: Male PATIENT RELEVANT IMPLANT DATA REVIEWED: Yes PATIENT PRESENTS WITH AN IMPLANTABLE OR ATTACHED CABLE TENDER: No RADIOLOGY DEPARTMENT: General X-ray: Exam(s) Completed: Spine X-Ray(s): Cervical AP / LAT / OBL and Lumbar AP / LAT / L5-S1 / OBL No L5-S1 ordered PERIPHERAL IV DATA: Not applicable SIGNED BY: RT Jaspal(R) February 16, 2024 9:23 AM documented in this encounter [facility] 02-16-2024 History of Presen t illness Narrative Chief Complaint Patient presents with: Back Pain HPI Zack Last is a 38 year old male who presents here today for Above Complaints.. Patient presents for low back pain x6 weeks. Denies injury. Patient reports he woke up with low back pain and started as dull low ache and radiates bilaterally. Patient was seen in ER 2 weeks ago and UTI/kidney infection was ruled out. Patient was seen by chiropractor and has been adjusted multiple times with no improvement. Patient has been doing stretching at home as well. Patient also reports he is now having cervical pain into the left side of his neck and left shoulder. Patient also reports he has been having more tonsil stones and has a continuous sensation of something stuck in the back of his throat. Past medical history, appointments, medications, allergies reviewed. Previous Medical History PAST MEDICAL HISTORY Diagnosis Date Anxiety state Chronic jaw pain 02/20/2023 PMH - PAST MEDICAL HISTORY OF seizures PMH - PAST MEDICAL HISTORY OF headaches Scrotal cyst 02/20/2023 Previous Surgical History PAST SURGICAL HISTORY Procedure Laterality Date EGD W/O BRSH SPEC VARICIES INJ 2019 PAST SURGICAL HISTORY OF tubes in ears Family History FAMILY HISTORY Problem Relation Age of Onset Diabetes Father Heart Maternal Grandfather Stroke Maternal Grandfather Cancer Other PGGM; type unknown; Colon Cancer Other none Prostate Cancer Other none Patient Allergies ALLERGIES Allergen Reactions Depakote [Divalproe* GI Upset N/V Haldol [Haloperidol* Intolerance [place] Intolerance Severe hyperactivity Current Medications Current Outpatient Medications on File Prior to Visit Medication Sig multivitamins(DAILY MULTIVITAMIN TAB) Take by mouth. (Patient not taking: Reported on 12/21/2023) No current facility-administered medications on file prior to visit. Social History Social History Tobacco Use Smoking status: Every Day Packs/day: 0.25 Years: 10.00 Additional pack years: 0.00 Total pack years: 2.50 Types: Cigarettes Smokeless tobacco: Former Types: Chew Vaping Use Vaping Use: current everyday user Substances: Nicotine, Flavoring Devices: Disposable Substance Use Topics Alcohol use: Not Currently Drug use: Not Currently Types: Marijuana, Cocaine, Crack Cocaine, Amphetamines, Narcotics, Heroin, Ecstasy, Crystal Meth, Benzodiazepines, Opiates, LSD Comment: Sober since May 2022 Review of Symptoms REVIEW OF SYSTEMS SEE HPI EXAM: BP 119/86 Pulse 103 Resp 14 Wt 98.9 kg (218 lb) BMI 26.54 kg/m PHYSICAL EXAMINATION: General appearance: Well appearing, alert, in no acute distress, well-hydrated, well nourished. Oropharynx: Lips, mucosa, and tongue normal, teeth and gums normal, oropharynx normal and Positive findings: multiple tonsil stones visualized Neck: Supple, no adenopathy; thyroid symmetric, normal size, no bruits Back: negative SLR test, slight dec extension, positive findings: limitation of motion - extension: mild, paraspinal muscle spasm Health Maintenance List Pneumococcal Vaccine(1 of 2 - PCV) Never done Hepatitis B Vaccine(1 of 3 - 19+ 3-dose series) Never done Covid-19 Vaccine( - 2022- season) Never done Behavioral Health Screening Never done Influenza Vaccine(1) due on 04/10/2024 Lipid Screening due on 02/21/2028 DTaP,Tdap,Td Vaccine(2 - Td or Tdap) due on 02/20/2033 Hepatitis C Screening Completed HIV Screening Completed HPV Vaccine Aged Out ASSESSMENT/PLAN: 1. Acute bilateral low back pain without sciatica - ICD9: 724.2, 338.19, ICD10: M54.50 (primary diagnosis) - XR LUMBAR PARS DEFECT 4V AP/LAT/BOTH OBL - CONSULT TO PHYSICAL THERAPY - XR CERV OTHER 4V AP/LAT/OBL 2. Tonsil stone - ICD9: 474.8, ICD10: J35.8 - CONSULT TO ENT 3. Burning with urination - ICD9: 788.1, ICD10: R30.0 chronic - CONSULT TO UROLOGY Dottie Diaz APRN.ECCLESIASTICAL WORKER documented in this encounter [facility] 12-21-2023 History of Presen t illness Narrative Images from the original note were not included. [facility] New Patient Evaluation PATIENT NAME: Zack Last DATE OF SERVICE: December 18, 2023 CONSULTING PROVIDER: Dottie Diaz [address] [phone] REASON FOR CONSULT: Dottie Diaz sends the patient for an opinion about sleepwalking. My findings and recommendations will be transmitted electronically via shared medical record to the consulting provider. HPI: Zack Last is a 38 year old male. He is accompanied by his camilla Smith. Sleep-related history: episode of sleepwalking in 05/2023. That was first episode since childhood. He was watching mario daughter, made her a sandwich and gave her her medicine, wasn't aware of his actions. He reports that he had a rough childhood, wasn't well taken care of by his parents. Started using drugs age 9. Was in juvenile facilities. Sustained a head injury age 10, resulted in a seizure and a 2-day induced coma. He was then on depakote until age 17 to prevent seizures. Reports having seizures that were induced by doing [place] knock outs (cause self to asphyxiate). As a young adult while using marijuana he fell, hit head on coffee table, had seizure. Hasn't seen a neurologist since approx age 19. Several episodes of sleep paralysis, starting in childhood, last episode was about a year ago. Fell off the sofa once, told himself in his dream to wake up, he rocked himself off the sofa. Lots of nightmares in childhood, would tell himself to wake up while he was still dreaming. Hx substance abuse, he is in recovery. Trying to quit vaping now. Followed by [facility], and also gets therapy at [facility] for anger mgmt and hx substance abuse. No OTC or Rx meds currently, wants to get back on psychiatric meds but waiting for cardiology w/units. SLEEP-WAKE SCHEDULE Bedtime: 1130 PM. He does not have a hard time falling asleep. Wake time: 6 AM, camilla wakes him up After falling asleep: he might wake up because of kitten. Got used to sleeping with one eye open On weekends, he maintains the same sleep schedule. Average total sleep time (in a 24 hour period): 6.5-7.5 hours. SLEEP-RELATED DETAILS Preferred sleep position: side Breathing disturbances and other behaviors during sleep: snoring and acting out dreams. Bruxism: Yes, has TMD GERD or aspiration: Yes, gets aspiration about once a month Waking up with heart pounding or racing: Yes Anxiety or rumination: No He reports having an urge to move the legs. The urge to move the legs is worse in the evening or nighttime than during the daytime. The urge to move the legs begins or worsens during periods of rest or inactivity (e.g. lying or sitting). The urge to move the legs is partially or totally relieved by movements such as walking or stretching, at least as long as the activity continues. The urge to move the legs occurs 3-4 days per month and began in his early 20s. There is no history of iron deficiency or anemia. He has been told that he has leg kicking during sleep. The patient reports having had the following: Acting out dreams. Hasn't happened for about 2 yrs. Dream content: getting stabbed or shot, fighting back Nightmares. Frequency: every 1-2 months, much better over time since he has improved his life Excessive daytime sleepiness / fatigue is a problem. Excessive Daytime sleepiness/fatigue has been a problem since childhood. There is a history of head injury prior to the start of daytime sleepiness. He does report sleep paralysis; he has had visual and auditory sleep-related hallucinations (a few times a year, as recently as a month ago; no episode of cataplexy WAKE-RELATED DETAILS He does not work. He does have difficulty with short-term memory He denies falling asleep or dozing off when driving. He does take naps. Frequency: 3-4 days per week, Duration: 1-2 hrs. Naps are refreshing if he sleeps at least 2 hrs. He does drink lots of coffee and pop He has gained 14 pounds since 1 month. Patient Questionnaires Sleep Scores PAST TREATMENTS: None PRIOR SLEEP STUDIES: None in adulthood PAST MEDICAL HISTORY Diagnosis Date Anxiety state Chronic jaw pain 02/20/2023 PMH - PAST MEDICAL HISTORY OF seizures PMH - PAST MEDICAL HISTORY OF headaches Scrotal cyst 02/20/2023 PAST SURGICAL HISTORY Procedure Laterality Date EGD W/O BRSH SPEC VARICIES INJ 2019 PAST SURGICAL HISTORY OF tubes in ears ACTIVE PROBLEM LIST Bipolar Disorder, Unspecified (Hcc) Concussion, Unspecified Tobacco Use Disorder Family History of Diabetes Mellitus Allergies As of Date: 12/21/2023 Allergen Noted Reaction DEPAKOTE [DIVALPROEX] 11/17/2008 GI Upset HALDOL [HALOPERIDOL LACTATE] 11/10/2008 Intolerance LITHIUM 11/10/2008 Intolerance Fully Assessed 12/21/2023 CURRENT MEDICATIONS: multivitamins(DAILY MULTIVITAMIN TAB) Take by mouth. (Patient not taking: Reported on 12/21/2023) Review of Systems Constitutional: Positive for fatigue and recent unintentional weight change. HENT: Positive for congestion. Cardiovascular: Positive for chest pain and palpitations. Gastrointestinal: Positive for heartburn. Genitourinary: Negative for nocturia. Neurological: Positive for headaches and memory loss. SOCIAL HISTORY: Social History Tobacco Use Smoking status: Every Day Packs/day: 0.25 Years: 10.00 Additional pack years: 0.00 Total pack years: 2.50 Types: Cigarettes Smokeless tobacco: Former Types: Chew Vaping Use Vaping Use: current everyday user Substances: Nicotine, Flavoring Devices: Disposable Substance Use Topics Alcohol use: Not Currently Drug use: Not Currently Types: Marijuana, Cocaine, Crack Cocaine, Amphetamines, Narcotics, Heroin, Ecstasy, Crystal Meth, Benzodiazepines, Opiates, LSD Comment: Sober since May 2022 FAMILY HISTORY: FAMILY HISTORY Problem Relation Age of Onset Diabetes Father Heart Maternal Grandfather Stroke Maternal Grandfather Cancer Other PGGM; type unknown; Colon Cancer Other none Prostate Cancer Other none There is a family history of: Sleep apnea. Relative: brother PHYSICAL EXAMINATION: Vital Signs: BP 128/76 Pulse 87 Resp 16 Wt 97.3 kg (214 lb 9.6 oz) SpO2 98% BMI 26.12 kg/m PHYSICAL EXAM: General appearance: pleasant, NAD Mental status: alert and oriented, able to provide own history Constitutional: WNL Skin: No visible rashes on exposed skin Neuro: No focal deficits observed, no tremors ENT : Nasal congestion present. Posterior airspace: Allen tongue position 4, retrognathia present. Overbite absent. High arched palate present. Tongue scalloping/ridging present. Uvula: not visible IMPRESSION/PLAN: R06.83 Snoring (primary encounter diagnosis) G25.81 RLS (restless legs syndrome) G47.8 Sleep paralysis G47.52 Dream enactment behavior F51.5 Nightmares G47.59 Sleep-related hallucinations G47.50 Parasomnia, unspecified type Zack Last is a 38 year old male with PMH of bipolar disorder, anger disorder, hx head injury with LOC, hx seizures, hx polysubstance abuse who has snoring, dream enactment behavior, sleep paralysis, sleep related hallucinations, sleep walking with complex behaviors, RLS, nightmares. We discussed his variety of sleep related issues. Need to start with an in-lab sleep study with extra limb leads. I didn't order this as a double study with EEG since he hasn't had a seizure in many years. Consider labs later for RLS. He isn't currently on any meds for his psychiatric conditions because he is awaiting a cardiac workup. - Polysomnogram (PSG) to evaluate for obstructive sleep apnea. - Discussed with the patient the possible diagnosis, causes, and conditions associated with obstructive sleep apnea. - Avoid driving when drowsy. Recommend that if you are dozing off while driving, that you do not drive until your sleepiness is appropriately treated. -Encouraged healthy lifestyle with adequate sleep ( 7-9 hours per night), diet and exercise. - Results are usually available within 7-10 business days. If you do not hear from us within 1-2 weeks after testing, please contact us directly. - Follow up visit 2-3 wks after PSG to discuss results and next steps Joan Caban APRN.ECCLESIASTICAL WORKER I spent a total of 60 minutes on the date of the service which included preparing to see the patient, [id number] patient care, completing clinical documentation, obtaining and/or reviewing separately obtained history, performing a medically appropriate examination, counseling and educating the patient/family/caregiver, and ordering medications, tests, or procedures. documented in this encounter [facility] 11-26-2023 Miscellaneous Notes Pt called back and was given message below. Pt reports he did go to cardiology apt and was told his insurance would not cover. Pt has been instructed to check with his insurance to see what marketing program coordinator is cover and to let you know so we can send referral and supporting information to them. Pt agrees and will get back to us. Nighat Knox LPN Left message for patient to return call to office Cielo Carey MA Patient will have to see cardiology. Consult was placed in June 2023 and patient was a no show in July 2023. Please get patient scheduled with cardiology. Patient calling asking what his is care plan regarding ETT, echo or NM Stress test since insurance is denying payment.. Possible to per to per? will not prescribe any more meds until heart issues are resolved. Please advise and call patient. documented in this encounter [facility] 07-09-2023 Miscellaneous Notes Spoke with patient. Given message from provider's office. Patient verbalizes understanding. Transferred to railroad worker for appointment. Paige Alvarenga RN Left message for patient to return call to office Cielo Carey Cma Please let patient know his insurance is refusing coverage. I completed a peer to peer with a physician at the insurance company and they are refusing coverage and recommended a stress test first. I have ordered this and he may schedule this. Pt called to report he showed up for his ECHO today out at the [facility] and was told this could not be done because a peer to peer was needed. Test was cancelled. Pt would like to know what is going on. He was not notified of anything. This was to be a stat ECHO because he his having chest pain . Please advise pt. Nighat Knox LPN documented in this encounter [facility] 06-29-2023 History of Presen t illness Narrative Chief Complaint Patient presents with: Chest Pain HPI Zack Last is a 38 year old male who presents here today for Above Complaints.. Patient presents for chest pain. Patient reports the chest pain is mostly at night and has been ongoing intermittently for years. Patient reports he had an MRI done in 2018 in [place] that showed scarring on his heart valve. Patient reports a history of substance abuse starting at a young age and is concerned this may be contributing to continued symptoms. Past medical history, appointments, medications, allergies reviewed. Previous Medical History PAST MEDICAL HISTORY Diagnosis Date Anxiety state Chronic jaw pain 02/20/2023 PMH - PAST MEDICAL HISTORY OF seizures PMH - PAST MEDICAL HISTORY OF headaches Scrotal cyst 02/20/2023 Previous Surgical History PAST SURGICAL HISTORY Procedure Laterality Date EGD W/O BRSH SPEC VARICIES INJ 2019 PAST SURGICAL HISTORY OF tubes in ears Family History FAMILY HISTORY Problem Relation Age of Onset Diabetes Father Heart Maternal Grandfather Stroke Maternal Grandfather Cancer Other PGGM; type unknown; Colon Cancer Other none Prostate Cancer Other none Patient Allergies ALLERGIES Allergen Reactions Depakote [Divalproe* GI Upset N/V Haldol [Haloperidol* Intolerance [place] Intolerance Severe hyperactivity Current Medications Current Outpatient Medications on File Prior to Visit Medication Sig multivitamins(DAILY MULTIVITAMIN TAB) Take by mouth. No current facility-administered medications on file prior to visit. Social History Social History Tobacco Use Smoking status: Every Day Packs/day: 0.25 Years: 10.00 Additional pack years: 0.00 Total pack years: 2.50 Types: Cigarettes Smokeless tobacco: Former Types: Chew Vaping Use Vaping Use: current everyday user Substances: Nicotine, Flavoring Devices: Disposable Substance Use Topics Alcohol use: Not Currently Drug use: Not Currently Types: Marijuana, Cocaine, Crack Cocaine, Amphetamines, Narcotics, Heroin, Ecstasy, Crystal Meth, Benzodiazepines, Opiates, LSD Comment: Sober since May 2022 Review of Symptoms REVIEW OF SYSTEMS SEE HPI EXAM: BP 120/82 Pulse 92 Resp 16 Wt 93.9 kg (207 lb) BMI 25.20 kg/m General Appearance: Well appearing, alert, in no acute distress, well-hydrated, well nourished.. Lungs: Lungs clear to auscultation. No wheezing, rhonchi, rales.. Heart: RRR without murmur, gallop, or rubs. No ectopy. Health Maintenance List Hepatitis B Vaccine(1 of 3 - 3-dose series) Never done Covid-19 Vaccine(1) Never done Pneumococcal Vaccine(1 - PCV) Never done Influenza Vaccine(1) Never done Lipid Screening due on 02/21/2028 DTaP,Tdap,Td Vaccine(2 - Td or Tdap) due on 02/20/2033 Depression Assessment Completed Hepatitis C Screening Completed HIV Screening Completed HPV Vaccine Aged Out ASSESSMENT/PLAN: 1. Chest pain, unspecified type - ICD9: 786.50, ICD10: R07.9 - Electrocardiogram: An ECG today showed normal sinus rhythm - Referral to Cardiology - ECHO - PERFLUTREN LIPID MICROSPHERES 1.1 MG/ML INJECTION IN NS 10 ML - SODIUM CHLORIDE 0.9 % (FLUSH) INJECTION SYRINGE - ECG COMPLETE Patient instructed to go to ER if chest pain persists, he becomes SOB, or pain radiating into your jaw or left arm. Dottie Diaz APRN.ECCLESIASTICAL WORKER documented in this encounter [facility] 05-18-2023 Miscellaneous Notes Pt scheduled with Dr. Cole on 12/20 at 8AM. Spoke with sleep nurse and she is going to ask if new sleep provider can see him for this issue, if she can he will be put on her schedule sooner. Susanne Sheriff May 18, 2023 11:31 AM Patient returns call and transferred to schedule. Krys Augustine, RN 2nd call attempt, left vm LVM to call back about scheduling for sleep med Schedulers can we please call patient at schedule him with sleep medicine and cancel his neurology appointment . Cielo Carey Cma Please call patient and let him know instead of neurology he needs to see sleep medicine. I have changed the order but he will need to call and change his appointment to a sleep provider. documented in this encounter [facility] 05-15-2023 History of Presen t illness Narrative Chief Complaint No chief complaint on file. HPI Zack Last is a 38 year old male who presents here today for Above Complaints.. Patient presents for concerns of sleep walking. Patient reports he fell asleep in his bed and later woke up to make his step daughter a sandwich and give her medicine when his stepdaughter reported he already did both of those things. Patient also awoke to a cut on his finger that had a bandaid on it that wasn't there when he fell asleep. Patient reports he does not remember any of this. Patient currently under the care of psychiatrist for anxiety. Patient underwent [employer] testing and is awaiting the results prior to starting medication. Past medical history, appointments, medications, allergies reviewed. Previous Medical History PAST MEDICAL HISTORY Diagnosis Date Anxiety state Chronic jaw pain 02/20/2023 PMH - PAST MEDICAL HISTORY OF seizures PMH - PAST MEDICAL HISTORY OF headaches Scrotal cyst 02/20/2023 Previous Surgical History PAST SURGICAL HISTORY Procedure Laterality Date [facility] PAST SURGICAL HISTORY OF tubes in ears Family History FAMILY HISTORY Problem Relation Age of Onset Diabetes Father Heart Maternal Grandfather Stroke Maternal Grandfather Cancer Other PGGM; type unknown; Colon Cancer Other none Prostate Cancer Other none Patient Allergies ALLERGIES Allergen Reactions Depakote [Divalproe* GI Upset N/V Haldol [Haloperidol* Intolerance [place] Intolerance Severe hyperactivity Current Medications Current Outpatient Medications on File Prior to Visit Medication Sig multivitamins(DAILY MULTIVITAMIN TAB) Take by mouth. No current facility-administered medications on file prior to visit. Social History Social History Tobacco Use Smoking status: Every Day Packs/day: 0.25 Years: 10.00 Additional pack years: 0.00 Total pack years: 2.50 Types: Cigarettes Smokeless tobacco: Former Types: Chew Vaping Use Vaping Use: current everyday user Substances: Nicotine, Flavoring Devices: Disposable Substance Use Topics Alcohol use: Not Currently Drug use: Not Currently Types: Marijuana, Cocaine, Crack Cocaine, Amphetamines, Narcotics, Heroin, Ecstasy, Crystal Meth, Benzodiazepines, Opiates, LSD Comment: Sober since May 2022 Review of Symptoms REVIEW OF SYSTEMS See HPI EXAM: BP 112/84 Pulse 104 Resp 16 Wt 90.3 kg (199 lb) BMI 24.22 kg/m General Appearance: Well appearing, alert, in no acute distress, well-hydrated, well nourished.. Neurologic: Gait normal. Reflexes normal and symmetric. Sensation grossly intact.. Health Maintenance List Hepatitis B Vaccine(1 of 3 - 3-dose series) Never done Covid-19 Vaccine(1) Never done Pneumococcal Vaccine(1 - PCV) Never done Influenza Vaccine(1) Never done Lipid Screening due on 02/21/2028 DTaP,Tdap,Td Vaccine(2 - Td or Tdap) due on 02/20/2033 Depression Assessment Completed Hepatitis C Screening Completed HIV Screening Completed HPV Vaccine Aged Out ASSESSMENT/PLAN: 1. History of sleep walking - ICD9: V11.8, ICD10: Z86.59 (primary diagnosis) - CONSULT TO NEUROLOGY 2. History of seizure - ICD9: V13.89, ICD10: Z87.898 - CONSULT TO NEUROLOGY 3. Bipolar affective disorder, remission status unspecified (HCC) - ICD9: 296.80, ICD10: F31.9 -Follows with psych, starting meds soon. Dottie Diaz APRN.YOLANDA documented in this encounter [facility] 05-15-2023 Miscellaneous Notes Called pt back. He states he has had a lot of problems and difficulty sleeping recently. Talked with his psychologist about this yesterday. He states he has been taking daily naps for awhile because he is always so tired. Yesterday he fell asleep on his bed in his bedroom and woke up in his bed in his bedroom with his phone in his hand. He doesn't remember why he was holding his phone. States he watches his 11 y/o omer's daughter who was in the house. He said he went out to get her a snack and give her medication to her and she told him he had already done that. He does not have any recollection of that. Nurse asked if she would lie for any reason and he said he didn't think so. He also states he has a judit on his finger and his fichitra's daughter had told him he had nicked it when he opened a tuna can. He doesn't remember that. Patient is alert/oriented x 3. States doesn't seem to be having any issues today. States he slept walked as a kid and wonders if that is what happened yesterday. Denies any visual disturbances, numbness or tingling or headache at the moment. States he has headaches off and on but nothing really new. Appt given to pt for 220 pm this afternoon. Pt says he needs to find someone to take care of the 11 y/o when she gets off of the bus. Instructed to call if he can't make it as we need to get him in to see someone.. Patient needs an appointment.Please call and schedule him for an acute visit to discuss symptoms Patient called requesting to speak to a nurse yesterday he woke up from a nap feeling very confused and thinks maybe he was sleep walking He can be reached at [phone] documented in this encounter [facility] 03-30-2023 Miscellaneous Notes Spoke with patient. Given message from provider's office. Patient verbalizes understanding. Paige Alvarenga RN TC to patient with no answer. Left VM to return call to office to receive results.SHEELA Thorpe Please let patient know his ultrasound is normal. documented in this encounter [facility] 03-30-2023 Nurse Note CYSTOSCOPY PROCEDURE NOTE: Zack Last is a 38 year old male who presents with Dysuria. Pt ID verified with patient: Yes Procedure verified with patient: Yes Procedure confirmed with physician and family support worker: Yes Sign In History and Physical Exam reviewed and is unchanged. Primary Diagnosis: Dysuria Informed Consent Discussed: Yes Sign in Communication: Completed Time Out: Team Confirms the Correct Patient, Correct Procedure; Cystoscopy, Correct Site and Site Marking, Correct Position (if applicable). Affirmation of Time Out: N/A Sign Out: Sign Out Discussion: Completed Physician: Dr. Solomon Valdes A urinalysis was performed revealing no evidence of infection. The benefits, risks, alternatives of the cystoscopy procedure and personnel were discussed with the patient. The verbal consent was obtained and the patient agrees to proceed. Prophylaxis with Keflex 500 mg was given to the patient prior to the procedure. Procedure: The patient was placed on the procedure table in the supine position and prepped and draped in the usual sterile fashion. 2% Lidocaine Jelly was placed per urethra as an anesthetic in the standard fashion. Once adequate local anesthesia was achieved, the tip of the flexible cystoscope was carefully placed into the urethra under direct visual guidance. The scope was negotiated through the pendulous urethra to the level of the bulbar urethra with no evidence of stricture. The verumontanum came into view and the scope was negotiated through the prostatic urethra which showed evidence of a patent prostatic urethra. The bladder was entered and careful hsu endoscopy was carried out. The posterior, superior and lateral richards and dome of the bladder were all well visualized and the scope was retroflexed upon itself. The findings were consistent with no evidence of bladder mucosal pathology. Clear urine ejected from the Right and Left ureteral orifice(s) was noted. At the conclusion of the procedure, the flexible cystoscope was removed atraumatically. The patient tolerated the procedure without complications. Patient was given standard post-procedure instructions, and was directed to complete the course of oral antibiotics and increase oral fluid intake as directed. Operation: Cystoscopy Anatomic Site: Bladder, Laterality: Bilateral Urethra, Laterality: Not applicable Prostate, Laterality: Bilateral Approach: Endoscopic Device: Cystoscope Qualifier: None ASSESSMENT/PLAN: ASSESSMENT/PLAN: 1. Painful urination - ICD9: 788.1, ICD10: R30.9 (primary diagnosis) acute - Patient education for prevention given - CEPHALEXIN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 PA/RICHARDSON/BOTH OBL 6. Encounter for immunization - ICD9: V03.89, ICD10: Z23 - TDAP VACCINE, AGE 7+ YR (ADACEL, BOOSTRIX) Dottie Diaz APRN.ECCLESIASTICAL WORKER documented in this encounter [facility] 02-02-2023 Miscellaneous Notes Attempted to contact patient- line rang busy multiple times. Will try back later Cielo Carey Cma Patient was notified 01/30 that his tests were negative except herpes which he was already aware he had. He was then scheduled with urology for further evaluation of symptoms. There is nothing else to do until he sees urology Patient calling and states he had a couple tests results he was waiting to hear back on from Dottie Diaz CNP. Pt was not exactly sure on which test results they were but thinks it was testing for STDs. Patient also states Dottie was going to order him a follow up urine screen and asks if this is still something she would like to order? Please advise patient. Thank you. Pt is scheduled TC to patient who verbalized understanding of providers message below. Patient is agreeable to see Urology. Please contact patient to assist in scheduling consult. Thank you. SHEELA Thorpe Please let patient know his testing came back positive for Herpes type 2 but otherwise his testing is negative. I have entered a referral for urology. documented in this encounter [facility] 01-29-2023 Instructions Dottie Diaz APRN.CNP - 01/29/2023 2:52 PM EDT Complete labwork documented in this encounter [facility] 01-29-2023 History of Presen t illness Narrative Chief Complaint Patient presents with: UTI HPI Zack Last is a 37 year old male who presents here today for Above Complaints.. Patient presents for ER follow up. Patient was seen at [facility] and urine was tested, Patient was on ATB. Patient then was diagnosed with chlamydia following exposure from his fiance. Both parties were treated. Patient continued to have symptoms and was seen in the ER where he was checked for kidney stones, STD's, and UTI all which were negative. Past medical history, appointments, medications, allergies reviewed. Previous Medical History PAST MEDICAL HISTORY Diagnosis Date PMH - PAST MEDICAL HISTORY OF seizures PMH - PAST MEDICAL HISTORY OF headaches Previous Surgical History PAST SURGICAL HISTORY Procedure Laterality Date PAST SURGICAL HISTORY OF tubes in ears Family History FAMILY HISTORY Problem Relation Age of Onset Diabetes Father Heart Maternal Grandfather Stroke Maternal Grandfather Cancer Other PGGM; type unknown; Colon Cancer Other none Prostate Cancer Other none Patient Allergies ALLERGIES Allergen Reactions Depakote [Divalproe* GI Upset N/V Haldol [Haloperidol* Intolerance [place] Intolerance Severe hyperactivity Current Medications Current Outpatient Medications on File Prior to Visit Medication Sig alprazolam(XANAX 1 MG TAB) Take one(1) tablet daily. fluoxetine hcl(PROZAC 20 MG CAP) Take one(1) tablet daily. multivitamins(DAILY MULTIVITAMIN TAB) Take one(1) tablet daily. No current facility-administered medications on file prior to visit. Social History Social History Tobacco Use Smoking status: Every Day Packs/day: 1.00 Years: 10.00 Pack years: 10.00 Types: Cigarettes Substance Use Topics Alcohol use: No Review of Symptoms REVIEW OF SYSTEMS SEE HPI EXAM: BP 122/80 Pulse 90 Resp 14 Wt 90.7 kg (200 lb) General Appearance: Well appearing, alert, in no acute distress, well-hydrated, well nourished.. Abdomen: Normal abdominal exam, Abdomen soft, non-tender. Bowel sounds normal. No masses, organomegaly Health Maintenance List HEPATITIS B(1 of 3 - 3-dose series) Never done COVID-19 VACCINE(1) Never done PNEUMOCOCCAL(1 - PCV) Never done DTAP,TDAP,TD(1 - Tdap) Never done LIPID SCREEN due on 2019 DEPRESSION ASSESSMENT Never done INFLUENZA(Season Ended) due on 04/10/2023 HEPATITIS C SCREENING Completed HIV SCREENING Completed ASSESSMENT/PLAN: 1. Encounter for assessment of STD exposure - ICD9: V72.85, ICD10: Z76.89 - GONORRHEA/CHLAMYDIA NAAT - HIV 1 2 COMBO(AG/AB),WITH REFLEX TO DIFFERENTIATION - HEPATITIS C ANTIBODY IA WITH CONFIRMATION - HEP B SURF AG SCRN - TRICHOMONAS VAGINALIS NAAT - SYPHILIS TOTAL W/REFLEX - HERPES SIMPLEX TYPE 1 AND 2 IG - URINALYSIS, WITH MICROSCOPIC- complete in 1 week due to recent antibiotic use. Dottie Diaz APRN.ECCLESIASTICAL WORKER documented in this encounter [facility] 01-07-2023 Discharge summary Note Date/Time January 07, 2023 11:33am [facility] Medical Records Department [address] [place] [address] Emergency Department Summary 01/07/23 MR#: [id number] Acct: [id number] Name: ZACK LAST Rep #:[id number] 8 : 1985 37 From: Christiano Henson PCP: FAVIAN LopezC Status:REG ER Location: ED HPI History of Present Illness Chief Complaint: Sore Throat PFSH PFSH Medical History no medical history Home Medications amantadine HCl 100 mg capsule 100 mg PO BID 07/17/22 [History Last Taken Unknown] buspirone 5 mg tablet 5 mg PO BID 07/17/22 [History Last Taken Unknown] buspirone 7.5 mg tablet 7.5 mg PO BID 07/17/22 [History Last Taken Unknown] divalproex 500 mg tablet,delayed release (Depakote) 500 mg PO BID 07/17/22 [History Last Taken Unknown] escitalopram oxalate 10 mg tablet 10 mg PO DAILY 07/17/22 [History Last Taken Unknown] ondansetron 4 mg disintegrating tablet 4 mg PO Q8H PRN nausea and vomiting #10 tabs 07/17/22 [Rx Last Taken Unknown] risperidone 2 mg tablet 2 mg PO QHS 07/17/22 [History Last Taken Unknown] sertraline 100 mg tablet 100 mg PO DAILY 07/17/22 [History Last Taken Unknown] sertraline 50 mg tablet 50 mg PO DAILY 07/17/22 [History Last Taken Unknown] Allergy/AdvReac Type Severity Reaction Status Date / Time haloperidol [From Haldol] Allergy Other Verified 07/17/22 09:10 lithium AdvReac Other Verified 01/07/23 11:22 olanzapine [From Zyprexa] AdvReac Other Verified 01/07/23 11:22 Social History Smoking Status: Current every day smoker tobacco type: cigarettes EXAM Physical Exam Const Vital Signs: 01/07/23 11:20 Temperature 97.9 F Temperature Source Temporal Pulse Rate 91 Respiratory Rate 16 Blood Pressure 148/92 H Blood Pressure Mean 110 Pulse Ox 99 Oxygen Delivery Method Room Air [facility] [place] Narrative Medical decision making narrative: HISTORY OF PRESENT ILLNESS: 37-year-old male here for sore throat. Patient states his symptoms started 3 days ago. No sick contact. States his girlfriend's daughter had viral pharyngitis. He states he does have a cough that is productive of yellow sputum. He does note shortness of breath but denies any chest pain. He denies any headache. Denies any neck stiffness drooling or difficulty swallowing. Thepatient denies recent surgery in the last 4 weeks or immobilization in the last 3 days, denies previous diagnosis of DVT or PE, hemoptysis, unilateral leg swelling or malignancy with treatment the last 6 months. No estrogen use noted. REVIEW OF SYSTEMS: Pertinent positives: Sore throat, cough, shortness of breath Pertinent negatives: Chest pain, syncope, leg swelling PHYSICAL EXAM: Nursing triage notes reviewed, Vital signs reviewed Constitutional: please see mdm HENT: MMM, mild pharyngeal erythema, uvula midline, no submandibular edema, Eyes: Pupils equal round and reactive to light, Extraocular muscles intact Neck: No stridor, no JVD, full neck ROM Lungs: Clear to auscultation, No wheezing or rales. No increased work of breathing, no conversational dyspnea, no accessory muscle use, no nasal flaring. No respiratory distress noted Heart: Regular rate and rhythm, No murmurs, No rubs and No gallops, 2+ distal pulses (radial, femoral, posterior tibial) in all extremities Abdomen: Soft, there is no tenderness, rigidity, rebound or guarding, no obviousperitoneal signs, no palpable pulsatile abdominal masses, no auscultated abdominal bruit : No CVAT Extremities: No edema Neuro: No focal neurological deficits, cranial nerves II through XII intact, 5/5strength in all extremities. Intact sensation to light touch in all extremities,2+ reflexes bilateral patella tendons. Normal gait. No ataxia. Skin: No rash or lesions noted MEDICAL DECISION MAKING: Chief Complaint: Sore throat, cough External records reviewed: No recent ED visits Factors affecting care: Depression, anxiety Social determinants of health: hx of mental health diagnoses History obtained from others: none Consults: None ALL IMAGES HAVE BEEN PERSONALLY REVIEWED AND INTERPRETED BY MYSELF. MDM Narrative: The patient was hemodynamically stable, afebrile, nontoxic-appearing. No focal cardiopulmonary abnormalities, no focal consolidative processes noted auscultation. No signs of RPA, INSTRUMENT LENS GRINDER, Lemierre's syndrome with Ludewig's angina on exam. I considered the following differential diagnosis: Bacterial versus viral pharyngitis, viral URI, pneumonia, COVID, flu I obtained a chest x-ray to rule out evidence of pneumonia. Chest x-ray was negative by my read. I Obtained swabs to rule out strep, COVID and flu. Microbiological studies and images were remarkable for negative COVID and flu. No clear etiology likely viral pharyngitis. The patient is given Tylenol, ibuprofen and fluid instructions. He expressed understanding and agreed with the plan. Total critical care time today provided was at least 0 minutes. This excludes separately billable procedures. There was a high probability of clinically significant/life threatening deterioration in the patient's condition which required my urgent intervention. Shared decision making: I will have a discussion with the patient and or visitors regarding risk/benefits of further testing or admission. They will be made aware of of the risk/benefits inherent in this decision they will be given the opportunity to voice understanding. Radiography Chest X-Ray - ED: Read by ED Physician Diagnostic Testing: Clinical Impression(s) from Imaging Studies Chest X-Ray 01/07/23 12:18 IMPRESSION: No radiographic evidence of acute cardiopulmonary disease. Electronically Signed: Sherrell Hoyt MD at 12:28 EDT , I have personally reviewed the patient's chest x-ray. Chest x-ray is unremarkable for pulmonary edema, pneumothorax, pneumonia or focal cardiopulmonary abnormality. Discharge Plan Triage Chief Complaint: Sore Throat ED Provider: Christiano Meneses Dx/Rx/DC Orders Clinical Impression: History of viral pharyngitis Instructions: ED Pharyngitis, Viral Prescriptions: No Action buspirone 5 mg tablet 5 mg PO BID Label Comments: Take 1 Tablet By Oral Route 2 times per day sertraline 100 mg tablet 100 mg PO DAILY Label Comments: Take 1 Tablet By Oral Route 1 time per day divalproex [Depakote] 500 mg tablet,delayed release (DR/EC) 500 mg PO BID Label Comments: Take 1 tablet by mouth twice a day amantadine HCl 100 mg capsule 100 mg PO BID Label Comments: TAKE 1 CAPSULE BY MOUTH TWICE DAILY risperidone 2 mg tablet 2 mg PO QHS Label Comments: Take 1 tablet by mouth at bedtime buspirone 7.5 mg tablet 7.5 mg PO BID Label Comments: Take 1 tablet by mouth twice a day sertraline 50 mg tablet 50 mg PO DAILY Label Comments: Take 1 Tablet By Oral Route 1 time per day escitalopram oxalate 10 mg tablet 10 mg PO DAILY Label Comments: Take 1 tablet by mouth once a day ondansetron 4 mg tablet,disintegrating 4 mg PO Q8H PRN (Reason: nausea and vomiting) Qty: 10 0RF Stand Alone Forms: ED Work / School Excuse Primary Care Provider: Dottie Diaz Referrals: Dottie Diaz, STATIONARY EQUIPMENT MECHANIC-C [Primary Care Provider] - Activity Restrictions/Additional Instructions: Thank you for trusting us with your care today! Please take Tylenol (2 pills, 650 mg), ibuprofen (2 pills, 400 mg) every 6 hoursas needed for pain and fever control. Please drink plenty of fluids. I recommend Pedialyte or body armor as these contain electrolytes as well for improved hydration. Please return if you develop difficulty swallowing, neck stiffness, drooling, inability to take your medicine by mouth. Please return to the emergency department if your symptoms change or worsen. Please follow with your primary care physician for further outpatient evaluationand management. Disposition Disposition: Home, Self Care What to do if you have Problems For any increased pain, shortness of breath, bleeding, nausea or vomiting, chestpain, or any unexpected problems, contact your Primary Care Provider. Call [email or web address] ([phone]) or report to the closest Emergency Room. Call 911 if necessary. 01/07/23 1421 <Electronically signed by Christiano Meneses DO> Cosigner Signature (if applicable): CC: JASMINE Diaz ~ Signed [facility] Work Phone: evaluation noteNo assessment information available [facility] Work Phone: [employer] note* Diagnosis Onset Date Resolution Status Chlamydia contact acute [facility] Work Phone: evaluation note* Diagnosis Encounter for assessment of STD exposure- Primary [facility] [place] [facility]* Diagnosis Painful urination- Primary Dysuria documented in this encounter [facility] note* Diagnosis Scrotal cyst- Primary Sebaceous cyst Medication management Encounter for long-term (current) use of other medications Screening for diabetes mellitus Screening for lipid disorders Chronic jaw pain Jaw pain Encounter for immunization Need for other specified prophylactic vaccination against single bacterial disease documented in this encounter [facility] note* Diagnosis Acute bilateral low back pain without sciatica- Primary Burning with urination Dysuria [facility] [place] [facility]* Diagnosis Painful urination- Primary Dysuria Urinary frequency Other microscopic hematuria Screening for genitourinary condition Screening for other and unspecified genitourinary condition [facility] [place] [facility] Diagnosis Painful urination- Primary Dysuria Urinary frequency Other microscopic hematuria [facility] [place] [facility]* Diagnosis History of sleep walking- Primary History of seizure Personal history of other disorders of nervous system and sense organs Bipolar affective disorder, remission status unspecified (HCC) documented [facility] [place] [facility]* Diagnosis History of sleep walking- Primary [facility] [place] [facility]* Diagnosis Chronic jaw pain Jaw pain [facility] [place] [facility]* Diagnosis Acute bilateral low back pain without sciatica Burning with urination Dysuria [facility] [place] [facility]* Diagnosis Chest pain, unspecified type- Primary [facility] [place] [facility]* Diagnosis Chest pain, unspecified type- Primary [facility] [place] [facility]* Diagnosis Snoring- Primary Other dyspnea and respiratory abnormality RLS (restless legs syndrome) Restless legs syndrome (RLS) Sleep paralysis Sleep related movement disorder, unspecified Dream enactment behavior Nightmares Other dysfunctions of sleep stages or arousal from sleep Sleep-related hallucinations Psychophysical visual disturbances Parasomnia, unspecified type [facility] [place] [facility]* Diagnosis Acute bilateral low back pain without sciatica- Primary Tonsil stone Other chronic disease of tonsils and adenoids Burning with urination Dysuria [facility] [place] [facility]* Diagnosis Acute bilateral low back pain without sciatica documented in this encounter [facility] note* Diagnosis Acute bilateral low back pain without sciatica- Primary documented in this encounter [facility] note* Diagnosis LINWOOD (obstructive sleep apnea)- Primary Obstructive sleep apnea (adult) (pediatric) Chest pain, unspecified type SOB (shortness of breath) Shortness of breath documented in this encounter [facility] note* Diagnosis Urinary frequency- Primary Discharge from penis Paronychia, finger, right documented in this encounter [facility] note* Diagnosis Burning with urination- Primary Dysuria Pain with ejaculation Other specified disorder of male genital organs Flank pain Abdominal pain, unspecified site Lower abdominal pain Abdominal pain, other specified site Nausea Nausea alone Burning with urination Dysuria Pain with ejaculation Other specified disorder of male genital organs Flank pain Abdominal pain, unspecified site Lower abdominal pain Abdominal pain, other specified site Nausea Nausea alone documented in this encounter [facility] note* Diagnosis Burning with urination Dysuria Pain with ejaculation Other specified disorder of male genital organs Flank pain Abdominal pain, unspecified site Lower abdominal pain Abdominal pain, other specified site Nausea Nausea alone documented in this encounter [facility] note* Diagnosis Lower abdominal pain- Primary Abdominal pain, other specified site Nausea Nausea alone Weight loss, unintentional Loss of weight Abnormal stools Abnormal feces documented in this encounter [facility] note* Diagnosis Constipation, unspecified constipation type- Primary [facility] [place] [facility] Diagnosis Constipation, unspecified constipation type- Primary Lower abdominal pain Abdominal pain, other specified site Nausea Nausea alone Abnormal stools Abnormal feces documented in this encounter [facility] note* Diagnosis Nausea- Primary Nausea alone Lower abdominal pain Abdominal pain, other specified site Weight loss, unintentional Loss of weight Abnormal stools Abnormal feces History of gastric ulcer Personal history of other diseases of digestive system Decreased appetite Anorexia [facility] Additional Instructions Thank you for trusting us with your care today! Please take Tylenol (2 pills, 650 mg), ibuprofen (2 pills, 400 mg) every 6 hours as needed for pain and fever control. Please drink plenty of fluids. I recommend Pedialyte or body armor as these contain electrolytes as well for improved hydration. Please return if you develop difficulty swallowing, neck stiffness, drooling, inability to take your medicine by mouth. Please return to the emergency department if your symptoms change or worsen. Please follow with your primary care physician for further outpatient evaluation and management.[facility] Work Phone: Reason for referral (narrative)* Diagnostic Procedure Only (Routine) - Pending Review Specialty Diagnoses / Procedures Referred By Contac t Referred To Contact XR IMAGING Diagnoses Chronic jaw pain Procedures XR TMJ 4V OPEN/CLOSE BILATERAL RADEX TEMPOROMANDBLE JT OPN & CLSD MOUTH BILAT Dottie Diaz APRN.ECCLESIASTICAL WORKER [address] [place] [id number] Xr Imaging Referral ID Status Reason Start Date Expiration Date Visits Requested Visits Authorized [id number] Pending Review Auto-Generat ed Referral 02/20/2023 03/21/2024 1 1 * Diagnostic Procedure Only (Routine) - Authorized Specialty Diagnoses / Procedures Referred By Contac t Referred To Contact XR IMAGING Diagnoses Chronic jaw pain Procedures XR MANDIBLE 4V PA/RICHARDSON/BOTH OBL RADIOLOG EXAM MANDIBLE COMPL MINIMUM 4 VIEWS Dottie Diaz APRN.ECCLESIASTICAL WORKER [address] [place] [id number] X[facility] Imaging Referral ID Status Reason Start Date Expiration Date Visits Requested Visits Authorized [id number] Authorized Auto-Generat ed Referral 02/20/2023 03/21/2024 1 1 * Diagnostic Procedure Only (Routine) - Closed Specialty Diagnoses / Procedures Referred By Contac t Referred To Contact US IMAGING Diagnoses Scrotal cyst Procedures US DOPPLER COMPLETE DUP-SCAN ARTL JUAN ALBERTO ABDL/PEL/SCROT&/RPR ORGN COM Dottie Diaz APRN.YOLANDA [address] [place] [address] Us Imaging Referral ID Status Reason Start Date Expiration Date V isits Requested Visits Authorized [id number] Closed Auto-Generate d Referral 02/20/2023 03/21/2024 1 1 * Diagnostic Procedure Only (Routine) - Closed Specialty Diagnoses / Procedures Referred By Contac t Referred To Contact US IMAGING Diagnoses Scrotal cyst Procedures US SCROTUM AND CONTENTS US SCROTUM & CONTENTS Dottie Diaz APRN.ECCLESIASTICAL WORKER [address] [place], [place] [id number] Us Imaging Referral ID Status Reason Start Date Expiration Date V isits Requested Visits Authorized [id number] Closed Auto-Generate d Referral 02/20/2023 03/21/[address] [facility] for referral (narrative)* Diagnostic Procedure Only (Routine) - Pending Review Specialty Diagnoses / Procedures Referred By Contac t Referred To Contact US IMAGING Diagnoses Acute bilateral low back pain without sciatica Burning with urination Procedures US KIDNEY/BLADDER US RETROPERITONEAL REAL TIME W/IMAGE COMPLETE Dottie Diaz APRN.ECCLESIASTICAL WORKER [address] [place] [id number] Us Imaging Referral ID Status Reason Start Date Expiration Date Visits Requested Visits Authorized [id number] Pending Review Auto-Generat ed Referral 02/26/2023 03/27/[address] [facility] for referral (narrative)* Diagnostic Procedure Only (Routine) - Closed Specialty Diagnoses / Procedures Referred By Contac t Referred To Contact US IMAGING Diagnoses Acute bilateral low back pain without sciatica Burning with urination Procedures US KIDNEY/BLADDER US RETROPERITONEAL REAL TIME W/IMAGE COMPLETE Dottie Diaz APRN.CNP [address] [place] [address] [place] [address] Referral ID Status Reason Start Date Expiration Date V isits Requested Visits Authorized [id number] Closed Auto-Generate d Referral 02/26/2023 03/27/[address] [facility] for referral (narrative)* Diagnostic Procedure Only (Routine) - Pending Review Specialty Diagnoses / Procedures Referred By Contac t Referred To Contact MOLECULAR & FUNCTIONAL IMAGING Diagnoses Chest pain, unspecified type Procedures NM CARDIAC PERF STRESS/EXERCISE MYOCARDIAL SPECT MULTIPLE STUDIES Dottie Diaz APRN.CNP [address] [place] [phone] Molecular & Functional Imaging [address] [place] [address] Referral ID Status Reason Start Date Expiration Date Visits Requested Visits Authorized [id number] Pending Review Auto-Generat ed Referral 08/07/[address] [facility] for referral (narrative)* Diagnostic Procedure Only (Routine) - Closed Specialty Diagnoses / Procedures Referred By Contac t Referred To Contact XR IMAGING Diagnoses Acute bilateral low back pain without sciatica Procedures XR CERV OTHER 4V AP/LAT/OBL RADEX SPINE CERVICAL 4 OR 5 VIEWS Dottie Diaz APRN.ECCLESIASTICAL WORKER [address] [place] [address] [place] [address] Referral ID Status Reason Start Date Expiration Date V isits Requested Visits Authorized [id number] Closed Auto-Generate d Referral 02/16/2024 03/17/2025 1 1 * Diagnostic Procedure Only (Routine) - Closed Specialty Diagnoses / Procedures Referred By Contac t Referred To Contact XR IMAGING Diagnoses Acute bilateral low back pain without sciatica Procedures XR LUMBAR PARS DEFECT 4V AP/LAT/BOTH OBL RADEX SPINE LUMBOSACRAL MINIMUM 4 VIEWS Dottie Diaz APRN.CNP [address] [place], [place] [phone] Xr Imaging [facility] Referral ID Status Reason Start Date Expiration Date V isits Requested Visits Authorized [id number] Closed Auto-Generate d Referral 02/16/2024 03/17/[address] [facility] for referral (narrative)* Outpatient Procedure (Routine) - Authorized Specialty Diagnoses / Procedures Referred By Contac t Referred To Contact [facility] Diagnoses Other chest pain SOB (shortness of breath) Procedures EXERCISE STRESS ECG (WITHOUT IMAGING) CV STRS TST XERS&/OR RX CONT ECG TRCG ONLY Dottie Diaz APRN.CNP [address] [place], [place] [phone] [place] [phone] Referral ID Status Reason Start Date Expiration Date Visits Requested Visits Authorized [id number] Authorized Auto-Generat ed Referral 09/12/2024 09/12/2025 1 1 * Outpatient Procedure (Routine) - New Request Specialty Diagnoses / Procedures Referred By Contac t Referred To Contact [facility] Diagnoses Other chest pain Procedures ECG COMPLETE ECG ROUTINE ECG W/LEAST 12 LDS W/I&R Dottie Diaz APRN.CNP [address] [place] [id number] [place] [id number] Referral ID Status Reason Start Date Expiration Date Visits Requested Visits Authorized [id number] New Request Auto-Generat ed Referral 09/12/2024 09/12/[address] [facility] for visit Narrative* Diagnostic Procedure Only (Routine) - Authorized Specialty Diagnoses / Procedures Referred By Contac t Referred To Contact XR IMAGING Diagnoses Chronic jaw pain Procedures XR MANDIBLE 4V PA/RICHARDS[place]/BOTH OBL RADIOLOG EXAM MANDIBLE COMPL MINIMUM 4 VIEWS Dottie Diaz APRN.ECCLESIASTICAL WORKER [address] [place] [address] [place] [address] Referral ID Status Reason Start Date Expiration Date Visits Requested Visits Authorized [id number] Authorized Auto-Generat ed Referral 02/20/2023 03/21/[address] [facility] for visit Narrative* Diagnostic Procedure Only (Routine) - Closed Specialty Diagnoses / Procedures Referred By Contac t Referred To Contact XR IMAGING Diagnoses Acute bilateral low back pain without sciatica Procedures XR CERV OTHER 4V AP/LAT/OBL RADEX SPINE CERVICAL 4 OR 5 VIEWS Dottie Diaz APRN.ECCLESIASTICAL WORKER [address] [place] [phone] [place] [address] Referral ID Status Reason Start Date Expiration Date V isits Requested Visits Authorized [id number] Closed Auto-Generate d Referral 02/16/2024 03/17/[address] [facility] for visit Narrative* MRI/CT (Urgent) - Pending Review Specialty Diagnoses / Procedures Referred By Contac t Referred To Contact RADIO [facility] Diagnoses Burning with urination Pain with ejaculation Flank pain Lower abdominal pain Nausea Procedures CT ABD/PEL W IVCON CT ABD & PELVIS W/CONTRAST Dottie Diaz APRN.ECCLESIASTICAL WORKER [address] [place] [address] Phone: tel: fax: Cat Scan [address] [place] [address] Phone: tel: fax: Referral ID Status Reason Start Date Expiration Date Visits Requested Visits Authorized [id number] Pending Review Auto-Genera nohelia Referral Patient Cleared - Admin/Chair man/Directo r advise to proceed or did not respond 01/30/2025 03/01/[address] [facility] for visit Narrative* MRI/CT (Urgent) - Pending Review Specialty Diagnoses / Procedures Referred By Contac t Referred To Contact RADIO CT SCAN [facility] Diagnoses Burning with urination Pain with ejaculation Flank pain Lower abdominal pain Nausea Procedures CT ABD/PEL W IVCON CT ABD & PELVIS W/CONTRAST Dottie Diaz APRN.ECCLESIASTICAL WORKER [address] [place] [address] Phone: tel: fax: Cat Scan [address] [place] [address] Phone: tel: fax: Referral ID Status Reason Start Date Expiration Date Visits Requested Visits Authorized [id number] Pending Review Auto-Genera nohelia Referral Patient Cleared - Admin/Chair man/Directo r advise to proceed or did not respond 01/30/2025 03/01/2026 2 2 [facility] Summary Purpose Family History No Family History Records FoundNo Family History Records FoundNo Family History Records FoundNo Family History Records Found Advance Directives No Advanced Directives Records Found Advance Directive Response Recorded Date/ Time Living Will No July 17 9:18am Power of Photographer Motion Picture No July 17, 2022 9:18am Advance Directive Response Recorded Date/ Time Living Will No January 07, 2023 1 2:14pm Power of Photographer Motion Picture No January 07, 2023 12:14pm Advance Directive Response Recorded Date/ Time Living Will No January 24, 2023 11:19am Power of Photographer Motion Picture No January 24 11:19am Chief Complaint and Reason for Visit Chief Complaint PE DRUG SCREEN/GOJO GENERAL ILLNESS Chief Complaint sore throat Chief Complaint sore throat CONCERN FOR STD Reason for Visit Chlamydia contact Chief Complaint sore throat CONCERN FOR STD ISSUES Reason for Visit Chlamydia contact Reason for Referral Specialty Diagnoses / Procedures Referred By Brady trammell Referred To Contact Urology Diagnoses Painful urination Procedures CONSULT TO UROLOGY OFFICE/OUTPATIENT [facility] 60-74 MINUTES Dottie Diaz APRN.ECCLESIASTICAL WORKER [address] [place] [address] Alida Jim PA-C [address] [place] [address] Referral ID Status Reason Start Date Expiration Date Visits Requested Visits Authorized [id number] Authorized PCP Requested Referral 01/30/2023 01/30/2024 1 1 Specialty Diagnoses / Procedures Referred By Contac t Referred To Contact Neurology Diagnoses History of sleep walking History of seizure Procedures CONSULT TO NEUROLOGY OFFICE/OUTPATIENT [facility] 60-74 MINUTES Dottie Diaz APRN.ECCLESIASTICAL WORKER [address] [place] [phone] Referral ID Status Reason Start Date Expiration Date Visits Requested Visits Authorized [id number] Authorized PCP Requested Referral 05/15/2023 05/14/2024 1 1 Specialty Diagnoses / Procedures Referred By Contac t Referred To Contact Diagnoses History of sleep walking Procedures CONSULT TO SLEEP MEDICINE - ADULT OFFICE/OUTPATIENT [facility] 60-74 MINUTES Dottie Diaz APRN.ECCLESIASTICAL WORKER [address] [place] [phone] Joan Caban APRN.ECCLESIASTICAL WORKER [address] [place] [address] Referral ID Status Reason Start Date Expiration Date Visits Requested Visits Authorized [id number] Authorized PCP Requested Referral 05/15/2023 05/14/2024 1 1 Specialty Diagnoses / Procedures Referred By Contac t Referred To Contact Cardiology Diagnoses Chest pain, unspecified type Procedures CONSULT TO CARDIOLOGY OFFICE/OUTPATIENT [facility] 60-74 MINUTES Dottie Diaz APRN.ECCLESIASTICAL WORKER [address] [place] [phone] Referral ID Status Reason Start Date Expiration Date Visits Requested Visits Authorized [id number] Authorized PCP Requested Referral 3 06/28/2024 1 1 Specialty Diagnoses / Procedures Referred By Contac t Referred To Contact [facility] Diagnoses Chest pain, unspecified type Procedures ECG COMPLETE ECG ROUTINE ECG W/LEAST 12 LDS W/I&R Dottie Diaz APRN.ECCLESIASTICAL WORKER [address] [place] [address] [facility] [place] [address] [place] [address] Referral ID Status Reason Start Date Expiration Date Visits Requested Visits Authorized [id number] Pending Review Auto-Generat ed Referral 3 06/28/2024 1 1 Specialty Diagnoses / Procedures Referred By Contac t Referred To Contact [facility] Diagnoses Chest pain, unspecified type Procedures ECHO ECHO TTHRC R-T 2D W/WOM-MODE COMPL SPEC&COLR D Dottie Diaz APRN.ECCLESIASTICAL WORKER [address] [place], [place] [id number] [facility] [place] [address] [place] [address] Referral ID Status Reason Start Date Expiration Date Visits Requested Visits Authorized [id number] Pending Review Auto-Generat ed Referral 3 06/28/2024 1 1 Specialty Diagnoses / Procedures Referred By Contac t Referred To Contact Urology Diagnoses Burning with urination Procedures CONSULT TO UROLOGY OFFICE/OUTPATIENT [facility] 60 MINUTES Dottie Diaz APRN.ECCLESIASTICAL WORKER [address] [place], [place] [id number] Referral ID Status Reason Start Date Expiration Date Visits Requested Visits Authorized [id number] Authorized PCP Requested Referral 02/16/2024 02/15/2025 1 1 Specialty Diagnoses / Procedures Referred By Contac t Referred To Contact Ent - Otolaryngology Diagnoses Tonsil stone Procedures CONSULT TO ENT OFFICE/OUTPATIENT [facility] 60 MINUTES Dottie Diaz APRN.ECCLESIASTICAL WORKER [address] [place], [place] [id number] Referral ID Status Reason Start Date Expiration Date Visits Requested Visits Authorized [id number] Authorized PCP Requested Referral 02/16/2024 02/15/2025 1 1 Specialty Diagnoses / Procedures Referred By Contac t Referred To Contact XR IMAGING Diagnoses Acute bilateral low back pain without sciatica Procedures XR CERV OTHER 4V AP/LAT/OBL RADEX SPINE CERVICAL 4 OR 5 VIEWS Dottie Diaz APRN.ECCLESIASTICAL WORKER [address] [place] [phone] [place] [address] Referral ID Status Reason Start Date Expiration Date V isits Requested Visits Authorized [id number] Closed Auto-Generate d Referral 02/16/2024 03/17/2025 1 1 Specialty Diagnoses / Procedures Referred By Contac t Referred To Contact [facility] Diagnoses Acute bilateral low back pain without sciatica Procedures CONSULT TO PHYSICAL THERAPY PHYSICAL THERAPY EVALUATION HIGH COMPLEX 45 MINS Dottie Diaz, EMBOSSED OR IMPRESSED LETTERING PAINTER.ECCLESIASTICAL WORKER [address] [place] [address] [facility] [place] [address] [place] [address] Referral ID Status Reason Start Date Expiration Date Visits Requested Visits Authorized [id number] Authorized Auto-Generat ed Referral 08/10/2023 08/09/2024 1 1 Specialty Diagnoses / Procedures Referred By Contac t Referred To Contact XR IMAGING Diagnoses Acute bilateral low back pain without sciatica Procedures XR LUMBAR PARS DEFECT 4V AP/LAT/BOTH OBL RADEX SPINE LUMBOSACRAL MINIMUM 4 VIEWS Dottie Diaz APRN.ECCLESIASTICAL WORKER [address] [place] [address] [facility] [place] [address] Referral ID Status Reason Start Date Expiration Date V isits Requested Visits Authorized [id number] Closed Auto-Generate d Referral 02/16/2024 03/17/2025 1 1 Referral ID Status Reason Start Date Expiration Date Visits Requested Visits Authorized [id number] Pending Review Auto-Generat ed Referral 02/18/2024 02/17/2025 1 1 Medications Administered Section Inactive Administered Medications - up to 3 most recent administrations Medication Order MAR Action Action Date Dose Rate Site cephALEXin 500 mg cap(s) (KEFLEX) 500 mg, ORAL, ONCE, 1 dose, On Thu03/30/23 at 1200, Please document the antimicrobial indication: Empiric Given 03/30/2023 10:50 AM EDT 500 mg Oral lidocaine 2 % topical gel (XYLOCAINE) URETHRAL, ONCE, 1 dose, On Thu03/30/23 at 1200, FOR EXTERNAL USE ONLY APPLY TO: PENIS Given 03/30/2023 10:55 AM EDT 11 mL Other Additional Source Comments (unrecognized sect ion and content) No Status Records FoundNo Status Records FoundNo Status Records FoundNo Status Records Found INFORMATION SOURCE (unrecogn ized section and content) DATE CREATED AUTHOR 09/14/2021 [facility] DATE CREATED AUTHOR AUTHOR'S ORGANIZ ATION 01/16/2022 [facility] DATE CREATED AUTHOR AUTHOR'S ORGANIZ ATION 06/28/2024 [facility] DATE CREATED AUTHOR AUTHOR'S ORGANIZ ATION 2025 [facility] Goals (unrecognized section and content) Goals may be documented in a n alternate sectionGoals may be documented in an alternate sectionGoals may be documented in an alternate sectionGoals may be documented in an alternate section Care Teams (unrecognized sec tion and content) Team Status: Active Member Role Status Dates Dr. Linda Benavidez MD Family Provider Active Dottie Diaz , STATIONARY EQUIPMENT MECHANIC-C Primary Care Provider Active Team Status: Inactive Member Role Status Dates Dottie Diaz , STATIONARY EQUIPMENT MECHANIC-C Primary Care Provider Active Dr. Christiano Meneses , Emergency Provider Active Team Status: Inactive Member Role Status Dates Dottie Diaz , STATIONARY EQUIPMENT MECHANIC-C Primary Care Provider, Referrin g Provider Active Robert JENKINS PA Attending Provider Active Team Status: Inactive Member Role Status Dates Dottie Diaz , STATIONARY EQUIPMENT MECHANIC-C Primary Care Provider Active Dr. Christiano Meneses DO Attending Provider, Emergency P meron Active Team Status: Inactive Member Role Status Dates Dottie Diaz , STATIONARY EQUIPMENT MECHANIC-C Primary Care Provider Active Robert JENKINS PA Attending Provider Active Team Status: Inactive Member Role Status Dates Dottie Diaz , STATIONARY EQUIPMENT MECHANIC-C Primary Care Provider Active Dr. Lele Nguyen , Emergency Provider Active Mobile Crane Operator Relationship Specialty Start Date End Date Dottie Diaz APRN.ECCLESIASTICAL WORKER [address] [place] [phone] PCP - General Family Medicine 02/20/23 Mobile Crane Operator Relationship Specialty Start Date End Date Dottie Diaz APRN.ECCLESIASTICAL WORKER [address] [place] [address] [phone] PCP - General Family Medicine 02/20/23 Mobile Crane Operator Relationship Specialty Start Date End Date Dottie Diaz APRN.ECCLESIASTICAL WORKER [address] [place] [address] [phone] PCP - General Family Medicine 02/20/23 Mobile Crane Operator Relationship Specialty Start Date End Date Dottie Diaz APRN.ECCLESIASTICAL WORKER [address] [place] [phone] PCP - General Family Medicine 02/20/23 Mobile Crane Operator Relationship Specialty Start Date End Date Dottie Diaz EMBOSSED OR IMPRESSED LETTERING PAINTER.ECCLESIASTICAL WORKER [address] [place] [phone] PCP - General Family Medicine 02/20/23 Mobile Crane Operator Relationship Specialty Start Date End Date Dottie Diaz EMBOSSED OR IMPRESSED LETTERING PAINTER.ECCLESIASTICAL WORKER [address] [place] [phone] PCP - General Family Medicine 02/20/23 Mobile Crane Operator Relationship Specialty Start Date End Date Dottie Diaz EMBOSSED OR IMPRESSED LETTERING PAINTER.ECCLESIASTICAL WORKER [address] [place] [phone] PCP - General Family Medicine 02/20/23 Mobile Crane Operator Relationship Specialty Start Date End Date Dottie Diaz EMBOSSED OR IMPRESSED LETTERING PAINTER.ECCLESIASTICAL WORKER [address] [place] [phone] PCP - General Family Medicine 02/20/23 Mobile Crane Operator Relationship Specialty Start Date End Date Dottie Diaz, EMBOSSED OR IMPRESSED LETTERING PAINTER.ECCLESIASTICAL WORKER [address] [place] [phone] PCP - General Family Medicine 02/20/23 Mobile Crane Operator Relationship Specialty Start Date End Date Dottie Diaz, EMBOSSED OR IMPRESSED LETTERING PAINTER.ECCLESIASTICAL WORKER [address] [place] [address] [phone] PCP - General Family Medicine 02/20/23 Mobile Crane Operator Relationship Specialty Start Date End Date Dottie Diaz, EMBOSSED OR IMPRESSED LETTERING PAINTER.ECCLESIASTICAL WORKER [address] [place] [phone] PCP - General Family Medicine 02/20/23 Mobile Crane Operator Relationship Specialty Start Date End Date Dottie Diaz APRN.ECCLESIASTICAL WORKER [address] [place] [phone] PCP - General Family Medicine 02/20/23 Mobile Crane Operator Relationship Specialty Start Date End Date Dottie Diaz APRN.ECCLESIASTICAL WORKER [address] [place] [phone] PCP - General Family Medicine 02/20/23 Mobile Crane Operator Relationship Specialty Start Date End Date Dottie Diaz APRN.ECCLESIASTICAL WORKER [address] [place] [phone] PCP - General Family Medicine 02/20/23 Mobile Crane Operator Relationship Specialty Start Date End Date Dottie Diaz APRN.ECCLESIASTICAL WORKER [address] [place] [address] [phone] PCP - General Family Medicine 02/20/23 Mobile Crane Operator Relationship Specialty Start Date End Date Dottie Diaz APRN.ECCLESIASTICAL WORKER [address] [place] [phone] PCP - General Family Medicine 02/20/23 Mobile Crane Operator Relationship Specialty Start Date End Date Dottie Diaz APRN.ECCLESIASTICAL WORKER [address] [place] [address] [phone] PCP - General Family Medicine 02/20/23 Mobile Crane Operator Relationship Specialty Start Date End Date Dottie Diaz APRN.ECCLESIASTICAL WORKER [address] [place] [address] [phone] PCP - General Family Medicine 02/20/23 Mobile Crane Operator Relationship Specialty Start Date End Date Dottie Diaz APRN.ECCLESIASTICAL WORKER [address] [place] [address] [phone] PCP - General Family Medicine 02/20/23 Mobile Crane Operator Relationship Specialty Start Date End Date Dottie Diaz APRN.ECCLESIASTICAL WORKER [address] [place] [address] [phone] PCP - General Family Medicine 02/20/23 Mobile Crane Operator Relationship Specialty Start Date End Date Dottie Diaz APRN.ECCLESIASTICAL WORKER [address] [place] [phone] PCP - General Family Medicine 02/20/23 Mobile Crane Operator Relationship Specialty Start Date End Date Dottie Diaz APRN.ECCLESIASTICAL WORKER [address] [place] [phone] PCP - General Family Medicine 02/20/23 Mobile Crane Operator Relationship Specialty Start Date End Date Dottie Diaz EMBOSSED OR IMPRESSED LETTERING PAINTER.ECCLESIASTICAL WORKER [address] [place] [address] [phone] PCP - General Family Medicine 02/20/23 Mobile Crane Operator Relationship Specialty Start Date End Date Dottie Diaz APRN.ECCLESIASTICAL WORKER [address] [place] [phone] PCP - General Family Medicine 02/20/23 Mobile Crane Operator Relationship Specialty Start Date End Date Dottie Diaz EMBOSSED OR IMPRESSED LETTERING PAINTER.ECCLESIASTICAL WORKER [address] [place] [address] [phone] PCP - General Family Medicine 02/20/23 Source Comments (unrecognize d section and content) In the event this informatio n is protected by the Federal Confidentiality of Alcohol and Drug Abuse Patient Records regulations: The Federal rules restrict any use of the information to criminally investigate or prosecute any alcohol or drug abuse patient.[facility] the event this information is protected by the Federal Confidentiality of Alcohol and Drug Abuse Patient Records regulations: The Federal rules restrict any use of the information to criminally investigate or prosecute any alcohol or drug abuse patient.[facility] the event this information is protected by the Federal Confidentiality of Alcohol and Drug Abuse Patient Records regulations: The Federal rules restrict any use of the information to criminally investigate or prosecute any alcohol or drug abuse patient.[facility] the event this information is protected by the Federal Confidentiality of Alcohol and Drug Abuse Patient Records regulations: The Federal rules restrict any use of the information to criminally investigate or prosecute any alcohol or drug abuse patient.[facility] the event this information is protected by the Federal Confidentiality of Alcohol and Drug Abuse Patient Records regulations: The Federal rules restrict any use of the information to criminally investigate or prosecute any alcohol or drug abuse patient.[facility] the event this information is protected by the Federal Confidentiality of Alcohol and Drug Abuse Patient Records regulations: The Federal rules restrict any use of the information to criminally investigate or prosecute any alcohol or drug abuse patient.[facility] the event this information is protected by the Federal Confidentiality of Alcohol and Drug Abuse Patient Records regulations: The Federal rules restrict any use of the information to criminally investigate or prosecute any alcohol or drug abuse patient.[facility] the event this information is protected by the Federal Confidentiality of Alcohol and Drug Abuse Patient Records regulations: The Federal rules restrict any use of the information to criminally investigate or prosecute any alcohol or drug abuse patient.[facility] the event this information is protected by the Federal Confidentiality of Alcohol and Drug Abuse Patient Records regulations: The Federal rules restrict any use of the information to criminally investigate or prosecute any alcohol or drug abuse patient.[facility] the event this information is protected by the Federal Confidentiality of Alcohol and Drug Abuse Patient Records regulations: The Federal rules restrict any use of the information to criminally investigate or prosecute any alcohol or drug abuse patient.[facility] the event this information is protected by the Federal Confidentiality of Alcohol and Drug Abuse Patient Records regulations: The Federal rules restrict any use of the information to criminally investigate or prosecute any alcohol or drug abuse patient.[facility] the event this information is protected by the Federal Confidentiality of Alcohol and Drug Abuse Patient Records regulations: The Federal rules restrict any use of the information to criminally investigate or prosecute any alcohol or drug abuse patient.[facility] the event this information is protected by the Federal Confidentiality of Alcohol and Drug Abuse Patient Records regulations: The Federal rules restrict any use of the information to criminally investigate or prosecute any alcohol or drug abuse patient.[facility] the event this information is protected by the Federal Confidentiality of Alcohol and Drug Abuse Patient Records regulations: The Federal rules restrict any use of the information to criminally investigate or prosecute any alcohol or drug abuse patient.[facility] the event this information is protected by the Federal Confidentiality of Alcohol and Drug Abuse Patient Records regulations: The Federal rules restrict any use of the information to criminally investigate or prosecute any alcohol or drug abuse patient.[facility] the event this information is protected by the Federal Confidentiality of Alcohol and Drug Abuse Patient Records regulations: The Federal rules restrict any use of the information to criminally investigate or prosecute any alcohol or drug abuse patient.[facility] the event this information is protected by the Federal Confidentiality of Alcohol and Drug Abuse Patient Records regulations: The Federal rules restrict any use of the information to criminally investigate or prosecute any alcohol or drug abuse patient.[facility] the event this information is protected by the Federal Confidentiality of Alcohol and Drug Abuse Patient Records regulations: The Federal rules restrict any use of the information to criminally investigate or prosecute any alcohol or drug abuse patient.[facility] the event this information is protected by the Federal Confidentiality of Alcohol and Drug Abuse Patient Records regulations: The Federal rules restrict any use of the information to criminally investigate or prosecute any alcohol or drug abuse patient.[facility] the event this information is protected by the Federal Confidentiality of Alcohol and Drug Abuse Patient Records regulations: The Federal rules restrict any use of the information to criminally investigate or prosecute any alcohol or drug abuse patient.[facility] the event this information is protected by the Federal Confidentiality of Alcohol and Drug Abuse Patient Records regulations: The Federal rules restrict any use of the information to criminally investigate or prosecute any alcohol or drug abuse patient.[facility] the event this information is protected by the Federal Confidentiality of Alcohol and Drug Abuse Patient Records regulations: The Federal rules restrict any use of the information to criminally investigate or prosecute any alcohol or drug abuse patient.[facility] the event this information is protected by the Federal Confidentiality of Alcohol and Drug Abuse Patient Records regulations: The Federal rules restrict any use of the information to criminally investigate or prosecute any alcohol or drug abuse patient.[facility] the event this information is protected by the Federal Confidentiality of Alcohol and Drug Abuse Patient Records regulations: The Federal rules restrict any use of the information to criminally investigate or prosecute any alcohol or drug abuse patient.[facility] the event this information is protected by the Federal Confidentiality of Alcohol and Drug Abuse Patient Records regulations: The Federal rules restrict any use of the information to criminally investigate or prosecute any alcohol or drug abuse patient.[facility] the event this information is protected by the Federal Confidentiality of Alcohol and Drug Abuse Patient Records regulations: The Federal rules restrict any use of the information to criminally investigate or prosecute any alcohol or drug abuse patient.[facility] the event this information is protected by the Federal Confidentiality of Alcohol and Drug Abuse Patient Records regulations: The Federal rules restrict any use of the information to criminally investigate or prosecute any alcohol or drug abuse patient.[facility] the event this information is protected by the Federal Confidentiality of Alcohol and Drug Abuse Patient Records regulations: The Federal rules restrict any use of the information to criminally investigate or prosecute any alcohol or drug abuse patient.[facility] the event this information is protected by the Federal Confidentiality of Alcohol and Drug Abuse Patient Records regulations: The Federal rules restrict any use of the information to criminally investigate or prosecute any alcohol or drug abuse patient.[facility]In the event this information is protected by the Federal Confidentiality of Alcohol and Drug Abuse Patient Records regulations: The Federal rules restrict any use of the information to criminally investigate or prosecute any alcohol or drug abuse patient.[facility] PrebleIn the event this information is protected by the Federal Confidentiality of Alcohol and Drug Abuse Patient Records regulations: The Federal rules restrict any use of the information to criminally investigate or prosecute any alcohol or drug abuse patient.[facility] PrebleIn the event this information is protected by the Federal Confidentiality of Alcohol and Drug Abuse Patient Records regulations: The Federal rules restrict any use of the information to criminally investigate or prosecute any alcohol or drug abuse patient.[facility]bleIn the event this information is protected by the Federal Confidentiality of Alcohol and Drug Abuse Patient Records regulations: The Federal rules restrict any use of the information to criminally investigate or prosecute any alcohol or drug abuse patient.[facility]bleIn the event this information is protected by the Federal Confidentiality of Alcohol and Drug Abuse Patient Records regulations: The Federal rules restrict any use of the information to criminally investigate or prosecute any alcohol or drug abuse patient.[facility]bleIn the event this information is protected by the Federal Confidentiality of Alcohol and Drug Abuse Patient Records regulations: The Federal rules restrict any use of the information to criminally investigate or prosecute any alcohol or drug abuse patient.[facility]bleIn the event this information is protected by the Federal Confidentiality of Alcohol and Drug Abuse Patient Records regulations: The Federal rules restrict any use of the information to criminally investigate or prosecute any alcohol or drug abuse patient.[facility]bleIn the event this information is protected by the Federal Confidentiality of Alcohol and Drug Abuse Patient Records regulations: The Federal rules restrict any use of the information to criminally investigate or prosecute any alcohol or drug abuse patient.[facility] Reason for Visit (unrecogniz ed section and content) Reason Comments UTI Reason Comments Results Reason Comments Establish Care Reason Comments Patient Update Patient Question Reason Comments Forms Reason Comments Results Reason Comments Follow Up Urinary Frequency Urinary Incontinence Specialty Diagnoses / Procedures Referred By Contac t Referred To Contact Urology Diagnoses Painful urination Procedures CONSULT TO UROLOGY OFFICE/OUTPATIENT [facility] 60-74 MINUTES Dottie Diaz APRN.ECCLESIASTICAL WORKER [address] [place] [address] Alida Jim PA-C [address] [place] [address] Referral ID Status Reason Start Date Expiration Date V isits Requested Visits Authorized [id number] Closed PCP Requested Referral 01/30/2023 01/30/2024 1 1 Reason Comments Cystoscopy Scheduling Reason Comments Blood In Urine Dysuria Specialty Diagnoses / Procedures Referred By Contac t Referred To Contact Urology / UROLOGY Diagnoses Painful micturition, unspecified Frequency of micturition Other microscopic hematuria Painful urination [R30.9] Urinary frequency [R35.0] Other microscopic hematuria [R31.29] Procedures CYSTOURETHROSCOPY CYSTOSCOPY Henry Pino APRN.ECCLESIASTICAL WORKER, DNP [address] [id number] Solomon Valdes MD [address] [place] [address] Referral ID Status Reason Start Date Expiration Date Visits Re quested Visits Authorized [id number] Closed 03/23/2023 08/09/2023 1 1 Reason Comments Patient Question Memory Loss Reason Comments Appointment Reason Comments Radiology US Specialty Diagnoses / Procedures Referred By Contac t Referred To Contact US IMAGING Diagnoses Acute bilateral low back pain without sciatica Burning with urination Procedures US KIDNEY/BLADDER US RETROPERITONEAL REAL TIME W/IMAGE COMPLETE Dottie Daiz APRN.YOLANDA [address] [place] [address] [facility] [place] [address] Referral ID Status Reason Start Date Expiration Date V isits Requested Visits Authorized [id number] Closed Auto-Generate d Referral 02/26/2023 03/27/2024 1 1 Reason Comments Chest Pain Reason Comments Echo testing problem Reason Comments Erroneous encounter-disregard Reason Comments Patient Question Reason Comments New Patient Pt reported Hx sleep walking, fatigue, naps during day. Specialty Diagnoses / Procedures Referred By Contac t Referred To Contact Diagnoses History of sleep walking Procedures CONSULT TO SLEEP MEDICINE - ADULT OFFICE/OUTPATIENT NEW HIGH MDM 60-74 MINUTES Dottie Diaz APRN.ECCLESIASTICAL WORKER [address] [place] [address] Joan Caban APRN.YOLANDA [address] [place] [address] Referral ID Status Reason Start Date Expiration Date V isits Requested Visits Authorized [id number] Closed PCP Requested Referral 05/15/2023 05/14/2024 1 1 Reason Comments Back Pain Reason Comments sleep concerns Reason Comments Stress Test Instructions for 12/05/24 Reason Comments Urinary Frequency burning with urinati on, abdominal and low back pain x 1 year, right ring finger redness x 3 days Reason Comments Follow Up Reason Comments Follow Up Weight concern Reason Onset Date Comments Results 02/06/2025 Reason Comments Abdominal Pain question due to ulce rative colitis and does have an appointment with general surgery for colonoscopy consult. Having a lot of constipation issuesHas a list of symptoms that go a long with ulcerative colitis.Has been having feels of being cold and question if anemic Reason Comments Follow Up Reason Comments Appointment Reason Comments Consult Abdominal Pain Weight Loss Specialty Diagnoses / Procedures Referred By Brady t Referred To Contact General Surgery Diagnoses Lower abdominal pain Weight loss, unintentional Abnormal stools Procedures CONSULT TO GENERAL SURGERY CONSULT TO GENERAL SURGERY OFFICE/OUTPATIENT [facility] 60 MINUTES Dottie Diaz APRN.[facility] [address] [place] [address] Phone: tel: fax: Referral ID Status Reason Start Date Expiration Date V isits Requested Visits Authorized [id number] Closed PCP Requested Referral 02/03/2025 02/03/2026 1 1 FOR RECORDS PERTAINING TO PATIENTS WHO ARE OR HAVE BEEN ENROLLED IN A CHEMICAL DEPENDENCY/SUBSTANCEABUSE PROGRAM, SOME INFORMATION MAY BE OMITTED. This clinical summary was aggregated from multiple sources. Caution should be exercised in using it in the provision of clinical care. This summary normalizes information from multiple sources, and as a consequence, information in this document may materially change the coding, format and clinical context of patient data. In addition, data may be omitted in some cases. CLINICAL DECISIONS SHOULD BE BASED ON THE PRIMARY CLINICAL RECORDS. [employer] provides no warranty or guarantee of the accuracy or completeness of information in this document.
--- NOTE | 2025-03-18 07:51 | ED.VIS.GI ---
HPI HPI - GI History of Present Illness Chief Complaint: Abd Pain Informant: patient Abdominal Pain/Flank Pain Onset: Weeks Context: Gradual Onset Timing: Intermittent Quality: Aching Location: Diffuse Current Severity: Gone Maximum Severity: Mild Worsened by: Nothing Relieved by: Nothing Nausea/Vomiting/Emesis GI Symptom: Positive for Nausea Onset: Weeks Diarrhea/Melena/Hematochezia GI Symptom: Negative for Diarrhea, Melena or Hematochezia Associated Symptoms Associated Symptoms: Negative for Dysuria, Frequency, Hematuria or Urgency Narrative Narrative: 40-year-old male history of colitis and prior peptic ulcer disease and hypertension. Currently on no medications. Said years ago when he was drinking almost daily and taking ibuprofen he developed peptic ulcer. It was diagnosed on endoscopy. States recently just had some intermittent abdominal pain over the last several weeks. Denies vomiting. Denies diarrhea. Denies melena. Denies any dysuria. No drastic weight change. States he is trying to get much more healthy quit smoking about a year ago he quit vaping several months ago. He is eating more healthy. Working out. Currently he is not on any antiulcer or reflux medications. Prior similar symptoms: Yes Recent Illness/Hospitalization: No PFSH PFS Medical History Seizure Stomach ulcer Hypertension Home Medications ?Medication ?Instructions ?Recorded ?Last Taken ?Type azithromycin 500 mg tablet 500 mg PO DAILY #4 tabs 01/19/23 Unknown Rx melatonin 10 mg capsule 10 mg PO HS PRN 01/19/23 Unknown History cephalexin 500 mg capsule 500 mg PO Q6 #39 CAPSULES 02/28/24 Unknown Rx sulfamethoxazole 800 1 tab PO BID #19 tabs 02/28/24 Unknown Rx mg-trimethoprim 160 mg tablet (Bactrim DS) pantoprazole 20 mg tablet,delayed 20 mg PO DAILY #30 tabs 03/18/25 Unknown Rx release (Protonix) Allergy/AdvReac Type Severity Reaction Status Date / Time haloperidol (From Haldol) Allergy Other Verified 03/18/25 07:34 lithium AdvReac Other Verified 03/18/25 07:34 olanzapine (From Zyprexa) AdvReac Other Verified 03/18/25 07:34 Surgical History History of esophagogastroduodenoscopy (EGD) Social History Smoking Status: Current every day smoker tobacco type: cigarettes ROS ROS ED ROS Narrative Abdominal pain. Nausea. Constitutional Constitutional ED: Denies chills or fever(s) Cardiovascular Cardiovascular: Denies chest pain Respiratory/Chest Respiratory/Chest: Denies cough or dyspnea Gastrointestinal Gastrointestinal: Reports abdominal pain and nausea; Denies constipation, diarrhea, melena or vomiting Genitourinary Genitourinary ED: Denies dysuria or hematuria Musculoskeletal Musculoskeletal: Denies arthralgias or back pain Integumentary Denies abscess Neurologic Neurologic: Denies headache(s) Psychiatric Psychiatric: Denies anxiety Endocrine Endocrinology: Denies polydipsia Hematologic/Lymphatic Hematologic/Lymphatic: Denies easy bleeding, easy bruising or lymphadenopathy Allergic/Immunologic Allergic/Immunologic ED: Denies mouth swelling, tongue swelling or urticaria EXAM Physical Exam Narrative Exam Narrative: 40-year-old male sitting upright in bed. No acute distress. Accompanied by his significant other. Vital signs are stable afebrile. H EENT exam pupils round reactive light. M[employer] members. Neck nontender no JVD. No lymphadenopathy. Lungs clear to auscultation bilaterally. Heart regular rhythm rate about 55-60 no murmur. Chest wall and ribs nontender. Abdomen soft nondistended normal bowel sounds without peritoneal signs. Currently has no abdominal tenderness. No localizing tenderness. Both the right upper and right lower quadrant are nontender. No hernia or mass. No obstruction. Soft. Normal bowel sounds. Very benign abdominal exam. Moving all 4 extremities. Nontender no edema. Normal range of motion. Normal strength. Neurologically he is awake alert. Answering questions and following commands. Const Vital Signs: 03/18/25 07:35 Temperature 97.8 F Temperature Source Oral Pulse Rate 53 L Respiratory Rate 16 Blood Pressure 136/89 H Blood Pressure Mean 104 Pulse Ox 100 Oxygen Delivery Method Room Air Positive well nourished and well developed; Negative for obese, cachectic, contractures or unkempt General Appearance ED: well developed and NAD; Negative for unkempt, cachectic, contractures or pallor Nutritional Appearance: Negative for cachectic or obese HEENT Reports moist mucous membranes normocephalic and atraumatic Eyes PERRL and EOMs intact bilaterally General Eye ED: Negative for pale conjunctiva or scleral icterus Neck no lymphadenopathy, supple and no JVD Resp normal respiratory effort and clear to auscultation bilaterally Cardio regular rate, regular rhythm, S1 normal heart sound, S2 normal heart sound and no murmurs GI non-tender, non-distended and no masses Auscultation: normoactive bowel sounds Palpation: soft; Negative for tender, guarding or rebound tenderness present Back/Spine no CVA tenderness General Back: Negative for CVA tenderness Cervical Spine: Negative for cervical spine tenderness Thoracic Spine / Upper Back: Negative for thoracic spinal tenderness Lumbar Spine / Lower Back: Negative for lumbar spinal tenderness Extremity full ROM General Extremety ED: Negative for edema or tenderness General Extremity: Negative for edema Neuro CN's II-XII intact bilaterally and moves all extremities Sensorium / Orientation: alert, oriented to person, oriented to place and oriented to time; Negative for orientation impaired, confused or lethargic Motor Exam: strength 5/5 throughout Psych mental status grossly normal and thought process normal Appearance: Negative for unkempt Skin no wounds General Skin Exam: Negative for jaundice or pallor Lesions: no lesions Rashes: no rashes Trauma: Negative for abrasion Nails: Negative for discolored MDM MDM MDM Narrative Medical decision making narrative: 40 yo male with intermittent abd pain with a prior history of peptic ulcer. Currently is on no meds for that. His exam is benign he does not need imaging. Will do screening labs. He is not having any current hematemesis or melena. No black or bloody stools. Repeat exam patient is doing well at 8:50 AM. We went over his test results. Again he does not need imaging. He be discharged home with outpatient follow-up with his primary care provider. He will be restarted on Protonix due to his history of reflux and gastric ulcer. History & Record Review Discussion w/independent historian: Patient and Family Lab Data Attestation: I reviewed the patient's lab results. Lab results narrative: CBC normal. White count of 6. H&H 15 and 44. Platelets 249 Chemistry shows sodium 138. Gap 13. BUN and creatinine are normal. Glucose 107. Liver enzymes normal. Lipase is 99. Labs: Laboratory Results - last 24 hr 03/18/25 07:55 WBC 6.2 RBC 5.12 Hgb 15.6 Hct 44.5 MCV 86.9 MCH 30.5 MCHC 35.1 RDW Std Deviation 39.6 RDW Coeff of Carmen 12.5 Plt Count 249 MPV 9.2 Immature Gran % (Auto) 0.200 Neut % (Auto) 64.3 Lymph % (Auto) 21.9 [place] % (Auto) 11.0 H Eos % (Auto) 1.8 Baso % (Auto) 0.8 Absolute Neuts (auto) 4.0 Absolute Lymphs (auto) 1.36 Nucleated RBC % 0 Sodium 138 Potassium 3.9 Chloride 105 Carbon Dioxide 19.6 L Anion Gap 13 BUN 11 Creatinine 0.87 Estim Creat Clear Calc 137.18 Est GFR (MDRD) Non-Af 111 BUN/Creatinine Ratio 12.6 Glucose 107 H Calcium 9.7 Total Bilirubin 1.21 AST 18 ALT 11 Alkaline Phosphatase 76 Total Protein 7.1 Albumin 4.8 Globulin 2.3 Albumin/Globulin Ratio 2.1 Lipase 99 H Discharge Plan Triage Chief Complaint: Abd Pain ED Provider: Mitchel Calderón Dx/Rx/DC Orders Clinical Impression: Abdominal pain Instructions: Abdominal Pain Prescriptions: New pantoprazole [Protonix] 20 mg tablet,delayed release (DR/EC) 20 mg PO DAILY Qty: 30 0RF No Action melatonin 10 mg capsule 10 mg PO HS PRN azithromycin 500 mg tablet 500 mg PO DAILY Qty: 4 0RF Rx Instructions: Take 2 tablets today and then 1 tablet daily for the next 2 days. cephalexin 500 mg capsule 500 mg PO Q6 Qty: 39 0RF sulfamethoxazole-trimethoprim [Bactrim DS] 800-160 mg tablet 1 tab PO BID Qty: 19 0RF Primary Care Provider: Marta Lauren Referrals: Marta Lauren, SPECIAL INSPECTOR-C [Primary Care Provider] - 1 Week if not improving Activity Restrictions/Additional Instructions: Follow-up with your primary care provider as needed. Restart the medication for your reflux and history of stomach ulcer. Print Language: Yi Disposition Disposition: Home, Self Care
[2025-03-18 08:04] LABS: Hematocrit 44.5 % (40-54); Hemoglobin 15.6 g/dL (13.0-16.5); Immature Granulocytes Count 0.010 X10^3/uL (0.0-0.0); Mean Corp Hgb Conc 35.1 g/dL (32-36); Mean Corpuscular Volume 86.9 fL (80-94); Mean Platelet Vol. 9.2 fl (6.2-12.0); NRBC Flagged by Analyzer 0 % (0-5); Platelet Count 249 K/mm3 (150-450); RBC Distribution Width CV 12.5 % (11.6-14.6); RBC Distribution Width SD 39.6 fl (35.1-43.9); Red Blood Count 5.12 M/mm3 (4.6-6.2); White Blood Count 6.2 K/mm3 (4.4-11.0)
[2025-03-18 08:48] LABS: AST(SGOT) 18 U/L (<=37); Alanine Aminotransfer ALT/SGPT 11 U/L (<=46); Albumin, Serum 4.8 g/dL (3.5-5.0); Alkaline Phosphatase 76 U/L (40-129); Anion Gap 13 (5-15); BUN 11 mg/dL (4-19); BUN/Creat Ratio 12.6 RATIO (10-20); Calcium,Total 9.7 mg/dL (7.6-11.0); Carbon Dioxide 19.6 mmol/L (21.0-32.0); Chloride 105 mmol/L (98-108); Estimated Creatinine Clearance 137.18 ml/min (50-250); Globulin 2.3 g/dL (2.2-4.2); Glucose 107 mg/dL (70-99); Lipase 99 U/L (13-75); Potassium 3.9 mmol/L (3.3-5.1)
[2025-03-18 08:56] VITALS: BP 139/73; PULSE 70; RESP 18; TEMP 36.7; O2SAT 100
== END 2025-03-18 08:57 | disposition home or self-care (01) ==
PROVIDERS: Emergency Provider Emergency Medicine; PCP Nurse Practitioner Family; Visit Provider Emergency Medicine
DX: R10.9 Unspecified abdominal pain (principal); F17.210 Nicotine dependence, cigarettes, uncomplicated
CPT/HCPCS: 80053; 83690; 85025; 99283; A4216